=== PATIENT | male | born 1945 | race Caucasian/White ===

== ENCOUNTER 2019-12-05 16:17 | Emergency (ER) | payer OTHER, MEDICARE ==
--- OUTSIDE RECORDS SUMMARY | 2019-12-05 17:08 | XMS REPORT ---
:1945 Author Organization eClinicalWorks Care Team Providers Name Role Phone Norma Rodríguez Provider Role Unavailable Allergies No Known Allergies Problems Problem Type Condition Code Onset Dates Condition Statu s Problem Subcutaneous mass R22.9 Active Problem History of TIA (transient ischemic Z86.73 Active attack) Problem Urinary frequency R35.0 Active Problem Degenerative disc disease, lumbar M51.36 Active Problem Thrombocytopenia D69.6 Active Problem Erectile dysfunction, unspecified N52.9 Active erectile dysfunction type Problem Degenerative disc disease, cervical M50.30 Active Problem Carotid atherosclerosis, I65.29 Act hesham unspecified laterality Problem Chronic kidney disease, unspecified N18.9 Active CKD stage Problem Abdominal aortic aneurysm (AAA) I71.4 Active without rupture Problem BPH w/o urinary obs/LUTS N40.0 Act hesham Problem Elevated BP without diagnosis of R03.0 Active hypertension Problem OAB (overactive bladder) N32.81 Act hesham Problem Right arm pain M79.601 Active Problem Other chronic pain G89.29 Active Problem Left shoulder pain, unspecified M25.512 Active chronicity Problem Essential hypertension I10 Activ e Problem Pain of upper abdomen R10.10 Active Problem Diverticulosis of large intestine K57.30 Active without hemorrhage Problem Depression screening Z13.31 Active Problem Total bilirubin, elevated R17 Ac tive Problem Skin lesions L98.9 Active Problem Chronic pain syndrome G89.4 Active Problem Neck pain M54.2 Active Problem Low back pain M54.5 Active Problem Generalized abdominal pain R10.84 A ctive Assessment Carotid atherosclerosis, I65.29 Act hesham unspecified laterality Problem Bloating R14.0 Active Problem Nausea R11.0 Active Problem Personal history of other diseases Z87.19 Active of the digestive system Problem Other specified postprocedural Z98.890 Active states Problem Acute diverticulitis of intestine K57.92 Active Problem Change in bowel habits R19.4 Activ e Problem Left groin pain R10.32 Active Medications Medication Code System Code Instructions Start Date End Date Status Dosage Plavix NDC [id number] 75 MG Orally Once Active 1 tablet a day Results No Known Results Summary Purpose eClinicalWorks Submission
--- OUTSIDE RECORDS SUMMARY | 2019-12-05 17:08 | XMS REPORT | Continuity of Care Document ---
:[address] [facility] t Address [address] [place] [address] Care Team Providers Name Role Phone Unavailable Unavailable Unavailable Problems Condition Condition Condition Status Onset Resolution Last Treating Co mments Source Name Details Category Date Date Treatment Clinician Date Degenerati Degenerati Problem Active [facility]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 [facility] - disease, disease, Memori a cervical cervical l [facility] Generalize Generalize Problem Active [facility] - abdominal abdominal Tru rose mary pain pain l [facility] Personal Personal Problem [facility] of history of [facility] - other other Memoria diseases diseases l of the of the [facility] digestive digestive ent system system Clinics Acute Acute Problem Active [facility] diverticul diverticul T[facility]a kes - itis of itis of Memoria intestine intestine l [facility] Other Other Problem Active [facility] specified specified Luke s - postproced postproced Me moria ural ural l states states [facility] Abdominal Abdominal Problem Active [facility] aortic aortic [facility] - aneurysm aneurysm Memori a (AAA) (AAA) l without without Outpati rupture rupture ent Clinics Change in Change in Problem Active [facility] bowel bowel [facility] - habits habits Memoria l [facility] Bloating Bloating Problem [facility] Left groin Left groin Problem Active [facility] pain pain [facility] - Memoria l [facility] Nausea Nausea Problem Active [facility] Thrombocyt Thrombocyt Problem Active [facility] openia openia [facility] - Memoria l [facility] History of History of Problem Active [facility] TIA TIA [facility] - (transient (transient Me moria ischemic ischemic l attack) attack) [facility] Degenerati Degenerati Problem Active [facility]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 [facility] - disease, disease, Memori a lumbar lumbar l [facility] Chronic Chronic Problem Active [facility] kidney kidney [facility] - disease, disease, Memori a unspecifie unspecifie l d CKD d CKD Out[facility]i stage stage ent Clinics Elevated Elevated Problem Active [facility] BP without BP without [facility]a k[facility] - diagnosis diagnosis Tru rose mary of of l hypertensi hypertensi Ou tpati on on ent Clinics Urinary Urinary Problem Active [facility] frequency frequency Luke s - Mem[facility] l [facility] ent Clinics Total Total Problem Active [facility] bilirubin, bilirubin, [facility]a kes - elevated elevated Memori a l Outpati ent Clinics Carotid Carotid Diagnosis Active [facility] atheroscle atheroscle [facility] - rosis, rosis, Memoria unspecifie unspecifie l d d Outpati laterality laterality en t Clinics 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 [facility] - n, n, Memoria unspecifie unspecifie l d erectile 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 n type n type Clinics OAB OAB Problem Active [facility] (overactiv (overactiv [facility]a kes - e bladder) e bladder) Me moria l Outpati ent Clinics 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 [facility] urinary urinary [facility] - obs/LUTS obs/LUTS Memori a l Outpati ent Clinics Pain of Pain of Problem Active [facility] upper upper [facility]ukes - abdomen abdomen Memoria l [facility] Subcutaneo Subcutaneo Problem Active [facility] us mass us mass [facility] - [facility] l [facility] ent Clinics Diverticul Diverticul Problem Active [facility] osis of osis of Lukes - large large Memoria intestine intestine l without without Outpati hemorrhage hemorrhage en t Clinics Essential Essential Problem Active [facility] hypertensi hypertensi [facility]a kes - on on Memoria l Out[facility]i ent Clinics Chronic Chronic Problem Active [facility] pain pain [facility] - syndrome syndrome Memori a l [facility]pati ent Clinics Left Left Problem Active [facility] shoulder shoulder [facility] - pain, pain, Memoria unspecifie unspecifie l d d Outpati chronicity chronicity en t Clinics Neck pain Neck pain Problem Active [facility]ics Low back Low back Problem Active [facility] pain pain [facility] Right arm Right arm Problem Active [facility] pain pain [facility] Other Other Problem Active [facility] chronic chronic [facility] - pain pain [facility] ent [facility] Skin Skin Problem Active [facility] lesions lesions [facility] Depression Depression Problem Active C [facility] screening screening [facility] Allergies, Adverse Reactions, Alerts This patient has no known allergies or adverse reactions. Medications Ordered Filled Start Stop Current Ordering Indication Dosage Frequency Signature Comments Components Source Medication Medication Date Date Medication? Clinician (SIG) Name Name Plavix Plavix Yes Norma [address] [facility] Procedures This patient has no known procedures. Encounters Start End Encounter Admission Attending Care Care Encounter Source Date/Time Date/Time Type Type Clinicians Facility Department ID 2019-09-16 2019-09-16 [facility] [id number] [address] 10[facility]01[facility]00 10:01:00 [facility] ent [facility] 2019-09-02 2019-09-02 [facility] [id number] [address] 09:51:00 09:51:00 t Specialty/U Taina kes - Specialty rology Memori a /Urology Clinic l Clinic [facility] ent [facility] 2019-08-06 2019-08-06 [facility] [id number] [address] 09:00:00 09:00:00 t Specialty/U Taina kes - Specialty rology Memori a /Urology Clinic l [facility] ent [facility] 2019-07-27 2019-07-27 [facility] [id number] [address] 12[facility]43:00 12:43:00 [facility] ent [facility] 2019-07-23 2019-07-23 [facility] [id number] [address] 11:00:00 11:00:00 [facility] ent [facility] 2019-02-03 2019-02-03 [facility] [id number] 08:15:00 08:15:00 t Specialty/U Taina kes - Specialty rology Memori a /Urology Clinic l [facility] ent [facility] 2019-01-21 2019-01-21 [facility] [id number] 09:40:00 09:40:00 t [facility] Medicine Outpati ent Clinics 2019-01-14 2019-01-14 [facility] [id number] 08:00:00 08:00:00 t [facility] Medicine Outpati ent Clinics 2018-09-25 2018-09-25 [facility] [id number] 10:23:00 10:23:00 t Specialty/U Taina kes - Specialty rology Memori a /Urology Clinic l Clinic Outpati ent Clinics 2018-08-05 2018-08-05 [facility] [id number] 08:15:00 08:15:00 t Specialty/U Taina kes - Specialty rology Memori a /Urology Clinic l Clinic Outpati ent Clinics 2018-07-09 2018-07-09 [facility] [id number] 09:30:00 09:30:00 t [facility] Medicine Outpati ent Clinics 2018-06-25 2018-06-25 [facility] [id number] 09:45:00 09:45:00 t Specialty/U Taina kes - Specialty rology Memori a /Urology Clinic l Clinic Outpati ent Clinics 2018-01-23 2018-01-23 [facility] [id number] 08:30:00 08:30:00 t [facility] Outpati ent Clinics Results This patient has no known results.
[2019-12-05 17:30] LABS: Absolute Lymphocytes (CBC) 0.8 K/uL (0.7-4.9); Basophils % 0.8 % (0-1.3); Hematocrit 48.5 % (39.6-49.0); Lymphocytes % 13.3 % (15.3-44.8); MPV 9.6 fL (7.6-11.3); RBC Red Blood Cell Count 4.88 M/uL (4.33-5.43)
[2019-12-05 17:32] LABS: Protime INR 0.95
--- NOTE | 2019-12-05 17:38 | RAD REPORT ---
EXAM DESCRIPTION: RAD - Chest Single View - 12/05/2019 5:30 pm CLINICAL HISTORY: syncope Chest pain. COMPARISON: No comparisons FINDINGS: Portable technique limits examination quality. The lungs are grossly clear. The heart is normal in size. No displaced fractures. IMPRESSION: No acute intrathoracic process suspected.
[2019-12-05 17:55] LABS: ALT/SGPT 22 U/L (12-78); AST/SGOT 18 U/L (15-37); Alkaline Phosphatase 93 U/L (45-117); BUN Blood Urea Nitrogen 15 mg/dL (7-18); Bicarbonate 27 mmol/L (21-32); Bilirubin Direct 0.3 mg/dL (0-0.2); Glucose Level 99 mg/dL (74-106); Magnesium 1.9 mg/dL (1.8-2.4); NT PRO-BNP 70 pg/mL (<125); Potassium 3.2 mmol/L (3.5-5.1); Protein, Total 7.3 g/dL (6.4-8.2); Sodium Level 137 mmol/L (136-145); Troponin (Emerg Dept Use Only) < 0.02 ng/mL (0.0-0.045)
[2019-12-05] MEDS ORDERED: ACETAMINOPHEN 500 MG TAB ONE (18:11)
[2019-12-05] MEDS ORDERED: ONDANSETRON 4 MG/2 ML VIAL ONE (18:22)
--- NOTE | 2019-12-05 18:22 | RAD REPORT ---
EXAM DESCRIPTION: CT - Head Brain Wo Cont - 12/05/2019 5:57 pm CLINICAL HISTORY: HEADACHE Trauma, head injury COMPARISON: Orbits Wo Con W/ Mpr dated 12/05/2019 TECHNIQUE: All CT scans are performed using dose optimization technique as appropriate and may inclu de automated exposure control or mA/KV adjustment according to patient size. FINDINGS: Evidence of a right acute on chronic subdural hematoma is present a in the region of the r ight temporal fossa. The hematoma measures between 6-10 mm in thickness.No significant hydrocephalus. No midline shift. There is significant soft tissue swelling in the left periorbital region. Moderate hemorrhagic fluid is seen in the left maxillary antrum and sphenoid sinus. IMPRESSION: Right temporal fossa subdural hematoma is identified with acute components. No signific ant midline shift is seen. The findings were discussed with Dr. Powell on 12/05/2019 at 6:20 p.m. by telephone.
--- NOTE | 2019-12-05 18:26 | RAD REPORT ---
EXAM DESCRIPTION: CT - CTORBIT CLINICAL HISTORY: fall Fall, trauma, pain COMPARISON: No comparisons TECHNIQUE: Axial 2 mm thick images of the face were obtained with sagittal and coronal reconstructio n images. All CT scans are performed using dose optimization technique as appropriate and may include automated exposure control or mA/KV adjustment according to patient size. FINDINGS: Nondisplaced fracture is present involving the anterior and posterolateral left maxillary sinus holden. The globes and orbital contents are grossly unremarkable.Moderate soft tissue swelling is seen in the periorbital region on the left.Moderate hemorrhagic fluid is present in the left maxillary antrum an d sphenoid sinus. IMPRESSION: Nondisplaced fracture anterior and posterolateral left maxillary sinus wall. Moderate left periorbital soft tissue swelling.
[2019-12-05] MEDS ORDERED: MORPHINE 2 MG/ML SYR ONE ×2 (18:32→19:20)
--- NOTE | 2019-12-05 18:52 | EDPHYS ---
Physician Documentation [facility] Name: Volodymyr Armenta Age: 74 yrs Sex: Male : 1945 Arrival Date: 12/05/2019 Time: 16:18 Bed 19 Private MD: ED Physician Manny Powell HPI: 12/05 08:07 This 74 yrs old Male presents to ER via EMS with complaints of FAINTED. kdr 08:07 The patient has experienced syncope, collapsed. Onset: The symptoms/episode kdr began/occurred suddenly, just prior to arrival. Duration: This was a single episode, that lasted an unknown period of time. Context: the episode(s) was witnessed, by a bystander, occurred at a park, occurred while the patient was walking, Just prior to the episode the patient experienced unknown symptoms. Associated injury: Head/face: left eye, contusion, pain, swelling. Associated signs and symptoms: The patient has no apparent associated signs or symptoms. Current symptoms: headache, that is mild. The patient has experienced a previous episode, Recently passed out once without injury. The patient has not recently seen a physician. Historical: - Allergies: 12/04 16:34 No Known Allergies; ah - Home Meds: 16:34 clopidogrel oral oral [Active]; Flomax Oral [Active]; - PMHx: 16:34 TIA; - PSHx: 16:34 Hernia repair; ah - Immunization history:: Adult Immunizations up to date. - Social history:: Smoking status: Patient denies any tobacco usage or history of. Patient uses alcohol, on a daily basis. street drugs, marijuana. - Immunization history: Last tetanus immunization: < 5 years ago. ROS: 12/05 08:07 Constitutional: Negative for fever, chills, and weight loss, ENT: Negative for injury, kdr pain, and discharge, Neck: Negative for injury, pain, and swelling, Cardiovascular: Negative for chest pain, palpitations, and edema, Respiratory: Negative for shortness of breath, cough, wheezing, and pleuritic chest pain, Abdomen/GI: Negative for abdominal pain, nausea, vomiting, diarrhea, and constipation, Back: Negative for injury and pain, : Negative for injury, bleeding, discharge, and swelling, MS/Extremity: Negative for injury and deformity, Skin: Negative for injury, rash, and discoloration, Psych: Negative for depression, anxiety, suicide ideation, homicidal ideation, and hallucinations, Allergy/Immunology: Negative for hives, rash, and allergies, Endocrine: Negative for neck swelling, polydipsia, polyuria, polyphagia, and marked weight changes, Hematologic/Lymphatic: Negative for swollen nodes, abnormal bleeding, and unusual bruising. Eyes: Positive for injury or acute deformity, pain, swelling, of the left upper eyelid, left outer canthus and left inner canthus. Cardiovascular: Positive for chest pain, with cough, with movement. Exam: 08:07 Constitutional: This is a well developed, well nourished patient who is awake, alert, kdr and in no acute distress. Neck: Trachea midline, no thyromegaly or masses palpated, and no cervical lymphadenopathy. Supple, full range of motion without nuchal rigidity, or vertebral point tenderness. No Meningismus. Chest/axilla: Normal chest wall appearance and motion. Left lateral chest pain with movmetn and brathing. No lesions are appreciated. Cardiovascular: Regular rate and rhythm with a normal S1 and S2. No gallops, murmurs, or rubs. Normal PMI, no JVD. No pulse deficits. Respiratory: Lungs have equal breath sounds bilaterally, clear to auscultation and percussion. No rales, rhonchi or wheezes noted. No increased work of breathing, no retractions or nasal flaring. Abdomen/GI: Soft, non-tender, with normal bowel sounds. No distension or tympany. No guarding or rebound. No evidence of tenderness throughout. Back: No spinal tenderness. No costovertebral tenderness. Full range of motion. Skin: Warm, dry with normal turgor. Normal color with no rashes, no lesions, and no evidence of cellulitis. 08:07 Eyes: Periorbital structures: erythema, swelling, that is moderate, on the left supraorbital ridge, left upper eyelid, medial canthus of left eye and lateral canthus of left eye, contusion, that is moderate, on the left supraorbital ridge, left upper eyelid, medial canthus of left eye and lateral canthus of left eye, ecchymosis, that is moderate, on the left supraorbital ridge, left upper eyelid, medial canthus of left eye and lateral canthus of left eye. Vital Signs: 06/19 16:15 BP 140 / 99; Pulse 75; Resp 13; Pulse Ox 100% ; Weight 65.77 kg; Height 6 ft. 0 in. (182.88 cm); 16:30 BP 115 / 90; Pulse 68; Resp 16; Pulse Ox 100% ; ah 17:00 BP 142 / 89; Pulse 70; Resp 15; Pulse Ox 100% ; ah 17:30 BP 160 / 88; Pulse 70; Resp 20; Pulse Ox 100% ; ah 18:00 BP 146 / 99; Pulse 68; Resp 19; Pulse Ox 100% ; ah 18:30 BP 127 / 86; Pulse 63; Resp 18; Pulse Ox 100% ; 18:52 Temp 97.7; ah 19:00 BP 116 / 96; Pulse 65; Resp 24; Pulse Ox 100% ; ah 16:15 Body Mass Index 19.67 (65.77 kg, 182.88 cm) Union Coma Score: 18:30 Eye Response: spontaneous(4). Verbal Response: oriented(5). Motor Response: obeys hb commands(6). Total: 15. Trauma Score (Adult): 16:30 Eye Response: spontaneous(1); Verbal Response: oriented(1); Motor Response: obeys hb commands(2); Systolic BP: > 89 mm Hg(4); Respiratory Rate: 10 to 29 per min(4); Union Score: 15; Trauma Score: 12 17:30 Eye Response: spontaneous(1); Verbal Response: oriented(1); Motor Response: obeys hb commands(2); Systolic BP: > 89 mm Hg(4); Respiratory Rate: 10 to 29 per min(4); Union Score: 15; Trauma Score: 12 MDM: 18:51 Patient medically screened. [facility] 12/05 08:07 Data reviewed: vital signs, nurses notes, lab test result(s), radiologic studies. kdr Counseling: I had a detailed discussion with the patient and/or guardian regarding: the historical points, exam findings, and any diagnostic results supporting the discharge/admit diagnosis, lab results, radiology results, the need to transfer to another facility. 12/04 16:36 Order name: Glucose, Ancillary Testing; Complete Time: 17:52 EDMS 12/04 16:56 Order name: Basic Metabolic Panel; Complete Time: 18:34 kdr 12/04 16:56 Order name: CBC with Diff; Complete Time: 17:52 kdr 12/04 16:56 Order name: LFT's; Complete Time: 18:34 kdr 12/04 16:56 Order name: Magnesium; Complete Time: 18:34 kdr 12/04 16:56 Order name: NT PRO-BNP; Complete Time: 18:34 kdr 12/04 16:56 Order name: PT-INR; Complete Time: 17:52 kdr 12/04 16:56 Order name: Troponin (emerg Dept Use Only); Complete Time: 18:34 kdr 12/04 16:56 Order name: XRAY Chest (1 view); Complete Time: 17:52 kdr 12/04 17:39 Order name: CT Head Brain wo Cont; Complete Time: 18:34 kdr 12/04 17:53 Order name: Orbits Wo Con W/ Mpr; Complete Time: 18:34 EDMS 12/04 16:56 Order name: EKG; Complete Time: 16:57 kdr 12/04 16:56 Order name: Cardiac monitoring; Complete Time: 17:04 kdr 12/04 16:56 Order name: EKG - Nurse/Tech; Complete Time: 17:04 kdr 12/04 16:56 Order name: IV Saline Lock; Complete Time: 17:09 kdr 12/04 16:56 Order name: Labs collected and sent; Complete Time: 17:09 kdr 12/04 16:56 Order name: O2 Per Protocol; Complete Time: 17:04 kdr 12/04 16:56 Order name: O2 Sat Monitoring; Complete Time: 17:04 kdr Administered Medications: 12/04 18:10 Drug: Tylenol 1000 mg Route: PO; ah 19:30 Follow up: Response: No adverse reaction ah 18:20 Drug: Zofran (Ondansetron) 4 mg Route: IVP; Site: right antecubital; ah 19:30 Follow up: Response: No adverse reaction ah 18:25 Drug: morphine 2 mg Route: IVP; Site: right forearm; ah 19:30 Follow up: Response: No adverse reaction 19:03 Drug: Ancef 1 grams Route: IVPB; Site: right forearm; ah 19:29 Follow up: Response: No adverse reaction; IV Status: Completed infusion ah 19:05 Drug: Keppra 1000 mg Route: IV; Rate: calculated rate; Site: right antecubital; hb 19:30 Follow up: Response: No adverse reaction; IV Status: Completed infusion 19:05 Drug: Tetanus-Diphtheria Toxoid Adult 0.5 ml {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 Exp: hb 08/01/2021. Lot #: [id number]. } Route: IM; Site: right deltoid; 19:30 Follow up: Response: No adverse reaction Disposition: 12/05/19 18:51 Transfer ordered to [facility]. Diagnosis are Right temporal subdural hematoma, left maxillary sinus fracture, Syncope and collapse. - Reason for transfer: Higher level of care. - Accepting physician is Dr. Chawla. - Condition is Serious. - Problem is new. - Symptoms have improved. Signatures: Dispatcher [employer] EDManny Richardson MD MD [facility] Jessica Perez, RN RN Daina Cruz RN RN Corrections: (The following items were deleted from the chart) 18:52 18:51 12/05/2019 18:51 Transfer ordered to [facility]. Diagnosis is Right kdr temporal subdural hematoma, left maxillary sinus fracture. Reason for transfer: Higher level of care. Accepting physician is Dr. Chawla. Condition is Serious. Problem is new. Symptoms have improved. kdr 19:31 18:52 12/05/2019 18:51 Transfer ordered to [facility]. Diagnosis is Right ah temporal subdural hematoma, left maxillary sinus fracture; Syncope and collapse. Reason for transfer: Higher level of care. Accepting physician is Dr. Chawla. Condition is Serious. Problem is new. Symptoms have improved. kdr
--- NOTE | 2019-12-05 18:52 | ER ---
Nurse's Notes [facility] Name: Volodymyr Armenta Age: 74 yrs Sex: Male : 1945 Arrival Date: 12/05/2019 Time: 16:18 Bed 19 Private MD: Diagnosis: Right temporal subdural hematoma, left maxillary sinus fracture;Syncope and collapse Presentation: 12/04 16:15 Chief complaint: EMS states[place] wearing sunglasses when he fell. Pt has abrasion to nose and left eye is discolored and swollen. Mild confusion and headache 2/10. Vitals WNL. Coronavirus screen: Proceed with normal triage. Ebola Screen: No symptoms or risks identified at this time. 16:15 Method Of Arrival: [facility] 16:15 Initial Sepsis Screen: Does the patient meet any 2 criteria? No. Patient's initial sepsis screen is negative. Does the patient have a suspected source of infection? No. Patient's initial sepsis screen is negative. Risk Assessment: Do you want to hurt yourself or someone else? Patient reports no desire to harm self or others. Onset of symptoms was December 05, 2019. 16:15 Acuity: BRYAN 3 16:30 Trauma event details: Injury occurred in the [facility], Injury occurred: at home. Injury occurred: December 05, 2019. 16:30 Care prior to arrival: None. Mechanism of Injury: Fall from standing position. Historical: - Allergies: 16:34 No Known Allergies; - Home Meds: 16:34 clopidogrel oral oral [Active]; Flomax Oral [Active]; - PMHx: 16:34 TIA; - PSHx: 16:34 Hernia repair; - Immunization history:: Adult Immunizations up to date. - Social history:: Smoking status: Patient denies any tobacco usage or history of. Patient uses alcohol, on a daily basis. street drugs, marijuana. - Immunization history: Last tetanus immunization: < 5 years ago. Screenin:45 Abuse screen: Denies threats or abuse. Nutritional screening: No deficits noted. Tuberculosis screening: No symptoms or risk factors identified. Fall Risk None identified. Primary Survey: 16:30 NO uncontrolled hemorrhage observed. A: The patient is alert. Airway: patent, No hb supplemental oxygen in use on arrival. Breathing/Chest: Respiratory pattern: regular, Respiratory effort: spontaneous, unlabored, Chest inspection: symmetrical rise and fall of the chest. Circulation: Skin color: pink, Skin temperature: warm, dry. Disability Alert. Exposure/Environment: There is no evidence of uncontrolled external bleeding. Obvious injury(ies) are noted at this time: left periorbital bruising and swelling, abrasion noted to bridge of nose. Secondary Survey: 16:30 HEENT: Face Other left periorbital bruising and swelling Nose: abrasion and swelling hb noted to bridge of nose. Assessment: 16:45 General: Appears in no apparent distress. uncomfortable, Behavior is calm, cooperative. hb Pain: Pain currently is 6 out of 10 on a pain scale. Neuro: Level of Consciousness is awake, alert, obeys commands, Oriented to person, place, time, situation. EENT: left periorbital bruising and swelling, abrasion and swelling noted to bridge of nose. Cardiovascular: Heart tones S1 S2 present Capillary refill < 3 seconds Patient's skin is warm and dry. Respiratory: Airway is patent Trachea midline Respiratory effort is even, unlabored, Respiratory pattern is regular, symmetrical, Breath sounds are clear bilaterally. GI: Abdomen is non-distended, Bowel sounds present X 4 quads. Abd is soft and non tender X 4 quads. : No signs and/or symptoms were reported regarding the genitourinary system. Derm: Skin is pink, warm \T\ dry. left periorbital bruising and swelling, abrasion and swelling noted to bridge of nose. Musculoskeletal: Capillary refill < 3 seconds. 17:38 General: Appears uncomfortable, Behavior is calm, cooperative, appropriate for age. ah Pain: Complains of pain in left eye and left side of forehead. Neuro: Level of Consciousness is awake, alert, obeys commands, Oriented to person, place, time, situation, Lay Out And Detail Drafter are equal bilaterally Speech is normal, Facial symmetry appears normal, Reports a syncopal episode. Cardiovascular: Heart tones S1 S2 present Capillary refill < 3 seconds Patient's skin is warm and dry. Rhythm is sinus bradycardia. Respiratory: Airway is patent Respiratory effort is even, unlabored. Derm: Skin has lesions on top of nose Skin is pink, warm \T\ dry. Bruising that is dark purple, on face and left eye. 17:50 Reassessment: Pt to CT scan via stretcher. 18:10 Reassessment: Pt given Tylenol 1gm for headache. Cleaned abrasions on nose and face ah with NS. Pt tolerated well. 18:15 Reassessment: Pt vomiting at this time. informed and received order for zofran. Zofran given. Pt alert and oriented. Continues to complain of headache. 18:25 Reassessment: Pt with c/o of worsening headache. Morphine 2mg given IVP at this time per order. 19:28 Reassessment: Life flight here to receive and transport patient. Report given. Vital Signs: 16:15 BP 140 / 99; Pulse 75; Resp 13; Pulse Ox 100% ; Weight 65.77 kg; Height 6 ft. 0 in. (182.88 cm); 16:30 BP 115 / 90; Pulse 68; Resp 16; Pulse Ox 100% ; 17:00 BP 142 / 89; Pulse 70; Resp 15; Pulse Ox 100% ; 17:30 BP 160 / 88; Pulse 70; Resp 20; Pulse Ox 100% ; 18:00 BP 146 / 99; Pulse 68; Resp 19; Pulse Ox 100% ; 18:30 BP 127 / 86; Pulse 63; Resp 18; Pulse Ox 100% ; 18:52 Temp 97.7; 19:00 BP 116 / 96; Pulse 65; Resp 24; Pulse Ox 100% ; 16:15 Body Mass Index 19.67 (65.77 kg, 182.88 cm) Echo Coma Score: 18:30 Eye Response: spontaneous(4). Verbal Response: oriented(5). Motor Response: obeys hb commands(6). Total: 15. Trauma Score (Adult): 16:30 Eye Response: spontaneous(1); Verbal Response: oriented(1); Motor Response: obeys hb commands(2); Systolic BP: > 89 mm Hg(4); Respiratory Rate: 10 to 29 per min(4); Echo Score: 15; Trauma Score: 12 17:30 Eye Response: spontaneous(1); Verbal Response: oriented(1); Motor Response: obeys hb commands(2); Systolic BP: > 89 mm Hg(4); Respiratory Rate: 10 to 29 per min(4); Echo Score: 15; Trauma Score: 12 ED Course: 16:18 Patient arrived in ED. bp1 16:26 Daina Cruz, RN is Primary Nurse. ah 16:33 Triage completed. ah 16:33 Manny Powell MD is Attending Physician. kdr 16:45 physical therapy resident on. Pulse ox on. NIBP on. jp3 16:45 Patient has correct armband on for positive identification. Bed in low position. Call jp3 light in reach. Side rails up X 1. Adult w/ patient. Verbal reassurance given. 17:00 Initial lab(s) drawn, by me, sent to lab. EKG done, by ED staff, reviewed by Manny Powell MD X-ray(s) taken. Inserted saline lock: 20 gauge in right forearm, using aseptic technique. Blood collected. 17:08 Patient maintains SpO2 saturation greater than 95% on room air. jp3 17:33 XRAY Chest (1 view) In Process Unspecified. EDMS 17:38 Notified ED physician of other of patient headache becoming worse. ah 17:41 ED physician to see patient. ah 17:57 CT Head Brain wo Cont In Process Unspecified. EDMS 17:58 Orbits Wo Con W/ Mpr In Process Unspecified. EDMS 18:20 attempted transfer to [facility]. bd 19:15 Thermoregulation: warm blanket given to patient. hb 19:15 Patient placed. hb 19:31 No provider procedures requiring assistance completed. Patient transferred, IV remains ah in place. Administered Medications: 18:10 Drug: Tylenol 1000 mg Route: PO; ah 19:30 Follow up: Response: No adverse reaction ah 18:20 Drug: Zofran (Ondansetron) 4 mg Route: IVP; Site: right antecubital; ah 19:30 Follow up: Response: No adverse reaction ah 18:25 Drug: morphine 2 mg Route: IVP; Site: right forearm; ah 19:30 Follow up: Response: No adverse reaction 19:03 Drug: Ancef 1 grams Route: IVPB; Site: right forearm; ah 19:29 Follow up: Response: No adverse reaction; IV Status: Completed infusion 19:05 Drug: Keppra 1000 mg Route: IV; Rate: calculated rate; Site: right antecubital; hb 19:30 Follow up: Response: No adverse reaction; IV Status: Completed infusion 19:05 Drug: Tetanus-Diphtheria Toxoid Adult 0.5 ml {Privacy Attorney: Coskata. Exp: hb 08/01/2021. Lot #: [id number]. } Route: IM; Site: right deltoid; 19:30 Follow up: Response: No adverse reaction Intake: 17:00 PO: 0ml; Total: 0ml. hb Output: 17:00 Urine: 0ml; Total: 0ml. hb Outcome: 18:51 ER care complete, transfer ordered by . kdr 19:15 Transferred by helicopter to [facility]. hb 19:15 critical 19:15 Patient's length of stay in the Emergency Department was greater than 2 hours. awaiting transport to higher level of carePatient's length of stay extended due to 19:31 Patient left the ED. Signatures: Dispatcher [employer] EDMS Mely Chavez Kevin, MD MD kdr Baxter, Heather, RN RN Bertrand Boone jp3 Daina Cruz, RN RN Etelvina Alicea [facility]
[2019-12-05] MEDS ORDERED: LEVETIRACETAM 500 MG/5 ML VIAL IV ONE (19:02)
[2019-12-05] MEDS ORDERED: TETANUS & DIPHTHERIA TOX,ADULT 0.5 ML VIAL ONE (19:03)
[2019-12-05] MEDS ORDERED: CEFAZOLIN/SWI 1gm 1 GM/10 ML SYR ONE (19:03)
[2019-12-05] MEDS ORDERED: NA CHLORIDE 0.9% 100 ML IV ONE (19:05)
[2019-12-05 20:10] VITALS: O2SAT 100
[2019-12-05 20:16] VITALS: TEMP 97.7
[2019-12-05 20:18] VITALS: BP 116/96
--- NOTE | 2019-12-06 05:54 | EKG ---
Test Date: 2019-12-05 Test Time: 17:00:20 Workforce Development Program Director: ANABELL MEASUREMENT RESULTS: Intervals: Rate: 68 ID: [id number] QRSD: 70 QT: 418 QTc: 444 [place]: P: 101 ID: [id number] QRS: 17 T: 60 INTERPRETIVE STATEMENTS: Sinus rhythm with marked sinus arrhythmia Septal infarct, age undetermined Abnormal ECG No previous ECG available for comparison Electronically Signed On 12-06-19 05:53:36 CDT by Jacques Vasquez
== END 2019-12-05 19:31 | disposition short-term general hospital (02) ==
LOC: ER 16:17
DX: S02.40DA Maxillary fracture, left side, initial encounter for closed fracture (principal); S06.5X9A Traumatic subdural hemorrhage with loss of consciousness of unspecified duration, initial encounter; X58.XXXA Exposure to other specified factors, initial encounter; Y93.9 Activity, unspecified; Y92.832 Beach as the place of occurrence of the external cause; Z23 Encounter for immunization
CPT/HCPCS: 93005; 85025; 80048; 36415; 83735; 85610; 82947; 80076; 84484; 83880; 70450; 70480; 76377; 71045; 90471; 90714; 99285; J2270; J1953; J0690; J2405

== ENCOUNTER 2019-12-11 05:55 | Inpatient (IN) | payer OTHER, MEDICARE ==
--- OUTSIDE RECORDS SUMMARY | 2019-12-11 05:58 | XMS REPORT | Continuity of Care Document ---
:1945 Author Organization [employer] Care Team Providers Name Role Phone [employer] Unavailable Un available Problems Problem Status Onset Classification Date Comments Sourc e Date Reported SAH Active [place] [id number] [facility] ACUTE Active [facility] SUBDURAL 0 Medical HEMATOMA Center TRAUM SUBDR Active [facility] HEM W LOC OF Medical UNSP Center DURATION, Medications Medication Details Route Status Patient Ordering Order Source Instructions Provider Date Levetiracetam 500 mg = 1 tab, Active [place] 500 MG Oral PO, Q12H, # 12 2019 Medic al Tablet [Keppra] tab, 0 Center Refill(s) Tamsulosin 0.4 mg = 1 cap, Active [place] hydrochloride PO, Daily, # 30 2019 [place] dical 0.4 MG Oral cap, 0 Center Capsule [Flomax] Refill(s) clopidogrel PO, 0 Refill(s) Inactive [address] Center heparin sodium, Notes: porcine Inactive [facility] porcine 2500 heparin [facility] Medical UNT/ML Center Injectable Solution Hydralazine Notes: (Same No Longer [place] as: Apresoline) 2019 Medical Push over 5 Center minutes Labetalol 10 mg, 2 mL, [place] Route: IVP, 2019 Medical Drug form: INJ, Center Q1H, Dosing Weight 65.909, kg, PRN Hypertension, Start date: 12/06/19 14:41:00 CDT, Duration: 30 day, Stop date: 01/05/20 14:40:00 CDT, 0 Lidocaine 0.05 Notes: Apply No Longer [place] MG/MG only once for 2019 Medical Transdermal up to 12 hours Cente r Patch in a 24-hour period (12 hours on and 12 hours off). (Same as: Lidoderm) "Remove old patch before application of new patch" Sodium Chloride 1,000 mL, 1,000 Inactive [place] 0.9% (Bolus) IV ml/hr, Infuse 2019 Me dical Over: 1 hr, Center Route: IV, 1,000, Drug form: INJ, ONCE, Priority: STAT, Dosing Weight 65.909 kg, Start date: 12/06/19 10:36:00 CDT, Stop date: 12/06/19 10:36:00 CDT, 0 normal saline 1,000 mL, Rate: No Longer [place] Angel 0.9% IV 1,000 mL 75 ml/hr, 2019 Medic al Infuse over: Center 13.3 hr, Route: IV, Dosing Weight 65.909 kg, Total Volume: 1,000, Start date: 12/06/19 10:34:00 CDT, Duration: 30 day, Stop date: 01/05/20 10:33:00 CDT, 1.83, m2, 0 Protonix Notes: Tablet [place] Longer [place] should not be Active 2019 Medical chewed or Center crushed. (Same as: Protonix) Diclofenac Notes: Same as: No Longer [place] Sodium 0.01 Voltaren Gel Active 2019 Medical MG/MG Topical Center Gel Levetiracetam Notes: (Same No Longer [place] 500 MG Oral as:Keppra) 2019 Medical Tablet [Keppra] Center Levetiracetam Notes: Same as Inactive [place] Keppra Mix 2020 Medical with 100 mL NS, Center LR or D5W MEDICATION WASTE Product Size: 500 mg Product Wasted: ___ mg Docusate Notes: (Same No Longer [place] as: Colace) (Do 2019 Medical Not Crush) Center sennosides, HALFWAY Notes: (Same No Longer H [place] as: Senokot) Active 2020 Medical Center Saline Flush Notes: (Same No Longer [place] 0.9% as: BD 2019 Medical Posiflush) Center Potassium Notes: (Same [place] Longer [place] Chloride as: KCL) 2019 Medical Infuse no Center faster than 10 mEq/hr if given peripherally. sodium phosphate Notes: Infuse No Longer [place] over 4 hour. Do 2019 Medical not infuse Center phosphorous concurrently in the same line as TPN or IVF that contains calcium. For double lumen central lines, phosphorous may be infused in a separate lumen from TPN. potassium Notes: ([facility] phosphate as: K 2019 Medical Phosphate.) Do Center not infuse phosphorous concurrently in the same line as TPN or IVF that contains calcium. For double lumen central lines, phosphorous may be infused in a separate lumen from TPN. 1 mMol phoshate has 1.47 mEq potassium Infuse over 4 hours potassium Notes: (Same No Longer [facility] s phosphate-sodium as: Phos-NaK) 2019 edical phosphate 250 Each 1.5 gm pkt Ce nter mg-280 mg-160 mg has 250mg oral powder for phosphorous. reconstitution Mix w/2.5oz water and stir. Magnesium Notes: WASTE: No Longer [facility] as Sulfate F/P - Sink; E - 2019 [facility] Bin Magnesium Oxide Notes: (Same No Longer [facility] as: Mag-Ox 400) 2019 [facility] Magnesium oxide Center [id number] elemental magnesium Dose=____mg magnesium oxide (___mg elemental magnesium) Calcium Notes: WASTE: No Longer [facility] Gluconate F/P - Sink; E - 2019 Medica l [facility] Bin Calcium Notes: (Same No Longer [facility] Carbonate 500 MG As: Tums) 2019 Medic al Chewable Tablet Calcium Center Carbonate 500 mg = 200 mg elemental calcium Dose = mg calcium carbonate ( mg elemental calcium) Acetaminophen Notes: Max [place] Longer [place] acetaminophen 2019 Medical 4000 mg/day (4 Center gm/day). (Same as: Tylenol Extra Strength) Morphine Notes: (Same Inactive [facility] as:MORPhine 2019 Medical Sulfate) Center Robaxin Notes: (Same No Longer [facility] as:Robaxin) Active 2019 Medical Center tramadol Notes: Not to [place]er [place] hydrochloride 50 exceed 2019 Medical MG Oral Tablet 400mg/day. Center (Same As: Ultram) Fentanyl Notes: (Same Inactive [facility] as: Sublimaze) [facility] Medical Preservative Center free. Sodium Chloride 1,000 mL, Rate: Inactive [facility] 0.9% IV 1,000 mL 50 ml/hr, 2019 Medic al Infuse over: 20 Center hr, Route: IV, Dosing Weight 65.909 kg, Total Volume: 1,000, Start date: 12/06/19 0:39:00 CDT, Duration: 30 day, Stop date: 01/05/20 0:38:00 CDT, 1.83, m2, 0 Acetaminophen Notes: Do not Inactive [facility] exceed 4 [facility] Medical gm/day. (Same Center as: Tylenol) Bisacodyl Notes: (Same [place] Longer [place] As: Dulcolax, Active 2019 [facility] Bisco-Lax) Center Ondansetron Notes: (Same [place] Long[place] as: Zofran) Active [address] [place] [address] MEDICATION Center WASTE Product Size: 4 mg Product Wasted: ___ mg Saline Flush Notes: (Same No Longer [place] 0.9% as: BD Active [address] [place] [address] Posiflush) Center Iohexol 100 mL, Route: Inactive [facility] IVP, Drug Form: 2019 Medical SOLN, kg, Center ONCALL, STAT, Start date: 12/06/19 0:03:00 CDT, Duration: 1 doses or times, Dose = 2.2ml/kg, Max dose = 100ml -- "To be infused by Radiology Staff ONLY" Keppra 1,000 mg, Inactive [facility] Route: IVPB, 2019 Medical ONCE, kg, Center Priority: STAT, Start date: 12/05/19 20:32:00 CDT, Stop date: 12/05/19 20:32:00 CDT Allergies, Adverse Reactions, Alerts No Known Medication Allergies Immunizations No Data Provided for This Section Results Order Name Results Value Reference Date Interpretation Comments Eloise rce Range CHEM PANEL Magnesium 2.0 1.8 - 2.4 12/06 [facility] Lvl /[address] [place] [address] CHEM PANEL Glucose Lvl 91 70 - 99 12/[address] CHEM PANEL BUN 11 7 - 22 12/[address] CHEM PANEL Creatinine 1.14 0.50 - 12/06 [place] Lvl 1.40 [facility] CHEM PANEL Sodium Lvl 141 135 - 145 12/[address] CHEM PANEL Potassium 3.2 3.5 - 5.1 12/06 [facility] CHEM PANEL Chloride Lvl 108 95 - 109 12/[address] [facility]2019 [facility] CHEM PANEL CO2 23 24 - 32 12/[address] CHEM PANEL Calcium Lvl 8.1 8.5 - 10.5 12/06 [facility] CHEM PANEL AGAP 13.2 10.0 - 12/06 [facility] 20.0 [facility] CHEM PANEL eGFR 63 12/06 Result Comment: The Medical eGFR is Center calculated using the CKD-EPI formula. In most young, healthy individuals the eGFR will be >90 mL/min/1.73m2 . The eGFR declines with age. An eGFR of 60-89 may be normal in some populations, particularly the elderly, for whom the CKD-EPI formula has not been extensively validated. Use of the eGFR is not recommended in the following populations:< br/>
Ann viduals with unstable creatinine concentration s, including patients and those with serious co-morbid conditions.<b r/>
Patie nts with extremes in muscle mass or diet.

The data above are obtained from the National Kidney Disease Education Program (NKDEP) which additionally recommends that when the eGFR is used in patients with extremes of body mass index for purposes of drug dosing, the eGFR should be multiplied by the estimated BMI. CHEM PANEL Total 6.3 6.4 - 8.4 12/06 [facility] Protein 2019 [facility] CHEM PANEL Albumin Lvl 3.2 3.5 - 5.0 12/[address] [facility]2019 [facility] CHEM PANEL ALT 13 0 - 65 12/[address] CHEM PANEL AST 13 0 - 37 12/[address] CHEM PANEL Alk Phos 73 39 - 136 12/[address] CHEM PANEL Bili Total 1.2 0.2 - 1.3 12/[address] CHEM PANEL Bili Direct 0.3 0.0 - 0.3 12/[address] CHEM PANEL Bili 0.9 0.0 - 1.0 12/06 [facility] Indirect [address] CHEM PANEL Globulin 3.1 2.7 - 4.2 12/[address] CHEM PANEL A/G Ratio 1.0 0.7 - 1.6 12/[address] CHEM PANEL Phosphorus 2.3 2.5 - 4.5 12/[address] HEMATOLOGY Segs 72.7 45.0 - 12/06 [place] 75.0 /[address] [place] [address] HEMATOLOGY Lymphocytes 14.0 20.0 - 12/06 [place] 40.0 /2019 [facility] HEMATOLOGY Monocytes 11.7 2.0 - 12.0 12/[address] HEMATOLOGY Eosinophils 1.3 0.0 - 4.0 12/[address] HEMATOLOGY Basophils 0.3 0.0 - 1.0 12/[address] HEMATOLOGY Neutrophils 4.8 1.5 - 8.1 12/06 [facility] /[address] [place] [address] HEMATOLOGY Lymphocytes 0.9 1.0 - 5.5 12/[address] HEMATOLOGY Monocytes # 0.8 0.0 - 0.8 12/[address] HEMATOLOGY Eosinophils 0.1 0.0 - 0.5 12/[address] HEMATOLOGY Macrocyte 1+ None Seen 12/06 [facility] *ABN* /2019 [facility] (12/07/19 5:09 AM) [place] HEMATOLOGY WBC 6.7 3.7 - 10.4 12/[address] HEMATOLOGY RBC 4.19 4.70 - 12/06 [place] 6.10 /2019 [facility] HEMATOLOGY Hgb 14.4 14.0 - 12/06 [place] 18.0 /2020 [facility] HEMATOLOGY Hct 42.0 42.0 - 12/06 [place] 54.0 /2019 [facility] HEMATOLOGY MCV 100.3 80.0 - 12/06 [place] 94.0 /[address] [place] [address] HEMATOLOGY MCH 34.4 27.0 - 12/06 [place] 31.0 /2019 [facility] HEMATOLOGY MCHC 34.3 32.0 - 12/06 [place] 36.0 /[address] [place] [address] HEMATOLOGY RDW 13.8 11.5 - 12/06 [place] 14.5 /2020 [facility] HEMATOLOGY Platelet 138 133 - 450 12/[address] HEMATOLOGY MPV 9.3 7.4 - 10.4 12/[address] PARATHYROID Ca Ion WB 1.03 1.05 - 12/06 [facility] PROFILE 1.25 [facility] PARATHYROID Ca Norm WB 1.03 1.05 - 12/06 [facility] PROFILE 1.25 [facility] CARDIAC Troponin-I <0.02 0.00 - 12/05 [facility] ENZYMES 0.40 [facility] CHEM PANEL Glucose Lvl 96 70 - 99 12/[address] CHEM PANEL BUN 14 7 - 22 12/[address] CHEM PANEL Creatinine 1.52 0.50 - 12/05 [facility] Lvl 1.40 [facility] CHEM PANEL Sodium Lvl 137 135 - 145 12/[address] CHEM PANEL Potassium 3.6 3.5 - 5.1 12/05 Result [facility] /2019 Comment: [facility] Center Slightly Hemolyzed. CHEM PANEL Chloride Lvl 105 95 - 109 12/[address] CHEM PANEL CO2 24 24 - 32 12/[address] CHEM PANEL Calcium Lvl 8.8 8.5 - 10.5 12/[address] CHEM PANEL Total 6.6 6.4 - 8.4 12/05 [facility] Protein [address] CHEM PANEL Albumin Lvl 3.5 3.5 - 5.0 12/[address] CHEM PANEL ALT 18 0 - 65 12/[address] CHEM PANEL AST 19 0 - 37 12/[address] CHEM PANEL Alk Phos 78 39 - 136 12/[address] CHEM PANEL Bili Total 1.8 0.2 - 1.3 12/[address] CHEM PANEL AGAP 11.6 10.0 - 12/05 [place] 20.0 [facility] CHEM PANEL B/C Ratio 9 6 - 25 12/[address] CHEM PANEL Globulin 3.1 2.7 - 4.2 12/[address] CHEM PANEL A/G Ratio 1.1 0.7 - 1.6 12/[address] CHEM PANEL eGFR 45 12/05 Result MH Comment: The Medical eGFR is Center calculated using the CKD-EPI formula. In most young, healthy individuals the eGFR will be >90 mL/min/1.73m2 . The eGFR declines with age. An eGFR of 60-89 may be normal in some populations, particularly the elderly, for whom the CKD-EPI formula has not been extensively validated. Use of the eGFR is not recommended in the following populations:< br/>
Ann viduals with unstable creatinine concentration s, including patients and those with serious co-morbid conditions.<b r/>
Patie nts with extremes in muscle mass or diet.

The data above are obtained from the National Kidney Disease Education Program (NKDEP) which additionally recommends that when the eGFR is used in patients with extremes of body mass index for purposes of drug dosing, the eGFR should be multiplied by the estimated BMI. IMMUNOLOGY Coronavirus Not Detected Not 12/05 [place] (COVID-19) (12/06/19 5:59 AM) [facility]ed [facility] CHEM PANEL Glucose Lvl 119 70 - 99 12/05 [facility] CHEM PANEL BUN 13 7 - 22 12/05 [facility]2019 [facility] CHEM PANEL Creatinine 1.55 0.50 - 12/05 [facility] 1.40 [facility] CHEM PANEL Sodium Lvl 137 135 - 145 12/05 [facility] CHEM PANEL Potassium 3.2 3.5 - 5.1 12/05 [facility] CHEM PANEL Chloride Lvl 104 95 - 109 12/05 [facility] CHEM PANEL CO2 23 24 - 32 12/[address] CHEM PANEL Calcium Lvl 8.9 8.5 - 10.5 12/05 [facility] as [facility] CHEM PANEL AGAP 13.2 10.0 - 12/05 [facility] 20.0 [facility] CHEM PANEL eGFR 44 12/05 Result Comment: The Medical eGFR is Center calculated using the CKD-EPI formula. In most young, healthy individuals the eGFR will be >90 mL/min/1.73m2 . The eGFR declines with age. An eGFR of 60-89 may be normal in some populations, particularly the elderly, for whom the CKD-EPI formula has not been extensively validated. Use of the eGFR is not recommended in the following populations:< br/>
Ann viduals with unstable creatinine concentration s, including patients and those with serious co-morbid conditions.<b r/>
Patie nts with extremes in muscle mass or diet.

The data above are obtained from the National Kidney Disease Education Program (NKDEP) which additionally recommends that when the eGFR is used in patients with extremes of body mass index for purposes of drug dosing, the eGFR should be multiplied by the estimated BMI. CHEM PANEL Magnesium 2.0 1.8 - 2.4 12/05 [facility] Lvl [facility] CHEM PANEL Phosphorus 1.3 2.5 - 4.5 12/05 Result Comment: [facility] Result(s) called to Walt grant 12/06/2019 08:51 by johan. Read back OK.

no answer 12/06/2019 06:32
no answer 12/06/2019 06:44 HEMATOLOGY WBC 8.5 3.7 - 10.4 12/05 2019 [facility] HEMATOLOGY RBC 4.48 4.70 - 12/05 [place] 6.10 [facility] HEMATOLOGY Hgb 15.5 14.0 - 12/05 [facility] 18.0 [facility] HEMATOLOGY Hct 44.2 42.0 - 12/05 [place] 54.0 [facility] HEMATOLOGY MCV 98.7 80.0 - 12/05 [facility] 94.0 [facility] HEMATOLOGY MCH 34.7 27.0 - 12/05 [place] 31.0 [facility] HEMATOLOGY MCHC 35.1 32.0 - 12/05 [place] 36.0 [facility] HEMATOLOGY RDW 13.4 11.5 - 12/05 [place] 14.5 [facility] HEMATOLOGY Platelet 156 133 - 450 12/[address] HEMATOLOGY MPV 9.5 7.4 - 10.4 12/[address] HEMATOLOGY Segs 78.7 45.0 - 12/05 [place] 75.0 [facility] HEMATOLOGY Lymphocytes 10.0 20.0 - 12/05 [place] 40.0 [facility] HEMATOLOGY Monocytes 10.8 2.0 - 12.0 12/[address] HEMATOLOGY Eosinophils 0.1 0.0 - 4.0 12/05 [facility] /[address] [place] [address] HEMATOLOGY Basophils 0.4 0.0 - 1.0 12/[address] HEMATOLOGY Neutrophils 6.7 1.5 - 8.1 12/05 [facility] # /2019 [facility] HEMATOLOGY Lymphocytes 0.9 1.0 - 5.5 12/05 [facility] # /2019 [facility] HEMATOLOGY Monocytes # 0.9 0.0 - 0.8 12/05 [facility] /[address] [place] [address] PARATHYROID Ca Ion WB 1.01 1.05 - 12/05 [facility] PROFILE 1. [facility] PARATHYROID Ca Norm WB 1.03 1.05 - 12/05 [facility] PROFILE 1. [facility] BLOOD BANK ABO/Rh O POS 12/05 [facility] RESULTS /[address] [place] [address] BLOOD BANK Antibody Negative 12/05 [facility] RESULTS Scrn (12/05/19 10:07 PM) [facility] CARDIAC Troponin-I <0.02 0.00 - 12/05 [place] ENZYMES 0.40 [facility] HEMATOLOGY WBC X 10x3 9.1 3.7 - 10.4 12/05 [facility] /2019 [facility] HEMATOLOGY RBC X 10x6 4.63 4.70 - 12/05 [place] 6.10 [facility] HEMATOLOGY Hgb 15.8 14.0 - 12/05 [place] 18.0 [facility] HEMATOLOGY Hct 46.6 42.0 - 12/05 [place] 54.0 [facility] HEMATOLOGY MCV 100.6 80.0 - 12/05 [place] 94.0 [facility] HEMATOLOGY MCH 34.2 27.0 - 12/05 [place] 31.0 [facility] HEMATOLOGY MCHC 33.9 32.0 - 12/05 [facility] 36.0 [facility] HEMATOLOGY RDW 13.4 11.5 - 12/05 [facility] 14.5 /2019 [facility] HEMATOLOGY Platelet 141 133 - 450 12/[address] HEMATOLOGY MPV 8.9 7.4 - 10.4 12/[address] HEMATOLOGY PT 12.3 12.0 - 12/05 [place] 14.7 /2019 Medical Center HEMATOLOGY INR 0.92 0.85 - 12/05 [place] 1.17 [facility] HEMATOLOGY PTT 23.9 22.9 - 12/05 [place] 35.8 [facility] HEMATOLOGY ACT (TEG) 105 86 - 118 12/05 [facility] /2020 [facility] HEMATOLOGY [place] 0.5 12/05 [facility] [place] [facility]2020 [facility] HEMATOLOGY R-time Rapid 0.6 0.4 - 0.7 12/05 [facility] as /2019 [facility] HEMATOLOGY K-time Rapid 1.8 0.6 - 2.3 12/05 [facility] as /2019 [facility] HEMATOLOGY Angle Rapid 71 64 - 80 12/[address] HEMATOLOGY Max 59 52 - 71 12/05 [facility] [place] /2019 [facility] HEMATOLOGY G-value 7.1 5.0 - 11.6 12/[address] HEMATOLOGY Estimated % 0.0 0.0 - 7.5 12/05 [place] [facility] HEMATOLOGY Segs 86.9 45.0 - 12/05 [facility] 75.0 [facility] HEMATOLOGY Lymphocytes 5.3 20.0 - 12/05 [place] 40.0 /2019 [facility] HEMATOLOGY Monocytes 7.3 2.0 - 12.0 12/[address] HEMATOLOGY Eosinophils 0.2 0.0 - 4.0 12/05 [facility] /2020 [facility] HEMATOLOGY Basophils 0.3 0.0 - 1.0 12/[address] HEMATOLOGY Neutrophils 7.9 1.5 - 8.1 12/05 [place] # /2019 [facility] HEMATOLOGY Lymphocytes 0.5 1.0 - 5.5 12/05 [place] # /2019 [facility] HEMATOLOGY Monocytes # 0.7 0.0 - 0.8 12/05 [place] /2020 [facility] HEMATOLOGY Macrocyte 1+ None Seen 12/05 [facility] *ABN* /2019 Medical (12/05/19 10:07 PM) Rogelio r Pathology Reports No Data Provided for This Section Diagnostic Reports Report Value Date Source Chest 1view DX EXAM: XR CHEST 1 VIEW 12/07/2019 [facility] edical DATE: 12/07/2019 3:00 CDT Center INDICATION: - eval hemothor ax given the presence of left-sided rib fractures.. TECHNIQUE: Chest 1 view FINDINGS: Comparison is made to December 04. Cardiomediastinal silhouette is unchanged with ectatic aortic arch. Left-sided rib fractures. Patchy opacities have increa sed in the left mid to lower lung which could be due to residual pulmonary contusions with or without superimposed aspiration or infection. These findings are superimposed up on a background of emphysema creating architectural distortion in the lungs. No pleural effusions. IMPRESSION: 1. Emphysema. 2. Increasing patchy airspace disease in the lef t mid to lower lung. 3. Left-sided rib fractures. Brain wo contrast CT EXAM: CT BRAIN 12/06/2019 [facility] dical DATE: 12/06/2019 at 9:41 Center CLINICAL INFORMATION: - eval hemorrhage COMPARISON: CT brain 12/06/2019 at 00:05 TECHNIQUE: Axial images of t he brain were obtained from the skull base through the vertex without contrast material administration. DLP: [id number] DISCUSSION: Stable trace subdural hemorr telly along the right cerebral convexity with no mass effect. Trace intraventricular hemor rhage within the occipital horns of the lateral ventricles. No midline shift or brain herniation. Stable royal tricular volume. IMPRESSION: Stable thin right hemispheric subdural hematoma with no mass effect. Trace subarachnoid hemorrhage in the right prece ntral sulcus. Trace intraventricular hemorrhage. Chest/Abdomen/Pelvis EXAM: CT CHEST WITH CONTRAST 12/05/2019 [facility] IV contrast CT EXAM: CT ABDOMEN AND PELVIS WITH CONTRAST Center DATE: 12/06/2019 at 0010 hours INDICATION: - traumatic pain status post fall, known aortic aneurysm. COMPARISON: Chest radiograph from 12/05/2019 TECHNIQUE: Volumetric CT of the chest, abdomen and pelvis is acquired following intravenous administration of contrast. Axial, coronal and sagittal images are provided. IV contrast: 100 mL of Omnipaque 350. Oral contrast: None. DLP: 1184 mGy-cm [place] SECTION: ER FINDINGS: Chest: No mediastinal hematoma or t horacic aortic injury. Scattered atherosclerotic plaque is seen along the aortic arch and the descending aorta. The ascending aorta measures 4.2 cm in diameter. No pericardial effusion. There is biapical pulmonary scarring with centrilobular emphysematous and paraseptal changes. A 0.7 cm pulmonary nodule in the right middle lobe (series 6, image 67) is noted. There is a irregular 1.9 c m nodular opacity in the lef t upper lobe along the major fissure (series 6, image 68) consistent with pulmonary contusion. Additional focal pulmonary contusion left lower lobe peripherally measuring juan roximately 1.2 cm (series 6, image 79). There are additional pulmonary nodules, for example, in the right lung apex measuring up to 8 mm (series 6, image 13). Trace left pleural fluid noted. Abdomen: Evaluation limited by motion artifact. Within this limitation, no acute traumatic abnormality seen in the liver, gallbladder, pancreas, spleen, adrenal glands, both kidneys, and bowel. Colonic diverticu losis noted. Urinary bladder is unremarkable. The prostate gland is enlarged measuring 3.1 x 4.7 cm with dystrophic calcifications. No acute vascular injury or active contrast extravasation. There is a 4.0 x 3.5 cm infrarenal fusiform aortic aneurysm measured in the axial plane. This aneurysm extends 4.7 cm in the craniocaudal dimen zunilda. There is peripheral mu ral thrombus within the aneurysm. Irregular plaque or a small focal dissection is seen proximally (series 11, image 50; series 13, image 34). Spine/ Bones: No acute fract ure or malalignment of the thoracic and lumbar spine and bony pelvis. Multilevel spine degenerative changes. Grade 1 degenerative retrolisthesis at L2-L3. There are minimally displaced fracture of the l eft lateral 6th and 7th ribs. Buckle fractures of left anterolateral 4th and 5th ribs Soft tissues: There is subcu taneous emphysema adjacent to the left 6th and 7th rib fractures with trace extrapleural hemorrhage. Left lateral hip soft tissue contusion. IMPRESSION: 1. Mildly displaced left la teral 6th and 7th rib fractures, and buckle fractures of left anterolateral 4th and 5th ribs, with adjacent subcutaneous emphysema and trace extrapleural hemorrhage. 2. Focal pulmonary contusio ns in the left upper lobe and left lower lobe adjacent to the rib fractures. 3. Infrarenal abdominal aor tic fusiform aneurysm measuring up to 4.0 cm with mural thrombus. Irregular plaque versus small focal dissection is seen in the proximal portion of the aneurysm. 4. Mild aneurysmal dilation of the ascending aorta to 4.2 cm. Scattered atherosclerotic plaque in the thoracic aorta. 5. Multiple solid pulmonary nodules measuring up to 8 mm. Recommend 3-6 month follow-up dedicated CT chest for further evaluation. 6. Prostatomegaly. 7. Colonic diverticulitis. 8. Biapical pulmonary scarr ing with centrilobular and paraseptal emphysematous changes. 9. Trace left pleural fluid , which may represent hemothorax given the presence of left-sided rib fractures. 10. Left lateral hip soft tissue contusion. 11. Evaluation is overall is limited by breathi ng motion artifact. Trauma Spine Cervical EXAM: CT CERVICAL SPINE WITHOUT CONTRAST 0 12/05/2019 [facility] wo contrast CT DATE: 12/06/2019 at 0005 hours C enter INDICATION: Neck pain status post traumatic fall COMPARISON: CT brain from 12/06/2019 TECHNIQUE: Volumetric CT of the cervical spine is acquired without contrast. Axial, coronal and sagittal images are provided. IV contrast: None. DLP: 394.4 mGy-cm UT SECTION: ER FINDINGS: The spine is imaged from the skull bas e to the level of T2. No acute cervical spine frac ture or malalignment is identified. Severe intervertebral disc height loss at C5-C7 with adjacent endplate sclerosis/subchondral cystic changes and posterior disc osteophyte complexes resulting in ventr al thecal sac indentation. There is moderate to severe bilateral neural foraminal narrowing due to facet and uncovertebral hypertrophy from C3 through C7. Biapical scarring with lianet eptal and centrilobular emphysema. A 5 mm pulmonary nodule is seen in the right lung apex (series 8, image 27). Additional right apex 8 mm lesion (series 8, image 34) may be related to scarring or nodule. There is fluid seen in the l eft maxillary sinus and sphenoid sinuses.. Dilated left left internal carotid artery at the origin from the carotid bulb with apparent intraluminal calcifications possibly related to a focal dissection at this level. IMPRESSION: 1. No acute fracture or malalignment of the cer vical spine. 2. Multilevel cervical spon dylosis of the cervical spine. Moderate to severe bilateral neural foraminal narrowing from C3 to C7. 3. Atherosclerotic calcific ation of the left carotid bulb with linear internal calcification raising possibility of focal intimal flap versus thrombus. CTA neck recommended for further evaluation, if clinical concern. 4. Biapical scarring with paraseptal and centri lobular emphysematous. 5. Biapical pulmonary nodul es measuring up to 8 mm. Recommend follow-up nonemergent dedicated CT chest for continued evaluation. 6. Fluid opacification of the left maxillary an d bilateral sphenoid sinuses. Brain wo contrast CT EXAM: CT BRAIN WITHOUT CONTRAST 12/05/2019 [facility] INDICATION: - SDH on ASA \\T[facility] COMPARISON: Exam on the same day from outside spital TECHNIQUE: Routine axial CT images of the brain were obtained. DISCUSSION: Stable size of right cerebra l convexity subdural hemorrhage. Subarachnoid hemorrhage in the right temporal lobe and along the bilateral parietal lobes and interhemispheric fissure. No interval new hemor rhage. No hydrocephalus. No subfalcine or downwa rd transtentorial herniation. Left periorbital soft tissue contusion. IMPRESSION: 1. Acute right lateral conv exity 4 mm subdural hematoma stable in size. No midline shift. Stable subarachnoid hemorrhage. No hydrocephalus. 2. There is fluid in the left maxillary and sph enoid sinuses. 3. Left frontal periorbital soft tissue swellin g. UT SECTION: Neuro Facial bone wo EXAM: CT FACIAL BONES WITHOUT CONTRAST 0 [facility] contrast CT DATE: 12/06/2019 at 0005 hours Ce nter INDICATION: - left periorbi elizabeth ecchymosis, swelling, eval for facial fractures COMPARISON: CT brain from 12/06/2019 and 0 TECHNIQUE: Volumetric CT of the facial bones is acquired without contrast. Axial, coronal and sagittal images are provided. IV contrast: None. DLP: 387.2 mGy-cm UT SECTION: ER FINDINGS: Bones: Nondisplaced fracture of the left zygomatic arch. Hairline fracture of the left maxillary nasal process. There are nondisplaced fractures of the posterior left orbital floor and posterolateral wa ll of the left maxillary sin us. Nondisplaced fracture seen in the left lateral orbital wall with extension into the left lateral frontal skull. Nondisplaced fracture further extends into the left lesser sphenoid wing involving the left orbital roof. There is possible hairline extension of this fracture into the posterior portion of the cribriform plate. Possible nondisplaced fractu re of the anterolateral wall of the left sphenoid sinus. The mandible is intact, and the temporomandibular joints are well-aligned. Hemorrhage with admixed air is seen throughout the left maxillary sinus and in the sphenoid sinuses. Soft tissues: The globes are symmetric in CT appearance. There is no intraconal hematoma. Left periorbital and preseptal soft tissue swelling. Punctate radiopaque foreign density is seen along the right inferior eyelid. There is m ild diffuse left facial swelling as well. Trace left sided extraconal intraorbital emphysema is noted. IMPRESSION: 1. Nondisplaced fracture of the left zygomatic arch. 2. Nondisplaced fractures o f the left maxillary sinus posterolateral wall and left maxillary nasal process. 3. Nondisplaced fracture of the left orbital fl oor. 4. Nondisplaced fracture of the left orbital lateral wall with extension into the left lateral frontal skull. 5. Nondisplaced fracture of the left orbital roof with probable extension into the posterior portion of the cribriform plate. 6. Possible nondisplaced fr acture of anterolateral wall of the left sphenoid sinus. 7. Left maxillary and sphenoid hemosinus. 8. Left periorbital and preseptal soft tissue s welling. 9. Trace left extraconal, intraorbital emphysem a. 10. Punctate radiopaque foreign density along t he right inferior eyelid. 11. Please refer to dedicated CT brain for intr acranial findings. Consultation Notes No Data Provided for This Section Discharge Summaries No Data Provided for This Section History and Physicals No Data Provided for This Section Vital Signs Vital Sign Value Date Comments Source Temperature Oral (F) 98.1 F 12/07/2019 [facility] Systolic (mm Hg) 153 12/07/2019 [facility] Diastolic (mm Hg) 78 12/07/2019 [facility] Temperature Oral (F) 98.5 F 12/07/2019 [facility] Systolic (mm Hg) 152 12/07/2019 [facility] Diastolic (mm Hg) 88 12/07/2019 [facility] Respitory Rate 23 12/07/2019 [facility] Temperature Oral (F) 98.0 F 12/07/2019 [facility] Systolic (mm Hg) 152 12/07/2019 [facility] Diastolic (mm Hg) 82 12/07/2019 [facility] Respitory Rate 21 12/07/2019 [facility] Respitory Rate 20 12/07/2019 [facility] Height 182.88 cm 12/06/2019 [facility] Weight 65.9 12/06/2019 [facility] BMI Calculated 19.7 12/06/2019 [facility] Height 182.88 cm 12/06/2019 [facility] Weight 65.909 12/06/2019 [facility] BMI Calculated 19.71 12/06/2019 [facility] Heart Rate 55 12/06/2019 [facility] Encounters Location Location Encounter Encounter Reason Attending ADM DC Stat us Source Details Type Number For Provider Date Date [facility] [id number] Walt Chawla 12/05 12/06 [facility]2019 [facility] Procedures No Data Provided for This Section Assessment and Plan Assessment and Plan Date Source Extracted from:Title: Trauma Tertiary 12/07/2019 [facility] Author: Jose Juan Fragoso MD Date: 12/06/19 Trauma Service Tertiary Survey Physical Exam Constitutional: NAD Neuro: Awake, responsive, GCS 15 HEENT: NC, bruise to left face CV: normal rate, +2 radial pulses Pulm: Respirations are non-labored, symmetrical chest wall e xpansion Abdomen: NTND, soft MSK: moves all extremities I have seen and examined the patient and reviewed all final reads of radiographic studies. No new injuries were identified. Jose Juan Fragoso MD PGY 2 Trauma Surgery Extracted from:Title: PRS Face Consultation Author: Dipak Jose MD Date: 12/06/19 Facial Plastic Surgery Consult Note Reason for Consult: 1. Nondisplaced frac ture of the anterior and posterolateral left maxillary sinus wall. 2. Nondisplaced fracture of the left zygomatic arch. Requesting physician: [facility] Attending: Shaunna Date: 12/05 CC: "I fell" HPI: Patient is a 74M with PMH of AAA re pair, CKD, HTN who presents s/p syncopal fall found to have interhemispheric SDH. [place] and then pa ssed out. He does not remember fall. PRS was consulted to evaluate his facial fxs. Past Medical History: see above Surgical History: No qualifying data available Medications: Medication List Active Medications Ordered acetaminophen: 650 mg, 2 tab, PO, Q4H, PRN: Pain 1-3/Temp > 100.4 F. bisacodyl: 10 mg, 1 supp, OH, Daily, PRN: Constip ation. docusate: 100 mg, 1 cap, PO, Q12H. fentaNYL: 25 microgram, 0.5 mL, IV, ONCE. levETIRAcetam + Sodium Chloride 0.9% IV 100 mL: 5 00 mg, 400 ml/hr, IV, Q12H. ondansetron: 4 mg, 2 mL, IVP, Q8H, PRN: Nausea an d Vomiting. senna: 8.6 mg, 1 tab, PO, Q12H. sodium chloride: 10 ml, IVP, Q12H. sodium chloride: 10 ml, IVP, PRN, PRN: Line Flush . Sodium Chloride 0.9% IV 1000 mL: 50 ml/hr, IV, Stop: 01/05/20 0:38:00 CDT. Medications Inactivated in the Last 72 Hours iohexol: 100 mL, PYXIS, ONCE. iohexol: 100 mL, IVP, ONCALL. levETIRAcetam: 1,000 mg, IVPB, ONCE. levETIRAcetam: 1,000 mg, PYXIS, ONCE. Allergies: Allergies: None Documented Social History: Tobacco Details: Use: Never smoker. Tobacco smo ke exposure: None. Did the Patient Smoke Cigarettes Anytime During the Last 365 Days? No. Cessation Counseling Provided? No. Family History: no significant family hi story of DM, HTN, CAD, cancer, bleeding or clotting disorders Review of Systems: Gen: Denies fever/chills/night sweats HEENT: Denies vision change, sore throat, ulcers in mouth, e pistaxis CV: Denies CP, Palpitations Resp: Denies SOB, wheezing, cough GI: Denies Abd pain, N/V/D/Constipation. Denies incontinence . : Denies urinary retention, urgency, burning, discharge. Back/Spine: Denies pain. Neuro: Denies numbness, tingling, headaches, weakness in ext remities. Integumentary: Denies wounds, rashes Endocrine: Denies recent weight changes, heat/cold insensiti vity. Psych: Denies depression, anxiety, labile mood, suicidal/paty icidal ideation. Musculoskeletal: No deformities, normal sensation and motor All other systems negative except HPI. Social History: Employment/Lifestyle: retired Tobacco: denies EtOH: denies Illicit drugs: denies Family History: Non-contributory Exam: Vitals: Vitals Tmp(F) Pulse BP RR SpO2 FIO2 12/05 03:20 ---- 69 108/88 18 98 --- 12/05 02:30 ---- 62 ----- 32 --- --- 12/05 00:00 ---- 71 178/81 26 97 --- 12/04 22:27 ---- 62 101/74 20 98 --- 12/04 19:59 98 55 100/87 18 98 --- 24 Hr Tmax: 98F (36.67c) at 12/04 19:59 Vital Signs are the last 5 in the past 48 hours. Gen: NAD Neuro/psych: A&Ox3 Head/Face: Normocephalic, facial movement normal, symmetric, sensation intact Eyes: PERRLA Ears: External ears normal, normal gross speech recognition, TMs visualized and intact Nose, Mouth, Throat: External nose yudy l, no nasal discharge. Lips and gums normal. Oral mucosa moist without lesions. Resp: Breathing unlabored CV: 2+ bilateral radial and DP/PT pulses Abd: Soft, Nondistended, nontender Extremity: normal ROM, normal motor and sensation Lymphatic: No palpable lymphadenopathy Labs: 24hr Labs 12/04 2206 ABO/Rh O POS Antibody Scrn Negative Glucose Lvl 115 H BUN 14 Creatinine Lvl 1.35 Sodium Lvl 137 Potassium Lvl 3.3 L Chloride Lvl 104 CO2 24 AGAP 12.3 Calcium Lvl 8.5 eGFR 52 Troponin-I <0.02 WBC 9.1 RBC 4.63 L Hgb 15.8 Hct 46.6 MCV 100.6 H MCH 34.2 H MCHC 33.9 RDW 13.4 Platelet 141 MPV 8.9 Segs 86.9 H Monocytes 7.3 Lymphocytes 5.3 L Eosinophils 0.2 Basophils 0.3 Neutrophils # 7.9 Lymphocytes # 0.5 L Monocytes # 0.7 Macrocyte 1+ PT 12.3 INR 0.92 PTT 23.9 ACT (TEG) Rapid 105 [place] Rapid 0.5 R-time Rapid 0.6 K-time Rapid 1.8 Angle Rapid 71 Max Amplitude Rapid 59 G-value Rapid 7.1 Estimated % Lysis Rapi 0.0 Imaging: Imaging Studies (last 36 hours) Chest/Abdomen/Pelvis w IV contrast CT 12/06/2019 00:40 Impression: 1. Mildly displaced left lateral 6th an d 7th rib fractures, and buckle fractures of left anterolateral 4th and 5th ribs, with adjacent subcutaneous emphysema and trace extrapleural hemorrhage. 2. Focal pulmonary contusions in the le ft upper lobe and left lower lobe adjacent to the rib fractures. 3. Infrarenal abdominal aortic fusiform aneurysm measuring up to 4.0 cm with mural thrombus. Irregular plaque versus small focal dissection is seen in the proximal portion of the aneurysm. 4. Mild aneurysmal dilation of the asce nding aorta to 4.2 cm. Scattered atherosclerotic plaque in the thoracic aorta. 5. Multiple solid pulmonary nodules amita suring up to 8 mm. Recommend 3-6 month follow-up dedicated CT chest for further evaluation. 6. Prostatomegaly. 7. Colonic diverticulitis. 8. Biapical pulmonary scarring with george trilobular and paraseptal emphysematous changes. 9. Trace left pleural fluid, which may represent hemothorax given the presence of left-sided rib fractures. 10. Left lateral hip soft tissue contusion. 11. Evaluation is overall is limited by breathing motion ar tifact. Trauma Spine Cervical wo contrast CT 12/06/2019 00:24 Impression: 1. No acute fracture or malalignment of the cervical spine. 2. Multilevel cervical spondylosis of t he cervical spine. Moderate to severe bilateral neural foraminal narrowing from C3 to C7. 3. Atherosclerotic calcification of the left carotid bulb with linear internal calcification raising possibility of focal intimal flap versus thrombus. CTA neck recommended for further evaluation, if clinical concern. 4. Biapical scarring with paraseptal and centrilobular emph ysematous. 5. Biapical pulmonary nodules measuring up to 8 mm. Recommend follow-up nonemergent dedicated CT chest for continued evaluation. 6. Fluid opacification of the left maxillary and bilateral sphenoid sinuses. Brain wo contrast CT 12/06/2019 00:10 Impression: 1. Acute right lateral convexity 4 mm s ubdural hematoma stable in size. No midline shift. Stable subarachnoid hemorrhage. No hydrocephalus. 2. There is fluid in the left maxillary and sphenoid sinuse s. 3. Left frontal periorbital soft tissue swelling. UT SECTION: Neuro Assessment and Plan: 74 y/o M presents with: 1. Nondisplaced fracture of the anterior and posterolateral left maxillary sinus wall. 2. Nondisplaced fracture of the left zygomatic arch. - Admit to: NSGY - Antibiotics: none - Pain control: per MMPC - DVT PPx: TEDS/SCD, chem ppx Lvx - Pending PRS surgeries: none - Dispo:_ - F/u in plastic surgery clinic with in weeks. Call [phone] to schedule Dipak Jose, PGY1 Pager: [phone] MSO: [id number] ADDENDUM: PATIENT DISCUSSED WITH DR. JOSE. AGREE A S ABOVE. 73M S/P FALL WITH NON- DISPLACED LEFT ZYGOMATIC ARCH AND MAXILLARY SINUS FRACTURES. NO EVIDENCE OF ENTRAPMENT OR TMJ SUBLUXATION. VISUAL ACUITY INTACT. NO ACUTE SURGICAL INTERVENTION AT THIS TIME. RECOMMEND SOFT DIET FOR 2 WEEKS. THANK YOU FOR THIS CONSULTATION. PLEASE CALL FOR QUESTIONS. DISCUSSED WITH DR. ARLENE PAYAN. TOÑO MAE MD PGY6 - PRS FELLOW Attending Addendum: Case discussed with Dr. Mae. His tory and exam as above. Agree with plan. Arlene Payan MD Plan of Care No Data Provided for This Section Social History Social History Date Source Social History TypeResponse 12/06/2019 [facility] Substance Abuse Use: Past. Type: Marijuana. Recreational Drug Route: Inhal ed. Smoking Status Former smoker; Type: Cigarettes; Exposur e to Tobacco Smoke None; Cigarette Smoking Last 365 Days No; Reg Smoking Cessation Counseling No entered on: 12/06/19 Family History No Data Provided for This Section Advance Directives No Data Provided for This Section Functional Status No Data Provided for This Section
--- OUTSIDE RECORDS SUMMARY | 2019-12-11 05:59 | XMS REPORT | Summary of Care ---
:[address] [facility] Address [address] [place] [id number]- Encounter HQ Encntr_alias(FIN) [id number] Date(s): 12/05/19 - 12/07/[address] Professional Services provided by [facility] [place] [address]- Discharge Disposition: Home or Self Care Attending Physician: Deborah Villanueva MD Admitting Physician: Walt Chawla MD Vital Signs Most recent to oldest 1 2 3 [Reference Range]: Height 182.88 cm 182.88 cm (12/06/19 3:22 PM) (12/06/19 4:54 AM) Temperature Oral [96.4-99.1 98.1 DegF 98.5 DegF 98.0 DegF DegF] (12/07/19 11:40 AM) (12/07/19 7:32 AM) (12/07/19 4: 35 AM) Blood Pressure [90-140/60-90 153/78 mmHg 152/88 mmHg 152 /82 mmHg mmHg] *HI* *HI* *HI* (12/07/19 8:00 AM) (12/07/19 4:35 AM) (12/07/19 12: 00 AM) Respiratory Rate [14-20 23 BRMIN 21 BRMIN 20 BRMIN BRMIN] *HI* *HI* (12/06/19 8:00 PM ) (12/07/19 4:35 AM) (12/07/19 12:00 AM) Peripheral Pulse Rate 55 bpm [60-100 bpm] *LOW* (12/05/19 7:59 PM) Weight 65.9 kg 65.909 kg (12/06/19 3:22 PM) (12/06/19 4:54 AM) Body Mass Index 19.7 m2 19.71 m2 (12/06/19 3:22 PM) (12/06/19 4:54 AM) Problem List No data available for this section Allergies, Adverse Reactions, Alerts No Known Allergies Medications acetaminophen 1,000 mg, 2 tab, Route: PO, Drug form: TAB, Q8H, Dosing Weight 65.909, kg, PRN Pain 4-6/Temp > 100.4 F, Priority: NOW, Start date: 12/06/19 5:14:00 CDT, Duration: 30 day, Stop date: 01/05/20 5:13:00CDT, 0 Notes: Max acetaminophen 4000 mg/day (4 gm/day). (Same as: Tylenol Extra Strength) Start Date: 12/06/19 Stop Date: 12/07/19 Status: Discontinuedacetaminophen 650 mg, 2 tab, Route: PO, Drug form: TAB, Q4H, kg, PRN Pain 1-3/Temp > 100.4 F, Start date: 12/06/19 0:39:00 CDT, Duration: 30 day, Stop date: 01/05/20 0:38:00 CDT, 0 Notes: Do not exceed 4 gm/day. (Same as: Tylenol) Start Date: 12/06/19 Stop Date: 12/06/19 Status: Discontinuedbisacodyl 10 mg, 1 supp, Route: MT, Drug form: SUPP, Daily, kg, PRN Constipation, Start date: 12/06/19 0:39:00CDT, Duration: 30 day, Stop date: 01/05/20 0:38:00 CDT, 0 Notes: (Same As: Dulcolax, Bisco-Lax) Start Date: 12/06/19 Stop Date: 12/07/19 Status: Discontinuedcalcium carbonate 500 mg (200 mg elemental calcium) oral tablet 500 mg, 1 tab, Route: PO, Drug form: CHEWTAB, PRN, Dosing Weight 65.909, kg, PRN Abnormal Lab Result, FOR ICU USE ONLY, Start date: 12/06/19 5:17:00 CDT, Duration: 30 day, Stop date: 01/05/20 5:16:00 CDT, 0 Notes: (Same As: Tums)Calcium Carbonate 500 mg = 200 mg elemental calcium Dose = mg calcium carbonate ( mg elemental calcium) Start Date: 12/06/19 Stop Date: 12/07/19 Status: Discontinuedcalcium carbonate 500 mg (200 mg elemental calcium) oral tablet 1,000 mg, 2 tab, Route: PO, Drug form: CHEWTAB, PRN, Dosing Weight 65.909, kg, PRN Abnormal Lab Result, FOR ICU USE ONLY, Start date: 12/06/19 5:17:00 CDT, Duration: 30 day, Stop date: 01/05/20 5:16:00CDT, 0 Notes: (Same As: Cordelias)Calcium Carbonate 500 mg = 200 mg elemental calcium Dose = mg calcium carbonate ( mg elemental calcium) Start Date: 12/06/19 Stop Date: 12/07/19 Status: Discontinuedcalcium gluconate 1 gm, 50 mL, Route: IVPB, Drug form: INJ, PRN, Dosing Weight 65.909, kg, PRN Abnormal Lab Result, Start date: 12/06/19 5:17:00 CDT, Duration: 30 day, Stop date: 01/05/20 5:16:00 CDT, FOR ICU USE ONLY, 0 Notes: WASTE: F/P - Sink; E - Municipal Trash Bin Start Date: 12/06/19 Stop Date: 12/07/19 Status: Discontinuedclopidogrel PO, 0 Refill(s) Start Date: 12/07/19 Stop Date: 12/07/19 Status: Discontinueddiclofenac topical 1% gel 4 gm, 2 appl, Route: TOP, Drug form: GEL, QID, Dosing Weight 65.909, kg, Start date: 12/06/19 9:00:00 CDT, Duration: 7 day, Stop date: 12/12/19 21:00:00 CDT, 0 Notes: Same as: Voltaren Gel Start Date: 12/06/19 Stop Date: 12/07/19 Status: Discontinueddocusate 100 mg, 1 cap, Route: PO, Drug form: CAP, Q12H, kg, Start date: 12/06/19 9:00:00 CDT, Duration: 30 day, Stop date: 01/04/20 21:00:00 CDT, 0 Notes: (Same as: Colace) (Do Not Crush) Start Date: 12/06/19 Stop Date: 12/07/19 Status: DiscontinuedfentaNYL 25 microgram, 0.5 mL, Route: IV, Drug form: INJ, ONCE, kg, Start date: 12/06/19 2:13:00 CDT, Stop date: 12/06/19 2:13:00 CDT, 0 Notes: (Same as: Sublimaze) Preservative free. Start Date: 12/06/19 Stop Date: 12/06/19 Status: DiscontinuedFlomax 0.4 mg oral capsule 0.4 mg = 1 cap, PO, Daily, # 30 cap, 0 Refill(s) Start Date: 12/07/19 Status: Orderedheparin 5000 units/mL injectable solution 5,000 unit, 1 mL, Route: SUB-Q, Drug form: INJ, Q8H, Dosing Weight 65.909, kg, Start date: 12/07/19 8:00:00 CDT, Duration: 30 day, Stop date: 01/06/20 0:00:00 CDT, 0 Notes: porcine heparin Start Date: 12/07/19 Stop Date: 12/07/19 Status: DiscontinuedhydrALAZINE 10 mg, 0.5 mL, Route: IVP, Drug form: INJ, Q2H, Dosing Weight 65.909, kg, PRN Hypertension, Start date: 12/06/19 14:41:00 CDT, Duration: 30 day, Stop date: 01/05/20 14:40:00 CDT, 0 Notes: (Same as: Apresoline)Push over 5 minutes Start Date: 12/06/19 Stop Date: 12/07/19 Status: DiscontinuedKeppra 1,000 mg, Route: IVPB, ONCE, kg, Priority: STAT, Start date: 12/05/19 20:32:00 CDT, Stop date: 12/05/19 20:32:00 CDT Start Date: 12/05/19 Stop Date: 12/05/19 Status: CompletedKeppra 500 mg oral tablet 500 mg, 1 tab, Route: PO, Drug form: TAB, Q12H, Dosing Weight 65.909, kg, Start date: 12/06/19 9:00:00 CDT, Duration: 30 day, Stop date: 01/04/20 21:00:00 CDT, 0 Notes: (Same as:Keppra) Start Date: 12/06/19 Stop Date: 12/07/19 Status: DiscontinuedKeppra 500 mg oral tablet 500 mg = 1 tab, PO, Q12H, # 12 tab, 0 Refill(s) Start Date: 12/07/19 Stop Date: 12/13/19 Status: Orderedlabetalol 10 mg, 2 mL, Route: IVP, Drug form: INJ, Q1H, Dosing Weight 65.909, kg, PRN Hypertension, Start date: 12/06/19 14:41:00 CDT, Duration: 30 day, Stop date: 01/05/20 14:40:00 CDT, 0 Start Date: 12/06/19 Stop Date: 12/07/19 Status: DiscontinuedlevETIRAcetam + Sodium Chloride 0.9% IV 100 mL 500 mg, Route: IV, Q12H, kg, Start date: 12/06/19 9:00:00 CDT, Duration: 30 day, Stop date: 01/03/2021:00:00 CDT, 0 Notes: Same as KeppraMix with 100 mL NS, LR or D5W MEDICATION WASTE Product Size: 500 mgProduct Wasted: ___ mg Start Date: 12/06/19 Stop Date: 12/06/19 Status: Discontinuedlidocaine topical patch (5% film) 1 patch, Route: TOP, Daily, Drug form: FILM, Start date: 12/06/19 10:40:00 CDT, Duration: 30 day, Stop date: 01/05/20 9:00:00 CDT, 0 Notes: Apply only once for up to 12 hours in [id number] period (12 hours on and 12 hours off).(Same as: Lidoderm)"Remove old patch before application of new patch" Start Date: 12/06/19 Stop Date: 12/07/19 Status: Discontinuedmagnesium oxide 800 mg, 2 tab, Route: PO, Drug form: TAB, PRN, Dosing Weight 65.909, kg, PRN Abnormal Lab Result, FOR ICU USE ONLY, Start date: 12/06/19 5:17:00 CDT, Duration: 30 day, Stop date: 01/05/20 5:16:00 CDT, 0 Notes: (Same as: Mag-Ox 400)Magnesium oxide [id number] elemental magnesiumDose=____mg magnesium oxide (___mg elemental magnesium) Start Date: 12/06/19 Stop Date: 12/07/19 Status: Discontinuedmagnesium sulfate 2 gm, 50 mL, Route: IVPB, Drug form: INJ, PRN, Dosing Weight 65.909, kg, PRN Abnormal Lab Result, Start date: 12/06/19 5:17:00 CDT, Duration: 30 day, Stop date: 01/05/20 5:16:00 CDT, FOR ICU USE ONLY, 0 Notes: WASTE: F/P - Sink; E - Municipal Trash Bin Start Date: 12/06/19 Stop Date: 12/07/19 Status: Discontinuedmorphine Sulfate 2 mg, 0.5 mL, Route: IVP, Drug form: SOLN, Q4H, Dosing Weight 65.909, kg, PRN Pain Score 7-10, Priority: NOW, Start date: 12/06/19 5:14:00 CDT, Duration: 30 day, Stop date: 01/05/20 5:13:00 CDT, 0 Notes: (Same as:MORPhine Sulfate) Start Date: 12/06/19 Stop Date: 12/06/19 Status: Discontinuednormal saline 0.9% IV 1,000 mL 1,000 mL, Rate: 75 ml/hr, Infuse over: 13.3 hr, Route: IV, Dosing Weight 65.909 kg, Total Volume: 1,000, Start date: 12/06/19 10:34:00 CDT, Duration: 30 day, Stop date: 01/05/20 10:33:00 CDT, 1.83, m2,0 Start Date: 12/06/19 Stop Date: 12/07/19 Status: DiscontinuedOmnipaque 350mg/ml 100 mL, Route: IVP, Drug Form: SOLN, kg, ONCALL, STAT, Start date: 12/06/19 0:03:00 CDT, Duration: 1doses or times, Dose = 2.2ml/kg, Max dose = 100ml -- "To be infused by Radiology Staff ONLY" Start Date: 12/06/19 Stop Date: 12/06/19 Status: Completedondansetron 4 mg, 2 mL, Route: IVP, Drug form: INJ, Q8H, kg, PRN Nausea & Vomiting, Start date: 12/06/19 0:39:00 CDT, Duration: 30 day, Stop date: 01/05/20 0:38:00 CDT, 0 Notes: (Same as: Rosina) MEDICATION WASTE Product Size: 4 mgProduct Wasted: ___ mg Start Date: 12/06/19 Stop Date: 12/07/19 Status: Discontinuedpotassium chloride 20 mEq, 100 mL, Route: IVPB, Drug form: INJ, PRN, Dosing Weight 65.909, kg, PRN Abnormal Lab Result,Via central line, Start date: 12/06/19 5:17:00 CDT, Duration: 30 day, Stop date: 01/05/20 5:16:00 CDT, FOR ICU USE ONLY, 0 Notes: (Same as: KCL) Infuse no faster than 10 mEq/hr if given peripherally. Start Date: 12/06/19 Stop Date: 12/07/19 Status: Discontinuedpotassium chloride 10 mEq, 50 mL, Route: IVPB, Drug form: INJ, PRN, Dosing Weight 65.909, kg, PRN Abnormal Lab Result, Via peripheral line, Start date: 12/06/19 5:17:00 CDT, Duration: 30 day, Stop date: 01/05/20 5:16:00 CDT, FOR ICU USE ONLY, 0 Notes: (Same as: KCL) Infuse over 2 hours. Start Date: 12/06/19 Stop Date: 12/07/19 Status: Discontinuedpotassium chloride 20 mEq, 1 tab, Route: PO, Drug form: ERTAB, PRN, Dosing Weight 65.909, kg, PRN Abnormal Lab Result, Start date: 12/06/19 5:17:00 CDT, Duration: 30 day, Stop date: 01/05/20 5:16:00 CDT, FOR ICU USE ONLY, 0 Notes: (Same as: K-Dur )"Do Not Crush" Give with food and full glass of waterFor patients unable to swallow tablet, dissolve in one half glass of water. Allow about 2 minutes for the tablets to disintegrate. Stir before giving to prepare slurry and administer.Please exclude Patients with feedingtube less than 14 [place] (Dobhoff, J-tube etc) and pediatric and patients. Start Date: 12/06/19 Stop Date: 12/07/19 Status: Discontinuedpotassium chloride 20 mEq, 15 mL, Route: NJ, Drug form: LIQ, PRN, Dosing Weight 65.909, kg, PRN Abnormal Lab Result, Start date: 12/06/19 5:17:00 CDT, Duration: 30 day, Stop date: 01/05/20 5:16:00 CDT, FOR ICU USE ONLY, 0 Notes: (Same as: Potassium Chloride) Start Date: 12/06/19 Stop Date: 12/07/19 Status: Discontinuedpotassium phosphate + Sodium Chloride 0.9% IV 250 mL 15 mmol, 5 mL, Route: IVPB, PRN, Dosing Weight 65.909, kg, PRN Abnormal Lab Result, Start date: 12/06/19 5:17:00 CDT, Duration: 30 day, Stop date: 01/05/20 5:16:00 CDT, FOR ICU USE ONLY, 0 Notes: (Same as: K Phosphate.)Do not infuse phosphorous concurrently in the same line as TPN or IVF that contains calcium. For double lumen central lines, phosphorous may be infused in a separate lumenfrom TPN. 1 mMol phoshate has 1.47 mEq potassium Infuse over 4 hours Start Date: 12/06/19 Stop Date: 12/07/19 Status: Discontinuedpotassium phosphate + Sodium Chloride 0.9% IV 250 mL 30 mmol, 10 mL, Route: IVPB, PRN, Dosing Weight 65.909, kg, PRN Abnormal Lab Result, Start date: 12/06/19 5:17:00 CDT, Duration: 30 day, Stop date: 01/05/20 5:16:00 CDT, FOR ICU USE ONLY, 0 Notes: (Same as: K Phosphate.)Do not infuse phosphorous concurrently in the same line as TPN or IVF that contains calcium. For double lumen central lines, phosphorous may be infused in a separate lumenfrom TPN. 1 mMol phoshate has 1.47 mEq potassium Infuse over 4 hours Start Date: 12/06/19 Stop Date: 12/07/19 Status: Discontinuedpotassium phosphate + Sodium Chloride 0.9% IV 250 mL 45 mmol, 15 mL, Route: IVPB, PRN, Dosing Weight 65.909, kg, PRN Abnormal Lab Result, Start date: 12/06/19 5:17:00 CDT, Duration: 30 day, Stop date: 01/05/20 5:16:00 CDT, FOR ICU USE ONLY, 0 Notes: (Same as: K Phosphate.)Do not infuse phosphorous concurrently in the same line as TPN or IVF that contains calcium. For double lumen central lines, phosphorous may be infused in a separate lumenfrom TPN. 1 mMol phoshate has 1.47 mEq potassium Infuse over 4 hours Start Date: 12/06/19 Stop Date: 12/07/19 Status: Discontinuedpotassium phosphate-sodium phosphate 250 mg-280 mg-160 mg oral powder for reconstitution 2 pkt, Route: PO, Drug Form: PDR/REC, Dosing Weight 65.909, kg, PRN, PRN Abnormal Lab Result, FOR ICU USE ONLY, Start date: 12/06/19 5:17:00 CDT, Duration: 30 day, Stop date: 01/05/20 5:16:00 CDT, 0 Notes: (Same as: Phos-NaK) Each 1.5 gm pkt has 250mg phosphorous. Mix w/2.5oz water and stir. Start Date: 12/06/19 Stop Date: 12/07/19 Status: DiscontinuedProtonix 40 mg, 1 tab, Route: PO, Drug form: ECTAB, Before Breakfast, Dosing Weight 65.909, kg, PRN Indigestion, Start date: 12/06/19 10:32:00 CDT, Duration: 30 day, Stop date: 01/05/20 10:31:00 CDT, 0 Notes: Tablet should not be chewed or crushed.(Same as: Protonix) Start Date: 12/06/19 Stop Date: 12/07/19 Status: DiscontinuedRobaxin 500 mg, 1 tab, Route: PO, Drug form: TAB, Q8H, Dosing Weight 65.909, kg, Priority: NOW, Start date: 12/06/19 5:14:00 CDT, Duration: 2 day, Stop date: 12/08/19 0:00:00 CDT, 0 Notes: (Same as:Robaxin) Start Date: 12/06/19 Stop Date: 12/07/19 Status: DiscontinuedSaline Flush 0.9% 10 ml, Route: IVP, Drug Form: INJ, kg, Q12H, Start date: 12/06/19 9:00:00 CDT, Duration: 30 day, Stop date: 01/04/20 21:00:00 CDT, 0 Notes: (Same as: BD Posiflush) Start Date: 12/06/19 Stop Date: 12/07/19 Status: DiscontinuedSaline Flush 0.9% 10 ml, Route: IVP, Drug Form: INJ, kg, PRN, PRN Line Flush, Start date: 12/06/19 0:39:00 CDT, Duration: 30 day, Stop date: 01/05/20 0:38:00 CDT, 0 Notes: (Same as: BD Posiflush) Start Date: 12/06/19 Stop Date: 12/07/19 Status: Discontinuedsenna 8.6 mg, 1 tab, Route: PO, Drug Form: TAB, kg, Q12H, Start date: 12/06/19 9:00:00 CDT, Duration: 30 day, Stop date: 01/04/20 21:00:00 CDT, 0 Notes: (Same as: Senokot) Start Date: 12/06/19 Stop Date: 12/07/19 Status: DiscontinuedSodium Chloride 0.9% (Bolus) IV 1,000 mL, 1,000 ml/hr, Infuse Over: 1 hr, Route: IV, 1,000, Drug form: INJ, ONCE, Priority: STAT, Dosing Weight 65.909 kg, Start date: 12/06/19 10:36:00 CDT, Stop date: 12/06/19 10:36:00 CDT, 0 Start Date: 12/06/19 Stop Date: 12/06/19 Status: CompletedSodium Chloride 0.9% IV 1,000 mL 1,000 mL, Rate: 50 ml/hr, Infuse over: 20 hr, Route: IV, Dosing Weight 65.909 kg, Total Volume: 1,000, Start date: 12/06/19 0:39:00 CDT, Duration: 30 day, Stop date: 01/05/20 0:38:00 CDT, 1.83, m2, 0 Start Date: 12/06/19 Stop Date: 12/06/19 Status: Discontinuedsodium phosphate + Sodium Chloride 0.9% IV 250 mL 15 mmol, 5 mL, Route: IVPB, PRN, Dosing Weight 65.909, kg, PRN Abnormal Lab Result, Start date: 12/06/19 5:17:00 CDT, Duration: 30 day, Stop date: 01/05/20 5:16:00 CDT, FOR ICU USE ONLY, 0 Notes: Infuse over 4 hour. Do not infuse phosphorous concurrently in the same line as TPN or IVF that contains calcium. For double lumen central lines, phosphorous may be infused in a separate lumen from TPN. Start Date: 12/06/19 Stop Date: 12/07/19 Status: Discontinuedsodium phosphate + Sodium Chloride 0.9% IV 250 mL 30 mmol, 10 mL, Route: IVPB, PRN, Dosing Weight 65.909, kg, PRN Abnormal Lab Result, Start date: 12/06/19 5:17:00 CDT, Duration: 30 day, Stop date: 01/05/20 5:16:00 CDT, FOR ICU USE ONLY, 0 Notes: Infuse over 4 hour. Do not infuse phosphorous concurrently in the same line as TPN or IVF that contains calcium. For double lumen central lines, phosphorous may be infused in a separate lumen from TPN. Start Date: 12/06/19 Stop Date: 12/07/19 Status: Discontinuedsodium phosphate + Sodium Chloride 0.9% IV 250 mL 45 mmol, 15 mL, Route: IVPB, PRN, Dosing Weight 65.909, kg, PRN Abnormal Lab Result, Start date: 12/06/19 5:17:00 CDT, Duration: 30 day, Stop date: 01/05/20 5:16:00 CDT, FOR ICU USE ONLY, 0 Notes: Infuse over 4 hour. Do not infuse phosphorous concurrently in the same line as TPN or IVF that contains calcium. For double lumen central lines, phosphorous may be infused in a separate lumen from TPN. Start Date: 12/06/19 Stop Date: 12/07/19 Status: Discontinuedtramadol 50 mg oral tablet 50 mg, 1 tab, Route: PO, Drug form: TAB, Q4H, Dosing Weight 65.909, kg, PRN Pain Score 4-6, Start date: 12/06/19 5:14:00 CDT, Duration: 30 day, Stop date: 01/05/20 5:13:00 CDT, 0 Notes: Not to exceed 400mg/day. (Same As: Ultram) Start Date: 12/06/19 Stop Date: 12/07/19 Status: Discontinued Results Most recent to oldest 1 2 3 [Reference Range]: Neutrophils # [1.5-8.1 4.8 K/CMM 6.7 K/CMM 7.9 K/CMM K/CMM] (12/07/19 5:09 AM) (12/06/19 5:21 AM) (12/05/19 10: 07 PM) Lymphocytes # [1.0-5.5 0.9 K/CMM 0.9 K/CMM 0.5 K/CMM K/CMM] *LOW* *LOW* *LOW* (12/07/19 5:09 AM) (12/06/19 5:21 AM) (12/05/19 10: 07 PM) Monocytes # [0.0-0.8 K/CMM] 0.8 K/CMM 0.9 K/CMM 0.7 K/CMM (12/07/19 5:09 AM) *HI* (12/05/19 10:07 PM) (12/06/19 5:21 AM) Eosinophils # [0.0-0.5 0.1 K/CMM K/CMM] (12/07/19 5:09 AM) Bili Indirect [0.0-1.0 0.9 mg/dL mg/dL] (12/07/19 5:09 AM) G-value Rapid [5.0-11.6 K 7.1 K d/sc d/sc] (12/05/19 10:07 PM) K-time Rapid [0.6-2.3 1.8 minutes minutes] (12/05/19 10:07 PM) Max Amplitude Rapid [52-71 59 mm mm] (12/05/19 10:07 PM) R-time Rapid [0.4-0.7 0.6 minutes minutes] (12/05/19 10:07 PM) Angle Rapid [64-80 degrees] 71 degrees (12/05/19 10:07 PM) eGFR 63 mL/min/1.73m2 1 45 mL/min/1.73m2 2 44 mL/min/ 1.73m2 3 *NA* *NA* *NA* (12/07/19 5:09 AM) (12/06/19 11:08 AM) (12/06/19 5: 21 AM) ABO/Rh O POS *Unknown* (12/05/19 10:07 PM) A/G Ratio [0.7-1.6] 1.0 1.1 (12/07/19 5:09 AM) (12/06/19 11:08 AM) Antibody Scrn Negative (12/05/19 10:07 PM) Albumin Lvl [3.5-5.0 g/dL] 3.2 g/dL 3.5 g/dL *LOW* (12/06/19 11:08 AM) (12/07/19 5:09 AM) Alk Phos [39-136 unit/L] 73 unit/L 78 unit/L (12/07/19 5:09 AM) (12/06/19 11:08 AM) ALT [0-65 unit/L] 13 unit/L 18 unit/L (12/07/19 5:09 AM) (12/06/19 11:08 AM) AGAP [10.0-20.0 mEq/L] 13.2 mEq/L 11.6 mEq/L 13.2 mEq/ L (12/07/19 5:09 AM) (12/06/19 11:08 AM) (12/06/19 5: 21 AM) AST [0-37 unit/L] 13 unit/L 19 unit/L (12/07/19 5:09 AM) (12/06/19 11:08 AM) B/C Ratio [6-25] 9 (12/06/19 11:08 AM) Basophils [0.0-1.0 %] 0.3 % 0.4 % 0.3 % (12/07/19 5:09 AM) (12/06/19: AM) (12/05/19 10: 07 PM) BUN [7-22 mg/dL] 11 mg/dL 14 mg/dL 13 mg/dL (12/07/19 5:09 AM) (12/06/19 11:08 AM) (12/06/19: AM) Calcium Lvl [8.5-10.5 8.1 mg/dL 8.8 mg/dL 8.9 mg/dL mg/dL] *LOW* (12/06/19 11:08 AM) (12/06/19: AM) (12/07/19 5:09 AM) Chloride Lvl [95-109 mEq/L] 108 mEq/L 105 mEq/L 104 mEq/L (12/07/19 5:09 AM) (12/06/19 11:08 AM) (12/06/19: AM) CO2 [24-32 mEq/L] 23 mEq/L 24 mEq/L 23 mEq/L *LOW* (12/06/19 11:08 AM) *LOW* (12/07/19 5:09 AM) (12/06/19: AM) Creatinine Lvl [0.50-1.40 1.14 mg/dL 1.52 mg/dL 1.55 m g/dL mg/dL] (12/07/19 5:09 AM) *HI* *HI* (12/06/19 11:08 AM) (12/06/19 AM) Bili Direct [0.0-0.3 mg/dL] 0.3 mg/dL (12/07/19 5:09 AM) Eosinophils [0.0-4.0 %] 1.3 % 0.1 % 0.2 % (12/07/19 5:09 AM) (12/06/19: AM) (12/05/19 10: 07 PM) Globulin [2.7-4.2 g/dL] 3.1 g/dL 3.1 g/dL (12/07/19 5:09 AM) (12/06/19 11:08 AM) Glucose Lvl [70-99 mg/dL] 91 mg/dL 96 mg/dL 119 mg /dL (12/07/19 5:09 AM) (12/06/19 11:08 AM) *HI* (12/06/19 AM ) Hct [42.0-54.0 %] 42.0 % 44.2 % 46.6 % (12/07/19 5:09 AM) (12/06/19: AM) (12/05/19 10: 07 PM) Hgb [14.0-18.0 g/dL] 14.4 g/dL 15.5 g/dL 15.8 g/dL (12/07/19 5:09 AM) (12/06/19: AM) (12/05/19 10: 07 PM) INR [0.85-1.17] 0.92 (12/05/19 10:07 PM) Potassium Lvl [3.5-5.1 3.2 mEq/L 3.6 mEq/L 4 3.2 mEq/L mEq/L] *LOW* (12/06/19 11:08 AM) *LOW* (12/07/19 5:09 AM) (12/06/19: AM) Lymphocytes [20.0-40.0 %] 14.0 % 10.0 % 5.3 % *LOW* *LOW* *LOW* (12/07/19 5:09 AM) (12/06/19: AM) (12/05/19 10: 07 PM) Macrocyte [None Seen] 1+ 1+ *ABN* *ABN* (12/07/19 5:09 AM) (12/05/19 10:07 PM) MCH [27.0-31.0 pg] 34.4 pg 34.7 pg 34.2 pg *HI* *HI* *HI* (12/07/19 5:09 AM) (12/06/19: AM) (12/05/19 10: 07 PM) MCHC [32.0-36.0 g/dL] 34.3 g/dL 35.1 g/dL 33.9 g/dL (12/07/19 5:09 AM) (12/06/19: AM) (12/05/19 10: 07 PM) MCV [80.0-94.0 fL] 100.3 fL 98.7 fL 100.6 fL *HI* *HI* *HI* (12/07/19 5:09 AM) (12/06/19: AM) (12/05/19 10: 07 PM) Magnesium Lvl [1.8-2.4 2.0 mg/dL 2.0 mg/dL mg/dL] (12/07/19 5:09 AM) (12/06/19: AM) Monocytes [2.0-12.0 %] 11.7 % 10.8 % 7.3 % (12/07/19 5:09 AM) (12/06/19: AM) (12/05/19 10: 07 PM) MPV [7.4-10.4 fL] 9.3 fL 9.5 fL 8.9 fL (12/07/19 5:09 AM) (12/06/19: AM) (12/05/19 10: 07 PM) Sodium Lvl [135-145 mEq/L] 141 mEq/L 137 mEq/L 137 m Eq/L (12/07/19 5:09 AM) (12/06/19 11:08 AM) (12/06/19 AM) Phosphorus [2.5-4.5 mg/dL] 2.3 mg/dL 1.3 mg/dL 5 *LOW* *CRIT* (12/07/19 5:09 AM) (12/06/19 5: AM) Platelet [133-450 K/CMM] 138 K/CMM 156 K/CMM 141 K/C MM (12/07/19 5:09 AM) (12/06/19: AM) (12/05/19 10: 07 PM) Segs [45.0-75.0 %] 72.7 % 78.7 % 86.9 % (12/07/19 5:09 AM) *HI* *HI* (12/06/19: AM) (12/05/19 10:07 PM) Total Protein [6.4-8.4 6.3 g/dL 6.6 g/dL g/dL] *LOW* (12/06/19 11:08 AM) (12/07/19 5:09 AM) PT [12.0-14.7 seconds] 12.3 seconds (12/05/19 10:07 PM) PTT [22.9-35.8 seconds] 23.9 seconds (12/05/19 10:07 PM) Coronavirus (COVID-19) ERYN Not Detected [Not Detected] (12/06/19 5:59 AM) RBC [4.70-6.10 M/CMM] 4.19 M/CMM 4.48 M/CMM 4.63 M/CMM *LOW* *LOW* *LOW* (12/07/19 5:09 AM) (12/06/19 5:21 AM) (12/05/19 10: 07 PM) RDW [11.5-14.5 %] 13.8 % 13.4 % 13.4 % (12/07/19 5:09 AM) (12/06/19 5:21 AM) (12/05/19 10: 07 PM) Bili Total [0.2-1.3 mg/dL] 1.2 mg/dL 1.8 mg/dL (12/07/19 5:09 AM) *HI* (12/06/19 11:08 AM) Troponin-I [0.00-0.40 <0.02 ng/mL <0.02 ng/mL ng/mL] (12/06/19 11:08 AM) (12/05/19 10:07 PM) WBC [3.7-10.4 K/CMM] 6.7 K/CMM 8.5 K/CMM 9.1 K/CMM (12/07/19 5:09 AM) (12/06/19 5:21 AM) (12/05/19 10: 07 PM) ACT (TEG) Rapid [86-118 105 seconds seconds] (12/05/19 10:07 PM) Estimated % Lysis Rapid 0.0 % [0.0-7.5 %] (12/05/19 10:07 PM) Split Point Rapid 0.5 minutes *NA* (12/05/19 10:07 PM) Ca Ion WB [1.05-1.25 1.03 mMol/L 1.01 mMol/L mMol/L] *LOW* *LOW* (12/07/19 5:09 AM) (12/06/19 5:21 AM) Ca Norm WB [1.05-1.25 1.03 mMol/L 1.03 mMol/L mMol/L] *LOW* *LOW* (12/07/19 5:09 AM) (12/06/19 5:21 AM) 1Result Comment: The eGFR is calculated using the CKD-EPI formula. In most young, healthy individualsthe eGFR will be >90 mL/min/1.73m2. The eGFR declines with age. An eGFR of 60-89 may be normal insome populations, particularly the elderly, for whom the CKD-EPI formula has not been extensively validated. Use of the eGFR is not recommended in the following populations: Individuals with unstable creatinine concentrations, including patients and those with serious co-morbid conditions. Patients with extremes in muscle mass or diet. The data above are obtained from the [employer] ([employer]) which additionally recommends that when the eGFR is used in patients with extremes of body mass index for purposesof drug dosing, the eGFR should be multiplied by the estimated BMI.2Result Comment: The eGFR is calculated using the CKD-EPI formula. In most young, healthy individualsthe eGFR will be >90 mL/min/1.73m2. The eGFR declines with age. An eGFR of 60-89 may be normal insome populations, particularly the elderly, for whom the CKD-EPI formula has not been extensively validated. Use of the eGFR is not recommended in the following populations: Individuals with unstable creatinine concentrations, including patients and those with serious co-morbid conditions. Patients with extremes in muscle mass or diet. The data above are obtained from the [employer] ([employer]) which additionally recommends that when the eGFR is used in patients with extremes of body mass index for purposesof drug dosing, the eGFR should be multiplied by the estimated BMI.3Result Comment: The eGFR is calculated using the CKD-EPI formula. In most young, healthy individualsthe eGFR will be >90 mL/min/1.73m2. The eGFR declines with age. An eGFR of 60-89 may be normal insome populations, particularly the elderly, for whom the CKD-EPI formula has not been extensively validated. Use of the eGFR is not recommended in the following populations: Individuals with unstable creatinine concentrations, including patients and those with serious co-morbid conditions. Patients with extremes in muscle mass or diet. The data above are obtained from the [employer] ([employer]) which additionally recommends that when the eGFR is used in patients with extremes of body mass index for purposesof drug dosing, the eGFR should be multiplied by the estimated BMI.4Result Comment: Specimen Slightly Hemolyzed.5 Result Comment: Critical Result(s) called to Walt grant 12/06/2019 08:51 by johan. Read back OK. no answer 12/06/2019 06:32 no answer 12/06/2019 06:44 Immunizations No data available for this section Procedures No data available for this section Social History Social History Type Response Substance Abuse Use: Past. Type: Marijuana. Recreational Drug Route: Inhaled. Smoking Status Former smoker; Type: Cigaret kay; Exposure to Tobacco Smoke None; Cigarette Smoking Last 365 Days No; Reg Smoking Cessation Counseling No entered on: 12/06/19 Assessment and Plan Extracted from: Title: Trauma Tertiary Author: Jose Juan Fragoso MD Date : 12/06/19 Trauma Service Tertiary Survey Physical Exam Constitutional: NAD Neuro: Awake, responsive, GCS 15 HEENT: NC, bruise to left face CV: normal rate, +2 radial pulses Pulm: Respirations are non-labored, symm etrical chest wall expansion Abdomen: NTND, soft MSK: moves all extremities I have seen and examined the patient and reviewed all final reads of radiographic studies. No new injuries were identified. Jose Juan Fragoso MD PGY 2 Trauma Surgery Extracted from: Title: PRS Face Consultation Author: Dipak Jose MD Date: Facial Plastic Surgery Consult Note Reason for Consult: 1. Nondisplaced frac ture of the anterior and posterolateral left maxillary sinus wall. 2. Nondisplaced fracture of the left zyg omatic arch. Requesting physician: [facility] Attending: [...] see above Surgical History: No qualifying data sarah ilable Medications: Medication List Active Medications Ordered acetaminophen: 650 mg, 2 tab, PO, Q4H, PRN: Pain 1-3/Temp > 100.4 F. bisacodyl: 10 mg, 1 supp, MT, Daily, PRN: Constipation. docusate: 100 mg, 1 cap, PO, Q12H. fentaNYL: 25 microgram, 0.5 m L, IV, ONCE. levETIRAcetam + Sodium Chlori de 0.9% IV 100 mL: 500 mg, 400 ml/hr, IV, Q12H. ondansetron: 4 mg, 2 mL, IVP, Q8H, PRN: Nausea & Vomiting. senna: 8.6 mg, 1 tab, PO, Q12 H. sodium chloride: 10 ml, IVP, Q12H. sodium chloride: 10 ml, IVP, PRN, PRN: Line Flush. Sodium Chloride 0.9% IV 1000 mL: 50 ml/hr, IV, Stop: 01/05/20 0:38:00 CDT. Medications Inactivated in the Last 7 2 Hours iohexol: 100 mL, PYXIS, ONCE. iohexol: 100 mL, IVP, ONCALL. levETIRAcetam: 1,000 mg, IVPB, ON CE. levETIRAcetam: 1,000 mg, PYXIS, O NCE. Allergies: Allergies: None Documented Social History: Tobacco Details: Use: Never smoker. Tobacco smo ke exposure: None. Did the Patient Smoke Cigarettes Anytime During the Last 365 Days? No. Cessation Counseling Provided? No. Family History: no significant family hi story of DM, HTN, CAD, cancer, bleeding or clotting disorders Review of Systems: Gen: Denies fever/chills/night sweats HEENT: Denies vision change, sore throat , ulcers in mouth, epistaxis CV: Denies CP, Palpitations Resp: Denies SOB, wheezing, cough GI: Denies Abd pain, N/V/D/Constipation. Denies incontinence. : Denies urinary retention, urgency, b urning, discharge. Back/Spine: Denies pain. Neuro: Denies numbness, tingling, headac hes, weakness in extremities. Integumentary: Denies wounds, rashes Endocrine: Denies recent weight changes, heat/cold insensitivity. Psych: Denies depression, anxiety, labil e mood, suicidal/homicidal ideation. Musculoskeletal: No deformities, normal sensation and [...] Gen: NAD Neuro/psych: A&Ox3 Head/Face: Normocephalic, facial movemen t normal, symmetric, sensation intact Eyes: PERRLA Ears: [...] No palpable lymphadenopathy Labs: 24hr Labs 12/04 2207 ABO/Rh O POS Antibody Scrn Negative Glucose [...] fractures. 10. Left lateral hip soft tissue contus ion. 11. Evaluation is overall is limited by breathing motion artifact. Trauma Spine Cervical wo contrast CT 12/06/2019 [...] clinical concern. 4. Biapical scarring with paraseptal an d centrilobular emphysematous. 5. Biapical pulmonary nodules measuring up to 8 mm. Recommend follow-up nonemergent dedicated CT chest for continued evaluation. 6. Fluid opacification of the left maxi llary and bilateral sphenoid sinuses. Brain wo contrast CT 12/06/2019 00:10 Impression: 1. Acute right lateral convexity 4 mm s ubdural hematoma stable in size. No midline shift. Stable subarachnoid hemorrhage. No hydrocephalus. 2. There is fluid in the left maxillary and sphenoid sinuses. 3. Left frontal periorbital soft tissue swelling. UT SECTION: Neuro Assessment and Plan: 74 y/o M presents with: 1. Nondisplaced fracture of the anterior and posterolateral left maxillary sinus wall. 2. Nondisplaced fracture of the left zyg omatic arch. - Admit to: NSGY - Antibiotics: none - Pain control: per MMPC - DVT PPx: TEDS/SCD, chem ppx Lvx - Pending PRS surgeries: none - Dispo: _ - F/u in plastic surgery clinic with in weeks. Call [phone] to schedule Dipak Jose, PGY1 Pager: [phone] MSO: [id number] ADDENDUM: PATIENT DISCUSSED WITH DR. JOSE. AGREE [...]
--- OUTSIDE RECORDS SUMMARY | 2019-12-11 06:00 | XMS REPORT | Summary of Care ---
:1945 Author Organization [facility] Address [address] [place] [id number] Encounter HQ Encntr_alias(FIN) [id number] Date(s): 12/05/19 - 12/07/[address] Professional Services provided by [facility] [place] [address]- Discharge Disposition: Home or Self Care Attending [...] Status: Discontinuedbisacodyl 10 mg, 1 supp, Route: WA, Drug form: SUPP, Daily, kg, PRN Constipation, [...] once for up to 12 hours in [id number] period (12 hours on and 12 hours [...] 0 Notes: (Same as: Mag-Ox 400)Magnesium oxide [id number] elemental magnesiumDose=____mg magnesium oxide (___mg elemental magnesium) [...] exclude Patients with feedingtube less than 14 Nepali (Dobhoff, J-tube etc) and pediatric and patients. [...] 100.4 F. bisacodyl: 10 mg, 1 supp, WA, Daily, PRN: Constipation. docusate: 100 mg, 1 [...] plastic surgery clinic with in weeks. Call [phone] to schedule Dipak Jose, PGY1 Pager: [phone] MSO: [id number] ADDENDUM: PATIENT DISCUSSED WITH DR. JOSE. AGREE [...]
--- OUTSIDE RECORDS SUMMARY | 2019-12-11 06:02 | XMS REPORT | Continuity of Care Document ---
:1945 Author Organization [facility] t Address [address] [place] [address] Care Team Providers Name Role Phone Villanueva Attending Clinician Jermaine Chawla Admitting Clinician Problems Condition Condition Condition Status Onset Resolution Last Treating Co mments Source Name Details Category Date Date Treatment Clinician Date SAH Diagnosis Active 2019-12-08 Mem oria 12-04 11:11:00 l SAH 00:00: [place] 00 Active 12/05/2019 [facility] ACUTE Diagnosis Active 2019-12-11 Mem oria SUBDURAL 12-04 05:00:00 l HEMATOMA ACUTE 00:00: [place] SUBDURAL 00 HEMATOMA Active 12/05/2019 [facility] Degenerati Degenerati Problem Active [facility]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 [facility] - disease, disease, Memori a cervical cervical l [facility] TRAUM Diagnosis Active 2019-12-11 Mem oria SUBDR HEM 05:00:00 l W LOC OF TRAUM [place] UNSP SUBDR HEM DURATION, W LOC OF UNSP DURATION, Active [facility] Generalize Generalize Problem Active [facility] - abdominal abdominal Tru rose mary pain pain l Outpati ent Clinics Personal Personal Problem [facility] of history of [place] - other other Memoria diseases diseases l of the of the [facility] digestive digestive ent system system Clinics Acute Acute Problem Active [facility] diverticul diverticul [place] - itis of itis of Memoria intestine intestine l [facility] Other Other Problem Active [facility] specified specified Luke s - postproced postproced Me moria ural ural l states states Outpati ent Clinics Abdominal Abdominal Problem Active [facility] aortic aortic [facility] - aneurysm aneurysm Memori a (AAA) (AAA) l without without Outpati rupture rupture ent Clinics Change in Change in Problem Active [facility] bowel bowel [facility] - habits habits Memoria l [facility] Bloating Bloating Problem [facility] Left groin Left groin Problem Active [facility] pain pain [facility] - Memoria l [facility] Nausea Nausea Problem Active [facility] Thrombocyt Thrombocyt Problem Active [facility] openia openia [facility] - Memoria l [facility] History of History of Problem Active [facility] TIA TIA [facility] - (transient (transient Me moria ischemic ischemic l attack) attack) [facility] Degenerati Degenerati Problem Active [facility]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 [facility] - disease, disease, Memori a lumbar lumbar l [facility] Chronic Chronic Problem Active [facility] kidney kidney [facility] - disease, disease, Memori a unspecifie unspecifie l d CKD d CKD [facility] stage stage ent Clinics Elevated Elevated Problem Active [facility] BP without BP without [place] [facility] - diagnosis diagnosis Tru rose mary of of l hypertensi hypertensi Ou tpati on on ent Clinics Urinary Urinary Problem Active [facility] frequency frequency Luke s - Memoria l [facility] Total Total Problem Active [facility] bilirubin, bilirubin, [place] - elevated elevated Memori a l [facility] ent Clinics Carotid Carotid Diagnosis Active [facility] atheroscle atheroscle [place] - rosis, rosis, Memoria unspecifie unspecifie l d d [facility] laterality laterality en t Clinics 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 [place] - n, n, Memoria unspecifie unspecifie l d erectile 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 n type n type Clinics OAB OAB Problem Active [facility] (overactiv (overactiv [place] [facility] - e bladder) e bladder) Me moria l [facility] 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 [facility] urinary urinary [facility] - obs/LUTS obs/LUTS Memori a l [facility] Pain of Pain of Problem Active [facility] upper upper [facility] - abdomen abdomen Memoria l [facility] Subcutaneo Subcutaneo Problem Active [facility] us mass us mass [facility] - Memoria l [facility] Diverticul Diverticul Problem Active C [...] St chronic chronic [facility] - pain pain Memoria l Outpati ent Clinics Skin Skin Problem Active [facility] lesions lesions [facility] l [facility] Depression Depression Problem Active [facility] screening screening Luke s - Memoria l Outpati ent Clinics Allergies, Adverse Reactions, Alerts This patient has no known allergies or adverse reactions. Social History Social Habit Start Date Stop Date Quantity Comments Source Social History 2019-12-06 2019-12-[address] [facility] [place], [place] 11:05:07 11:05:07 Medications Ordered Filled Start Stop Current Ordering Indication Dosage Frequency Signature Comments Components Source Medication Medication Date Date Medication? Clinician (SIG) Name Name Levetiracet Yes 500 mg = 1 Memoria am 500 MG 6-21 tab, PO, l Oral Tablet 15:04: Q12H, # 12 [place] [Keppra] 00 tab, 0 Refill(s) Tamsulosin Yes 0.4 mg = 1 M emoria hydrochlori 6-21 cap, PO, l de 0.4 MG 14:33: Daily, # Herm onel Oral 00 30 cap, 0 Capsule Refill(s) [Flomax] clopidogrel No PO, 0 Memor ia 6-21 Refill(s) l 14:33: [place] 00 heparin 2019-0 No Notes: Memoria sodium, 6- porcine l porcine 13:00: heparin [place] 2500 UNT/ML 00 Injectable Solution Hydralazine No Notes: Tru rose mary 12-05 (Same as: l 19:41: Apresoline [place] 00 ) Push over 5 minutes Labetalol 2020-0 No 10 mg, 2 Tru rose mary 6-20 mL, Route: l 19:41: IVP, Drug form: INJ, Q1H, Dosing Weight 65.909, kg, PRN Hypertensi on, Start date: 12/06/19 14:41:00 CDT, Duration: 30 day, Stop date: 01/05/20 14:40:00 CDT, 0 Lidocaine 2019-0 No Notes: Memori a 0.05 MG/MG 6-20 Apply only l Transdermal 15:40: once for He rmann Patch 00 up to 12 hours in a 24-hour period (12 hours on and 12 hours off). (Same as: Lidoderm) "Remove old patch before applicatio n of new patch" Sodium 2020-0 No 1,000 mL, Memori a Chloride 6-20 1,000 l 0.9% 15:36: ml/hr, [place] (Bolus) IV 00 Infuse Over: 1 hr, Route: IV, 1,000, Drug form: INJ, ONCE, Priority: STAT, Dosing Weight 65.909 kg, Start date: 12/06/19 10:36:00 CDT, Stop date: 12/06/19 10:36:00 CDT, 0 normal 2020-0 No 1,000 mL, Memori a saline 0.9% 6-20 Rate: 75 l IV 1,000 mL 15:34: ml/hr, Herm onel Infuse over: 13.3 hr, Route: IV, Dosing Weight 65.909 kg, Total Volume: 1,000, Start date: 12/06/19 10:34:00 CDT, Duration: 30 day, Stop date: 01/05/20 10:33:00 CDT, 1.83, m2, 0 Protonix 2019-0 No Notes: Memoria 6-20 Tablet l 15:32: should not [place] 00 be chewed or crushed. (Same as: Protonix) Diclofenac 2019-0 No Notes: Memor ia Sodium 0.01 6-20 Same as: l MG/MG 14:00: Voltaren [place] Topical Gel 00 Gel Levetiracet 2019-0 No Notes: Tru rose mary am 500 MG 6-20 (Same l Oral Tablet 14:00: as:Keppra) [place] [Keppra] 00 Levetiracet No Notes: Tru rose mary am 6-20 Same as l 14:00: Keppra Mix with 100 mL NS, LR or D5W MEDICATION WASTE Product Size: 500 mg Product Wasted: ___ mg Docusate No Notes: Memoria 6-20 (Same as: l 14:00: Colace) (Do Not Crush) sennosides, No Notes: Tru rose mary [facility] 6-20 (Same as: l 14:00: Senokot) Saline No Notes: Memoria Flush 0.9% 6-20 (Same as: l 14:00: BD Posiflush) Potassium No Notes: Memori a Chloride 6-20 (Same as: l 10:17: KCL) Infuse no faster than 10 mEq/hr if given peripheral ly. sodium No Notes: Memoria phosphate 6-20 Infuse l 10:17: over 4 hour. Do not infuse phosphorou s concurrent ly in the same line as TPN or IVF that contains calcium. For double lumen central lines, phosphorou s may be infused in a separate lumen from TPN. potassium No Notes: Memori a phosphate 6-20 (Same as: l 10:17: K Phosphate. ) Do not infuse phosphorou s concurrent ly in the same line as TPN or IVF that contains calcium. For double lumen central lines, phosphorou s may be infused in a separate lumen from TPN. 1 mMol phoshate has 1.47 mEq potassium Infuse over 4 hours potassium No Notes: Memori a phosphate-s 6-20 (Same as: l odium 10:17: Phos-NaK) phosphate 00 Each 1.5 250 mg-280 gm pkt has mg-160 mg 250mg oral powder phosphorou for s. Mix reconstitut w/2.5oz ion water and stir. Magnesium No Notes: Memori a Sulfate 6-20 WASTE: F/P l 10:17: - Sink; E - Municipal Trash Bin Magnesium No Notes: Memori a Oxide 6-20 (Same as: l 10:17: Mag-Ox [place] 00 400) Magnesium oxide 316vg=359l g elemental magnesium Dose=____m g magnesium oxide (___mg elemental magnesium) Calcium 2019-0 No Notes: Memoria Gluconate - WASTE: F/P l 10:17: - Sink; E Jacob 00 - Municipal Trash Bin Calcium 2019-0 No Notes: Memoria Carbonate - (Same As: l 500 MG 10:17: Tums) [place] Chewable 00 Calcium Tablet Carbonate 500 mg = 200 mg elemental calcium Dose = mg calcium carbonate ( mg elemental calcium) Acetaminoph No Notes: Max Memoria en 12-05 acetaminop l 10:14: hen 4000 [place] 00 mg/day (4 gm/day). (Same as: Tylenol Extra Strength) Morphine 2019- No Notes: Memoria - (Same l 10:14: as:MORPhin [place] 00 e Sulfate) Robaxin 2019-0 No Notes: Memoria -20 (Same l 10:14: as:Robaxin [place] 00 ) tramadol 2019-0 No Notes: Not Mem oria hydrochlori - to exceed l de 50 MG 10:14: 400mg/day. Her thomson Oral Tablet 00 (Same As: Ultram) Fentanyl 0 No Notes: Memoria -20 (Same as: l 07:13: Sublimaze) [place] 00 Preservat hesham free. Sodium 2019-0 No 1,000 mL, Memori a Chloride 12-05 Rate: 50 l 0.9% IV 05:39: ml/hr, [place] 1,000 mL 00 Infuse over: 20 hr, Route: IV, Dosing Weight 65.909 kg, Total Volume: 1,000, Start date: 12/06/19 0:39:00 CDT, Duration: 30 day, Stop date: 01/05/20 0:38:00 CDT, 1.83, m2, 0 Acetaminoph 2019-0 No Notes: Do M emoria en - not exceed l 05:39: 4 gm/day. [place] 00 (Same as: Tylenol) Bisacodyl 2019-0 No Notes: Memori a 6-20 (Same As: l 05:39: Dulcolax, Jacob Bisco-Lax) Ondansetron No Notes: Tru rose mary -20 (Same as: l 05:39: Zofran) [place] 00 MEDICATION WASTE Product Size: 4 mg Product Wasted: ___ mg Saline No Notes: Memoria Flush 0.9% 12-05 (Same as: l 05:39: BD [place] Posiflush) Iohexol No 100 mL, Memoria 12-05 Route: l 05:03: IVP, Drug Form: SOLN, kg, ONCALL, STAT, Start date: 12/06/19 0:03:00 CDT, Duration: 1 doses or times, Dose = 2.2ml/kg, Max dose = 100ml -- "To be infused by Radiology Staff ONLY" Keppra No 1,000 mg, Memori a 12-05 Route: l 01:32: IVPB, [place] 00 ONCE, kg, Priority: STAT, Start date: 12/05/19 20:32:00 CDT, Stop date: 12/05/19 20:32:00 CDT Plavix Plavix Yes Norma [address] [facility] - [facility]oria l [facility] Vital Signs Vital Name Observation Time Observation Value Comments Source Temperature Oral (F) 2019-12-07 16:40:00 98.1 F [facility] Systolic (mm Hg) 2019-12-07 13:00:00 Tru rial Jacob Diastolic (mm Hg) 2019-12-07 13:00:00 Mem orial [place] Temperature Oral (F) 2019-12-07 12:32:00 98.5 F [facility] [place] Systolic (mm Hg) 2019-12-07 09:35:00 Tru rial Jacob Diastolic (mm Hg) 2019-12-07 09:35:00 Mem orial [place] Respitory Rate 2019-12-07 09:35:00 Memori al Jacob Temperature Oral (F) 2019-12-07 09:35:00 98.0 F [facility] Systolic (mm Hg) 2019-12-07 05:00:00 Tru rial [place] Diastolic (mm Hg) 2019-12-07 05:00:00 Mem orial [place] Respitory Rate 2019-12-07 05:00:00 Memori al [place] Respitory Rate 2019-12-07 01:00:00 Memori al [place] Height 2019-12-06 20:22:00 182.88 cm [facility] [place] Weight 2019-12-06 20:22:00 [facility] [place] BMI Calculated 2019-12-06 20:22:00 Memori al [place] Height 2019-12-06 09:54:00 182.88 cm [facility] Jcaob Weight 2019-12-06 09:54:00 [facility] [place] BMI Calculated 2019-12-06 09:54:00 Memori al [place] Heart Rate 2019-12-06 00:59:00 [facility] [place] Procedures This patient has no known procedures. Encounters Start End Encounter Admission Attending Care Care Encounter Source Date/Time Date/Time Type Type Clinicians Facility Department ID 2019-12-05 2019-12-07 Outpatient Rich [facility] [id number] 19:55:00 13:30:00 Deborah Dominguez 2019-12-05 2019-12-07 Outpatient Rich [facility] [id number] 19:55:00 13:30:00 Deborah Dominguez 2019-12-06 2019-12-05 Inpatient E [facility] [id number] MH 00:40:00 19:55:00 2019-12-05 2019-12-05 Outpatient [facility] [id number] MH 19:55:00 19:55:00 2019-09-16 2019-09-16 [facility] [id number] [facility] 10:01:00 10:01:00 t [facility] Family Medicine l Medicine Outpati ent Clinics 2019-09-02 2019-09-02 [facility] [id number] [facility] 09:51:00 09:51:00 t Specialty/U [place] - Specialty rology Memori a /Urology Clinic l Clinic Outpati ent Clinics 2019-08-06 2019-08-06 [facility] [id number] [facility] 09:00:00 09:00:00 t Specialty/U [place] k[place] - Specialty rology Memori a /Urology Clinic l Clinic Outpati ent Clinics 2019-07-27 2019-07-27 [facility] [id number] [facility] 12:43:00 12:43:00 t [facility] Outpati ent Clinics 2019-07-23 2019-07-23 [facility] [id number] 11:00:00 11:00:00 t [facility] Outpati ent Clinics 2019-02-03 2019-02-03 [facility] [id number] [facility] [address] 08:15:00 08:15:00 t Specialty/U [place] - Specialty rology Memori a /Urology Clinic l Clinic Outpati ent Clinics 2019-01-21 2019-01-21 [facility] [id number] [facility] 09:40:00 09:40:00 t [facility] Outpati ent Clinics 2019-01-14 2019-01-14 [facility] [id number] [facility] [address] 08:00:00 08:00:00 t [facility] Outpati ent Clinics 2018-09-25 2018-09-25 [facility] [id number] [address] 10:23:00 10:23:00 t Specialty/U [place] - Specialty rology Memori a /Urology Clinic l Clinic Outpati ent Clinics 2018-08-05 2018-08-05 [facility] [id number] [facility] 08:15:00 08:15:00 t Specialty/U [place] k[place] - Specialty rology Memori a /Urology Clinic l Clinic Outpati ent Clinics 2018-07-09 2018-07-09 [facility] [id number] 09:30:00 09:30:00 t [facility] Medicine Outpati ent Clinics 2018-06-25 2018-06-25 [facility] [id number] 09:45:00 09:45:00 t Specialty/U [place] k[place] - Specialty rology Memori a /Urology Clinic l Clinic Outpati ent Clinics 2018-01-23 2018-01-23 [facility] [id number] 08:30:00 08:30:00 [facility] Results Test Description Test Time Test Comments Results Result Comments Source CHEM PANEL 2019-12-07 2.0 [facility] nn 10:09:00 CHEM PANEL 2019-12-07 91 [facility] 10:09:00 CHEM PANEL 2019-12-07 11 [facility] nn 10:09:00 CHEM PANEL 2019-12-07 1.14 [facility] nn 10:09:00 CHEM PANEL 2019-12-07 141 [facility] nn 10:09:00 CHEM PANEL 2019-12-07 3.2 [facility] nn 10:09:00 CHEM PANEL 2019-12-07 108 [facility]ha nn 10:09:00 CHEM PANEL 2019-12-07 23 [facility]ha nn 10:09:00 CHEM PANEL 2019-12-07 8.1 [facility]iesha nn 10:09:00 CHEM PANEL 2019-12-07 13.2 [facility]iesha nn 10:09:00 CHEM PANEL 2019-12-07 63 [facility]iesha nn 10:09:00 CHEM PANEL 2019-12-07 6.3 [facility] nn 10:09:00 CHEM PANEL 2019-12-07 3.2 [facility]iesha nn 10:09:00 CHEM PANEL 2019-12-07 13 [facility] nn 10:09:00 CHEM PANEL 2019-12-07 13 [facility] nn 10:09:00 CHEM PANEL 2019-12-07 73 [facility] Kiesha nn 10:09:00 CHEM PANEL 2019-12-07 1.2 [facility] Kiesha nn 10:09:00 CHEM PANEL 2019-12-07 0.3 [facility] Kiesha nn 10:09:00 CHEM PANEL 2019-12-07 0.9 [facility] Kiesha nn 10:09:00 CHEM PANEL 2019-12-07 3.1 [facility] Kiesha nn 10:09:00 CHEM PANEL 2019-12-07 10:09:00 Test Item Value Reference Range Interpretation Comme nts A/G Ratio (test code = A/G Ratio) 1.0 1 0.7-1.6 [facility]annCHEM [id number] 10:09:002.3[facility] HermannHEMATOLOGY 2019-12-07 10:09:0072.7[facility] VhgftkpSRDLIOJOEG6183-74-75 10:09:0014.0[facility] GcdnsadAWHSAKQASQ1959-42-46 10:09:0011.7[facility] AhhkrzcERRBYTLWRS0255-93-31 10:09:001.3[facility] XljhahqIKOANHPLMH0299-12-30 10:09:000.3[facility] Jacob UQOCCDREHG2910-16-25 10:09:004.8[facility] LzvcjciMZSKKYRZLG4528-10-77 10:09:000.9 [facility] OjckbyvTNNOUFKOAJ2879-14-95 10:09:000.8[facility]annHEMATOLOGY 2019-12-07 10:09:000.1[facility] HkruvhgZLZZUPIMLM8771-79-68 10:09:001+ *ABN*(12/07/19 5:09 AM)[facility] IsnfekgPEEXFDYBBI3397-61-03 10:09:006.7[facility] VujoucmXRGGXZMXLA9184-69-48 10:09:004.19[facility] LyzwtghMBTKVEYIUW6364-93-28 10:09:0014.4[facility] EbhpyxzWXYDIOQZPB5260-14-41 10:09:0042.0[facility] Jacob EPSPNSRDHW1687-21-41 10:09:85814.3[facility] OhohftjWRIXHSNDLI2604-39-55 10:09:00 Test Item Value Reference Range Interpretation Comments MCH (test code = MCH) 34.4 pg 27.0-31.0 Memorial TcuguvqXYHRXPLUFB3035-61-92 10:09:0034.3[facility] HermannHEMATOLOGY 2019-12-07 10:09:0013.8[facility] LmtqdeqTIDXBGFVFU7437-43-70 10:09:02646Skvyffwl KmdqbdsEKHVTIJPBP7991-43-21 10:09:009.3[facility] HermannPARATHYROID PROFILE 2019-12-07 10:09:001.03[facility] HermannPARATHYROID YEJUAKJ7783-77-12 10:09:00 1.03[facility] HermannCARDIAC ULQAULV0494-52-30 16:08:00<0.02[facility] Jacob CHEM EXIJG9028-62-96 16:08:0096[facility] HermannCHEM LHQPY9077-89-66 16:08:0014 [facility]annCHEM GKBLJ5298-20-24 16:08:001.52[facility] HermannCHEM PANEL 2019-12-06 16:08:81675Mmdmmcnq HermannCHEM UOWUW2567-85-68 16:08:003.6[facility]annCHEM LXJVA8230-58-70 16:08:99389Prtxwzxf HermannCHEM UCPUZ6570-38-71 16:08:0024[facility] HermannCHEM ANHLA6397-91-61 16:08:008.8[facility]annCHEM LWNNC2248-10-28 16:08:006.6[facility]annCHEM BJDPI0920-01-02 16:08:003.5 [facility]annCHEM HGWYA3191-90-77 16:08:0018[facility]annCHEM PANEL 2019-12-06 16:08:0019[facility] HermannCHEM EKHZV6320-52-08 16:08:0078[facility]annCHEM XBEXT0274-69-37 16:08:001.8[facility]annCHEM GVQIH8122-49-66 16:08:0011.6[facility]annCHEM OAJYB0626-54-95 16:08:00 Test Item Value Reference Range Interpretation Comments B/C Ratio (test code = B/C Ratio) 9 1 6-25 [facility]annCHEM [id number] 16:08:003.1[facility]annCHEM PANEL 2019-12-06 16:08:00 Test Item Value Reference Range Interpretation Comments A/G Ratio (test code = A/G Ratio) 1.1 1 0.7-1.6 [facility]annCHEM [id number] 16:08:0045[facility] HermannIMMUNOLOGY 2019-12-06 10:59:00Not Detected (12/06/19 5:59 AM)[facility]annCHEM PANEL 2019-12-06 10:21:86793Suwivkmm HermannCHEM QLWET1576-67-20 10:21:0013[facility]annCHEM UYLXU2629-96-89 10:21:001.55[facility]annCHEM KWFIS9570-49-09 10:21:11533Nnmxsmwn HermannCHEM AKFFV7593-37-42 10:21:003.2[facility] HermannCHEM CSQAF4833-64-34 10:21:33980Aytflrzv HermannCHEM LZLQR2437-64-94 10:21:0023 [facility]annCHEM HZPHG4067-44-58 10:21:008.9[facility]annCHEM PANEL 2019-12-06 10:21:0013.2[facility] HermannCHEM RFUTC3706-10-40 10:21:0044[facility] HermannCHEM REPRP8359-23-40 10:21:002.0[facility] HermannCHEM UZYPZ4455-85-15 10:21:001.3[facility] IrjaevwREZIJYTAJO0846-62-97 10:21:008.5[facility] [place] TVVCRDPYNH4054-10-16 10:21:004.48[facility] NrilmgsRWJPTIJWKW0458-65-36 10:21:00 15.5[facility] JrzewmnJWKCSCLTSL5292-84-99 10:21:0044.2[facility] HermannHEMATOLOGY 2019-12-06 10:21:0098.7[facility] YlzmrxtBRKCCXVGAH1130-89-76 10:21:00 Test Item Value Reference Range Interpretation Comments MCH (test code = MCH) 34.7 pg 27.0-31.0 [facility] ZxwzpigLFMBZOKPNH3585-52-31 10:21:0035.1[facility] HermannHEMATOLOGY 2019-12-06 10:21:0013.4[facility] XzyacqmHUYNTCNEJV0439-96-29 10:21:41426Gtedcbdk KoybrwpKQPASLNFEZ1246-38-27 10:21:009.5[facility] FzkdeflQEUWFXVHXO1095-05-86 10:21:0078.7[facility] GqbpreaXWFPHUGGMG4266-40-70 10:21:0010.0[facility] [place] LWOROBTGXB8467-72-91 10:21:0010.8[facility] BemfqywGAADMBRIEN9941-63-53 10:21:00 0.1[facility] FuexoeiDWFNXIRVPM0332-64-71 10:21:000.4[facility]annHEMATOLOGY 2019-12-06 10:21:006.7[facility] AcdzvvlAKSKSSIDHF3088-70-46 10:21:000.9[facility] MzyiudoIUYUYOZSQU8083-12-36 10:21:000.9[facility] HermannPARATHYROID PROFILE 2019-12-06 10:21:001.01[facility] HermannPARATHYROID EJSDBWV3231-53-02 10:21:00 1.03[facility] HermannBLOOD BANK GYJPCAP3403-16-11 03:07:00Negative (12/05/19 10:07 PM)[facility] HermannCARDIAC NHERJJS5517-20-53 03:07:00<0.02[facility] [place] GJCXRCRXCA3707-98-15 03:07:009.1[facility] ZkqcmdmRWZNDGOTGB1262-90-38 03:07:00 4.63[facility] AdtsticAPJYRZIDQD6316-85-64 03:07:0015.8[facility] HermannHEMATOLOGY 2019-12-06 03:07:0046.6[facility] GmlmlfhMQUXWBGGXD7956-79-69 03:07:87622.6 [facility] TqrkirdJBZFIZQROC0739-53-73 03:07:00 Test Item Value Reference Range Interpretation Comments MCH (test code = MCH) 34.2 pg 27.0-31.0 [facility] UsxstzwQNHVMZCHRF7072-58-21 03:07:0033.9[facility] HermannHEMATOLOGY 2019-12-06 03:07:0013.4[facility] PlhaqspSBLLENJLAA3227-44-17 03:07:50534Hfmdixfa KkzftcbKPLKPCGDDL6311-17-84 03:07:008.9[facility] XjmdqtyLEROVCWCIS3341-02-99 03:07:00 Test Item Value Reference Range Interpretation Comments PT (test code = PT) 12.3 s 12.0-14.7 [facility] SvlnesfOFXPMYBXUI7866-70-38 03:07:00 Test Item Value Reference Range Interpretation Comments INR (test code = INR) 0.92 1 0.85-1.17 [facility] CuxosraFHDINHKFWQ7225-07-44 03:07:00 Test Item Value Reference Range Interpretation Comments PTT (test code = PTT) 23.9 s 22.9-35.8 [facility] YjxryazOUTADAPKWX4031-49-62 03:07:00 Test Item Value Reference Range Interpretation Comments ACT (TEG) Rapid (test code = ACT (TEG) 105 s 86-118 Rapid) [facility] FmngbsvQPQGXITSUL5723-87-25 03:07:00 Test Item Value Reference Range Interpretation Comments Split Point Rapid (test code = Split 0.5 min Point Rapid) [facility] LsyyuihGKQLBJURYV1361-66-37 03:07:00 Test Item Value Reference Range Interpretation Comments R-time Rapid (test code = R-time 0.6 min 0.4-0.7 Rapid) [facility] YkkszonGRTWWGYBRV6854-05-17 03:07:00 Test Item Value Reference Range Interpretation Comments K-time Rapid (test code = K-time 1.8 min 0.6-2.3 Rapid) [facility] PsaiyxvPIFGKRLPQH5004-07-68 03:07:00 Test Item Value Reference Range Interpretation Comments Angle Rapid (test code = Angle 71 degrees 64-80 Rapid) [facility]ajswqkCVDTAZOPZJ4893-02-36 03:07:00 Test Item Value Reference Range Interpretation Comments Max Amplitude Rapid (test code = Max 59 mm 52-71 Amplitude Rapid) [facility] MtisyxtYBWMPXCBMI4144-31-52 03:07:007.1[facility] HermannHEMATOLOGY 2019-12-06 03:07:000.0[facility] IielukhGQEPGCZNFN5072-17-62 03:07:0086.9[facility] ChytbmvBWTUBHZYWQ4389-00-77 03:07:005.3[facility] QixkrqgJTYXLCTGFG6946-46-56 03:07:007.3[facility] AxnsgbwMJUBABIRBK6531-42-60 03:07:000.2[facility] Jacob XMPBJHWWFG4711-17-92 03:07:000.3[facility] GkngfyhIGDZAIPRDM2649-40-54 03:07:007.9 [facility] KqoeobfZYSBOSJONB2352-53-42 03:07:000.5[facility] HermannHEMATOLOGY 2019-12-06 03:07:000.7[facility] WdpfmvtGESCVLWFMD0162-95-23 03:07:001+ *ABN*(12/05/19 10:07 PM)[facility]
--- OUTSIDE RECORDS SUMMARY | 2019-12-11 06:02 | XMS REPORT ---
[...] Date End Date Status Dosage Plavix NDC [id number] 75 MG Orally Once Active 1 tablet a day Results No Known Results Summary Purpose eClinicalWorks Submission
[2019-12-11] MEDS ORDERED: LORazepam 2 MG/ML VIAL ONE ×2 (06:28→10:12)
[2019-12-11 07:49] LABS: Absolute Lymphocytes (CBC) 1.2 K/uL (0.7-4.9); Basophils % 1.1 % (0-1.3); Hematocrit 44.7 % (39.6-49.0); Lymphocytes % 16.8 % (15.3-44.8); MPV 10.1 fL (7.6-11.3); RBC Red Blood Cell Count 4.59 M/uL (4.33-5.43)
[2019-12-11 07:56] LABS: Protime INR 1.03
[2019-12-11 08:11] LABS: ALT/SGPT 16 U/L (12-78); AST/SGOT 12 U/L (15-37); Albumin 3.8 g/dL (3.4-5.0); Alkaline Phosphatase 88 U/L (45-117); BUN Blood Urea Nitrogen 12 mg/dL (7-18); Bicarbonate 22 mmol/L (21-32); Bilirubin Direct 0.5 mg/dL (0-0.2); Bilirubin Total 2.3 mg/dL (0.2-1.0); Glucose Level 76 mg/dL (74-106); Magnesium 2.2 mg/dL (1.8-2.4); NT PRO-BNP 277 pg/mL (<125); Potassium 3.5 mmol/L (3.5-5.1); Protein, Total 7.3 g/dL (6.4-8.2); Sodium Level 141 mmol/L (136-145); Troponin (Emerg Dept Use Only) < 0.02 ng/mL (0.0-0.045)
--- NOTE | 2019-12-11 08:29 | RAD REPORT ---
EXAM DESCRIPTION: CT - Head Brain Wo Cont - 12/11/2019 6:39 am CLINICAL HISTORY: previous traumatic subdural recent;Dizziness;Headache Headache, drowsiness COMPARISON: Head Brain Wo Cont dated 12/05/2019 TECHNIQUE: All CT scans are performed using dose optimization technique as appropriate and may inclu de automated exposure control or mA/KV adjustment according to patient size. FINDINGS: The previously noted right-sided temporal fossa subdural hematoma has reduced in size and has a more chronic hypodense appearance on today's study.No areas of brain edema or evidence of midli ne shift. No acute hemorrhage is seen. No hydrocephalus. 6 mm thick hypodense extra-axial fluid is se en along the right frontal convexity, probably representing a subdural hygroma. The paranasal sinuses and mastoids are clear. The calvarium is intact. IMPRESSION: The previously noted right temporal fossa subdural hematoma has reduced in size and demo nstrates a more chronic hypodense appearance on today's examination. No acute hemorrhage or midline shift is seen. Right frontal subdural hygroma has developed since the prior study measuring 6 mm in thickness.
[2019-12-11 08:40] LABS: Urine Blood NEGATIVE (NEG); Urine Glucose NEGATIVE (NEG); Urine Protein NEGATIVE (NEG); Urine Specific Gravity 1.025 (1.005-1.030)
--- NOTE | 2019-12-11 08:58 | EDPHYS ---
Physician Documentation [facility] Name: Volodymyr Armenta Age: 74 yrs Sex: Male : 1945 Arrival Date: 12/11/2019 Time: 05:56 Bed 3 Private MD: ED Physician Néstor Pond HPI: 12/10 07:12 This 74 yrs old Male presents to ER via EMS with complaints of Breathing jr8 Difficulty. 07:12 The patient has shortness of breath at rest. Onset: The symptoms/episode began/occurred jr8 acutely, today. Duration: The symptoms are continuous. The patient's shortness of breath has no apparent modifying factors. Associated signs and symptoms: Pertinent positives: dizziness, headache. Severity of symptoms: At their worst the symptoms were moderate in the emergency department the symptoms are unchanged. The patient has been recently seen by a physician:. Patient recently seen in ED here and life flighted to [facility] for acute traumatic subdural hemorrhage with facial fracture as well. Patient released from [place] on anti seizure medications this past Sunday. Stated that he came today because he has been seeing things, having pain and dizziness to head, and breathing difficulty. Stated that he gets anxious and starts to breath fast when his pain increased. Patient arrived via EMS this AM in stable condition. Historical: - Allergies: 06:10 No Known Allergies; rr5 - Home Meds: 06:10 clopidogrel Oral [Active]; Flomax Oral [Active]; rr5 - PMHx: 06:10 TIA; rr5 06:10 brain bleed; rr5 - Immunization history:: Adult Immunizations up to date. - Social history:: Smoking status: unknown Patient/guardian denies using alcohol, street drugs. ROS: 07:12 Eyes: Negative for injury, pain, redness, and discharge, ENT: Negative for injury, jr8 pain, and discharge, Neck: Negative for injury, pain, and swelling, Cardiovascular: Negative for chest pain, palpitations, and edema, Abdomen/GI: Negative for abdominal pain, nausea, vomiting, diarrhea, and constipation, Back: Negative for injury and pain, MS/Extremity: Negative for injury and deformity. 07:12 Respiratory: Positive for shortness of breath. 07:12 Skin: Positive for ecchymosis, of the face. 07:12 Neuro: Positive for dizziness, headache. 07:12 Psych: Positive for visual hallucinations. Exam: 07:12 ENT: Nares patent. No nasal discharge, no septal abnormalities noted. Tympanic jr8 membranes are normal and external auditory canals are clear. Oropharynx with no redness, swelling, or masses, exudates, or evidence of obstruction, uvula midline. Mucous membranes moist. Neck: Trachea midline, no thyromegaly or masses palpated, and no cervical lymphadenopathy. Supple, full range of motion without nuchal rigidity, or vertebral point tenderness. No Meningismus. Chest/axilla: Normal chest wall appearance and motion. Nontender with no deformity. No lesions are appreciated. Cardiovascular: Regular rate and rhythm with a normal S1 and S2. No gallops, murmurs, or rubs. Normal PMI, no JVD. No pulse deficits. Respiratory: Lungs have equal breath sounds bilaterally, clear to auscultation and percussion. No rales, rhonchi or wheezes noted. Tachypneic but without retractions or nasal flaring. Abdomen/GI: Soft, non-tender, with normal bowel sounds. No distension or tympany. No guarding or rebound. No evidence of tenderness throughout. Back: No spinal tenderness. No costovertebral tenderness. Full range of motion. Skin: Warm, dry with normal turgor. Normal color with no rashes, no lesions, and no evidence of cellulitis. MS/ Extremity: Pulses equal, no cyanosis. Neurovascular intact. Full, normal range of motion. Neuro: Awake and alert, GCS 15, oriented to person, place, time, and situation. Cranial nerves II-XII grossly intact. Motor strength 5/5 in all extremities. Sensory grossly intact. 07:12 Head/face: Noted is ecchymosis, that is moderate, of the forehead, right eye, left cheek, left eye and left side of forehead. 07:12 Eyes: Periorbital structures: ecchymosis, that is moderate, bilaterally, Pupils: equal, round, and reactive to light and accomodation, Extraocular movements: intact throughout, Conjunctiva: subconjunctival hemorrhage(s), seen in the left eye, Lids and lashes: ecchymosis, bilaterally. 07:12 ECG was reviewed by the Attending Physician. Vital Signs: 06:05 BP 175 / 96; Pulse 79; Resp 20; Temp 97.(O); Pulse Ox 100% on R/A; oe 07:20 Weight 63.5 kg; Height 6 ft. 6 in. (198.12 cm); rr5 07:45 BP 161 / 105; Pulse 84; Resp 20; Pulse Ox 98% on R/A; em 08:30 BP 160 / 105; Pulse 67; Resp 18; Pulse Ox 99% ; sv 09:30 BP 164 / 102; Pulse 74; Resp 18; Pulse Ox 98% ; sv 12:11 BP 180 / 99; Pulse 65; Resp 16; Pulse Ox 100% ; sv 13:00 BP 168 / 95; Pulse 65; Resp 16; Pulse Ox 100% ; sv 14:00 BP 159 / 96; Pulse 71; Resp 16; Pulse Ox 98% ; sv 14:50 BP 155 / 95; Pulse 81; Resp 18; Pulse Ox 99% on R/A; em 07:20 Body Mass Index 16.18 (63.50 kg, 198.12 cm) rr5 MDM: 06:01 Patient medically screened. jr8 08:48 Data reviewed: vital signs, nurses notes, lab test result(s), EKG, radiologic studies, jr8 CT scan, MRI, plain films, and as a result, I will admit patient. Data interpreted: Pulse oximetry: on room air is 98 %. Interpretation: normal. Counseling: I had a detailed discussion with the patient and/or guardian regarding: the historical points, exam findings, and any diagnostic results supporting the discharge/admit diagnosis, lab results, radiology results, the need for further work-up and treatment in the hospital. Physician consultation: Florin Healy MD was called at 08:50, was contacted at 08:50, regarding consult, and will see patient in inpatient room. 08:53 ED course: Discussed with family that this could be break through seizures, ischemia, jr8 or post concussive syndrome. Will admit and get MRI and EEG. Neurology to see patient as well. Family and patient good with decision . 12/10 06:10 Order name: Basic Metabolic Panel; Complete Time: jr8 12/10 06:10 Order name: CBC with Diff; Complete Time: jr8 12/10 06:10 Order name: LFT's; Complete Time: jr8 12/10 06:10 Order name: Magnesium; Complete Time: 08:26 12/10 06:10 Order name: NT PRO-BNP; Complete Time: 08:26 12/10 06:10 Order name: PT-INR; Complete Time: 08:26 12/10 06:10 Order name: Troponin (emerg Dept Use Only); Complete Time: 08:26 12/10 06:10 Order name: XRAY Chest (1 view); Complete Time: 09:04 12/10 06:10 Order name: CT Head Brain wo Cont; Complete Time: 08:42 12/10 08:06 Order name: Urine Dipstick--Ancillary (enter results); Complete Time: 08:42 12/10 08:48 Order name: Brain Wo Cont MRI; Complete Time: 12:22 12/10 06:10 Order name: EKG; Complete Time: 06:11 12/10 06:10 Order name: Cardiac monitoring; Complete Time: 07:17 12/10 06:10 Order name: EKG - Nurse/Tech; Complete Time: 07:12/10 06:10 Order name: IV Saline Lock; Complete Time: 07:17 12/10 06:10 Order name: Labs collected and sent; Complete Time: 07:12/10 06:10 Order name: O2 Per Protocol; Complete Time: 07:12/10 06:10 Order name: O2 Sat Monitoring; Complete Time: 07:17 12/10 13:30 Order name: Diet Regular; Complete Time: 13:31 em EC:12 Rate is 67 beats/min. Rhythm is regular, Normal Sinus Rhythm. QRS Jackson is Normal. ID jr8 interval is normal at 148 msec. QRS interval is normal at 78 msec. QT interval is normal at 458 msec. No Q waves. T waves are Inverted in lead V1. No ST changes noted. Clinical impression: NSR w/ Non-specific ST/T Changes and No evidence of ischemia. Interpreted by me. Reviewed by me. Administered Medications: 07:00 Drug: Ativan 1 mg Route: IVP; Site: right antecubital; rr5 07:30 Follow up: Response: No adverse reaction; Marked relief of symptoms em 09:55 Drug: Keppra 500 mg Route: IV; Rate: calculated rate; Site: right forearm; em 10:25 Follow up: Response: No adverse reaction; IV Status: Completed infusion; IV Intake: em 105ml 09:55 Drug: NS 0.9% 1000 ml Route: IV; Rate: 75 ml/hr; Site: right forearm; em 15:23 Follow up: IV Status: Infusion continued upon admission em 11:15 Drug: Ativan 0.5 mg Route: IVP; Site: right forearm; em 11:24 Follow up: Response: No adverse reaction; Marked relief of symptoms em 15:06 Drug: [place] (7.5 mg-325 mg) 1 tabs Route: PO; em 15:44 Follow up: Response: No adverse reaction em Disposition: 17:47 Co-signature as Attending Physician, Néstor Pond MD I agree with the assessment and easton plan of care. Disposition: 12/11/19 08:57 Hospitalization ordered by Prince Hue for Observation. Preliminary diagnosis are Subdural hematoma, Altered mental status, unspecified. - Bed requested for Telemetry/MedSurg (observation). - Status is Observation. em - Condition is Stable. - Problem is new. - Symptoms have improved. Signatures: Dispatcher [employer] Néstor Arrieta MD MD cha Munoz, Edgar, RN RN em Joss Noriega PA PA jr8 Zainab Pierre Raymond, RN RN rr5 Corrections: (The following items were deleted from the chart) 09:32 08:57 Hospitalization Ordered by Florin Healy MD for Observation. Preliminary eb diagnosis is Subdural hematoma; Altered mental status, unspecified. Bed requested for Telemetry/MedSurg (observation). Status is Observation. Condition is Stable. Problem is new. Symptoms have improved. jr8 09:36 09:32 12/11/2019 08:57 Hospitalization Ordered by Florin Healy MD for Observation. jr8 Preliminary diagnosis is Subdural hematoma; Altered mental status, unspecified. Bed requested for Telemetry/MedSurg (observation). Status is Observation. Condition is Stable. Problem is new. Symptoms have improved. eb 14:35 09:36 12/11/2019 08:57 Hospitalization Ordered by Prince Hue DELUNA for Observation. eb Preliminary diagnosis is Subdural hematoma; Altered mental status, unspecified. Bed requested for Telemetry/MedSurg (observation). Status is Observation. Condition is Stable. Problem is new. Symptoms have improved. jr8 15:44 14:35 12/11/2019 08:57 Hospitalization Ordered by Prince Hue DELUNA for Observation. em Preliminary diagnosis is Subdural hematoma; Altered mental status, unspecified. Bed requested for Telemetry/MedSurg (observation). Status is Observation. Condition is Stable. Problem is new. Symptoms have improved. eb
--- NOTE | 2019-12-11 08:58 | ER ---
Nurse's Notes [facility] Name: Volodymyr Armenta Age: 74 yrs Sex: Male : 1945 Arrival Date: 12/11/2019 Time: 05:56 Bed 3 Private MD: Diagnosis: Subdural hematoma;Altered mental status, unspecified Presentation: 12/10 06:10 Chief complaint: EMS states: patient complaining of difficulty of breathing. last rr5 Sunday he came here for a complaint of brain bleed he was life flight 3 broken ribs, jaw and left orbital fracture. 06:10 Coronavirus screen: Proceed with normal triage. Ebola Screen: Patient negative for rr5 fever greater than or equal to 101.5 degrees Fahrenheit, and additional compatible Ebola Virus Disease symptoms Patient denies exposure to infectious person. Patient denies travel to an Ebola-affected area in the 21 days before illness onset. Initial Sepsis Screen: Does the patient meet any 2 criteria? No. Patient's initial sepsis screen is negative. Does the patient have a suspected source of infection? No. Patient's initial sepsis screen is negative. Risk Assessment: Do you want to hurt yourself or someone else? Patient reports no desire to harm self or others. Onset of symptoms was December 11, 2019. 06:10 Method Of Arrival: EMS: [facility] rr5 06:10 Acuity: BRYAN 3 rr5 Triage Assessment: 06:10 Respiratory: Reports shortness of breath the patient has mild shortness of breath. rr5 06:10 General: Appears in no apparent distress. Behavior is calm, cooperative, appropriate rr5 for age. Historical: - Allergies: 06:10 No Known Allergies; rr5 - Home Meds: 06:10 clopidogrel Oral [Active]; Flomax Oral [Active]; rr5 - PMHx: 06:10 TIA; rr5 06:10 brain bleed; rr5 - Immunization history:: Adult Immunizations up to date. - Social history:: Smoking status: unknown Patient/guardian denies using alcohol, street drugs. Screenin:06 Abuse screen: Denies threats or abuse. Denies injuries from another. Nutritional rr5 screening: No deficits noted. Tuberculosis screening: No symptoms or risk factors identified. Fall Risk Fall in past 12 months (25 points). IV access (20 points). Total Walters Fall Scale indicates High Risk Score (45 or more points). Fall prevention measures have been instituted. Side Rails Up X 2 Frequent Obs/Assessments Occuring As available patient and family educated on Fall Prevention Program and Strategies. Assessment: 06:10 General: Appears in no apparent distress. uncomfortable, Behavior is calm, cooperative, rr5 appropriate for age. 06:10 Pain: Complains of pain in head Pain currently is 8 out of 10 on a pain scale. Quality rr5 of pain is described as aching, Pain began suddenly, Is intermittent. Neuro: Level of Consciousness is awake, alert, obeys commands, Oriented to person, place, time, situation, Appropriate for age. Cardiovascular: Capillary refill < 3 seconds Patient's skin is warm and dry. Rhythm is regular. Respiratory: Airway is patent Respiratory effort is even, unlabored, Respiratory pattern is regular, symmetrical, Breath sounds are clear. GI: Abdomen is flat. : No signs and/or symptoms were reported regarding the genitourinary system. EENT: bruise left eye. Derm: Bruising that is dark purple, on left eye and left arm. Musculoskeletal: Capillary refill < 3 seconds. 07:30 General: Appears in no apparent distress. comfortable, Behavior is calm. Neuro: Level em of Consciousness is awake, confused, Oriented to person, place. Cardiovascular: Capillary refill < 3 seconds Patient's skin is warm and dry. Rhythm is regular. Respiratory: Airway is patent Respiratory effort is even, unlabored, Respiratory pattern is regular, symmetrical. Derm: Bruising that is dark purple, on left side of forehead and left cheek and left arm and left eye. 08:00 Reassessment: at bedside sitting with pt, pt taking off pulse ox and wrist band, em pt oriented to situation, pt confused, moved to room 3, pt resting calmly in bed, pending disposition. 09:45 Reassessment: Patient appears in no apparent distress at this time. Patient and/or em family updated on plan of care and expected duration. Pain level reassessed. 11:29 Reassessment: Patient appears in no apparent distress at this time. pt wheeled to [facility] em via stretcher. 14:30 Reassessment: Patient appears in no apparent distress at this time. Patient and/or em family updated on plan of care and expected duration. Pain level reassessed. A\T\Ox2, skin pink warm and dry, respirations even and unlabored. Vital Signs: 06:05 BP 175 / 96; Pulse 79; Resp 20; Temp 97.(O); Pulse Ox 100% on R/A; oe 07:20 Weight 63.5 kg; Height 6 ft. 6 in. (198.12 cm); rr5 07:45 BP 161 / 105; Pulse 84; Resp 20; Pulse Ox 98% on R/A; em 08:30 BP 160 / 105; Pulse 67; Resp 18; Pulse Ox 99% ; sv 09:30 BP 164 / 102; Pulse 74; Resp 18; Pulse Ox 98% ; sv 12:11 BP 180 / 99; Pulse 65; Resp 16; Pulse Ox 100% ; sv 13:00 BP 168 / 95; Pulse 65; Resp 16; Pulse Ox 100% ; sv 14:00 BP 159 / 96; Pulse 71; Resp 16; Pulse Ox 98% ; sv 14:50 BP 155 / 95; Pulse 81; Resp 18; Pulse Ox 99% on R/A; em 07:20 Body Mass Index 16.18 (63.50 kg, 198.12 cm) rr5 ED Course: 05:56 Patient arrived in ED. cl3 06:01 Joss Noriega PA is PHCP. jr8 06:01 Néstor Pond MD is Attending Physician. jr8 06:19 Zack Bunn, RN is Primary Nurse. rr5 06:20 Patient has correct armband on for positive identification. Bed in low position. Call rr5 light in reach. school lunch monitor on. Pulse ox on. NIBP on. 06:40 CT Head Brain wo Cont In Process Unspecified. EDMS 06:49 Triage completed. rr5 06:49 XRAY Chest (1 view) In Process Unspecified. EDMS 06:50 EKG done, by ED staff, reviewed by Joss BAUER. rr5 06:55 Inserted saline lock: 20 gauge in right antecubital area, using aseptic technique. rr5 Blood collected. 07:06 Arm band placed on right wrist. rr5 07:44 Primary Nurse role handed off by Zack Bunn, RN rr5 07:54 Harshal Castillo, RN is Primary Nurse. em 08:06 Urine collected: clean catch specimen, clear. mh5 08:07 Urine Dipstick--Ancillary (enter results) Sent. mh5 08:54 Florin Healy MD is Hospitalizing Provider. jr8 09:36 Prince Swann MD is Hospitalizing Provider. jr8 09:50 IV discontinued, intact, bleeding controlled, No redness/swelling at site. Pressure em dressing applied. 09:55 Inserted saline lock: 22 gauge in right forearm, using aseptic technique. em 12:06 Brain Wo Cont MRI In Process Unspecified. EDMS 15:42 No provider procedures requiring assistance completed. Patient admitted, IV remains in em place. Administered Medications: 07:00 Drug: Ativan 1 mg Route: IVP; Site: right antecubital; rr5 07:30 Follow up: Response: No adverse reaction; Marked relief of symptoms em 09:55 Drug: Keppra 500 mg Route: IV; Rate: calculated rate; Site: right forearm; em 10:25 Follow up: Response: No adverse reaction; IV Status: Completed infusion; IV Intake: em 105ml 09:55 Drug: NS 0.9% 1000 ml Route: IV; Rate: 75 ml/hr; Site: right forearm; em 15:23 Follow up: IV Status: Infusion continued upon admission em 11:15 Drug: Ativan 0.5 mg Route: IVP; Site: right forearm; em 11:24 Follow up: Response: No adverse reaction; Marked relief of symptoms em 15:06 Drug: [place] (7.5 mg-325 mg) 1 tabs Route: PO; em 15:44 Follow up: Response: No adverse reaction em Intake: 10:25 IV: 105ml; Total: 105ml. em Outcome: 08:57 Decision to Hospitalize by Provider. jr8 15:43 Admitted to Med/surg accompanied by tech, via stretcher, with chart, Report called to dmitriy Gilbert RN 15:43 Condition: good 15:43 Instructed on the need for admit, Demonstrated understanding of instructions. 15:44 Patient left the ED. em Signatures: Dispatcher [employer] Lelia Freeman, Harshal Branham RN, RN RN Joss Noriega PA PA 8 Marco A Blancas Maria 5 Zack Bunn RN RN rr5 Cyndy Jacobo cl3 Corrections: (The following items were deleted from the chart) 07:20 06:10 Respiratory: Airway is patent Respiratory effort is even, unlabored, Respiratory rr5 pattern is regular, symmetrical, rr5
--- NOTE | 2019-12-11 09:02 | RAD REPORT ---
EXAM DESCRIPTION: RAD - Chest Single View - 12/11/2019 6:49 am CLINICAL HISTORY: DYSPNEA Chest pain. COMPARISON: Chest Single View dated 12/05/2019; Head Brain Wo Cont dated 12/11/2019 FINDINGS: Portable technique limits examination quality. The lungs are emphysematous with small areas of atelectasis or scarring in the right mid lung and lef t lower lobe. The heart is normal in size. No displaced fractures.
[2019-12-11] MEDS ORDERED: NA CHLORIDE 0.9% 1,000 ML ONE (09:14)
[2019-12-11] MEDS ORDERED: levETIRAcetam 500 MG in NA CHLORIDE 0.9% 100 ML IV ONE (09:15)
--- NOTE | 2019-12-11 12:16 | RAD REPORT ---
EXAM DESCRIPTION: MRI - Brain Wo Cont - 12/11/2019 12:05 pm CLINICAL HISTORY: previous subdural with AMS Headache, drowsiness COMPARISON: Head Brain Wo Cont dated 12/11/2019; Head Brain Wo Cont dated 12/05/2019 TECHNIQUE: Multi-sequence, multiplanar MR imaging of the brain was performed without contrast. FINDINGS: Examination is limited by motion degradation artifact. Crescentic fluid collection is identified along the right frontal convexity measuring 6 mm in maximum thickness. This extends along the anterior aspect of the right frontal region. Small extra-axial flu id collection measuring 7 mm is seen in the right middle cranial fossa with mild mass effect on the r ight temporal lobe.The findings are most suggestive of a chronic subdural hematoma. Small amount elev ated FLAIR signal is seen in the sulci right frontal lobe superiorly likely related to a small amount of subarachnoid blood product. No significant right to left midline shift is evident. DWI is negativ e for acute CVA. Midline structures are normally formed. Mastoid air cells and paranasal sinuses are clear. 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 No right to left midline shift is evident. No acute CVA is identified.
--- NOTE | 2019-12-11 12:24 | P.HP ---
Certification for Inpatient Patient admitted to: Observation With expected LOS: <2 Midnights Practitioner: I am a practitioner with admitting privileges, knowledge of patient current condition, hospital course, and medical plan of care. 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 Patient was hospitalized at [facility] for subdural hematoma after an episode of syncope and an week next traumatic fall last Sunday. At the time patient has been taking clopidogrel for at least 6 months as instructed by his shore worker. Since his discharge from [facility] 4 days ago, he has been having a increasingly worsening headaches, gait abnormalities. His symptoms progressed with confusion and hallucinations. Patient has been talking to bear, seeing floaters. MRI brain showed a subdural hematoma. No midline shift. During our encounter, patient was alert and awake. No focal weakness. He only complained of headache. I spent some time to try to understand why patient had a syncopal episode approximately 1 week ago that resulted in traumatic fall and head injury. Patient still does not know the reason. Allergies No Known Allergies Allergy (Unverified 12/11/19 09:09) Physical Examination - Physical Exam General: In no apparent distress, Cooperative, Other (Lethargic. Responding appropriately to questions, coherent.) HEENT: PERRLA, Other (Healing left periorbital hematoma), EOMI Neck: Supple Respiratory: Clear to auscultation bilaterally, Normal air movement Cardiovascular: No edema, Normal pulses, Regular rate/rhythm, Normal S1 S2 Gastrointestinal: Normal bowel sounds, Soft and benign, Non-distended, No tenderness Musculoskeletal: No clubbing, No swelling, No contractures, No erythema, No tenderness, No warmth Neurological: Normal speech, Sensation intact, Normal affect, Other (4/5 strength in all extremities) - Studies Laboratory Data (last 24 hrs) 12/11/19 07:00: PT 12.2, INR 1.03 12/11/19 07:00: WBC 7.2 D, Hgb 15.2, Hct 44.7, Plt Count 168 12/11/19 07:00: Sodium 141, Potassium 3.5, BUN 12, Creatinine 1.11, Glucose 76, Magnesium 2.2, Total Bilirubin 2.3 H, AST 12 L, ALT 16, Alkaline Phosphatase 88 Assessment and Plan - Problems (Diagnosis) (1) Metabolic encephalopathy Current Visit: Yes Status: Acute (2) Subdural hematoma Current Visit: Yes Status: Acute (3) Abdominal aneurysm Current Visit: Yes Status: Acute (4) BPH (benign prostatic hyperplasia) Current Visit: Yes Status: Acute - Plan Assessment A 74-year-old male former smoker with a past medical history of emphysema, hypertension, abdominal aneurysm and a recent subarachnoid hemorrhage currently admitted for altered mental status and increased headache. MRI Brain showed a small, chronic subdural hematoma w/o midline shift. He has a left inferior orbital hematoma. Metabolic encephalopathy Subdural hematoma Hypertension Abdominal aortic aneurysm Emphysema Plan: Admit under observation with telemetry Follow-up MRI of the brain and 2D echo Continue holding Plavix Resume home dose of Keppra for seizure prophylaxis PT/OT ordered Neurology has been consulted by the ER. Recommendations pending - Advance Directives Does patient have a Living Will: No Does patient have a Durable POA for Healthcare: No
[2019-12-11] MEDS ORDERED: HYDROCODONE/APAP 7.5/325 MG TAB ONE (15:11)
[2019-12-11 16:02] VITALS: BMI 20.3
[2019-12-11] MEDS ORDERED: HYDRALAZINE HCL 20 MG/ML VIAL IV PRN (17:08)
[2019-12-11] MEDS: ACETAMINOPHEN 325 MG TABLET PO PRN (22:31)
[2019-12-12 00:09] VITALS: O2SAT 98
[2019-12-12] MEDS: ACETAMINOPHEN 325 MG TABLET PO PRN (04:18)
[2019-12-12] MEDS: HYDROCODONE/APAP 5/325 MG TAB PO PRN ×3 (06:45→21:35)
--- NOTE | 2019-12-12 06:50 | EKG ---
Test Date: 2019-12-11 Test Time: 06:59:04 Media Marketing Coordinator: ARVIND MEASUREMENT RESULTS: Intervals: Rate: 67 NH: 148 QRSD: 78 QT: 458 QTc: 483 [place]: P: 91 NH: 148 QRS: -13 T: 56 INTERPRETIVE STATEMENTS: Normal sinus rhythm Anterior infarct, age undetermined Abnormal ECG Compared to ECG 12/05/2019 17:00:20 Sinus arrhythmia no longer present Myocardial infarct finding still present Electronically Signed On 12-12-19 06:48:06 CDT by Jacques Vasquez
--- NOTE | 2019-12-12 17:06 | P.PN ---
Subjective Date of Service: 12/12/19 Chief Complaint: Altered mental status and headache Subjective: Improving (Patient is complaining of headache. Her he also states that whenever it closes eyes is seeing tree branches. Feels it is abnormal.) Physical Examination - Vital Signs Temperature: 94.4 F Blood Pressure: 165/95 Pulse: 84 Respirations: 20 Pulse Ox (%): 100 - Physical Exam General: Alert, In no apparent distress, Cooperative HEENT: Normocephalic, Other (Left periorbital hematoma, healing), EOMI Neck: Supple Respiratory: Clear to auscultation bilaterally, Normal air movement Cardiovascular: No edema, Normal pulses, Regular rate/rhythm, Normal S1 S2 Gastrointestinal: Normal bowel sounds, Soft and benign, Non-distended, No tenderness Musculoskeletal: No clubbing, No swelling, No contractures, No erythema, No tenderness, No warmth Integumentary: No rashes, No breakdown, No significant lesion, No ten derness/swelling, No erythema, No warmth, No cyanosis Neurological: Normal speech, Sensation intact, Normal affect Assessment & Plan - Problems (Diagnosis) (1) Metabolic encephalopathy Current Visit: Yes Status: Acute (2) Subdural hematoma Current Visit: Yes Status: Acute (3) Abdominal aneurysm Current Visit: Yes Status: Acute (4) BPH (benign prostatic hyperplasia) Current Visit: Yes Status: Acute Physician Review Additional Text: Assessment Patient is a 74-year-old male with a past medical history of abdominal aortic aneurysm, possible coronary disease, and a recent subdural hematoma following syncope and traumatic fall. This was managed 1 week ago at [facility]. He returned to the hospital complaining of refractory headache and after mental status as evidenced by confusion, visual hallucinations reported by the . Workup during this admission revealed a healing subdural hematoma as per MRI. No acute abnormalities. The reason for his syncope is still unknown. Metabolic encephalopathy Subdural hematoma Hypertension Abdominal aortic aneurysm Emphysema Plan: Follow-up 2D echo Cardiology consulted. Patient may need a Holter monitoring Continue holding Plavix Resume home dose of Keppra for seizure prophylaxis Follow-up recommendation by Neurology PT/OT ordered
[2019-12-12] MEDS: levETIRAcetam 500 MG TAB PO SCH (20:35)
[2019-12-12] MEDS ORDERED: TAMSULOSIN 0.4 MG SR CAP PO SCH (21:00)
[2019-12-12] MEDS ORDERED: TOLTERODINE TARTRATE 2 MG PO SCH (21:00)
--- NOTE | 2019-12-12 21:28 | CON ---
Reason For Consultation: Consultation called because of altered mental status and severe headaches. History Of Present Illness: Mr. Armenta is a 74-year-old right-handed patient who has hist ory of emphysema, hypertension, abdominal aortic aneurysm and does have multiple syncopal episodes, p erhaps more than 10 years' duration has resulted and minor head injury and about 1 week ago, and a zamora bdural hematoma. He would pass out without warning and typically hits his head either the back or fr ont about a week ago. Prior to this admission, [place]. He said he took 2 chairs down to the water, one for him and one for his , walked back to get a drink, which he do es do an alcoholic drink on a regular basis. He remembers picking up then drink and then remembers t he emergency medical services coming in. He fell forward, hit the face and suffered a left maxillary sinus fracture. He had 3 broken ribs and a right frontal subdural hematoma measuring 6-7 mm. He wa s life flighted to [facility] where he was monitored, put on Keppra for seizure prophy laxis and discharged home to continue Keppra. Since his discharge, he reports severe headaches and s eeing floaters or distortions of vision in addition to brief sharp pains in the left and right head a nd temporal region. Also had confusion where he has hallucinations and apparently seeing objects not present and not responding appropriately to interactions. It should be noted at the time of my eval uation, he had no evidence of ongoing hallucinations and was appropriate. 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 No left midline shift seen. Blood work revealed a normal complete blood count with differential. Coagulation panel was normal. Chemistries essentially unremarkable. Slightly elevated chloride of 108. Liver functi on studies unremarkable. AST was low at 12. Cholesterol panel was unremarkable. LDL 102, HDL 52, t otal cholesterol 182, and urinalysis showed 3+ ketones, otherwise negative. 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 Medications: Plavix 75 mg daily, Flomax 0.4 mg at night, and Keppra 500 mg twice daily. Allergies: NO KNOWN DRUG ALLERGIES. Family History: Noncontributory. Social History: He uses alcohol regularly, but no street drugs. No tobacco. Review of Systems: He denies any recent fevers or chills. No nausea, vomiting, any myalgias, arthralgias. Admits to dinah brief pain in the head on either side and visual distortions or floaters that are not typically a ssociated with headaches and then severe headaches that were independent in the whole head, which hav kenneth responded actually to [place]. Physical Examination: Vital Signs: Blood pressure 165/95, pulse 84, respiratory rate 18, temperature 97.3, and saturation 100% on room air. Weight 250 pounds, height 6 feet, BMI 20.3. General: Mr. Armenta is resting in bed, in no acute distress. HEENT: Does have some hematoma below the left orbit and some resolving swelling in the region. Othe rwise, he is atraumatic. His sclerae are anicteric. Oropharynx, moist and pink. Neck: Supple. Chest: Clear. Abdomen: Soft. Extremities: Show no edema or cyanosis. Neurological: He is alert and oriented to situation, place, and person. Follows all commands approp riately. Cranial nerves 2-12 do not show focal deficits. Motor examination, upper and lower extremit ies symmetric, full strength. Sensory exam, slight stocking-glove loss, light touch, temperature, re flexes symmetric, upper and lower extremities. Coordination intact in upper lower extremities. Gait intact. He was able to ambulate at 250 feet with very little contact required by the physical thera pist. Assessment: Mr. Armenta is 74-year-old patient with a left frontal subacute subdural hematoma after a fall. 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 He is now on Keppra 500 mg twice daily. That should continue in addition, Topamax 25 m g twice daily and may use sumatriptan 25 mg as needed for headaches. He may be discharged home today and on Sunday call the office for a followup appointment with Dr. Healy. He should maintain a se talbot diary. LEA/RAMON Voice ID: [id number] Report ID: [id number]
[2019-12-13] MEDS ORDERED: TRAZODONE 50 MG TABLET PO ONE (00:36)
[2019-12-13] MEDS: HYDROCODONE/APAP 5/325 MG TAB PO PRN (05:51)
[2019-12-13] MEDS: levETIRAcetam 500 MG TAB PO SCH (08:49)
[2019-12-13 08:50] VITALS: BP 135/77
[2019-12-13] MEDS ORDERED: LOSARTAN/HCTZ 50-12.5 PO SCH (09:00)
[2019-12-13 10:21] VITALS: TEMP 97.6
--- NOTE | 2019-12-13 10:59 | P.DS ---
Admission Date: 12/11/19 Discharge Date: 12/13/19 Disposition: ROUTINE DISCHARGE Discharge Condition: GOOD Reason for Admission: Altered mental status and headache - Problems (1) Metabolic encephalopathy Current Visit: Yes Status: Acute (2) Subdural hematoma Current Visit: Yes Status: Acute (3) Abdominal aneurysm Current Visit: Yes Status: Acute (4) BPH (benign prostatic hyperplasia) Current Visit: Yes Status: Acute Brief History of Present Illness: Patient is a 74-year-old former smoker with a past medical history of emphysema, hypertension and abdominal aneurysm undergoing surveillance by his case briefer, and recent subdural hematoma less than 1 week ago. Patient was hospitalized at [facility] for subdural hematoma after an episode of syncope and an week next traumatic fall last Sunday. At the time patient has been taking clopidogrel for at least 6 months as instructed by his case briefer. Since his discharge from [facility] 4 days ago, he has been having a increasingly worsening headaches, gait abnormalities. His symptoms progressed with confusion and hallucinations. Patient has been talking to bear, seeing floaters. MRI brain showed a subdural hematoma. No midline shift. During our encounter, patient was alert and awake. No focal weakness. He only complained of headache. I spent some time to try to understand why patient had a syncopal episode approximately 1 week ago that resulted in traumatic fall and head injury. Patient still does not know the reason. Hospital Course: Hospital course marked by refractory headaches and occasional visual hallucinations, which improved throughout his hospitalization. He was seen by Neurology who optimized his headache regimen by adding that Topamax and sumatriptan. Patient will be discharged home. He will be taken off Plavix due to recent history of subdural hematoma. Cardiology was also consulted due to concern of unexplained syncope. He has been cleared for discharge. I will defer rest of outpatient work up to cardiology Vital Signs/Physical Exam: Temp Pulse Resp BP Pulse Ox 97.6 F 76 19 135/77 98 12/13/19 08:00 12/13/19 08:49 12/13/19 08:00 12/13/19 08:49 12/13/19 08:00 General: Alert, In no apparent distress, Cooperative HEENT: Normocephalic, EOMI Neck: Supple Respiratory: Clear to auscultation bilaterally, Normal air movement Cardiovascular: No edema, Normal pulses, Regular rate/rhythm, Normal S1 S2 Gastrointestinal: Normal bowel sounds, Soft and benign, Non-distended, No tenderness Musculoskeletal: No clubbing, No swelling, No contractures, No erythema, No tenderness, No warmth Neurological: Normal speech, Sensation intact, Normal affect Laboratory Data at Discharge: WBC 7.2 K/uL (4.3-10.9) D 12/11/19 07:00 Hgb 15.2 g/dL (13.6-17.9) 12/11/19 07:00 Hct 44.7 % (39.6-49.0) 12/11/19 07:00 Plt Count 168 K/uL (152-406) 12/11/19 07:00 PT 12.2 SECONDS (9.5-12.5) 12/11/19 07:00 INR 1.03 12/11/19 07:00 Sodium 141 mmol/L (136-145) 12/11/19 07:00 Potassium 3.5 mmol/L (3.5-5.1) 12/11/19 07:00 BUN 12 mg/dL (7-18) 12/11/19 07:00 Creatinine 1.11 mg/dL (0.55-1.3) 12/11/19 07:00 Glucose 76 mg/dL (74-106) 12/11/19 07:00 Magnesium 2.2 mg/dL (1.8-2.4) 12/11/19 07:00 Total Bilirubin 2.3 mg/dL (0.2-1.0) H 12/11/19 07:00 AST 12 U/L (15-37) L 12/11/19 07:00 ALT 16 U/L (12-78) 12/11/19 07:00 Alkaline Phosphatase 88 U/L (45-117) 12/11/19 07:00 Triglycerides 141 mg/dL (<150) 12/11/19 07:00 Cholesterol 182 mg/dL (<200) 12/11/19 07:00 HDL Cholesterol 52 mg/dL (40-60) 12/11/19 07:00 Cholesterol/HDL Ratio 3.50 12/11/19 07:00 Home Medications: Clopidogrel Bisulfate [Plavix] 75 mg PO DAILY 12/12/19 Levetiracetam [Keppra] 500 mg PO BID 12/12/19 Losartan/Hydrochlorothiazide [Losartan-Hctz 50-12.5 mg Tab] 1 each PO DAILY 12/12/19 Sumatriptan [Imitrex] 25 mg PO Q4HP PRN #30 tab 12/12/19 Tamsulosin [Flomax] 0.4 mg PO BEDTIME 12/12/19 Tolterodine Tartrate 2 mg PO BEDTIME 12/12/19 Topiramate [Topamax] 25 mg PO BID #60 tab 12/12/19 levETIRAcetam [Keppra Tab] 500 mg PO BID #60 tab 12/12/19 New Medications: Sumatriptan [Imitrex] 25 mg PO Q4HP PRN #30 tab PRN Reason: Pain Scale 5-7 (Moderate) levETIRAcetam [Keppra Tab] 500 mg PO BID #60 tab Topiramate [Topamax] 25 mg PO BID #60 tab Diet: AHA
--- NOTE | 2019-12-13 12:30 | CON ---
Date of Consultation: 12/12/2019 Reason For Consultation: Syncope. History Of Present Illness: Mr. 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 He has been treated for that with Keppra to prevent seizures. This was started at [facility] not long ago. He came i n with syncopal episode, altered mental status, shortness of breath. No chest pain. No nausea, vomi ting, diaphoresis, PND, orthopnea, pedal edema, or palpitation. He has ruled out from a cardiac ady dpoint. He had an echocardiogram that was normal. Troponin was negative. Chest x-ray showed atelec tasis. EKG showed possible old anterior WA. Past Medical History: As stated above. Allergies: NONE. Review of Systems: Negative. Social History: Negative. Family History: Negative. Medications At Home: Hyzaar, Keppra, Plavix, Imitrex, and Topamax. Physical Examination: General: When I saw him, he was asymptomatic, alert and oriented x3. He was in sinus rhythm. Vital Signs: Stable, afebrile. HEENT: Negative, although he has, what appeared to be, hematoma within the left periorbital region. Neck: Supple without any bruit, lymphadenopathy, JVD, or thyromegaly. Chest: Clear to auscultation and percussion. Cardiac: Revealed a regular rhythm and rate. No murmurs, gallops, or rubs. Abdomen: Benign. Extremities: Revealed no clubbing, cyanosis, or edema. Diagnostic Data: As stated earlier. CT of his head showed chronic right-sided subdural hematoma. Impression And Plan: Mr. Armenta's symptoms are syncope, altered mental status, and shortness of aliyah ath, definitely noncardiac in nature. I think this is all related to his recent subdural hematoma, p ossible seizure, possibly he may have had some orthostatic hypotension because of his Hyzaar. His ec ho is normal. The patient has already been seen by Dr. Healy. I think we need to stop his Plavix in setting of his subdural hematoma. I think he needs to continue his Keppra for now. Continue his Hyzaar, Imitrex, and Topamax. I do not think he needs any more cardiac workup at this point. He ca n go home whenever it is okay with Dr. Swann. I will see him in the office. He had seen Dr. Kelli hester in the past. JOSH/RAMON Voice ID: [id number] Report ID: [id number]
--- NOTE | 2019-12-15 08:30 | ECHO ---
HEIGHT: 6 ft 0 in WEIGHT: 150 lb 0 oz DATE OF STUDY: 12/12/[address]: Prince Elina Swann MD 2-DIMENSIONAL: YES M.MODE: YES DOPPLER: YES COLOR FLOW: YES TDS: NO PORTABLE: NO DEFINITY: NO BUBBLE STUDY: NO DIAGNOSIS: SYNCOPE CARDIAC HISTORY: CATHERIZATION: NO SURGERY: NO PROSTHETIC VALVE: NO PACEMAKER: NO MEASUREMENTS (cm) DIASTOLIC (NORMALS) SYSTOLIC (NORMALS) IVSd 1.1 (0.6-1.2) LA Diam 3.0 (1.9-4.0) LVEF 61% LVIDd 3.2 (3.5-5.7) LVIDs 2.2 (2.0-3.5) %FS 32% LVPWd 1.1 (0.6-1.2) Ao Diam 2.9 (2.0-3.7) 2 DIMENSIONAL ASSESSMENT: RIGHT ATRIUM: NORMAL LEFT ATRIUM: NORMAL RIGHT VENTRICLE: NORMAL LEFT VENTRICLE: NORMAL TRICUSPID VALVE: NORMAL MITRAL VALVE: NORMAL PULMONIC VALVE: NORMAL AORTIC VALVE: NORMAL PERICARDIAL EFFUSION: NONE AORTIC ROOT: NORMAL LEFT VENTRICULAR WALL MOTION: NORMAL DOPPLER/COLOR FLOW: NORMAL COMMENTS: NORMAL 2D ECHOCARDIOGRAM WITH DOPPLER. NO WALL MOTION ABNORMALITY. NO EFFUSION. TECHNOLOGIST: Halle WYLIE
== END 2019-12-13 12:02 | disposition home or self-care (01) | DRG 72 ==
LOC: ER 05:55 → ERHOLD 09:46 → 2ND 15:25
PROVIDERS: ADMIT Internal Medicine; ATTEND Internal Medicine
DX: G93.41 Metabolic encephalopathy (principal); I10 Essential (primary) hypertension; I71.4 Abdominal aortic aneurysm, without rupture; N40.0 Benign prostatic hyperplasia without lower urinary tract symptoms; G43.809 Other migraine, not intractable, without status migrainosus; J43.9 Emphysema, unspecified; S06.5X9D Traumatic subdural hemorrhage with loss of consciousness of unspecified duration, subsequent encounter; R56.9 Unspecified convulsions; Z79.899 Other long term (current) drug therapy; Z86.73 Personal history of transient ischemic attack (TIA), and cerebral infarction without residual deficits; Z79.02 Long term (current) use of antithrombotics/antiplatelets; Z87.891 Personal history of nicotine dependence
CPT/HCPCS: 36415; 70450; 70551; 71045; 80048; 80061; 80076; 81003; 82947; 83735; 83880; 84484; 85025; 85610; 93005; 93306; 96361; 96365; 96375; 97112; 97116; 97161; 99285; J0360; J1953; J7030

== ENCOUNTER 2020-10-05 19:13 | Inpatient (IN) | payer OTHER, MEDICARE ==
--- OUTSIDE RECORDS SUMMARY | 2020-10-05 19:17 | XMS REPORT | Continuity of Care Document ---
:1945 Author Organization [facility] t Address [address] [place] [address] Care Team Providers Name Role Phone Villanueva Attending Clinician Jermaine Chawla Admitting Clinician Problems Condition Condition Condition Status Onset Resolution Last Treating Co mments Source Name Details Category Date Date Treatment Clinician Date SAH Diagnosis Active 2019-12-08 Mem oria 6-19 11:11:00 l SAH 00:00: [place] 00 Active 12/05/2019 [facility] ACUTE Diagnosis Active 2019-12-12 Mem oria SUBDURAL -19 21:55:00 l HEMATOMA ACUTE 00:00: [place] SUBDURAL 00 HEMATOMA Active 12/05/2019 [facility] TRAUM Diagnosis Active 2019-12-12 Mem oria SUBDR HEM 21:55:00 l W LOC OF TRAUM [place] UNSP SUBDR HEM DURATION, W LOC OF UNSP DURATION, Active [facility] Allergies, Adverse Reactions, Alerts This patient has no known allergies or adverse reactions. Social History Social Habit Start Date Stop Date Quantity Comments Source Social History 2019-12-06 2019-12-06 [facility] leona 11:05:07 11:05:07 Medications Ordered Filled Start Stop Current Ordering Indication Dosage Frequency Signature Comments Components Source Medication Medication Date Date Medication? Clinician (SIG) Name Name Levetiracet Yes 500 mg = 1 Memoria am 500 MG 6-21 tab, PO, l Oral Tablet 15:04: Q12H, # 12 Jacob [Keppra] 00 tab, 0 Refill(s) Tamsulosin 2020-0 Yes 0.4 mg = 1 M emoria hydrochlori 6-21 cap, PO, l de 0.4 MG 14:33: Daily, # Herm onel Oral 00 30 cap, 0 Capsule Refill(s) [Flomax] clopidogrel 2020-0 No PO, 0 Memor ia 6-21 Refill(s) l 14:33: Jacob 00 heparin 2020-0 No Notes: Memoria sodium, 6-21 porcine l porcine 13:00: heparin [place] 2500 UNT/ML 00 Injectable Solution Hydralazine 2019-0 No Notes: Tru rose mary 6-20 (Same as: l 19:41: Apresoline [place] 00 ) Push over 5 minutes Labetalol 2020-0 No 10 mg, 2 Tru rose mary 6-20 mL, Route: l 19:41: IVP, Drug Jacob 00 form: INJ, Q1H, Dosing Weight 65.909, kg, [...] Chloride 6-20 1,000 l 0.9% 15:36: ml/hr, Jacob (Bolus) IV 00 Infuse Over: 1 hr, Route: IV, 1,000, Drug form: INJ, ONCE, Priority: STAT, Dosing Weight 65.909 kg, Start date: 12/06/19 10:36:00 CDT, Stop date: 12/06/19 10:36:00 CDT, 0 normal 2020-0 No 1,000 mL, Memori a saline 0.9% 6-20 Rate: 75 l IV 1,000 mL 15:34: ml/hr, Herm onel 00 Infuse over: 13.3 hr, Route: IV, Dosing Weight 65.909 kg, Total Volume: 1,000, Start date: 12/06/19 10:34:00 CDT, Duration: 30 day, Stop date: 01/05/20 10:33:00 CDT, 1.83, m2, 0 Protonix No Notes: Memoria 6-20 Tablet l 15:32: should not Jacob 00 be chewed or crushed. (Same as: Protonix) Diclofenac No Notes: Memor ia Sodium 0.01 6-20 Same as: l MG/MG 14:00: Voltaren Jacob Topical Gel 00 Gel Levetiracet No Notes: Tru rose mary am 500 MG 6-20 (Same l Oral Tablet 14:00: as:Keppra) Jacob [Keppra] 00 Levetiracet No Notes: Tru rose mary am 6-20 Same as l 14:00: Keppra [place] 00 Mix with 100 mL NS, LR or D5W MEDICATION WASTE Product Size: 500 mg Product Wasted: ___ mg Docusate No Notes: Memoria 6-20 (Same as: l 14:00: Colace) [place] (Do Not Crush) sennosides, No Notes: Tru rose mary MCFP 6-20 (Same as: l 14:00: Senokot) Jacob Saline No Notes: Memoria Flush 0.9% 6-20 (Same as: l 14:00: BD [place] Posiflush) Potassium No Notes: Memori a Chloride 6-20 (Same as: l 10:17: KCL) Infuse no faster than 10 mEq/hr if given peripheral ly. sodium No Notes: Memoria phosphate 6-20 Infuse l 10:17: over 4 [place] 00 hour. Do not infuse phosphorou s concurrent ly in the same line as TPN or IVF that contains calcium. For double lumen central lines, phosphorou s may be infused in a separate lumen from TPN. potassium No Notes: Memori a phosphate 6-20 (Same as: l 10:17: K [place] 00 Phosphate. ) Do not infuse phosphorou s concurrent ly in the same line as TPN or IVF that contains calcium. For double lumen central lines, phosphorou s may be infused in a separate lumen from TPN. 1 mMol phoshate has 1.47 mEq potassium Infuse over 4 hours potassium 2019-0 No Notes: Memori a phosphate-s -20 (Same as: l odium 10:17: Phos-NaK) [place] phosphate 00 Each 1.5 250 mg-280 gm pkt has mg-160 mg 250mg oral powder phosphorou for s. Mix reconstitut w/2.5oz ion water and stir. Magnesium 2019- No Notes: Memori a Sulfate - WASTE: F/P l 10:17: - Sink; E [place] 00 - Municipal Trash Bin Magnesium 2019- No Notes: Memori a Oxide -20 (Same as: l 10:17: Mag-Ox [place] 00 400) Magnesium oxide [id number]=419g g elemental magnesium Dose=____m g magnesium oxide (___mg elemental magnesium) Calcium No Notes: Memoria Gluconate - WASTE: F/P l 10:17: - Sink; E [place] - Municipal Trash Bin Calcium No Notes: Memoria Carbonate -20 (Same As: l 500 MG 10:17: Tums) Jacob Chewable 00 Calcium Tablet Carbonate 500 mg = 200 mg elemental calcium Dose = mg calcium carbonate ( mg elemental calcium) Acetaminoph No Notes: Max Memoria en -20 acetaminop l 10:14: hen 4000 [place] 00 mg/day (4 gm/day). (Same as: Tylenol Extra Strength) Morphine 2019- No Notes: Memoria 6-20 (Same l 10:14: as:MORPhin Jacob 00 e Sulfate) Robaxin 2019-0 No Notes: Memoria 6-20 (Same l 10:14: as:Robaxin [place] 00 ) tramadol 2019-0 No Notes: Not Mem oria hydrochlori 6-20 to exceed l de 50 MG 10:14: 400mg/day. Her thomson Oral Tablet 00 (Same As: Ultram) Fentanyl 2019-0 No Notes: Memoria 6-20 (Same as: l 07:13: Sublimaze) Jacob 00 Preservat hesham free. Sodium 2020-0 No 1,000 mL, Memori a Chloride -20 Rate: 50 l 0.9% IV 05:39: ml/hr, [place] 1,000 mL 00 Infuse over: 20 hr, Route: IV, Dosing Weight 65.909 kg, Total Volume: 1,000, Start date: 12/06/19 0:39:00 CDT, Duration: 30 day, Stop date: 01/05/20 0:38:00 CDT, 1.83, m2, 0 Acetaminoph No Notes: Do M emoria en 12-05 not exceed l 05:39: 4 gm/day. (Same as: Tylenol) Bisacodyl No Notes: Memori a - (Same As: l 05:39: Dulcolax, Bisco-Lax) Ondansetron No Notes: Tru rose mary 12-05 (Same as: l 05:39: Zofran) MEDICATION WASTE Product Size: 4 mg Product Wasted: ___ mg Saline No Notes: Memoria Flush 0.9% 20 (Same as: l 05:39: BD Posiflush) Iohexol No 100 mL, Memoria 12-05 Route: l 05:03: IVP, Drug Form: SOLN, kg, ONCALL, STAT, Start date: 12/06/19 0:03:00 CDT, Duration: 1 doses or times, Dose = 2.2ml/kg, Max dose = 100ml -- "To be infused by Radiology Staff ONLY" Keppra No 1,000 mg, Memori a -20 Route: l 01:32: IVPB, [place] 00 ONCE, kg, Priority: STAT, Start date: 12/05/19 20:32:00 CDT, Stop date: 12/05/19 20:32:00 CDT Tamsulosin Tamsulosin 2020- No Anel [address] [facility] HCl HCl 3-17 09-13 [facility] Zoan Yes Anel [address] [facility] 8-08 Juan as needed [facility] 00:[facility]: for Memoria 00 nausea/vom l iting Outpati ent Clinics Plavix Plavix Yes Anel [address] [facility] Aspirin 81 Aspirin 81 Yes Anel [address] [facility] Plavix Plavix Yes Anel [address] [facility] Tolterodine Tolterodine Yes Anel [address] [facility] Tartrate Tartrate [place] [facility] Tylenol # 3 Tylenol # 3 Yes Anel one tab [facility] Baclofen Baclofen Yes Anel [address] [facility] with food [facility] - or milk [facility] Viagra Viagra Yes Anel [address] [facility] as needed [facility] Losartan Losartan Yes Anel [address] Potassium-H Potassium-H [place] [facility] CTZ CTZ [facility] Vital Signs Vital Name Observation Time Observation Value Comments Source Temperature Oral (F) 2019-12-07 16:40:00 98.1 F [facility] Jacob Systolic (mm Hg) 2019-12-07 13:00:00 Tru rial [place] Diastolic (mm Hg) 2019-12-07 13:00:00 Mem orial [place] Temperature Oral (F) 2019-12-07 12:32:00 98.5 F [facility] [place] Systolic (mm Hg) 2019-12-07 09:35:00 Tru rial [place] Diastolic (mm Hg) 2019-12-07 09:35:00 Mem orial Jacob Respitory Rate 2019-12-07 09:35:00 Memori al [place] Temperature Oral (F) 2019-12-07 09:35:00 98.0 F [facility] Systolic (mm Hg) 2019-12-07 05:00:00 Tru rial Jacob Diastolic (mm Hg) 2019-12-07 05:00:00 Mem orial Jacob Respitory Rate 2019-12-07 05:00:00 Memori al [place] Respitory Rate 2019-12-07 01:00:00 Memori al Jacob Height 2019-12-06 20:22:00 182.88 cm [facility] Jacob Weight 2019-12-06 20:22:00 Humberto James BMI Calculated 2019-12-06 20:22:00 Pascual Vazquez Height 2019-12-06 09:54:00 182.88 cm Humberto James Weight 2019-12-06 09:54:00 Humberto James BMI Calculated 2019-12-06 09:54:00 Pascual Vazquez Heart Rate 2019-12-06 00:59:00 [facility] Procedures This patient has no known procedures. Encounters Start End Encounter Admission Attending Care Care Encounter Source Date/Time Date/Time Type Type Clinicians Facility Department ID 2020-09-06 2020-09-06 Outpatient [facility] [id number] [facility] 2020-08-31 2020-08-31 Out[facility] [id number] [facility] 2020-08-31 2020-08-31 Out[facility] [id number] [facility] 2020-05-26 2020-05-26 Outpatient [facility] [id number] [facility] 2020-02-04 2020-02-04 [facility] [id number] [facility] 08[facility]00:00 08:00:00 t Specialty/U [facility] - Specialty rology [facility] a /Urology Clinic l Clinic Outpati ent Clinics 2019-12-30 2019-12-30 [facility] [id number] [facility] 11:35:00 11:35:00 t Specialty/U [facility]a kes - Specialty rology [facility] a [facility]rology [facility] l Clinic Outpati ent Clinics 2019-12-26 2019-12-26 [facility] [id number] [facility] 11:25:00 11:25:[address] [facility] l Medicine Outpati ent Clinics 2019-12-05 2019-12-07 Outpatient Rich [facility] [id number] 19:55:00 13:30:00 Deborah 67 2019-12-05 2019-12-07 Outpatient Rich [facility] [id number] 19:55:00 13:30:00 Deborah 67 2019-12-06 2019-12-05 Inpatient E [facility] [id number] [facility] 00[facility]40:00 19:55:00 2019-12-05 2019-12-05 Outpatient [facility] [id number] [facility] 19:55:00 19:55:00 2019-09-16 2019-09-16 [facility] [id number] [facility] 10[facility]01:00 10:01:00 [facility] Medicine Outpati ent Clinics 2019-09-02 2019-09-02 [facility] [id number] [facility] 09:51:00 09:51:00 t Specialty/U [facility] kes - Specialty rology Memori a /Urology Clinic l Clinic Outpati ent Clinics 2019-08-06 2019-08-06 [facility] [id number] [facility] [address] 09:00:00 09:00:00 t Specialty/U [facility] kes - Specialty rology Mem[facility] a /Urology Clinic l Clinic Outpati ent Clinics 2019-07-27 2019-07-27 [facility] [id number] [facility] 12:43:00 12:43:00 [facility] Medicine Outpati ent Clinics 2019-07-23 2019-07-23 [facility] [id number] [facility] 11:00:00 11:00:00 [facility] Medicine Outpati ent Clinics 2019-02-03 2019-02-03 [facility] [id number] [facility] 08:15:00 08:15:00 t Specialty/U [facility] kes - Specialty rology Mem[facility] a /Urology Clinic l Clinic Outpati ent Clinics 2019-01-21 2019-01-21 [facility] [id number] 09:40:00 09:40:00 [facility] Medicine Outpati ent Clinics 2019-01-14 2019-01-14 [facility] [id number] [facility] [address] 08:00:00 08:00:00 t [facility] Out[facility] Clinics 2018-09-25 2018-09-25 [facility] [id number] 10:23:00 10:23:00 t Specialty/U T[facility]a kes - Specialty rology [facility] a /Urology Clinic l Clinic Outpati ent Clinics 2018-08-05 2018-08-05 [facility] [id number] [address] 08:15:00 08:15:00 t Specialty/U [place] kes - Specialty rology [facility] a /Urology Clinic l Clinic Outpati ent Clinics 2018-07-09 2018-07-09 [facility] [id number] [facility] 09:30:00 09:30:00 t [facility] Outpat[facility] Clinics 2018-06-25 2018-06-25 [facility] [id number] [facility] 09:45:00 09:45:00 t Specialty/U [facility] kes - [facility] 2018-01-23 2018-01-23 [facility] [id number] [facility] 08:30:00 08:30:00 [facility] Outpati ent Clinics Results Test Description Test Time Test Comments Results Result Comments Source HEMATOLOGY 2019-12-07 13.8 [facility] 10:09:00 HEMATOLOGY 2019-12-07 138 [facility] 10:09:00 HEMATOLOGY 2019-12-07 9.3 [facility] nn 10:09:00 PARATHYROID PROFILE 2019-12-07 1.03 [facility] [place] 10:09:00 PARATHYROID PROFILE 2019-12-07 1.03 [facility] ial [place] 10:09:00 CHEM PANEL 2019-12-07 2.0 [facility] Kiesha nn 10:09:00 CHEM PANEL 2019-12-07 91 [facility] nn 10:09:00 CHEM PANEL 2019-12-07 11 [facility] nn 10:09:00 CHEM PANEL 2019-12-07 1.14 [facility] Kiesah nn 10:09:00 CHEM PANEL 2019-12-07 141 [facility] [...] A/G Ratio) 1.0 1 0.7-1.6 [facility]annCHEM [id number] 10:09:002.3[facility] HermannHEMATOLOGY 2019-12-07 10:09:0072.7[facility] ZazurhcOROMIIKJIH1244-18-73 10:09:0014.0[facility] TopnvpzBQRLDXTFFJ2769-69-66 10:09:0011.7[facility] HmusekbDOOPDBFDSO2186-39-93 10:09:001.3[facility] SopgvbtLOOAYUSUAZ7683-91-66 10:09:000.3[facility] Jacob DUGJAISURE6400-11-89 10:09:004.8[facility] VtifvuxJLMCCOTBPQ1963-97-76 10:09:000.9 [facility] CxdnguyWYYLVMRKNI7135-40-13 10:09:000.8[facility] HermannHEMATOLOGY 2019-12-07 10:09:000.1[facility] YpmqrtvEDGDUZWVXZ1008-64-76 10:09:001+ *ABN*(12/07/19 5:09 AM)[facility] OlqrkdzLMWGSXJXCT2291-25-83 10:09:006.7[facility] GjumpciJAGPVURNIP7405-90-58 10:09:004.19[facility] FaemovxFQUVYNWVME6585-45-22 10:09:0014.4[facility] AviyvviYHCMLIAPUJ4636-39-84 10:09:0042.0[facility] Jacob FGIMHZBYTZ2120-52-26 10:09:46472.3[facility] GutbazqRRFQRWVTKK8349-42-52 10:09:00 Test Item Value Reference Range Interpretation Comments MCH (test code = MCH) 34.4 pg 27.0-31.0 Memorial WvswlfdSXXVSYVKME1331-41-47 10:09:0034.3[facility] HermannCHEM PANEL 2019-12-06 16:08:0078[facility] HermannCHEM JMYMX4102-35-90 16:08:001.8[facility] HermannCHEM OVLUQ0834-22-90 16:08:0011.6[facility] HermannCHEM HOPDN1535-75-08 16:08:00 Test Item Value Reference Range Interpretation Comments B/C Ratio (test code = B/C Ratio) 9 1 6- [facility]annCHEM [id number] 16:08:003.1[facility] HermannCHEM PANEL 2019-12-06 16:08:00 Test Item Value Reference Range Interpretation Comments A/G Ratio (test code = A/G Ratio) 1.1 1 0.7-1.6 [facility]annCHEM [id number] 16:08:0045[facility] HermannCARDIAC ENZYMES 2019-12-06 16:08:00<0.02[facility]annCHEM XYOXH6078-93-41 16:08:0096 [facility]annCHEM QSDHY6656-54-11 16:08:0014[facility] HermannCHEM PANEL 2019-12-06 16:08:001.52[facility] HermannCHEM KNAIS0476-68-13 16:08:31204Gpcydfco HermannCHEM GPTPK3351-30-03 16:08:003.6[facility] HermannCHEM AUIBS4210-07-77 16:08:52057Purvkscu HermannCHEM SXWSU1315-76-34 16:08:0024[facility] HermannCHEM SXFCQ9292-92-29 16:08:008.8[facility]annCHEM GJEZD3600-93-50 16:08:006.6 [facility]annCHEM NMATM9338-76-70 16:08:003.5[facility] HermannCHEM PANEL 2019-12-06 16:08:0018[facility] HermannCHEM HHBAJ8362-54-40 16:08:0019[facility] BsbosdjNZHYKMJZTJ8786-74-72 10:59:00Not Detected (12/06/19 5:59 AM)[facility] HermannCHEM HIKGP9608-44-89 10:21:05893Qwsqcjsx HermannCHEM KQXMI3694-45-71 10:21:0013[facility] HermannCHEM SFQGJ1283-41-71 10:21:001.55[facility] HermannCHEM HZRRK2471-74-82 10:21:88078Izulocmp HermannCHEM TURFI6055-99-37 10:21:003.2 [facility]annCHEM KJUKS3955-82-65 10:21:32448Bhqarmjc HermannCHEM PANEL 2019-12-06 10:21:0023[facility] HermannCHEM AJJXQ4077-14-38 10:21:008.9[facility] HermannCHEM DQVTE4164-60-85 10:21:0013.2[facility] HermannCHEM FEDVJ9966-71-99 10:21:0044[facility] HermannCHEM QRWSL0463-19-49 10:21:002.0[facility] HermannCHEM AJMND3198-48-52 10:21:001.3[facility] YxcebzyMHKTQZGCJX6319-84-81 10:21:008.5 [facility] QrvcurySXCYUQJXYZ0822-92-69 10:21:004.48[facility] HermannHEMATOLOGY 2019-12-06 10:21:0015.5[facility] QoowviiSRPONLJYOT3174-20-95 10:21:0044.2[facility] IywurgnRGUVAIVJVL2120-08-78 10:21:0098.7[facility] SysbmcbJGYBTUJIFB4353-70-37 10:21:00 Test Item Value Reference Range Interpretation Comments MCH (test code = MCH) 34.7 pg 27.0-31.0 [facility] OrrnblpLHQWFLVGKR2210-97-96 10:21:0035.1[facility] HermannHEMATOLOGY 2019-12-06 10:21:0013.4[facility] YylefosHCKPXWFLBX3754-88-07 10:21:70900Nxtwrlvf TvumnsjRWZDDAYBWK3803-38-20 10:21:009.5[facility] OxofggaSSQUOTWLAE5290-56-80 10:21:0078.7[facility] SqdogvfWVSHJLWQKC8570-25-71 10:21:0010.0[facility] Jacob IJFOVUVIXR9247-18-55 10:21:0010.8[facility] CmlapcyWLNFIEYSUV7214-63-06 10:21:00 0.1[facility] XcxknueWHOIPOATNS1831-26-14 10:21:000.4[facility] HermannHEMATOLOGY 2019-12-06 10:21:006.7[facility] SneducvHHOARXBWAO0959-59-81 10:21:000.9[facility] DjoagcrFYZQWJUNER7490-06-95 10:21:000.9[facility] HermannPARATHYROID PROFILE 2019-12-06 10:21:001.01[facility] HermannPARATHYROID LSSNNEZ1526-75-59 10:21:00 1.03[facility] HermannBLOOD BANK HRLYIKP6913-51-22 03:07:00Negative (12/05/19 10:07 PM)[facility] HermannCARDIAC QCECLMW1849-20-91 03:07:00<0.02[facility] Jacob TOJVDJIOKZ2042-53-03 03:07:009.1[facility] MlirgzkJSNGRSPBOB1622-98-81 03:07:00 4.63[facility] AxfojekHHJSZFBSHK7028-42-22 03:07:0015.8[facility] HermannHEMATOLOGY 2019-12-06 03:07:0046.6[facility] BazgmiqQPZCAJJNZN4850-36-98 03:07:49366.[address] [facility] [facility] HospitalCgwontzBXJTONNVHX2810-14-34 03:07:00 Test Item Value Reference Range Interpretation Comments MCH (test code = MCH) 34.2 pg 27.0-31.[address] [facility] [facility] HospitalHtqxakrNPTTDBDCMO8503-87-62 03:07:0033.9[facility] 2019-12-06 03:07:0013.4[facility] FubroqgLYUCKMXEYI6850-84-10 03:07:27411Pkjpyksq OjbhinuVTAMVHBCEK0710-31-48 03:07:008.9[facility] ZpckiqoHJYDORARCY2694-07-23 03:07:00 Test Item Value Reference Range Interpretation Comments PT (test code = PT) 12.3 s 12.0-14.[address] [facility] [facility] HospitalQutpbybKRFGWZMAMK8003-06-36 03:07:00 Test Item Value Reference Range Interpretation Comments INR (test code = INR) 0.92 1 0.85-1.[address] [facility] [facility] HospitalEihsdnpBCGIANFGRT6506-00-36 03:07:00 Test Item Value Reference Range Interpretation Comments PTT (test code = PTT) 23.9 s 22.9-35.[address] [facility] [facility] HospitalCkjhvwlQEWVIZPHJB7002-22-65 03:07:00 Test Item Value Reference Range Interpretation Comments ACT (TEG) Rapid (test code = ACT (TEG) 105 s 86-118 Rapid) [facility] HospitalEnjxhlmRPKFJAZNPT0325-14-42 03:07:00 Test Item Value Reference Range Interpretation Comments Split Point Rapid (test code = Split 0.5 min Point Rapid) [facility] HospitalBdzorkbMOIOAOBGSD4049-04-05 03:07:00 Test Item Value Reference Range Interpretation Comments R-time Rapid (test code = R-time 0.6 min 0.4-0.7 Rapid) [facility] HospitalSoaooqbTCEJIBNPYY8430-78-98 03:07:00 Test Item Value Reference Range Interpretation Comments K-time Rapid (test code = K-time 1.8 min 0.6-2.3 Rapid) [facility] HospitalRvnkxjaRCYPJGFGIC8598-39-65 03:07:00 Test Item Value Reference Range Interpretation Comments Angle Rapid (test code = Angle 71 degrees 64-80 Rapid) [facility] HospitalIhyfqppYJEKSNIGKD3616-18-93 03:07:00 Test Item Value Reference Range Interpretation Comments Max Amplitude Rapid (test code = Max 59 mm 52-71 Amplitude Rapid) [facility] GkkcysiHGHVWCBPFF3984-53-41 03:07:007.1[facility] HermannHEMATOLOGY 2019-12-06 03:07:000.0[facility] CquzlcsEMLBMVPPTI6417-74-64 03:07:0086.9[facility] ZjegzttEPJFRYXWVD7899-98-90 03:07:005.3[facility] AvhinzlYGTSLDTWMM4080-54-37 03:07:007.3[facility] GomkcntIOTFTZRZGH0521-42-07 03:07:000.2[facility] [place] AXITLCNVHM5901-36-97 03:07:000.3[facility] EiitbajQFRWRPEMPO2621-86-91 03:07:007.9 [facility] MugspyfOWGCKPSEKZ6717-86-15 03:07:000.5[facility] HermannHEMATOLOGY 2019-12-06 03:07:000.7[facility] NavqaubWSGVEMBOTN4216-37-72 03:07:001+ *ABN*(12/05/19 10:07 PM)[facility]
[2020-10-05 20:00] LABS: Absolute Lymphocytes (CBC) 0.8 K/uL (0.7-4.9); Basophils % 0.6 % (0-1.3); Hematocrit 41.2 % (39.6-49.0); Lymphocytes % 8.5 % (15.3-44.8); MPV 10.7 fL (7.6-11.3); RBC Red Blood Cell Count 4.26 M/uL (4.33-5.43)
[2020-10-05 20:03] LABS: Protime INR 1.02
[2020-10-05] MEDS ORDERED: FOLIC ACID 5 MG/ML VIAL ONE (20:03)
--- NOTE | 2020-10-05 20:03 | RAD REPORT ---
EXAM DESCRIPTION: RAD - Chest Single View - 10/05/2020 7:58 pm CLINICAL HISTORY: COUGH Chest pain. FINDINGS: Portable technique limits examination quality. The lungs are grossly clear. The heart is normal in size. No displaced fractures. IMPRESSION: No acute intrathoracic process suspected.
[2020-10-05] MEDS ORDERED: ONDANSETRON 4 MG/2 ML VIAL ONE (20:04)
[2020-10-05] MEDS ORDERED: NA CHLORIDE 0.9% 1,000 ML ONE (20:04)
--- NOTE | 2020-10-05 20:22 | RAD REPORT ---
EXAM DESCRIPTION: CT - Head C Spine Cap W Con - 10/05/2020 8:01 pm CLINICAL HISTORY: Trauma, head and neck injury. Chest, abdomen and pelvis pain. fall, head contusion, ams;Pain;Swelling COMPARISON: Thorax Wo Con dated 09/02/2020 TECHNIQUE: CT head without contrast. CT cervical spine without contrast with coronal and sagittal reformatted images. CT chest, abdomen and pelvis with IV contrast (approximately 100 mL nonionic IV contrast) with becerra l and sagittal reformatted images of the spine. All CT scans are performed using dose optimization technique as appropriate and may include automated exposure control or mA/KV adjustment according to patient size. FINDINGS: CT HEAD WITHOUT CONTRAST: No intracranial hemorrhage, hydrocephalus or extra-axial fluid collection. Mild generalized brain atr ophy. No areas of brain edema or midline shift. The paranasal sinuses and mastoids are clear. The calvarium is intact. CT CERVICAL SPINE WITHOUT CONTRAST: No fracture or subluxation. Moderate lower cervical degenerative changes. The prevertebral soft tissu es are normal in thickness. CT CHEST, ABDOMEN, PELVIS WITH CONTRAST: Mild diffuse COPD is present.No pneumothorax or pericardial/pleural fluid. No evidence of intra-abdominal visceral injury, free fluid or free air. 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 Moderate stool is present sigmoid colon with diverticulosis coli present. No fractures. Moderate lower lumbar degenerative changes. IMPRESSION: Negative for acute traumatic findings.
[2020-10-05] MEDS ORDERED: THIAMINE 200 MG/2 ML INJ ONE (20:33)
[2020-10-05 20:37] LABS: Blood Morphology Comment NOT SEEN (NOT SEEN); Platelet Estimate DECR; White Blood Cell Scan OK (OK)
[2020-10-05 20:49] LABS: ALT/SGPT 18 U/L (12-78); AST/SGOT 13 U/L (15-37); Albumin 4.4 g/dL (3.4-5.0); Alkaline Phosphatase 75 U/L (45-117); BUN Blood Urea Nitrogen 15 mg/dL (7-18); Bicarbonate 20 mmol/L (21-32); Bilirubin Direct 0.3 mg/dL (0-0.2); Bilirubin Total 1.8 mg/dL (0.2-1.0); Glucose Level 111 mg/dL (74-106); Magnesium 1.7 mg/dL (1.8-2.4); NT PRO-BNP 255 pg/mL (<125); Potassium 3.9 mmol/L (3.5-5.1); Protein, Total 7.4 g/dL (6.4-8.2); Sodium Level 141 mmol/L (136-145); Troponin (Emerg Dept Use Only) < 0.02 ng/mL (0.0-0.045)
[2020-10-05 20:54] LABS: Urine Blood Trace-intact (Negative); Urine Glucose Negative (Negative); Urine Protein Negative (Negative); Urine Specific Gravity 1.015 (1.005-1.030); Urine pH 7.5 (5.0-7.0)
[2020-10-05 21:23] LABS: Barbiturates NEGATIVE (NEGATIVE); Benzodiazepines NEGATIVE (NEGATIVE); Cocaine NEGATIVE (NEGATIVE); METHAMPHETAM NEGATIVE (NEGATIVE); Methadone NEGATIVE (NEGATIVE); Opiates NEGATIVE (NEGATIVE); Phencyclidine NEGATIVE (NEGATIVE); THC Cannibis POSITIVE (NEGATIVE)
--- NOTE | 2020-10-05 21:55 | EDPHYS ---
Physician Documentation [facility] Name: Volodymyr Armenta Age: 75 yrs Sex: Male : 1945 Arrival Date: 10/05/2020 Time: 19:16 Bed 5 Private MD: ED Physician Néstor Pond HPI: 10/05 19:23 This 75 yrs old Male presents to ER via Unassigned with complaints of easton Dizziness. 19:23 The patient presents with dizziness, generalized weakness. Onset: The symptoms/episode easton began/occurred this morning, today. Context: occurred at home. Historical: - Allergies: 19:27 No Known Allergies; mg2 - Home Meds: 19:27 clopidogrel Oral [Active]; Flomax Oral [Active]; mg2 - PMHx: 19:27 Brain bleed; TIA; mg2 - Immunization history:: Flu vaccine status is unknown. - Social history:: Smoking status: unknown. - Family history:: not pertinent. ROS: 19:24 Constitutional: Negative for fever, chills, and weight loss, Eyes: Negative for injury, easton pain, redness, and discharge, ENT: Negative for injury, pain, and discharge, Neck: Negative for injury, pain, and swelling, Cardiovascular: Negative for chest pain, palpitations, and edema, Respiratory: Negative for shortness of breath, cough, wheezing, and pleuritic chest pain, Abdomen/GI: Negative for abdominal pain, nausea, vomiting, diarrhea, and constipation, Back: Negative for injury and pain, : Negative for injury, bleeding, discharge, and swelling, MS/Extremity: Negative for injury and deformity, Skin: Negative for injury, rash, and discoloration, Psych: Negative for depression, anxiety, suicide ideation, homicidal ideation, and hallucinations, Allergy/Immunology: Negative for hives, rash, and allergies, Endocrine: Negative for neck swelling, polydipsia, polyuria, polyphagia, and marked weight changes, Hematologic/Lymphatic: Negative for swollen nodes, abnormal bleeding, and unusual bruising. 19:24 Neuro: Positive for altered mental status, headache. Exam: 19:24 Constitutional: This is a well developed, well nourished patient who is awake, alert, easton and in no acute distress. Head/Face: Normocephalic, atraumatic. Eyes: Pupils equal round and reactive to light, extra-ocular motions intact. Lids and lashes normal. Conjunctiva and sclera are non-icteric and not injected. Cornea within normal limits. Periorbital areas with no swelling, redness, or edema. ENT: Nares patent. No nasal discharge, no septal abnormalities noted. Tympanic membranes are normal and external auditory canals are clear. Oropharynx with no redness, swelling, or masses, exudates, or evidence of obstruction, uvula midline. Mucous membranes moist. Neck: Trachea midline, no thyromegaly or masses palpated, and no cervical lymphadenopathy. Supple, full range of motion without nuchal rigidity, or vertebral point tenderness. No Meningismus. Chest/axilla: Normal chest wall appearance and motion. Nontender with no deformity. No lesions are appreciated. Cardiovascular: Regular rate and rhythm with a normal S1 and S2. No gallops, murmurs, or rubs. Normal PMI, no JVD. No pulse deficits. Respiratory: Lungs have equal breath sounds bilaterally, clear to auscultation and percussion. No rales, rhonchi or wheezes noted. No increased work of breathing, no retractions or nasal flaring. Abdomen/GI: Soft, non-tender, with normal bowel sounds. No distension or tympany. No guarding or rebound. No evidence of tenderness throughout. Back: No spinal tenderness. No costovertebral tenderness. Full range of motion. Male : Normal genitalia with no discharge or lesions. Skin: Warm, dry with normal turgor. Normal color with no rashes, no lesions, and no evidence of cellulitis. MS/ Extremity: Pulses equal, no cyanosis. Neurovascular intact. Full, normal range of motion. Psych: Awake, alert, with orientation to person, place and time. Behavior, mood, and affect are within normal limits. 19:24 Neuro: Orientation: to person, place, Not oriented to place, time, situation, Mentation: confused, Memory: immediate memory is impaired, remote memory is impaired, recent memory confused on most details, Cerebellar function: is grossly normal based on the patient's age, no acute changes, Motor: is normal, no acute changes, moves all fours, Sensation: is normal, Gait: not tested. Deep tendon reflexes are 2+ (normal) in the bilateral brachioradialis, bicep, tricep and patellar and Achilles tendons, Babinski testing is normal, seizure activity, is not displayed by the patient. 19:48 ECG was reviewed by the Attending Physician. easton Vital Signs: 19:23 BP 166 / 96; Pulse 87; Resp 18; Temp 97.8; Pulse Ox 100% on R/A; mg2 20:00 BP 180 / 103; Pulse 78; Resp 26; Pulse Ox 100% ; jm8 21:00 BP 151 / 97; Pulse 74; Resp 24; Pulse Ox 100% ; jm8 22:00 BP 166 / 88; Pulse 80; Resp 22; Pulse Ox 100% ; jm8 23:00 BP 162 / 98; Pulse 97; Resp 20; Pulse Ox 100% ; jm8 NIH Stroke Scale Scores: 19:24 NIHSS Score: 0 easton [place] Coma Score: 19:28 Eye Response: spontaneous(4). Verbal Response: oriented(5). Motor Response: obeys [facility] commands(6). Total: 15. Procedures: 21:55 Lumbar Puncture: Patient placed in left lateral decubitus position. Collected 20 ml's easton of Puncture site dressed with band aid, Patient tolerated well. MDM: 19:19 Patient medically screened. easton 19:28 Differential diagnosis: Contusion of Hematoma on Intracranial bleed- Concussion easton cerebral contusion. Differential diagnosis: contusion, fracture, CVA, electrolyte abnormality, alcohol intoxication, hypoglycemia, pneumonia, sepsis, TIA, UTI, cardiac arrhythmia, CVA, generalized weakness, head injury, idiopathic dizziness, near-syncope, TIA. Data reviewed: vital signs, nurses notes, lab test result(s), EKG, radiologic studies, CT scan, plain films. Data interpreted: bus monitor: rate is 87 beats/min, rhythm is regular, Pulse oximetry: on room air is 100 %. Test interpretation: by ED physician or midlevel provider: ECG, plain radiologic studies. Counseling: I had a detailed discussion with the patient and/or guardian regarding: the historical points, exam findings, and any diagnostic results supporting the discharge/admit diagnosis, lab results, radiology results, the need for outpatient follow up. 10/05 19:22 Order name: Basic Metabolic Panel [facility] 10/05 19:22 Order name: CBC with Diff [facility] 10/05 18:22 Order name: LFT's [facility] 10/05 18:22 Order name: Magnesium [facility] 10/05 18:22 Order name: NT PRO-BNP [facility] 10/05 19:22 Order name: PT-INR; Complete Time: 20:19 [facility] 10/05 19:22 Order name: Troponin (emerg Dept Use Only); Complete Time: 06:48 [facility] 10/05 19:22 Order name: Acetaminophen; Complete Time: 06:48 [facility] 10/05 19:22 Order name: ETOH Level; Complete Time: 21:13 [facility] 10/05 19:22 Order name: Ptt, Activated; Complete Time: 20:19 [facility] 10/05 19:22 Order name: Salicylate; Complete Time: 21:13 [facility] 10/05 19:22 Order name: Urine Drug Screen; Complete Time: 21:52 [facility] 10/05 19:23 Order name: Basic Metabolic Panel; Complete Time: 06:48 [facility] 10/05 19:23 Order name: CBC with Automated Diff; Complete Time: 20:41 [facility] 10/05 19:23 Order name: Liver (Hepatic) Function; Complete Time: 06:48 [facility] 10/05 19:23 Order name: Magnesium; Complete Time: 06:48 [facility] 10/05 19:23 Order name: NT PRO-BNP; Complete Time: 06:48 [facility] 10/05 19:30 Order name: Lactate; Complete Time: 21:13 [facility] 10/05 20:37 Order name: CBC Smear Scan; Complete Time: 20:41 [facility] 10/05 20:41 Order name: Spinal Fluid Profile [facility] 10/05 20:42 Order name: CSF Profile; Complete Time: 02:21 [facility] 10/05 20:47 Order name: SARS-COV-2 RT PCR; Complete Time: 21:13 [facility] 10/05 20:53 Order name: Urine Dipstick-Ancillary; Complete Time: 21:13 [facility] 10/05 21:15 Order name: Blood Culture Adult (2) [facility] 10/05 21:16 Order name: Blood Culture [facility] 10/05 21:54 Order name: AMMONIA; Complete Time: 22:42 [facility] 10/05 22:04 Order name: Urine Culture [facility] 10/05 22:50 Order name: CSF Culture [facility] 10/05 22:58 Order name: Body Fluid Cell Count; Complete Time: 02:21 [facility] 10/05 19:22 Order name: XRAY Chest (1 view); Complete Time: 20:19 [facility] 10/05 19:22 Order name: EKG; Complete Time: 19:23 [facility] 10/05 19:22 Order name: Cardiac monitoring; Complete Time: 19:52 [facility] 10/05 19:22 Order name: EKG - Nurse/Tech; Complete Time: 19:52 [facility] 10/05 19:22 Order name: IV Saline Lock; Complete Time: 19:52 [facility] 10/05 19:22 Order name: Labs collected and sent; Complete Time: 19:52 [facility] 10/05 19:22 Order name: O2 Per Protocol; Complete Time: 19:52 [facility] 10/05 19:22 Order name: O2 Sat Monitoring; Complete Time: 19:52 [facility] 10/05 19:22 Order name: Suicide Screening ([place]); Complete Time: 23:30 [facility] 10/05 19:22 Order name: Urine Dipstick-Ancillary (obtain specimen); Complete Time: 20:56 [facility] 10/05 19:22 Order name: CT Traumagram (Head C Spine CAP W Con); Complete Time: 20:41 [facility] 10/05 19:22 Order name: Seizure Precautions; Complete Time: 19:51 [facility] 10/05 20:41 Order name: Lumbar Puncture Consent; Complete Time: 23:30 [facility] 10/05 20:41 Order name: Lumbar Puncture Setup; Complete Time: 20:56 [facility] 10/05 23:47 Order name: Lactate Sepsis 2 HR Follow-up; Complete Time: 02:21 EDMS 10/06 00:11 Order name: CONS Physician Consult EDMS 10/06 00:34 Order name: CREATININE WHOLE BLOOD; Complete Time: 02:21 [facility]DE 10/06 02:48 Order name: MRI - Brain W/Wo Cont ej 10/06 05:17 Order name: T4 Free; Complete Time: 06:48 EDMS 10/06 05:17 Order name: Thyroid Stimulating Hormone; Complete Time: 06:48 EDMS 10/06 09:42 Order name: MRI EDMS EC:48 Rate is 77 beats/min. Rhythm is regular. QRS [place] is Normal. NC interval is normal. QRS easton interval is normal. QT interval is normal. No Q waves. T waves are Normal. No ST changes noted. Clinical impression: NSR w/ Non-specific ST/T Changes and No evidence of ischemia. Interpreted by me. Reviewed by me. Administered Medications: 19:50 Drug: Zofran (Ondansetron) 4 mg Route: IVP; Site: right forearm; mg2 10/06 02:40 Follow up: Response: No adverse reaction mg2 10/05 19:51 Drug: foLIC Acid 1 mg Route: IVPB; Site: right forearm; mg2 10/06 02:40 Follow up: Response: No adverse reaction; IV Status: Completed infusion mg2 10/05 19:51 Drug: NS 0.9% 500 ml Route: IV; Rate: bolus; Site: right forearm; mg2 10/06 02:40 Follow up: Response: No adverse reaction; IV Status: Completed infusion; IV Intake: mg2 500ml 10/05 19:51 Drug: NS 0.9% 1000 ml Route: IV; Rate: 125 ml/hr; Site: right forearm; mg2 20:45 Drug: Thiamine 100 mg Route: IV; Rate: bolus; Site: right forearm; mg2 10/06 02:40 Follow up: Response: No adverse reaction; IV Status: Completed infusion mg2 10/05 21:51 Drug: Magnesium Sulfate 1 grams Route: IVPB; Infused Over: 1 hrs; Site: right forearm; mg2 10/06 02:38 Follow up: Response: No adverse reaction; IV Status: Completed infusion; IV Intake: mg2 100ml 10/05 21:52 Drug: NS 0.9% 1000 ml Route: IV; Rate: 1 bolus; Site: right forearm; mg2 10/06 02:39 Follow up: Response: No adverse reaction; IV Status: Completed infusion; IV Intake: mg2 1000ml 10/05 21:52 Drug: Rocephin - (cefTRIAXone) 2 grams Route: IVPB; Infused Over: 30 mins; Site: right mg2 forearm; 10/06 02:39 Follow up: Response: No adverse reaction; IV Status: Completed infusion mg2 10/05 22:09 Drug: NS 0.9% 1000 ml Route: IV; Rate: 1 bolus; Site: right antecubital; mg2 10/06 02:39 Follow up: Response: No adverse reaction; IV Status: Completed infusion; IV Intake: mg2 1000ml Disposition: 10/05/20 21:54 Hospitalization ordered by Felipe Cornell for Inpatient Admission. Preliminary diagnosis are Altered mental status, unspecified, Metabolic encephalopathy, Fall (on) (from) other stairs and steps, Hypomagnesemia. - Bed requested for Telemetry/MedSurg (Inpatient). - Status is Inpatient Admission. rr5 - Condition is Fair. - Problem is new. - Symptoms have improved. NIH Stroke Scale - NIH Stroke Score Date: 10/05/2020 Time: 19:24 Total Score = 0 1a. Level of Consciousness (LOC) - 0(Alert) 1b. Level of Consciousness (LOC) (Year \T\ Age) - 0(Both) 1c. LOC Commands (Open \T\ Closes Eyes/Gore Inserter) - 0(Both) 2. Best Gaze (Lateral Gaze Paresis) - 0(Normal) 3. Visual Field Loss - 0(No visual loss) 4. Facial Palsy - 0(Normal) 5a. Left Arm: Motor (10-second hold) - 0(No drift) 5b. Right Arm: Motor (10-second hold) - 0(No drift) 6a. Left Leg: Motor (5-second hold - always test supine) - 0(No drift) 6b. Right Leg: Motor (5-second hold - always test supine) - 0(No drift) 7. Limb Ataxia (finger/nose \T\ heel/hall - test with eyes open) - 0(Absent) 8. Sensory Loss (pinprick arms/legs/face) - 0(Normal) 9. Best Language: Aphasia (description/naming/reading) - 0(No aphasia) 10. Dysarthria (speech clarity - read or repeat words) - 0(Normal) 11. Extinction and Inattention (visual/tactile/auditory/spatial/personal) - 0(No abnormality) Initials: [facility] Signatures: Dispatcher [employer] [facility] Jayde Johnson RN RN dw Anderson, Corey, MD MD cha Garcia, Cindy, RN RN Deangelo June RN RN [facility] [place] Zack Bunn RN RN rr5 Marlon Gonsales PA PA ej Corrections: (The following items were deleted from the chart) 10/05 20:04 19:23 CORONAVIRUS+MR.LAB.BRZ ordered. [facility] 10/06 00:17 10/05 21:54 Hospitalization Ordered by Felipe Cornell for Inpatient Admission. Preliminary diagnosis is Altered mental status, unspecified; Metabolic encephalopathy; Fall (on) (from) other stairs and steps; Hypomagnesemia. Bed requested for Telemetry/MedSurg (Inpatient). Status is Inpatient Admission. Condition is Fair. Problem is new. Symptoms have improved. [facility] 10/06 19:03 00:17 10/05/2020 21:54 Hospitalization Ordered by Felipe Cornell for Inpatient dw Admission. Preliminary diagnosis is Altered mental status, unspecified; Metabolic encephalopathy; Fall (on) (from) other stairs and steps; Hypomagnesemia. Bed requested for [facility] ER HOLD. Status is Inpatient Admission. Condition is Fair. Problem is new. Symptoms have improved. cg 19:54 19:03 10/05/2020 21:54 Hospitalization Ordered by Felipe Cornell for Inpatient rr5 Admission. Preliminary diagnosis is Altered mental status, unspecified; Metabolic encephalopathy; Fall (on) (from) other stairs and steps; Hypomagnesemia. Bed requested for Telemetry/MedSurg (Inpatient). Status is Inpatient Admission. Condition is Fair. Problem is new. Symptoms have improved. dw
--- NOTE | 2020-10-05 21:55 | ER ---
Nurse's Notes [facility] Name: Volodymyr Armenta Age: 75 yrs Sex: Male : 1945 Arrival Date: 10/05/2020 Time: 19:16 Bed 5 Private MD: Diagnosis: Altered mental status, unspecified;Metabolic encephalopathy;Fall (on) (from) other stairs and steps;Hypomagnesemia Presentation: 10/05 19:23 Chief complaint: EMS states: patient had a fall \T\ 1130 pm today and was seen by us , he mg2 was alert orientedx4, and so he refused to go ed because he was feeling good. tonight \T\ 6 pm he started to be more confused. BGL- 110 mg/dl. Coronavirus screen: Client denies travel out of the [place] in the last 14 days. At this time, the client does not indicate any symptoms associated with coronavirus-19. Ebola Screen: No symptoms or risks identified at this time. Initial Sepsis Screen: Does the patient meet any 2 criteria? No. Patient's initial sepsis screen is negative. Does the patient have a suspected source of infection? No. Patient's initial sepsis screen is negative. Risk Assessment: Do you want to hurt yourself or someone else? Patient reports no desire to harm self or others. Onset of symptoms was October 05, 2020. 19:23 Method Of Arrival: EMS mg2 19:23 Acuity: BRYAN 2 mg2 Historical: - Allergies: 19:27 No Known Allergies; mg2 - Home Meds: 19:27 clopidogrel Oral [Active]; Flomax Oral [Active]; mg2 - PMHx: 19:27 Brain bleed; TIA; mg2 - Immunization history:: Flu vaccine status is unknown. - Social history:: Smoking status: unknown. - Family history:: not pertinent. Screenin:54 Abuse screen: Denies threats or abuse. Denies injuries from another. Nutritional mg2 screening: No deficits noted. Tuberculosis screening: No symptoms or risk factors identified. Fall Risk Fall in past 12 months (25 points). Secondary diagnosis (15 points) CVA, IV access (20 points). Assessment: 19:52 General: Appears in no apparent distress. comfortable, Behavior is calm, cooperative. mg2 Pain: Complains of pain in head. Neuro: Level of Consciousness is awake, confused, Oriented to person, place. Cardiovascular: Capillary refill < 3 seconds Patient's skin is warm and dry. Respiratory: Airway is patent Respiratory effort is even, unlabored, Respiratory pattern is regular, symmetrical. GI: No signs and/or symptoms were reported involving the gastrointestinal system. : No signs and/or symptoms were reported regarding the genitourinary system. EENT: No signs and/or symptoms were reported regarding the EENT system. Derm: Wound noted right wrist Wound is skin tear, no bleeding noted. Musculoskeletal: Circulation, motion, and sensation intact. Capillary refill < 3 seconds. 22:00 Reassessment: patient is more confused and seems to have word salad/incoherent. mg2 provider is aware. 10/06 00:25 [facility] mg2 Vital Signs: 10/05 19:23 BP 166 / 96; Pulse 87; Resp 18; Temp 97.8; Pulse Ox 100% on R/A; [facility] 20:00 BP 180 / 103; Pulse 78; Resp 26; Pulse Ox 100% ; jm8 21:00 BP 151 / 97; Pulse 74; Resp 24; Pulse Ox 100% ; 8 22:00 BP 166 / 88; Pulse 80; Resp 22; Pulse Ox 100% ; 8 23:00 BP 162 / 98; Pulse 97; Resp 20; Pulse Ox 100% ; 8 Stephanie Coma Score: 19:28 Eye Response: spontaneous(4). Verbal Response: oriented(5). Motor Response: obeys easton commands(6). Total: 15. NIH Stroke Scale Scores: 19:24 NIHSS Score: 0 easton ED Course: 19:16 Patient arrived in ED. cf2 19:19 Néstor Pond MD is Attending Physician. easton 19:23 Deangelo June, DAVIS is Primary Nurse. mg2 19:26 Triage completed. mg2 19:27 Arm band placed on. mg2 19:35 Inserted saline lock: 18 gauge in right forearm, using aseptic technique. Blood mg2 collected. by DAVIS Brown. 19:54 Patient has correct armband on for positive identification. senior accounting manager on. Pulse mg2 ox on. NIBP on. Door closed. Warm blanket given. 19:58 XRAY Chest (1 view) In Process Unspecified. EDMS 20:01 CT Traumagram (Head C Spine CAP W Con) In Process Unspecified. EDMS 21:00 Inserted saline lock: 20 gauge in left antecubital area, using aseptic technique. Blood mg2 collected. 21:00 Assist provider with lumbar puncture: Set up LP tray. Performed by Néstor Pond MD mg2 CSF is clear. Puncture site dressed with band aid, Procedure was successful. Patient tolerated well. 21:53 Felipe Cornell is Hospitalizing Provider. [facility] 10/06 00:36 Patient admitted, IV remains in place. [facility] 10:31 pts daughters number is [phone]. bd Administered Medications: 10/05 19:50 Drug: Zofran (Ondansetron) 4 mg Route: IVP; Site: right forearm; mg2 10/06 02:40 Follow up: Response: No adverse reaction mg2 10/05 19:51 Drug: foLIC Acid 1 mg Route: IVPB; Site: right forearm; mg2 10/06 02:40 Follow up: Response: No adverse reaction; IV Status: Completed infusion mg2 10/05 19:51 Drug: NS 0.9% 500 ml Route: IV; Rate: bolus; Site: right forearm; mg2 10/06 02:40 Follow up: Response: No adverse reaction; IV Status: Completed infusion; IV Intake: mg2 500ml 10/05 19:51 Drug: NS 0.9% 1000 ml Route: IV; Rate: 125 ml/hr; Site: right forearm; mg2 20:45 Drug: Thiamine 100 mg Route: IV; Rate: bolus; Site: right forearm; mg2 10/06 02:40 Follow up: Response: No adverse reaction; IV Status: Completed infusion mg2 10/05 21:51 Drug: Magnesium Sulfate 1 grams Route: IVPB; Infused Over: 1 hrs; Site: right forearm; mg2 10/06 02:38 Follow up: Response: No adverse reaction; IV Status: Completed infusion; IV Intake: mg2 100ml 10/05 21:52 Drug: NS 0.9% 1000 ml Route: IV; Rate: 1 bolus; Site: right forearm; mg2 10/06 02:39 Follow up: Response: No adverse reaction; IV Status: Completed infusion; IV Intake: mg2 1000ml 10/05 21:52 Drug: Rocephin - (cefTRIAXone) 2 grams Route: IVPB; Infused Over: 30 mins; Site: right mg2 forearm; 10/06 02:39 Follow up: Response: No adverse reaction; IV Status: Completed infusion mg2 10/05 22:09 Drug: NS 0.9% 1000 ml Route: IV; Rate: 1 bolus; Site: right antecubital; mg2 10/06 02:39 Follow up: Response: No adverse reaction; IV Status: Completed infusion; IV Intake: mg2 1000ml Intake: 02:38 IV: 100ml; Total: 100ml. mg2 02:39 IV: 1000ml; Total: 1100ml. mg2 02:39 IV: 1000ml; Total: 2100ml. mg2 02:40 IV: 500ml; Total: 2600ml. mg2 Outcome: 10/05 21:54 Decision to Hospitalize by Provider. [facility] 10/06 00:35 Admitted to ER Hold. Please see [employer] for further documentation. jm8 Condition: stable Instructed on the need for admit, Demonstrated understanding of instructions. 19:54 Patient left the ED. rr5 NIH Stroke Scale - NIH Stroke Score Date: 10/05/2020 Time: 19:24 Total Score = 0 1a. Level of Consciousness (LOC) - 0(Alert) 1b. Level of Consciousness (LOC) (Year \T\ Age) - 0(Both) 1c. LOC Commands (Open \T\ Closes Eyes/Content Publisher) - 0(Both) 2. Best Gaze (Lateral Gaze Paresis) - 0(Normal) 3. Visual Field Loss - 0(No visual loss) 4. Facial Palsy - 0(Normal) 5a. Left Arm: Motor (10-second hold) - 0(No drift) 5b. Right Arm: Motor (10-second hold) - 0(No drift) 6a. Left Leg: Motor (5-second hold - always test supine) - 0(No drift) 6b. Right Leg: Motor (5-second hold - always test supine) - 0(No drift) 7. Limb Ataxia (finger/nose \T\ heel/hall - test with eyes open) - 0(Absent) 8. Sensory Loss (pinprick arms/legs/face) - 0(Normal) 9. Best Language: Aphasia (description/naming/reading) - 0(No aphasia) 10. Dysarthria (speech clarity - read or repeat words) - 0(Normal) 11. Extinction and Inattention (visual/tactile/auditory/spatial/personal) - 0(No abnormality) Initials: [place] Signatures: Dispatcher [employer] Mely Keita Corey, MD MD cha Gardose, Michele RN RN mg2 Zack Bunn RN RN rr5 Navjot Nevarez Felipe Wan RN RN jm8 Corrections: (The following items were deleted from the chart) 02:36 10/05 19:54 No provider procedures requiring assistance completed. mg2 mg2
[2020-10-05] MEDS ORDERED: MAGNESIUM SULFATE 1 gm IVPB 1 GM/100 ML BAG IV ONE (21:57)
[2020-10-05] MEDS ORDERED: CEFTRIAXONE/SWI 1gm 1 GM/10 ML SYR ONE (21:57)
[2020-10-05] MEDS ORDERED: NA CHLORIDE 0.9% 2,000 ML ONE (21:57)
[2020-10-05] MEDS ORDERED: LIDOCAINE 1% MPF 30 ML VIAL ONE (22:38)
[2020-10-05 23:10] LABS: CSF Glucose 54 mg/dL (40-70)
[2020-10-05 23:14] LABS: Appearance CLEAR (CLEAR); Body Fluid Source CSF; Color of fluid Colorless (COLORLESS); Fluid Total Volume 4 ml
[2020-10-05 23:31] LABS: Body Fluid WBC 1 /mm^3
[2020-10-05 23:32] LABS: Appearance CLEAR (CLEAR); Body Fluid Source CSF; Color of fluid Colorless (COLORLESS)
[2020-10-06 00:05] LABS: Body Fluid WBC 1 /mm^3
[2020-10-06] MEDS ORDERED: ONDANSETRON 4 MG/2 ML VIAL IV PRN (00:35)
[2020-10-06] MEDS ORDERED: ACETAMINOPHEN 500 MG TAB PO PRN (00:35)
--- NOTE | 2020-10-06 05:41 | P.HP ---
Certification for Inpatient Patient admitted to: Observation With expected LOS: <2 Midnights Patient will require the following post-hospital care: None Practitioner: I am a practitioner with admitting privileges, knowledge of patient current condition, hospital course, and medical plan of care. Services: Services provided to patient in accordance with Admission requirements found in Title 42 Section 412.3 of the Code of Federal Regulations <Marlon Gonsales - Last Filed: 10/06/20 05:36> Patient History Date of Service: 10/06/20 Primary Care Provider: Jose Reason for admission: AMS, confusion History of Present Illness: Mr. Armenta is a 75 yo male with HTN, BPH here today for AMS and confusion. Per and daughter, he fell this morning and hit his head while he was cooking in the kitchen. He did not lose consciousness. Initially he was okay and sat and watched TV. The daughter checked in at 515pm and he was still at baseline. At 645pm his says he walked out of the house so she called the ambulance. They found him in [place] confused. At baseline they said he is AOx4. AT bedside he cannot tell me his name, location, or year. He is on Keppra 500mg BID. He was admitted for similar symptoms in November 2019 and found to have a subarachanoid hemorrhage. Today, he has a hematoma, but CT head is wnl and LP was wnl. - Past Medical/Surgical History Diabetic: No -: TIA -: Brain bleed -: BPH -: HTN -: rt rotator cuff sx - Social History Alcohol use: No CD- Drugs: Yes Caffeine use: No Place of Residence: Home <Marlon Gonsales - Last Filed: 10/06/20 05:36> Date of Service: 10/06/20 <kassie bowen - Last Filed: 10/06/20 17:47> Allergies No Known Allergies Allergy (Unverified 12/11/19 09:09) Home Medications: Tolterodine Tartrate [Detrol] 1 mg PO DAILY 10/06/20 Review of Systems General: Unremarkable Eyes: Unremarkable ENT: Unremarkable Respiratory: Unremarkable Cardiovascular: Unremarkable Gastrointestinal: Unremarkable Genitourinary: Unremarkable Musculoskeletal: Unremarkable Integumentary: Unremarkable Neurological: Confusion, As per HPI Lymphatics: Unremarkable <Marlon Gonsales - Last Filed: 10/06/20 05:36> Physical Examination - Physical Exam General: Alert, In no apparent distress, Cooperative, Demented, Confused HEENT: Atraumatic, Normocephalic, PERRLA, Mucous membr. moist/pink, EOMI, Sclerae nonicteric Neck: Supple, 2+ carotid pulse no bruit, JVD not distended, No Thyromegaly, No LAD Respiratory: Clear to auscultation bilaterally, Normal air movement Cardiovascular: No edema, Normal pulses, Regular rate/rhythm, Normal S1 S2, No gallops, No rubs, No murmurs Capillary refill: <2 Seconds Gastrointestinal: Normal bowel sounds, Non-distended, No ascites, No tenderness, No masses, No rebound, No guarding Musculoskeletal: No clubbing, No swelling, No contractures, No erythema, No tenderness, No warmth Integumentary: No rashes, No breakdown, No significant lesion, No tenderness/swelling, No erythema, No warmth, No cyanosis Neurological: Normal strength at 5/5 x4 extr, Normal tone, Sensation intact, Cranial nerves 3-12 intact, Abnormal speech, Abnormal affect Lymphatics: No axilla or inguinal lymphadenopathy - Studies Laboratory Data (last 24 hrs) 10/05/20 19:35: PT 11.7, INR 1.02, APTT 28.9 10/05/20 19:35: WBC 9.30, Hgb 14.1, Hct 41.2, Plt Count 148 L 10/05/20 19:35: Sodium 141, Potassium 3.9, BUN 15, Creatinine 1.33 H, Glucose 111 H, Magnesium 1.7 L D, Total Bilirubin 1.8 H, AST 13 L, ALT 18, Alkaline Phosphatase 75 <Marlon Gonsales S - Last Filed: 10/06/20 05:36> - Studies Laboratory Data (last 24 hrs) 10/05/20 19:35: PT 11.7, INR 1.02, APTT 28.9 10/05/20 19:35: WBC 9.30, Hgb 14.1, Hct 41.2, Plt Count 148 L 10/05/20 19:35: Sodium 141, Potassium 3.9, BUN 15, Creatinine 1.33 H, Glucose 111 H, Magnesium 1.7 L D, Total Bilirubin 1.8 H, AST 13 L, ALT 18, Alkaline Phosphatase 75 Microbiology Data (last 24 hrs): 10/05/20 22:30 Cerebral Spinal Fluid Gram Stain - Final <kassie bowen - Last Filed: 10/06/20 17:47> Assessment and Plan - Plan Assessment AMS, fall BPH HTN Plan Neurology consulted MRI brain for the AM restart home Keppra dose will restart other home medications CT head wnl, LP wnl Discharge Plan: Home Plan to discharge in: 24 Hours - Advance Directives Does patient have a Living Will: No Does patient have a Durable POA for Healthcare: No - Code Status/Comfort Care Code Status Assessed: Yes (full code) Critical Care: No Time Spent Managing Pts Care (In Minutes): 70 <Marlon Gonsales - Last Filed: 10/06/20 05:36> Physician Review: Patient Assessed, Agree with Above Assessment and Plan Physician Review Additional Text: Fall AMS R/o Head injury. Plan: Admit. Neuro checks. Obtain MRI of the brain. Supportive measures. <kassie bowen - Last Filed: 10/06/20 17:47>
[2020-10-06 05:56] VITALS: BMI 16.9
[2020-10-06] MEDS ORDERED: ACETAMINOPHEN 500 MG TAB ONE (08:10)
[2020-10-06] MEDS: levETIRAcetam 500 MG TAB PO SCH ×2 (09:00→22:14)
--- NOTE | 2020-10-06 09:41 | RAD REPORT ---
EXAM DESCRIPTION: MRI - Brain W/Wo Cont - 10/06/2020 9:09 am CLINICAL HISTORY: CONFUSED Fall, trauma, head injury COMPARISON: Head Brain Wo Cont dated 01/23/2020 TECHNIQUE: Multi-sequence, multiplanar MR imaging of the brain was performed with contrast. FINDINGS: There is a small amount of hyperintense T1 signal along the posterior left convexity measu ring 4 mm.This may represent a small amount blood/ subdural hematoma. The dura in this region also is mildly thickened and enhancing. This small amount of subdural hematoma suspected is not visualized o n recent CT scan. No midline shift. No intracranial mass. DWI is negative for acute CVA. The midline structures are normally formed. Mastoid air cells and paranasal sinuses are clear. IMPRESSION: Small amount of T1 hyperintense signal along the left posterior convexity may represent a very small volume of subdural blood given the patient's trauma history, which was not present or oc cult on recent CT head. There is mild enhancement of the posterior left convexity dura also present.
[2020-10-06] MEDS ORDERED: levETIRAcetam 500 MG TAB ONE (11:01)
--- NOTE | 2020-10-06 16:11 | EKG ---
Test Date: 2020-10-05 Test Time: 19:36:06 Visual Journalist: MG MEASUREMENT RESULTS: Intervals: Rate: 77 WY: 150 QRSD: 86 QT: 446 QTc: 504 Warnock: P: 150 WY: 150 QRS: 57 T: 38 INTERPRETIVE STATEMENTS: Undetermined rhythm Possible Anterior infarct, age undetermined Prolonged QT Abnormal ECG Compared to ECG 12/11/2019 06:59:04 Prolonged QT interval now present Sinus rhythm no longer present Myocardial infarct finding still present Electronically Signed On 10-06-20 16:07:07 CDT by Jacques Vasquez
--- NOTE | 2020-10-06 17:54 | P.PN ---
Subjective Date of Service: 10/06/20 Primary Care Provider: Jose Chief Complaint: AMS, confusion Patient's mental status has improved. He is back to baseline and oriented x4. Patient denies any headache. He denies any weakness. Physical Examination - Vital Signs Temperature: 97.8 F Blood Pressure: 165/96 Pulse: 78 Respirations: 14 Pulse Ox (%): 98 - Physical Exam General: Alert, In no apparent distress, Oriented x3 HEENT: PERRLA, Mucous membr. moist/pink, EOMI, Sclerae nonicteric Neck: Supple, JVD not distended Respiratory: Clear to auscultation bilaterally, Normal air movement Cardiovascular: No edema, Regular rate/rhythm, Normal S1 S2 Gastrointestinal: Normal bowel sounds, Soft and benign, Non-distended, No tenderness Musculoskeletal: No swelling, No tenderness Integumentary: No rashes, No erythema Neurological: Normal speech, Normal strength at 5/5 x4 extr, Cranial nerves 3-12 intact - Studies Laboratory Data (last 24 hrs) 10/05/20 19:35: PT 11.7, INR 1.02, APTT 28.9 10/05/20 19:35: WBC 9.30, Hgb 14.1, Hct 41.2, Plt Count 148 L 10/05/20 19:35: Sodium 141, Potassium 3.9, BUN 15, Creatinine 1.33 H, Glucose 111 H, Magnesium 1.7 L D, Total Bilirubin 1.8 H, AST 13 L, ALT 18, Alkaline Phosphatase 75 Microbiology Data (last 24 hrs): 10/05/20 22:30 Cerebral Spinal Fluid Gram Stain - Final Assessment And Plan - Current Problems (Diagnosis) (1) Fall Current Visit: Yes Status: Acute (2) Altered mental status Current Visit: Yes Status: Acute (3) Subdural hematoma Current Visit: No Status: Acute - Plan Case discussed with neurology. MRI of the brain showing small left posterior subdural hematoma. Dr. Healy recommend repeat CT head in a.m. Continue supportive measures with IV fluid. Neuro checks. Continue Keppra 500 mg b.i.d. Physician Review: Patient Assessed, Agree with Above Assessment and Plan Physician Review Additional Text: Fall AMS R/o Head injury. Plan: Admit. Neuro checks. Obtain MRI of the brain. Supportive measures.
[2020-10-06 20:48] VITALS: O2SAT 98
[2020-10-07 05:37] LABS: Urine Appearance CLEAR (Clear); Urine Bilirubin NEGATIVE (Negative); Urine Blood NEGATIVE (Negative); Urine Color YELLOW (Yellow); Urine Glucose NEGATIVE (Negative); Urine Protein TRACE (Negative); Urine Specific Gravity 1.025 (1.005-1.030); Urine Urobilinogen 0.2 mg/dL (0.2-1.0)
[2020-10-07 06:21] LABS: Absolute Lymphocytes (CBC) 1.7 K/uL (0.7-4.9); Hematocrit 43.3 % (39.6-49.0); MPV 10.6 fL (7.6-11.3); RBC Red Blood Cell Count 4.35 M/uL (4.33-5.43)
[2020-10-07 06:35] LABS: Urine Bacteria <20 /HPF (NONE SEEN); Urine RBC <5 /HPF (NONE SEEN)
[2020-10-07 06:36] LABS: Urine Urothelial Cells <5 /HPF (NONE SEEN)
[2020-10-07 06:40] LABS: Albumin 3.7 g/dL (3.4-5.0); Bilirubin Total 1.4 mg/dL (0.2-1.0); Magnesium 2.2 mg/dL (1.8-2.4); Phosphorus 2.5 mg/dL (2.5-4.9); Potassium 3.5 mmol/L (3.5-5.1); Protein, Total 6.6 g/dL (6.4-8.2)
[2020-10-07] MEDS ORDERED: POTASSIUM CL SA 10 MEQ TAB PO ONE (07:28)
[2020-10-07] MEDS: levETIRAcetam 500 MG TAB PO SCH (09:03)
--- NOTE | 2020-10-07 09:11 | RAD REPORT ---
EXAM DESCRIPTION: CT - Head Brain Wo Cont - 10/07/2020 9:00 am CLINICAL HISTORY: Follow up Subdural hemorrhage COMPARISON: Head Brain Wo Cont dated 01/23/2020; Brain W/Wo Cont dated 10/06/2020 TECHNIQUE: Axial 5 mm thick images of the head were obtained without IV contrast. All CT scans are performed using dose optimization technique as appropriate and may include automated exposure control or mA/KV adjustment according to patient size. FINDINGS: No epidural or subdural hematoma identified. On CT imaging there is no correlate to the sm all area of signal abnormality along the left posterior convexity. No dural thickening or dural mass. MR finding may have been of ileum averaging affect. A small subdural hemorrhagic collection is possi ble that has either resolved or is too small for CT characterization. No residual or suspicious findi ng seen that warrants ongoing monitoring. Atrophy changes are minimal. No measurable chronic ischemic change. No acute infarction changes seen. No abnormal extra-axial fluid collections. Ventricles are normal. Mastoid air cells and visualized portions of the paranasal sinuses are clear. No acute bony findings. IMPRESSION: Negative non-contrast CT head examination for acute finding. No epidural or subdural hemorrhage on this study. No CT correlate to the MRI finding. This could be a rtifact on MRI imaging. A very small subdural bleed that has resolved is possible. No finding seen th at warrants ongoing monitoring.
--- NOTE | 2020-10-07 10:40 | P.DS ---
Admission Date: 10/06/20 Discharge Date: 10/07/20 Primary Care Provider: Jose Disposition: ROUTINE DISCHARGE Discharge Condition: FAIR Reason for Admission: AMS, confusion - Problems (1) Fall Current Visit: Yes Status: Acute (2) Altered mental status Current Visit: Yes Status: Acute (3) Subdural hematoma Current Visit: No Status: Acute Brief History of Present Illness: 75 year old man with a past medical history of HTN, BPH was brought to the emergency department due to altered mental status. Per and daughter, he fell and hit his head while he was cooking in the kitchen. He did not lose consciousness at that time but later during the day became confused. EMS was called and patient was brought to the emergency department. He is on Keppra 500mg BID. He was admitted for similar symptoms in November 2019 and found to have a subarachanoid hemorrhage. CT head done in the emergency department was wnl and LP was wnl. Patient hospitalized for further management. Hospital Course: Patient admitted to the medical floor. Supportive measures done with IV fluid. He became fully awake and lucid the following morning after hospitalization. MRI of the brain showed small left posterior subdural hemorrhage. Patient was monitored for another 24 hrs and was asymptomatic. Repeat CT head could not identify any subdural hemorrhage. Case discussed with neurology-Dr. Healy. Patient deemed stable for discharge. He will follow with Dr. Healy within 1 month. His Keppra is continued on discharge. Vital Signs/Physical Exam: Temp Pulse Resp BP Pulse Ox 97.2 F 68 17 123/85 99 10/07/20 04:00 10/07/20 04:00 10/07/20 04:00 10/07/20 04:00 10/07/20 04:00 General: Alert, In no apparent distress, Oriented x3 HEENT: PERRLA, EOMI, Sclerae nonicteric Neck: Supple, JVD not distended Respiratory: Clear to auscultation bilaterally, Normal air movement Cardiovascular: No edema, Regular rate/rhythm, Normal S1 S2 Gastrointestinal: Soft and benign, Non-distended, No tenderness Musculoskeletal: No swelling, No erythema Integumentary: No rashes Neurological: Normal speech, Normal strength at 5/5 x4 extr, Cranial nerves 3-12 intact Laboratory Data at Discharge: WBC 8.50 K/uL (4.3-10.9) 10/07/20 05:45 Hgb 14.3 g/dL (13.6-17.9) 10/07/20 05:45 Hct 43.3 % (39.6-49.0) 10/07/20 05:45 Plt Count 142 K/uL (152-406) L 10/07/20 05:45 PT 11.7 SECONDS (9.5-12.5) 10/05/20 19:35 INR 1.02 10/05/20 19:35 APTT 28.9 SECONDS (24.3-36.9) 10/05/20 19:35 Sodium 142 mmol/L (136-145) 10/07/20 05:45 Potassium 3.5 mmol/L (3.5-5.1) 10/07/20 05:45 BUN 14 mg/dL (7-18) 10/07/20 05:45 Creatinine 1.12 mg/dL (0.55-1.3) 10/07/20 05:45 Glucose 89 mg/dL (74-106) 10/07/20 05:45 Phosphorus 2.5 mg/dL (2.5-4.9) 10/07/20 05:45 Magnesium 2.2 mg/dL (1.8-2.4) D 10/07/20 05:45 Total Bilirubin 1.4 mg/dL (0.2-1.0) H 10/07/20 05:45 AST 11 U/L (15-37) L 10/07/20 05:45 ALT 18 U/L (12-78) 10/07/20 05:45 Alkaline Phosphatase 64 U/L (45-117) 10/07/20 05:45 Home Medications: Tolterodine Tartrate [Detrol] 1 mg PO DAILY 10/06/20 levETIRAcetam [Keppra*] 500 mg PO BID #60 tab 10/07/20 New Medications: levETIRAcetam [Keppra*] 500 mg PO BID #60 tab Diet: AHA Activity: Ad zak Followup: Florin Healy MD [ASSOCIATE-ACTIVE - CAN ADMIT] - (within 1 month) NONE,NONE [Primary Care Provider] - 1-2 Weeks Time spent managing pt's care (in minutes): 33
[2020-10-07 10:57] VITALS: BP 119/73; TEMP 98.7
== END 2020-10-07 13:00 | disposition home or self-care (01) | DRG 85 ==
LOC: ER 19:13 → ERHOLD 10-06 00:03 → 2ND 10-06 19:46
PROVIDERS: ADMIT Internal Medicine; ATTEND Internal Medicine
PROC: 009U3ZX Drainage of Spinal Canal, Percutaneous Approach, Diagnostic (ICD-10-PCS; principal; 2020-10-06)
DX: S06.5X0A Traumatic subdural hemorrhage without loss of consciousness, initial encounter (principal); G93.41 Metabolic encephalopathy; N40.0 Benign prostatic hyperplasia without lower urinary tract symptoms; F03.90 Unspecified dementia, unspecified severity, without behavioral disturbance, psychotic disturbance, mood disturbance, and anxiety; I10 Essential (primary) hypertension; W18.30XA Fall on same level, unspecified, initial encounter; Y93.G3 Activity, cooking and baking; Y92.010 Kitchen of single-family (private) house as the place of occurrence of the external cause; Z79.02 Long term (current) use of antithrombotics/antiplatelets; Z79.899 Other long term (current) drug therapy; Z86.73 Personal history of transient ischemic attack (TIA), and cerebral infarction without residual deficits; Z20.822 Contact with and (suspected) exposure to COVID-19
CPT/HCPCS: 36415; 62270; 70450; 70553; 71045; 71260; 72125; 74177; 80048; 80053; 80076; 80307; 80320; 80329; 81001; 81003; 82140; 82565; 82945; 83605; 83735; 83880; 84100; 84157; 84439; 84443; 84484; 85025; 85610; 85730; 87040; 87070; 87086; 87088; 89050; 93005; 94760; 96365; 96366; 96367; 96375; 99285; A9577; J0696; J2405; J3411; J3475; J7030; J7040; Q9967; U0003

== ENCOUNTER 2021-11-17 10:33 | Emergency (ER) | payer OTHER, MEDICARE ==
--- OUTSIDE RECORDS SUMMARY | 2021-11-17 10:37 | XMS REPORT | Continuity of Care Document ---
:1945 Author Organization [facility] t Address [address] [place] [address] Care Team Providers Name Role Phone Ivan Garcia Attending Clinician Unavailable Marcos Attending Clinician Unavailable VERONICA Attending Clinician Unavailable GABRIEL TA Attending Clinician Unavailable ROHINI RYAN Admitting Clinician Unavailable GABRIEL TA Admitting Clinician Unavailable Problems This patient has no known problems. Allergies, Adverse Reactions, Alerts This patient has no known allergies or adverse reactions. Medications Ordered Filled Start Stop Current Ordering Indication Dosage Frequency Signature Comments Components Source Medication Medication Date Date Medication? Clinician (SIG) Name Name Tamsulosin Tamsulosin 2020-0 2020- No Anel 1 capsule Common HCl HCl 09-01 [facility] 00:00: 00:00 - [facility] 00 :00 [facility] Zofran Zofran 2018-0 Yes Anel 1 tablet Comm on 01-23 Juan as needed [facility] 00:00: for - [facility] 00 nausea/vom [facility] Plavix Plavix Yes Anel 1 tablet Common [facility] Aspirin 81 Aspirin 81 Yes Anel 1 tablet Common [facility] Plavix Plavix Yes Anel 1 tablet Common [facility] Tolterodine Tolterodine Yes Anel 1 tablet Common Tartrate Tartrate Juan Spi rit [facility] Tylenol # 3 Tylenol # 3 Yes Anel one tab Common Juan [facility] Baclofen Baclofen Yes Anel 1 tablet Co mmon Juan with food [facility] or milk [facility] Viagra Viagra Yes Anel 1 tablet Common Juan as needed [facility] Losartan Losartan Yes Anel 1 tablet Co mmon Potassium-H Potassium-H [facility] CTZ CTZ [facility] Procedures This patient has no known procedures. Encounters Start End Encounter Admission Attending Care Care Encounter Source Date/Time Date/Time Type Type Clinicians Facility Department ID 2021-09-05 Outpatient Garcia, [facility] [id number] Common 10:17:01 Jacob [facility] 2021-09-02 Outpatient Garcia, [facility] [id number] Common 13:43:00 Jacob [facility] 2021-07-13 Outpatient Garcia, [facility] [id number] Common 14:26:43 Jacob [id number] [facility] 2021-07-13 Outpatient Garcia, [facility] [id number] Common 14:15:56 Jacob [id number] [facility] 2021-07-13 Outpatient Garcia, [facility] [id number] Common 12:39:57 Jacob [id number] [facility] 2021-07-13 Outpatient Garcia, [facility] [id number] Common 12:11:46 Jacob [id number] [facility] 2021-07-13 Outpatient Millender, [facility] [id number] Common 12:07:36 Norma [id number] [facility] 2021-07-13 Outpatient Millender, [facility] [id number] 11:05:48 Norma [id number] [facility] 2021-07-13 Outpatient Millender, [facility] [id number] Common 11:05:34 Norma [id number] [facility] 2021-09-07 2021-09-07 ambulatory [facility] [id number] Common 00:00:00 00:00:00 [facility] 2021-09-06 2021-09-06 ambulatory [facility] [id number] Common 00:00:00 00:00:00 [facility] 2021-09-06 2021-09-06 ambulatory [facility] [id number] Common 00:00:00 00:00:00 [facility] 2021-06-07 2021-06-07 ambulatory [facility] [id number] Common 00:00:00 00:00:00 [facility] 2021-05-06 2021-05-06 ambulatory [facility] [id number] Common 00:00:00 00:00:00 [facility] 2021-05-06 2021-05-06 ambulatory [facility] [id number] Common 00:00:00 00:00:00 [facility] 2021-04-27 2021-04-27 ambulatory [facility]MLC [facility] [id number] Common 00:00:00 00:00:00 [facility] 2021-04-06 2021-04-06 Outpatient [facility] [id number] Common 00:00:00 00:00:00 [facility] 2021-03-07 2021-03-07 Outpatient [facility] [id number] Common 00:00:00 00:00:00 [facility] 2021-02-10 2021-02-10 Outpatient [facility] [id number] Common 00:00:00 00:00:00 [facility] 2021-02-04 2021-02-04 Outpatient [facility] [id number] Common 00:00:00 00:00:00 [facility] 2020-10-12 2020-10-12 Outpatient [facility] [id number] Common 00:00:00 00:00:00 [facility] 2020-09-06 2020-09-06 Outpatient [facility] [id number] Common 00:00:00 00:00:00 [facility] 2020-08-31 2020-08-31 Outpatient [facility] [id number] Common 00:00:00 00:00:00 [facility] 2020-08-31 2020-08-31 Outpatient [facility] [id number] Common 00:00:00 00:00:00 [facility] 2020-05-26 2020-05-26 Outpatient [facility] [id number] Common 00:00:00 00:00:00 [facility] 2020-02-04 2020-02-04 [facility] [id number] Common 08:00:00 08:00:00 t Specialty/U Sp estrellita Specialty rology - [facility] 2019-12-30 2019-12-30 [facility] [id number] Common 11:35:00 11:35:00 t Specialty/U Sp estrellita Specialty rology - [facility] 2019-12-26 2019-12-26 [facility] [id number] Common 11:25:00 11:25:00 [facility] 2019-12-06 2019-12-07 Inpatient E MARTIN, [facility] [id number] [facility] 00:40:00 13:30:00 TYSON 2019-12-05 2019-12-05 Outpatient KEYON [facility] [id number] [facility] 19:55:00 23:59:00 ELIJAH 2019-09-16 2019-09-16 [facility] [id number] Common 10:01:00 10:01:00 [facility] 2019-09-02 2019-09-02 [facility] [id number] Common 09:51:00 09:51:00 t Specialty/U Sp estrellita Specialty rology - [facility] 2019-08-06 2019-08-06 [facility] [id number] Common 09:00:00 09:00:00 t Specialty/U Sp estrellita Specialty rology - [facility] 2019-07-27 2019-07-27 [facility] [id number] Common 12:43:00 12:43:[address] [facility] [address] [facility] 2019-07-23 2019-07-23 [facility] [id number] Common 11:00:00 11:00:[address] [facility] [address] [facility] 2019-02-03 2019-02-03 Out[facility] [id number] Common 08:15:00 08:15:00 t Specialty/U Sp estrellita Specialty rology - [facility] 2019-01-21 2019-01-21 Out[facility] [id number] Common 09:40:00 09:40:[address] [facility] [address] [facility] 2019-01-14 2019-01-14 [facility] [id number] Common 08:00:00 08:00:[address] [facility] [address] [facility] 2018-09-25 2018-09-25 [facility] [id number] Common 10:23:00 10:23:00 t Specialty/U Sp estrellita Specialty rology - [facility] 2018-08-05 2018-08-05 Out[facility] [id number] Common 08:15:00 08:15:00 t Specialty/U Sp estrellita Specialty rology - [facility] 2018-07-09 2018-07-09 Out[facility] [id number] Common 09:30:00 09:30:[address] [facility] [address] [facility] 2018-06-25 2018-06-25 Out[facility] [id number] Common 09:45:00 09:45:00 t Specialty/U Sp estrellita Specialty rology - [facility] 2018-01-23 2018-01-23 [facility] [id number] Common 08:30:00 08:30:00 t [facility] Results This patient has no known results.
[2021-11-17] MEDS ORDERED: NA CHLORIDE 0.9% 500 ML ONE (11:38)
[2021-11-17] MEDS ORDERED: ASPIRIN 81 MG CHEWABLE TABLET ONE (11:38)
--- NOTE | 2021-11-17 11:41 | RAD REPORT ---
EXAM DESCRIPTION: RAD - Chest Single View - 11/17/2021 11:37 am CLINICAL HISTORY: CHEST PAIN COMPARISON: Chest Single View dated 10/05/2020; Chest Single View dated 12/11/2019; Chest Single View dated 12/05/2019 FINDINGS: Lines: None. Lungs: No evidence of edema or pneumonia. Pleural: No significant pleural effusions or pneumothorax. Cardiac: The heart size is within normal limits. Bones: No acute fractures. Other: IMPRESSION: No acute cardiopulmonary disease.
[2021-11-17] MEDS ORDERED: LORazepam 2 MG/ML VIAL ONE (11:47)
[2021-11-17 11:58] LABS: Absolute Lymphocytes (CBC) 1.1 K/uL (0.7-4.9); Hematocrit 45.5 % (39.6-49.0); Lymphocytes % 17.1 % (15.3-44.8); MPV 9.7 fL (7.6-11.3); RBC Red Blood Cell Count 4.61 M/uL (4.33-5.43)
[2021-11-17 12:13] LABS: Albumin 3.6 g/dL (3.4-5.0); Bilirubin Direct 0.2 mg/dL (0-0.2); Bilirubin Total 1.1 mg/dL (0.2-1.0); Magnesium 1.7 mg/dL (1.8-2.4); Potassium 3.9 mmol/L (3.5-5.1); Protein, Total 7.3 g/dL (6.4-8.2); Troponin High Sensitivity 11.6 pg/mL (<58.9)
--- NOTE | 2021-11-17 12:25 | ER ---
Nurse's Notes [facility] Name: Volodymyr Armenta Age: 76 yrs Sex: Male : 1945 Arrival Date: 11/17/2021 Time: 10:41 Bed 6 Private MD: Diagnosis: Essential (primary) hypertension;Adjustment disorder with anxiety;Hypomagnesemia Presentation: 11/17 10:41 Chief complaint: Patient states: pt coming in for high blood pressure. pt recently dx tate with high blood pressure and did not take medication until EMS came to pick him up. pt presented with anxiety d/t lost of spouse recently at this hospital. Coronavirus screen: Vaccine status: Patient reports receiving the 2nd dose of the covid vaccine. Ebola Screen: Patient denies travel to an Ebola-affected area in the 21 days before illness onset. Initial Sepsis Screen: Does the patient meet any 2 criteria? RR > 20 per min. Does the patient have a suspected source of infection? No. Patient's initial sepsis screen is negative. Risk Assessment: Do you want to hurt yourself or someone else? Patient reports no desire to harm self or others. Onset of symptoms was November 17, 2021. 10:41 Method Of Arrival: EMS: [facility] 10:41 Acuity: BRYAN 3 tate Historical: - Home Meds: 10:50 clopidogrel Oral [Active]; Flomax Oral [Active]; aspirin 81 mg Oral tab [Active]; tate losartan 50 mg oral tab 1 tab once daily [Active]; - PMHx: 10:50 Brain bleed; TIA; tate - Immunization history:: Adult Immunizations up to date. - Social history:: Smoking status: . - Family history:: not pertinent. Screenin:50 Abuse screen: Denies threats or abuse. Nutritional screening: No deficits noted. tate Tuberculosis screening: No symptoms or risk factors identified. Fall Risk None identified. Assessment: 10:50 Reassessment: pt reports having high blood pressure at home. General: Appears in no tate apparent distress. Behavior is anxious. Pain: Denies pain. 10:50 Neuro: No deficits noted. tate Vital Signs: 10:41 BP 166 / 100; Pulse 81; Resp 24; Temp 97.9; Pulse Ox 100% ; Weight 58.97 kg; Height 6 tate ft. (182.88 cm); 10:50 BP 157 / 87; tate 11:11 BP 148 / 91; tate 12:55 BP 159 / 99; tate 10:41 Body Mass Index 17.63 (58.97 kg, 182.88 cm) tate ED Course: 10:41 Patient arrived in ED. tate 10:43 Néstor Pond MD is Attending Physician. [place] 10:49 Triage completed. tate 10:50 Jessica Cabello, RN is Primary Nurse. tate 10:50 Patient has correct armband on for positive identification. Bed in low position. tate 10:50 No provider procedures requiring assistance completed. Maintain EMS IV. Dressing tate intact. Gauge \T\ site: 20g RAC. 10:53 Arm band placed on. tate 11:39 XRAY Chest (1 view) In Process Unspecified. EDMS 12:24 Jacques Vasquez MD is Referral Physician. [facility] 14:42 IV discontinued, intact, Pressure dressing applied. tate Administered Medications: 11:45 Drug: NS 0.9% 500 ml Route: IV; Rate: bolus; Site: left antecubital; tate 12:55 Follow up: IV Status: Completed infusion tate 11:45 Drug: Aspirin Chewable Tablet 162 mg Route: PO; tate 12:55 Follow up: Response: No adverse reaction tate 11:46 Drug: Ativan (LORazepam) 1 mg Route: IVP; Site: left antecubital; tate 12:55 Follow up: Response: No adverse reaction tate 11:46 CANCELLED (Duplicate Order): Ativan (LORazepam) 1 mg IVP once tate 12:54 Drug: Magnesium Sulfate 2 grams Route: IVPB; Infused Over: 1 hrs; Site: left tate antecubital; Medication: 10:50 VIS not applicable for this client. tate Outcome: 12:24 Discharge ordered by . [place]on 14:41 Discharged to home ambulatory. tate 14:41 Condition: good 14:41 Discharge instructions given to patient, Prescriptions given X 2. 14:42 Patient left the ED. tate Signatures: Dispatcher [employer] EDOK Néstor Pond MD MD cha Au-Stager, Heather, DAVIS RN tate
--- NOTE | 2021-11-17 12:25 | EDPHYS ---
Physician Documentation [facility] Name: Volodymyr Armenta Age: 76 yrs Sex: Male : 1945 Arrival Date: 11/17/2021 Time: 10:41 Bed 6 Private MD: ED Physician Néstor Pond HPI: 11/17 11:26 This 76 yrs old Male presents to ER via EMS with complaints of htn and easton weakness. 11:26 The patient or guardian reports chest pain that is located primarily in the substernal easton area. Onset: 2 day(s) ago. at home checking bp. The pain does not radiate. Onset: The symptoms/episode began/occurred 2 day(s) ago. Associated signs and symptoms: Pertinent positives: dizziness. The chest pain is described as a pressure. Modifying factors: The symptoms are alleviated by nothing. the symptoms are aggravated by nothing. Severity of pain: At its worst the pain was mild in the emergency department the pain is unchanged. Historical: - Home Meds: 10:50 clopidogrel Oral [Active]; Flomax Oral [Active]; aspirin 81 mg Oral tab [Active]; tate losartan 50 mg oral tab 1 tab once daily [Active]; - PMHx: 10:50 Brain bleed; TIA; tate - Immunization history:: Adult Immunizations up to date. - Social history:: Smoking status: . - Family history:: not pertinent. ROS: 11:26 Constitutional: Negative for fever, chills, and weight loss, Eyes: Negative for injury, easton pain, redness, and discharge, ENT: Negative for injury, pain, and discharge, Neck: Negative for injury, pain, and swelling, Respiratory: Negative for shortness of breath, cough, wheezing, and pleuritic chest pain, Abdomen/GI: Negative for abdominal pain, nausea, vomiting, diarrhea, and constipation, Back: Negative for injury and pain, : Negative for injury, bleeding, discharge, and swelling, MS/Extremity: Negative for injury and deformity, Skin: Negative for injury, rash, and discoloration, Neuro: Negative for headache, weakness, numbness, tingling, and seizure. 11:26 Cardiovascular: Positive for chest pain. Exam: 11:26 Constitutional: This is a well developed, well nourished patient who is awake, alert, easton and in no acute distress. Head/Face: Normocephalic, atraumatic. Eyes: Pupils equal round and reactive to light, extra-ocular motions intact. Lids and lashes normal. Conjunctiva and sclera are non-icteric and not injected. Cornea within normal limits. Periorbital areas with no swelling, redness, or edema. ENT: Nares patent. No nasal discharge, no septal abnormalities noted. Tympanic membranes are normal and external auditory canals are clear. Oropharynx with no redness, swelling, or masses, exudates, or evidence of obstruction, uvula midline. Mucous membranes moist. Neck: Trachea midline, no thyromegaly or masses palpated, and no cervical lymphadenopathy. Supple, full range of motion without nuchal rigidity, or vertebral point tenderness. No Meningismus. Chest/axilla: Normal chest wall appearance and motion. Nontender with no deformity. No lesions are appreciated. Cardiovascular: Regular rate and rhythm with a normal S1 and S2. No gallops, murmurs, or rubs. Normal PMI, no JVD. No pulse deficits. Respiratory: Lungs have equal breath sounds bilaterally, clear to auscultation and percussion. No rales, rhonchi or wheezes noted. No increased work of breathing, no retractions or nasal flaring. Abdomen/GI: Soft, non-tender, with normal bowel sounds. No distension or tympany. No guarding or rebound. No evidence of tenderness throughout. Back: No spinal tenderness. No costovertebral tenderness. Full range of motion. Male : Normal genitalia with no discharge or lesions. Skin: Warm, dry with normal turgor. Normal color with no rashes, no lesions, and no evidence of cellulitis. MS/ Extremity: Pulses equal, no cyanosis. Neurovascular intact. Full, normal range of motion. Neuro: Awake and alert, GCS 15, oriented to person, place, time, and situation. Cranial nerves II-XII grossly intact. Motor strength 5/5 in all extremities. Sensory grossly intact. Cerebellar exam normal. Normal gait. Psych: Awake, alert, with orientation to person, place and time. Behavior, mood, and affect are within normal limits. 11:26 Musculoskeletal/extremity: DVT Exam: No signs of deep vein thrombosis. no pain, no swelling, no tenderness, negative Homans' sign noted on exam, no appreciated bluish discoloration, no erythema, no increased warmth. 11:41 ECG was reviewed by the Attending Physician. [facility] Vital Signs: 10:41 BP 166 / 100; Pulse 81; Resp 24; Temp 97.9; Pulse Ox 100% ; Weight 58.97 kg; Height 6 tate ft. (182.88 cm); 10:50 BP 157 / 87; tate 11:11 BP 148 / 91; tate 12:55 BP 159 / 99; tate 10:41 Body Mass Index 17.63 (58.97 kg, 182.88 cm) tate MDM: 10:43 Patient medically screened. easton 11:29 Differential diagnosis: anxiety, chest wall pain, hiatal hernia, pancreatitis, easton pleurisy, stable angina, unstable angina. Differential Diagnosis. HEART Score: History: Slightly Suspicious (0), ECG: Normal (0), Age: > or = 65 years (2), Risk Factors: 1 or 2 risk factors (1), [Hypertension] [+ Family HX] Troponin: < or = 1 x Normal Limit (0). The patient was given aspirin in the Emergency Department. The patient's deep vein thrombosis risk score was calculated as follows: Total Score: 0. This patient was found to be at low risk for a deep vein thrombosis by using the Well's assessment criteria. The patient's pulmonary embolism risk score was calculated as follows: Total Score: 0-2 points. This patient was found to be at low risk for a pulmonary embolism by using the Well's assessment criteria. EILEEN Risk Score: TOTAL SCORE = 0. Data reviewed: vital signs, nurses notes, lab test result(s), EKG, radiologic studies, plain films. Data interpreted: cafeteria monitor: rate is 81 beats/min, rhythm is regular, Pulse oximetry: on room air is 100 %. Test interpretation: by ED physician or midlevel provider: ECG, plain radiologic studies. 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 11/17 11:24 Order name: Basic Metabolic Panel; Complete Time: 12:22 [place] 11/17 11:24 Order name: CBC with Diff; Complete Time: 12:13 [facility] 11/17 11:24 Order name: LFT's; Complete Time: 12: [facility] 11/17 11:24 Order name: Magnesium; Complete Time: 12: [facility] 11/17 11:24 Order name: NT PRO-BNP; Complete Time: 12: [facility] 11/17 11:24 Order name: Troponin HS; Complete Time: 12: [facility] 11/17 11:24 Order name: XRAY Chest (1 view); Complete Time: 12: [facility] 11/17 11:24 Order name: EKG; Complete Time: 11: [facility] 11/17 11:24 Order name: Cardiac monitoring; Complete Time: [facility] 11/17 11:24 Order name: EKG - Nurse/Tech; Complete Time: [facility] 11/17 11:24 Order name: IV Saline Lock; Complete Time: : [facility] 11/17 11:24 Order name: Labs collected and sent; Complete Time: [facility] 11/17 11:24 Order name: O2 Per Protocol; Complete Time: [facility] 11/17 11:24 Order name: O2 Sat Monitoring; Complete Time: : [facility] 11/17 11:24 Order name: Urine Dipstick-Ancillary (obtain specimen) [facility] EC:41 Rate is 77 beats/min. Rhythm is regular. QRS Edison is Normal. CA interval is normal. QRS easton interval is normal. QT interval is normal. No Q waves. T waves are Normal. No ST changes noted. Clinical impression: NSR w/ Non-specific ST/T Changes and No evidence of ischemia. Interpreted by me. Reviewed by me. Administered Medications: 11:45 Drug: NS 0.9% 500 ml Route: IV; Rate: bolus; Site: left antecubital; tate 12:55 Follow up: IV Status: Completed infusion tate 11:45 Drug: Aspirin Chewable Tablet 162 mg Route: PO; tate 12:55 Follow up: Response: No adverse reaction tate 11:46 Drug: Ativan (LORazepam) 1 mg Route: IVP; Site: left antecubital; tate 12:55 Follow up: Response: No adverse reaction tate 11:46 CANCELLED (Duplicate Order): Ativan (LORazepam) 1 mg IVP once tate 12:54 Drug: Magnesium Sulfate 2 grams Route: IVPB; Infused Over: 1 hrs; Site: left tate antecubital; Disposition Summary: 11/17/21 12:24 Discharge Ordered Location: Home easton Problem: new easton Symptoms: have improved easton Condition: Stable easton Diagnosis - Essential (primary) hypertension easton - Adjustment disorder with anxiety easton - Hypomagnesemia easton Followup: easton - With: Private Physician - When: 2 - 3 days - Reason: Recheck today's complaints, Continuance of care, Re-evaluation by your physician Followup: easton - With: - When: 2 - 3 days - Reason: Recheck today's complaints, Continuance of care, Re-evaluation by your physician Discharge Instructions: - Discharge Summary Sheet easton - Hypertension, Adult easton - Hypertension, Adult, [id number] easton - How to Take Your Blood Pressure, [id number] easton - Aspirin and Your Heart easton - Hypomagnesemia easton - Managing Your Hypertension easton Forms: - Medication Reconciliation Form easton - Thank You Letter easton - Antibiotic Education easton - Prescription Opioid Use easton Prescriptions: - Xanax 0.5 mg Oral Tablet - take 1 tablet by ORAL route every 8 hours As needed; 20 tablet; Refills: 0, easton Product Selection Permitted - losartan 50 mg Oral tablet - take 1 tablet by ORAL route once daily; 30 tablet; Refills: 0, Product [facility] Selection Permitted Signatures: Dispatcher [employer] Néstor Arrieta MD MD [facility] Esperanza-StagerJessica RN RN lea Corrections: (The following items were deleted from the chart) 11:46 11:46 Ativan (LORazepam) 1 mg IVP once ordered. tate tate
[2021-11-17] MEDS ORDERED: Magnesium Sulfate 2gm IVPB 2 G/50 ML BAG IV ONE (12:54)
[2021-11-17 14:54] VITALS: TEMP 97.9; O2SAT 100
[2021-11-17 14:58] VITALS: BP 159/99
--- NOTE | 2021-11-19 14:33 | EKG ---
Test Date: 2021-11-17 Test Time: 12:03:25 Sales Development Associate: JOAQUINA MEASUREMENT RESULTS: Intervals: Rate: 78 RI: 158 QRSD: 68 QT: 398 QTc: 453 [place]: P: 75 RI: 158 QRS: -33 T: 42 INTERPRETIVE STATEMENTS: Normal sinus rhythm Left axis deviation Anteroseptal infarct, age undetermined Abnormal ECG Compared to ECG 11/17/2021 11:35:38 Left-axis deviation now present Ventricular premature complex(es) no longer present Myocardial infarct finding still present Electronically Signed On 11-19-21 14:32:23 CDT by Wayne Harris
--- NOTE | 2021-11-19 14:34 | EKG ---
Test Date: 2021-11-17 Test Time: 11:35:38 Catering Operations Manager: LAZARO MEASUREMENT RESULTS: Intervals: Rate: 77 HI: 150 QRSD: 72 QT: 422 QTc: 477 [place]: P: 105 HI: 150 QRS: 11 T: 53 INTERPRETIVE STATEMENTS: Sinus rhythm Anteroseptal infarct, age undetermined Abnormal ECG Compared to ECG 11/17/2021 11:34:31 Ventricular premature complex(es) now present Myocardial infarct finding still present Electronically Signed On 11-19-21 14:32:57 CDT by Wayne Harris
--- NOTE | 2021-11-19 14:34 | EKG ---
Test Date: 2021-11-17 Test Time: 11:34:31 Poultry Hatchery Man: LAZARO MEASUREMENT RESULTS: Intervals: Rate: 83 KS: 152 QRSD: 64 QT: 384 QTc: 451 [place]: P: 62 KS: 152 QRS: 28 T: 51 INTERPRETIVE STATEMENTS: normal sinus rhythm Anteroseptal infarct, age undetermined Abnormal ECG Compared to ECG 10/05/2020 19:36:06 Prolonged QT interval no longer present Myocardial infarct finding still present Electronically Signed On 11-19-21 14:33:14 CDT by Wayne Harris
== END 2021-11-17 14:42 | disposition home or self-care (01) ==
LOC: ER 10:33
DX: I10 Essential (primary) hypertension (principal); F43.22 Adjustment disorder with anxiety; E83.42 Hypomagnesemia; Z86.73 Personal history of transient ischemic attack (TIA), and cerebral infarction without residual deficits; Z79.82 Long term (current) use of aspirin
CPT/HCPCS: 96361; 93005 ×3; 85025; 80048; 36415; 83735; 80076; 84484; 83880; 71045; 96375; 96374; 99284; J3475; J7040

== ENCOUNTER 2022-01-09 07:23 | Day surgery (SDC) | payer OTHER, MEDICARE ==
--- NOTE | 2022-01-05 11:22 | RAD REPORT ---
EXAM DESCRIPTION: RAD - Chest Pa And Lat (2 Views) - 01/05/2022 11:15 am CLINICAL HISTORY: pre procedure Chest pain. COMPARISON: Chest Single View dated 11/17/2021; Chest Single View dated 10/05/2020; Chest Single View d ated 12/11/2019; Chest Single View dated 12/05/2019 FINDINGS: The lungs are clear. The heart is normal in size. No displaced fractures. IMPRESSION: No acute or concerning finding suspected.
[2022-01-05 11:35] LABS: Absolute Lymphocytes (CBC) 1.3 K/uL (0.7-4.9); Hematocrit 45.5 % (39.6-49.0); Lymphocytes % 15.2 % (15.3-44.8); MCV 98.1 fL (80-100); MPV 9.4 fL (7.6-11.3); RBC Red Blood Cell Count 4.64 M/uL (4.33-5.43)
[2022-01-05 11:56] LABS: Potassium 4.5 mmol/L (3.5-5.1)
[2022-01-09] MEDS ORDERED: NA CHLORIDE 0.9% 500 ML ONE (07:46)
[2022-01-09] MEDS ORDERED: MIDAZOLAM HCL 2 MG/2 ML INJ ONE (07:54)
[2022-01-09] MEDS ORDERED: FENTANYL CITR 100 MCG/2 ML ONE (07:54)
[2022-01-09] MEDS ORDERED: ATROPINE SULF 1 MG/10 ML SYR IV ONE (07:55)
[2022-01-09] MEDS ORDERED: NA CHLORIDE 0.9% 0 ML IV ONE (07:55)
[2022-01-09] MEDS ORDERED: LIDOCAINE 1% MPF 5 ML VIAL ONE ×2 (07:57→08:49)
[2022-01-09 08:42] LABS: SARS-CoV-2 Antigen Rapid Res Positive (Negative)
[2022-01-09] MEDS ORDERED: ACETYLCYST 20% 4 ML VIAL IH ONE (08:49)
[2022-01-09 10:31] VITALS: O2SAT 100
[2022-01-09 10:32] VITALS: BP 148/87
--- NOTE | 2022-01-09 11:47 | OP ---
Surgeon: Jacques Vasquez MD Cement Finisher Helper: Ms. Elisa Cho. Admitted to my service as an outpatient on 01/09/2022. The patient underwent an abdominal angiogram with runoff, common femoral artery angiogram, left heart catheterization, selective coronary arteriog martínez. Indication: Chest pain, positive stress test and known abdominal aortic aneurysm that is enlarging. 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 He was given Versed and fentanyl for sedation. A 6-Welsh sheath introduced in the right commo n femoral artery successfully. Angiography there was normal. Angio-Seal was used to close the case. First, the heart catheterization was done with Lyudmila catheter. He had a normal right coronary ar balaji, normal left main, normal circumflex. He was codominant; however, he had a very ostial ectatic LAD lesion about 80%. It was long. Abdominal angiogram with runoff was done using a pigtail cathete r. He was found to have normal renals, iliacs, and superficial femoral arteries. He had an abdomina l aortic aneurysm all the way from the infrarenal aorta up to the iliac bifurcation that appeared to be [id number]. Measurements are pending. Anesthesia: Total conscious sedation was 45 minutes. Complications: None. Blood Loss: 5 mL. Postoperative Diagnoses: 1.Coronary artery disease. He has an LAD stent. I will prefer he has that done in [place]. He is high risk. 2.Abdominal aortic aneurysm. Measurement pending. We will continue to monitor. May need a CT juan ogram down the road. The patient will receive Mucomyst after the procedure because his creatinine is 1.5. Also noted that the patient was COVID positive by testing, but no symptoms. NB/MODL Voice ID: [id number] Report ID: [id number]
== END 2022-01-09 10:50 | disposition home or self-care (01) ==
LOC: CCL 07:23
DX: I25.10 Atherosclerotic heart disease of native coronary artery without angina pectoris (principal); I71.4 Abdominal aortic aneurysm, without rupture; I65.23 Occlusion and stenosis of bilateral carotid arteries; U07.1 COVID-19; I47.1 Supraventricular tachycardia; I10 Essential (primary) hypertension; N40.0 Benign prostatic hyperplasia without lower urinary tract symptoms; Z86.73 Personal history of transient ischemic attack (TIA), and cerebral infarction without residual deficits; Z87.891 Personal history of nicotine dependence
CPT/HCPCS: 85025; 80048; 36415 ×2; 85610; 85730; 71046; 75630; 93454; 87811; C1893; C1760; Q9967; G0269; J2250; J3010; J7040; J0583

== ENCOUNTER 2022-06-08 16:00 | Observation (INO) | payer OTHER, MEDICARE ==
--- OUTSIDE RECORDS SUMMARY | 2022-06-08 16:07 | XMS REPORT | Continuity of Care Document ---
:1945 Author Organization [facility] t Address [address] [address] [place] [address] Care Team Providers Name Role Phone Jacob Garcia Attending Clinician Unavailable Norma Rodríguez Attending Clinician Unavailable Wayne Harris Attending Clinician Unavailable DEBORAH VILLANUEVA Attending Clinician Unavailable Deborah Villanueva Attending Clinician ELIJAH TA Attending Clinician Unavailable Physician, No Primary or Family Admitting Clinician UnavailEROS Castillo Admitting Clinician Unavailable Eros Chawla Admitting Clinician ELIJAH TA Admitting Clinician Unavailable Payers Payer Name Policy Type Policy Number Effective Date Expiration Date Marcos eleanor [facility] C1 [id number] 2015 [facility] 00:[facility]00 - [facility] MEDICARE MB [id number] 2011 [facility] NOVITAS 00:00:00 - [facility] C1 [id number] 2015 [facility] 00:[facility]:00 [facility] MEDICARE MB [id number] 2011 [facility] NOVITAS 00:00:00 [facility] MEDICARE MB [id number] 2011 [facility] NOVITAS 00:00:00 [facility] AAR C1 [id number] 2015 [facility] 00:[facility]:00 [facility] AAR C1 [id number] 2015 [facility] 00:00:00 [facility] MEDICARE MB [id number] 2011 [facility] NOVITAS 00:00:00 [facility] C1 [id number] 2015 [facility] 00:00:00 [facility] MEDICARE MB [id number] 2011 [facility] NOVITAS 00:00:00 [facility] Problems Condition Condition Condition Status Onset Resolution Last Treating Co mments Source Name Details Category Date Date Treatment Clinician Date SAH SAH Diagnosis Active 2019-12-08 Mem oria Active 12-04 11:11:00 l 12/05/2019 00:00: Fito hardy [address] ACUTE ACUTE Diagnosis Active 2019-12-12 Mem oria SUBDURAL SUBDURAL 12-04 21:55:00 l HEMATOMA HEMATOMA 00:00: Fito hardy Active 00 12/05/2019 [facility] [id number] Multiple Problem Comm on lung Spirit nodules on [facility] [id number] Diverticul Problem Co mmon itis of [facility] colon [facility] [id number] Pulmonary Problem Comm on emphysema, Spirit unspecifie - [facility] d [facility] [id number] [place] [address] [facility] [id number] Adjustment Problem Com mon disorder Spirit with - [facility] anxiety [facility] [id number] Hypomagnes Problem Co mmon emia [facility] [id number] Primary Problem Common insomnia 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 laterality Medica [facility] [id number] Pain of Problem Common upper Spirit abdomen [facility] [id number] Diverticul Problem Co mmon osis of Spirit large - [facility] intestine [facility] hemorrhage Medica l [facility] [id number] Personal Problem Comm on history of Spirit other - [facility] diseases [facility] digestive Medical system Center [id number] Nausea Problem [facility] [id number] Bloating Problem Comm on Spirit - [facility] [id number] Generalize Problem Co mmon d Spirit abdominal - [facility] pain [facility] [id number] Low back Problem Comm on pain [facility] [id number] Elevated Problem Comm on BP without Spirit diagnosis - [id number] Skin Problem Common lesions [facility] [id number] Erectile Problem Comm on dysfunctio Spirit n, - [facility] unspecifie [facility] erectile [facility] dysfunctio Medica n type Center [id number] Chronic Problem Commo n kidney Spirit disease, - [facility] unspecifie [facility] CKD [facility] [id number] [place] n [address] bilirubin, Spirit elevated [facility] [id number] +5th digit Problem Com mon eff Spirit 03/18/22*Ab - [facility] dominal aortic [facility] aneurysm Medical (AAA) Center without rupture [id number] Acute Problem Common diverticul Spirit itis of - [facility] intestine [facility] [id number] BPH w/o Problem Commo n urinary Spirit obs/LUTS [facility] [id number] Urinary Problem Commo n frequency Spirit - [facility] [id number] OAB Problem Common (overactiv Spirit e bladder) [facility] [id number] Subcutaneo Problem C ommon [id number] us mass Spirit - [facility] [id number] Other Problem Common chronic Spirit pain - [facility] [id number] 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 810212555 Thrombocyt Problem Co mmon openia [facility] 71980965 Neck pain Problem Comm on [facility] 56099581 Essential Problem Comm on hypertensi Spirit on [facility] [id number] Depression Problem Co mmon screening [facility] [id number] Altered Problem Commo n mental Spirit status, - [facility] unspecifie [facility] mental Medical status Center type [id number] Other Problem Common specified Spirit postproced - [facility] ural [facility] [id number] Cannabis Problem Commo n abuse [facility] [id number] Change in Problem Com mon bowel Spirit habits [facility] [id number] Left groin Problem Co mmon pain [facility] [id number] Stage 3a Problem Comm on chronic Spirit kidney - [facility] disease [facility] TRAUM TRAUM Diagnosis Active 2019-12-12 Mem oria SUBDR HEM SUBDR HEM 21:55:00 l W LOC OF W LOC OF Fito hardy UNSP UNSP DURATION, DURATION, Active [facility] Allergies, Adverse Reactions, Alerts Allergy Allergy Status Severity Reaction(s) Onset Inactive Treating Comm ents Source Name Type Date Date Clinician No Known DA Active U [facility] Allergie 01-12 Clear s 00:00: [facility] 00 [facility] Social History Social Habit Start Date Stop Date Quantity Comments Source History of Tobacco [facility] - Use [facility] Sex Assigned At [facility] estrellita - [facility] Social History 2019-12-06 2019-12-06 Humberto delgadillo 11:05:07 11:05:07 Smoking Status Start Date Stop Date Source Former Smoker 2022-04-21 00:00:00 2022-04-21 00:00:00 [facility] - [facility] Medications Ordered Filled Start Stop Current Ordering Indication Dosage Frequency Signature Comments Components Source Medication Medication Date Date Medication? Clinician (SIG) Name Name Proscar 5 Proscar 5 2022- No 1{table QD Proscar 5 MG MG 02-1525 t} MG 00:00: 00:00 00 :00 Proscar 5 Proscar 5 2021-2022- No 1{table QD Proscar 5 MG MG -25 t} MG 00:00: 00:00 00 :00 Proscar 5 Proscar 5 2021-2022- No 1{table QD Proscar 5 MG MG 02-1525 t} MG 00:00: 00:00 00 :00 VESIcare 5 VESIcare 5 2021-0 2022- No 1{table QD VESIcare 5 MG MG 02-15 t} MG 00:00: 00:00 00 :00 VESIcare 5 VESIcare 5 2021-0 2022- No 1{table QD VESIcare 5 MG MG 02-15 t} MG 00:00: 00:00 00 :00 VESIcare 5 VESIcare 5 2021-0 2022- No 1{table QD VESIcare 5 MG MG 02-15 t} MG 00:00: 00:00 00 :00 Carvedilol Carvedilol 0 No 1{table BID Carvedilol 3.125 MG 3.125 MG 7-07 t_with_ 3.125 MG 00:00: food} 00 Carvedilol Carvedilol 2021-0 No 1{table BID Carvedilol 3.125 MG 3.125 MG 7-07 t_with_ 3.125 MG 00:00: food} 00 traZODone traZODone 2022-0 No QD traZODone HCl 50 MG HCl 50 MG 6-06 HCl 50 MG 00:00: 00 traZODone traZODone 0 No QD traZODone HCl 50 MG HCl 50 MG 6-06 HCl 50 MG 00:00: 00 Losartan Losartan No .5{tabl QD Losartan Potassium Potassium 6-02 et} Potassium 50 MG 50 MG 00:00: 50 MG 00 Losartan Losartan No .5{tabl QD Losartan Potassium Potassium 6-02 et} Potassium 50 MG 50 MG 00:00: 50 MG 00 Losartan Losartan No .5{tabl QD Losartan Potassium Potassium 6-02 et} Potassium 50 MG 50 MG 00:00: 50 MG 00 Losartan Losartan No .5{tabl QD Losartan Potassium Potassium 6-02 et} Potassium 50 MG 50 MG 00:00: 50 MG 00 Losartan Losartan No .5{tabl QD Losartan Potassium Potassium 6-02 et} Potassium 50 MG 50 MG 00:00: 50 MG 00 Losartan Losartan No .5{tabl QD Losartan Potassium Potassium 6-02 et} Potassium 50 MG 50 MG 00:00: 50 MG 00 Losartan Losartan No .5{tabl QD Losartan Potassium Potassium 6-02 et} Potassium 50 MG 50 MG 00:00: 50 MG 00 Losartan Losartan No .5{tabl QD Losartan Potassium Potassium 6-02 et} Potassium 50 MG 50 MG 00:00: 50 MG 00 Losartan Losartan No .5{tabl QD Losartan Potassium Potassium 6-02 et} Potassium 50 MG 50 MG 00:00: 50 MG 00 Losartan Losartan No .5{tabl QD Losartan Potassium Potassium 6-02 et} Potassium 50 MG 50 MG 00:00: 50 MG 00 Sildenafil Sildenafil 2020-06- No 1{table Sildenafil Citrate 100 Citrate 100 07-06 t_as_ne Citrate MG MG 00:00: 00:00 eded} 100 MG 00 :00 Tadalafil Tadalafil 2020-06- No 1{table Tadalafil 20 MG 20 MG 07-06 t} 20 MG 00:00: 00:00 00 :00 Sildenafil Sildenafil 2020-06- No 1{table Sildenafil Citrate 100 Citrate 100 07-06 t_as_ne Citrate MG MG 00:00: 00:00 eded} 100 MG 00 :00 Tadalafil Tadalafil 2020-06- No 1{table Tadalafil 20 MG 20 MG 07-06 t} 20 MG 00:00: 00:00 00 :00 Sildenafil Sildenafil 2020-06- No 1{table Sildenafil Citrate 100 Citrate 100 07-06 t_as_ne Citrate MG MG 00:00: 00:00 eded} 100 MG 00 :00 Tadalafil Tadalafil 2020-06- No 1{table Tadalafil 20 MG 20 MG 07-06 t} 20 MG 00:00: 00:00 00 :00 Solifenacin Solifenacin 2020- No 1{table QD Solifenaci Succinate Succinate 03-07 t} n 10 MG 10 MG 00:00: 00:00 Succinate 00 :00 10 MG Lidocaine 5 Lidocaine 5 No 1{appli TID Lidocaine % % 4-27 cation_ 5 % 00:00: as_need 00 ed} Lidocaine 5 Lidocaine 5 No 1{appli TID Lidocaine % % 4-27 cation_ 5 % 00:00: as_need 00 ed} Lidocaine 5 Lidocaine 5 No 1{appli TID Lidocaine % % 4-27 cation_ 5 % 00:00: as_need 00 ed} Lidocaine 5 Lidocaine 5 No 1{appli TID Lidocaine % % 4-27 cation_ 5 % 00:00: as_need 00 ed} Lidocaine 5 Lidocaine 5 No 1{appli TID Lidocaine % % 4-27 cation_ 5 % 00:00: as_need 00 ed} Lidocaine 5 Lidocaine 5 No 1{appli TID Lidocaine % % 4-27 cation_ 5 % 00:00: as_need 00 ed} Levetiracet Yes 500 mg = 1 Memoria am 500 MG 6-21 tab, PO, l Oral Tablet 15:04: Q12H, # 12 [place] [Keppra] 00 tab, 0 Refill(s) Tamsulosin Yes 0.4 mg = 1 M emoria hydrochlori 6-21 cap, PO, l de 0.4 MG 14:33: Daily, # Herm onel Oral 00 30 cap, 0 Capsule Refill(s) [Flomax] clopidogrel 2020-0 No PO, 0 Memor ia 6-21 Refill(s) l 14:33: Jacob 00 heparin 2020-0 No Notes: Memoria sodium, 6-21 porcine l porcine 13:00: heparin [place] 2500 UNT/ML 00 Injectable Solution Hydralazine 2020-0 No Notes: Tru rose mary 6-20 (Same as: l 19:41: Apresoline Jacob 00 ) Push over 5 minutes Labetalol [...] 01/05/20 10:33:00 CDT, 1.83, m2, 0 Protonix 2019- No Notes: Memoria 6-20 Tablet l 15:32: should not [place] be chewed or crushed. (Same as: Protonix) Diclofenac No Notes: Memor ia Sodium 0.01 6-20 Same as: l MG/MG 14:00: Voltaren Jacob Topical Gel 00 Gel Levetiracet No Notes: Tru rose mayr am 500 MG 6-20 (Same l Oral Tablet 14:00: as:Keppra) Jacob [Keppra] 00 Levetiracet No Notes: Tru rose mary am 6-20 Same as l 14:00: Keppra Mix [place] with 100 mL NS, LR or D5W MEDICATION WASTE Product Size: 500 mg Product Wasted: ___ mg Docusate No Notes: Memoria 6-20 (Same as: l 14:00: Colace) [place] (Do Not Crush) sennosides, No Notes: Tru rose mary ALF 6-20 (Same as: l 14:00: Senokot) Jacob Saline No Notes: Memoria Flush 0.9% 6-20 (Same as: l 14:00: BD Jacob Posiflush) Potassium No Notes: Memori a Chloride 6-20 (Same as: l 10:17: KCL) Infuse no faster than 10 mEq/hr if given peripheral ly. sodium No Notes: Memoria phosphate 6-20 Infuse l 10:17: over 4 [place] 00 hour. Do not infuse phosphorou s [...] mEq potassium Infuse over 4 hours potassium 2020-0 No Notes: Memori a phosphate-s 6-20 (Same as: l odium 10:17: Phos-NaK) Jacob phosphate 00 Each 1.5 250 mg-280 gm pkt has mg-160 mg 250mg oral powder phosphorou for s. Mix reconstitut w/2.5oz ion water and stir. Magnesium 2019-0 No Notes: Memori a Sulfate 6-20 WASTE: F/P l 10:17: - Sink; E Jacob 00 - Municipal Trash Bin Magnesium 2019-0 No Notes: Memori a Oxide -20 (Same as: l 10:17: Mag-Ox [place] 00 400) Magnesium oxide [id number] g elemental magnesium Dose=____m g magnesium oxide (___mg elemental magnesium) Calcium 2019- No Notes: Memoria Gluconate -20 WASTE: F/P l 10:17: - Sink; E [place] - Municipal Trash Bin Calcium 2019-0 No Notes: Memoria Carbonate -20 (Same As: l 500 MG 10:17: Tums) [place] Chewable 00 Calcium Tablet Carbonate 500 mg = 200 mg elemental calcium Dose = mg calcium carbonate ( mg elemental calcium) Acetaminoph 0 No Notes: Max Memoria en -20 acetaminop l 10:14: hen 4000 [place] 00 mg/day (4 gm/day). (Same as: Tylenol Extra Strength) Morphine 2019-0 No Notes: Memoria 6-20 (Same l 10:14: as:MORPhin [place] 00 e Sulfate) Robaxin 2019-0 No Notes: Memoria 6-20 (Same l 10:14: as:Robaxin [place] 00 ) tramadol 2019-0 No Notes: Not Mem oria hydrochlori 6-20 to exceed l de 50 MG 10:14: 400mg/day. Her thomson Oral Tablet 00 (Same As: Ultram) Fentanyl 0 No Notes: Memoria 6-20 (Same as: l 07:13: Sublimaze) Jacob 00 Preservati ve free. Sodium 2020-0 No 1,000 mL, Memori a Chloride 6-20 Rate: 50 l 0.9% IV 05:39: ml/hr, [place] 1,000 mL 00 Infuse over: 20 hr, Route: IV, Dosing Weight 65.909 kg, Total Volume: 1,000, Start date: 12/06/19 0:39:00 CDT, Duration: 30 day, Stop date: 01/05/20 0:38:00 CDT, 1.83, m2, 0 Acetaminoph No Notes: Do M emoria en 12-05 not exceed l 05:39: 4 gm/day. (Same as: Tylenol) Bisacodyl No Notes: Memori a 12-05 (Same As: l 05:39: Dulcolax, Bisco-Lax) Ondansetron No Notes: Tru rose mary 12-05 (Same as: l 05:39: Zofran) MEDICATION WASTE Product Size: 4 mg Product Wasted: ___ mg Saline No Notes: Memoria Flush 0.9% 12-05 (Same as: l 05:39: BD Posiflush) Iohexol No 100 mL, Memoria 12-05 Route: l 05:03: IVP, Drug Form: SOLN, kg, ONCALL, STAT, Start date: 12/06/19 0:03:00 CDT, Duration: 1 doses or times, Dose = 2.2ml/kg, Max dose = 100ml -- "To be infused by Radiology Staff ONLY" Keppra No 1,000 mg, Memori a -20 Route: l 01:32: IVPB, ONCE, kg, Priority: STAT, Start date: 12/05/19 20:32:00 CDT, Stop date: 12/05/19 20:32:00 CDT Tamsulosin Tamsulosin 2020- No Anel 1 capsule Common HCl HCl 3-17 13 Juan [facility] 00:00: 00:00 - [facility] 00 :00 [facility] Zofran Zofran Yes Anel 1 tablet Comm on 808 Juan as needed Spirit 00:00: for - [facility]I 00 nausea/vom [facility] Zofran 4 MG Zofran 4 MG No Zofran 4 8-08 MG 00:00: 00 Zofran 4 MG Zofran 4 MG 2017- No Zofran 4 8-08 MG 00:00: 00 Zofran 4 MG Zofran 4 MG 2017- No Zofran 4 8-08 MG 00:00: 00 Zofran 4 MG Zofran 4 MG 2017- No Zofran 4 8-08 MG 00:00: 00 Zofran 4 MG Zofran 4 MG No Zofran 4 8-08 MG 00:00: 00 Zofran 4 MG Zofran 4 MG No Zofran 4 8-08 MG 00:00: 00 Plavix Plavix Yes Anel [address] [facility] Aspirin 81 Aspirin 81 Yes Anel 1 tablet Common Juan [facility] Plavix Plavix Yes Anel [address] [facility] Tolterodine Tolterodine Yes Anel 1 tablet Common Tartrate Tartrate Juan [facility]pi rit [facility] Tylenol # 3 Tylenol # 3 Yes Anel one tab Common Juan [facility] Baclofen Baclofen Yes Anel 1 tablet Co mmon Juan with food [facility] or milk [facility] Viagra Viagra Yes Anel 1 tablet Common [place] as needed Spirit [facility] Losartan Losartan Yes Anel 1 tablet Co mmon Potassium-H Potassium-H [place] [facility] CTZ CTZ [facility] Viagra 100 Viagra 100 No 1{table QD Viagra 100 MG MG t_as_ne MG eded} Keppra 500 Keppra 500 No 1{table BID Keppra 500 MG MG t} MG Aspirin 81 Aspirin 81 No 1{table QD Aspirin 81 81 MG 81 MG t} 81 MG Plavix 75 Plavix 75 No 1{table QD Plavix 75 MG MG t} MG Myrbetriq Myrbetriq No 1{table QD Myrbetriq 50 MG 50 MG t} 50 MG Tamsulosin Tamsulosin No 1{capsu QD Tamsulosin HCl 0.4 MG HCl 0.4 MG le} HCl 0.4 MG Multi Multi No Multi Vitamin Vitamin Vitamin Tolterodine Tolterodine No 1{table BID Tolterodin Tartrate 2 Tartrate 2 t} e Tartrate MG MG 2 MG Baclofen 10 Baclofen 10 No 1{table TID Baclofen MG MG t_with_ 10 MG food_or _milk} Tolterodine Tolterodine No 1{table BID Tolterodin Tartrate 2 Tartrate 2 t} e Tartrate MG MG 2 MG Tolterodine Tolterodine No 1{table BID Tolterodin Tartrate 2 Tartrate 2 t} e Tartrate MG MG 2 MG Tylenol # 3 Tylenol # 3 No Tylenol # 300/30mg 300/30mg 3 300/30mg Solifenacin Solifenacin No 1{table QD Solifenaci Succinate Succinate t} n 10 MG 10 MG Succinate 10 MG Viagra 100 Viagra 100 No 1{table QD Viagra 100 MG MG t_as_ne MG eded} Tolterodine Tolterodine No 1{table BID Tolterodin Tartrate 2 Tartrate 2 t} e Tartrate MG MG 2 MG Plavix 75 Plavix 75 No 1{table QD Plavix 75 MG MG t} MG Multi Multi No Multi Vitamin Vitamin Vitamin Aspirin 81 Aspirin 81 No 1{table QD Aspirin 81 81 MG 81 MG t} 81 MG Tolterodine Tolterodine No 1{table BID Tolterodin Tartrate 2 Tartrate 2 t} e Tartrate MG MG 2 MG Baclofen 10 Baclofen 10 No 1{table TID Baclofen MG MG t_with_ 10 MG food_or _milk} Myrbetriq Myrbetriq No 1{table QD Myrbetriq 50 MG 50 MG t} 50 MG Tylenol # 3 Tylenol # 3 No Tylenol # 300/30mg 300/30mg 3 300/30mg Keppra 500 Keppra 500 No 1{table BID Keppra 500 MG MG t} MG Tamsulosin Tamsulosin No 1{capsu QD Tamsulosin HCl 0.4 MG HCl 0.4 MG le} HCl 0.4 MG Tolterodine Tolterodine No 1{table BID Tolterodin Tartrate 2 Tartrate 2 t} e Tartrate MG MG 2 MG Tolterodine Tolterodine No 1{table BID Tolterodin Tartrate 2 Tartrate 2 t} e Tartrate MG MG 2 MG Tamsulosin Tamsulosin No 1{capsu QD Tamsulosin HCl 0.4 MG HCl 0.4 MG le} HCl 0.4 MG Keppra 500 Keppra 500 No 1{table BID Keppra 500 MG MG t} MG Tylenol # 3 Tylenol # 3 No Tylenol # 300/30mg 300/30mg 3 300/30mg Baclofen 10 Baclofen 10 No 1{table TID Baclofen MG MG t_with_ 10 MG food_or _milk} Tolterodine Tolterodine No 1{table BID Tolterodin Tartrate 2 Tartrate 2 t} e Tartrate MG MG 2 MG Viagra 100 Viagra 100 No 1{table QD Viagra 100 MG MG t_as_ne MG eded} Myrbetriq Myrbetriq No 1{table QD Myrbetriq 50 MG 50 MG t} 50 MG Solifenacin Solifenacin No 1{table QD Solifenaci Succinate Succinate t} n 10 MG 10 MG Succinate 10 MG Aspirin 81 Aspirin 81 No 1{table QD Aspirin 81 81 MG 81 MG t} 81 MG Tolterodine Tolterodine No 1{table BID Tolterodin Tartrate 2 Tartrate 2 t} e Tartrate MG MG 2 MG Multi Multi No Multi Vitamin Vitamin Vitamin Plavix 75 Plavix 75 No 1{table QD Plavix 75 MG MG t} MG Aspirin 81 Aspirin 81 No 1{table QD Aspirin 81 81 MG 81 MG t} 81 MG Tylenol # 3 Tylenol # 3 No Tylenol # 300/30mg 300/30mg 3 300/30mg Tamsulosin Tamsulosin No 1{capsu QD Tamsulosin HCl 0.4 MG HCl 0.4 MG le} HCl 0.4 MG Solifenacin Solifenacin No 1{table QD Solifenaci Succinate Succinate t} n 10 MG 10 MG Succinate 10 MG Plavix 75 Plavix 75 No 1{table QD Plavix 75 MG MG t} MG Keppra 500 Keppra 500 No 1{table BID Keppra 500 MG MG t} MG Tolterodine Tolterodine No 1{table BID Tolterodin Tartrate 2 Tartrate 2 t} e Tartrate MG MG 2 MG Tolterodine Tolterodine No 1{table BID Tolterodin Tartrate 2 Tartrate 2 t} e Tartrate MG MG 2 MG Multi Multi No Multi Vitamin Vitamin Vitamin Tolterodine Tolterodine No 1{table BID Tolterodin Tartrate 2 Tartrate 2 t} e Tartrate MG MG 2 MG Myrbetriq Myrbetriq No 1{table QD Myrbetriq 50 MG 50 MG t} 50 MG Viagra 100 Viagra 100 No 1{table QD Viagra 100 MG MG t_as_ne MG eded} Baclofen 10 Baclofen 10 No 1{table TID Baclofen MG MG t_with_ 10 MG food_or _milk} Aspirin 81 Aspirin 81 No 1{table QD Aspirin 81 81 MG 81 MG t} 81 MG Tylenol # 3 Tylenol # 3 No Tylenol # 300/30mg 300/30mg 3 300/30mg Tamsulosin Tamsulosin No 1{capsu QD Tamsulosin HCl 0.4 MG HCl 0.4 MG le} HCl 0.4 MG Solifenacin Solifenacin No 1{table QD Solifenaci Succinate Succinate t} n 10 MG 10 MG Succinate 10 MG Plavix 75 Plavix 75 No 1{table QD Plavix 75 MG MG t} MG Keppra 500 Keppra 500 No 1{table BID Keppra 500 MG MG t} MG Tolterodine Tolterodine No 1{table BID Tolterodin Tartrate 2 Tartrate 2 t} e Tartrate MG MG 2 MG Tolterodine Tolterodine No 1{table BID Tolterodin Tartrate 2 Tartrate 2 t} e Tartrate MG MG 2 MG Multi Multi No Multi Vitamin Vitamin Vitamin Tolterodine Tolterodine No 1{table BID Tolterodin Tartrate 2 Tartrate 2 t} e Tartrate MG MG 2 MG Myrbetriq Myrbetriq No 1{table QD Myrbetriq 50 MG 50 MG t} 50 MG Viagra 100 Viagra 100 No 1{table QD Viagra 100 MG MG t_as_ne MG eded} Baclofen 10 Baclofen 10 No 1{table TID Baclofen MG MG t_with_ 10 MG food_or _milk} Tylenol # 3 Tylenol # 3 No Tylenol # 300/30mg 300/30mg 3 300/30mg Tolterodine Tolterodine No 1{table BID Tolterodin Tartrate 2 Tartrate 2 t} e Tartrate MG MG 2 MG Solifenacin Solifenacin No 1{table QD Solifenaci Succinate Succinate t} n 10 MG 10 MG Succinate 10 MG Tolterodine Tolterodine No 1{table BID Tolterodin Tartrate 2 Tartrate 2 t} e Tartrate MG MG 2 MG Aspirin 81 Aspirin 81 No 1{table QD Aspirin 81 81 MG 81 MG t} 81 MG Plavix 75 Plavix 75 No 1{table QD Plavix 75 MG MG t} MG Keppra 500 Keppra 500 No 1{table BID Keppra 500 MG MG t} MG Multi Multi No Multi Vitamin Vitamin Vitamin Viagra 100 Viagra 100 No 1{table QD Viagra 100 MG MG t_as_ne MG eded} Baclofen 10 Baclofen 10 No 1{table TID Baclofen MG MG t_with_ 10 MG food_or _milk} Myrbetriq Myrbetriq No 1{table QD Myrbetriq 50 MG 50 MG t} 50 MG Tolterodine Tolterodine No 1{table BID Tolterodin Tartrate 2 Tartrate 2 t} e Tartrate MG MG 2 MG Tamsulosin Tamsulosin No 1{capsu QD Tamsulosin HCl 0.4 MG HCl 0.4 MG le} HCl 0.4 MG Tolterodine Tolterodine No 1{table BID Tolterodin Tartrate 2 Tartrate 2 t} e Tartrate MG MG 2 MG Tolterodine Tolterodine No 1{table BID Tolterodin Tartrate 2 Tartrate 2 t} e Tartrate MG MG 2 MG Tolterodine Tolterodine No 1{table BID Tolterodin Tartrate 2 Tartrate 2 t} e Tartrate MG MG 2 MG Xanax 0.5 Xanax 0.5 No 1{table BID Xanax 0.5 MG MG t} MG Losartan Losartan No 1{table QD Losartan Potassium Potassium t} Potassium 50 MG 50 MG 50 MG Xanax 0.5 Xanax 0.5 No 1{table BID Xanax 0.5 MG MG t} MG Losartan Losartan No 1{table QD Losartan Potassium Potassium t} Potassium 50 MG 50 MG 50 MG Omeprazole Omeprazole No QD Omeprazole 20 MG 20 MG 20 MG traZODone traZODone No 1{table QD traZODone HCl 50 MG HCl 50 MG t_at_be HCl 50 MG dtime} Xanax 0.5 Xanax 0.5 No 1{table BID Xanax 0.5 MG MG t} MG Multivitami Multivitami No Multivitam n n in Omeprazole Omeprazole No QD Omeprazole 20 MG 20 MG 20 MG traZODone traZODone No 1{table QD traZODone HCl 50 MG HCl 50 MG t_at_be HCl 50 MG dtime} Xanax 0.5 Xanax 0.5 No 1{table BID Xanax 0.5 MG MG t} MG Multivitami Multivitami No Multivitam n n in Carvedilol Carvedilol No 1{table BID Carvedilol 3.125 MG 3.125 MG t_with_ 3.125 MG food} Multivitami Multivitami No Multivitam n n in Atorvastati Atorvastati No 1{table QD Atorvastat n Calcium n Calcium t} in Calcium 40 MG 40 MG 40 MG traZODone traZODone No 1{table QD traZODone HCl 50 MG HCl 50 MG t_at_be HCl 50 MG dtime} Clopidogrel Clopidogrel No 1{table QD Clopidogre Bisulfate Bisulfate t} l 75 MG 75 MG Bisulfate 75 MG Omeprazole Omeprazole No QD Omeprazole 20 MG 20 MG 20 MG Xanax 0.5 Xanax 0.5 No 1{table BID Xanax 0.5 MG MG t} MG Multivitami Multivitami No Multivitam n n in Carvedilol Carvedilol No 1{table BID Carvedilol 3.125 MG 3.125 MG t_with_ 3.125 MG food} traZODone traZODone No 1{table QD traZODone HCl 50 MG HCl 50 MG t_at_be HCl 50 MG dtime} Xanax 0.5 Xanax 0.5 No 1{table BID Xanax 0.5 MG MG t} MG Atorvastati Atorvastati No 1{table QD Atorvastat n Calcium n Calcium t} in Calcium 40 MG 40 MG 40 MG Omeprazole Omeprazole No QD Omeprazole 20 MG 20 MG 20 MG Clopidogrel Clopidogrel No 1{table QD Clopidogre Bisulfate Bisulfate t} l 75 MG 75 MG Bisulfate 75 MG Multivitami Multivitami No Multivitam n n in traZODone traZODone No 1{table QD traZODone HCl 50 MG HCl 50 MG t_at_be HCl 50 MG dtime} Xanax 0.5 Xanax 0.5 No 1{table BID Xanax 0.5 MG MG t} MG Carvedilol Carvedilol No Carvedilol 3.125 MG 3.125 MG 3.125 MG Atorvastati Atorvastati No 1{table QD Atorvastat n Calcium n Calcium t} in Calcium 40 MG 40 MG 40 MG Omeprazole Omeprazole No QD Omeprazole 20 MG 20 MG 20 MG Clopidogrel Clopidogrel No 1{table QD Clopidogre Bisulfate Bisulfate t} l 75 MG 75 MG Bisulfate 75 MG Multivitami Multivitami No Multivitam n n in Aspirin Aspirin No 1{table QD Aspirin Adult Low Adult Low t} Adult Low Dose 81 MG Dose 81 MG Dose 81 MG Carvedilol Carvedilol No Carvedilol 3.125 MG 3.125 MG 3.125 MG Carvedilol Carvedilol No 1{table BID Carvedilol 3.125 MG 3.125 MG t_with_ 3.125 MG food} Xanax 0.5 Xanax 0.5 No 1{table BID Xanax 0.5 MG MG t} MG Clopidogrel Clopidogrel No 1{table QD Clopidogre Bisulfate Bisulfate t} l 75 MG 75 MG Bisulfate 75 MG Omeprazole Omeprazole No QD Omeprazole 20 MG 20 MG 20 MG Atorvastati Atorvastati No 1{table QD Atorvastat n Calcium n Calcium t} in Calcium 40 MG 40 MG 40 MG traZODone traZODone No 1{table QD traZODone HCl 50 MG HCl 50 MG t_at_be HCl 50 MG dtime} Immunizations Ordered Immunization Filled Immunization Date Status Commen ts Source Name Name FLUZONE HIGH DOSE FLUZONE HIGH DOSE 2022-04-24 Completed [facility] OVER [facility] OVER 65 09:08:00 - [facility] FLUZONE HIGH DOSE FLUZONE HIGH DOSE 2021-06-07 Completed [facility] OVER 65 OVER 65 08:20:00 - [facility] FLUZONE HIGH DOSE FLUZONE HIGH DOSE 2021-06-07 Completed [facility] OVER 65 OVER 65 08:20:00 - [facility] FLUZONE HIGH DOSE FLUZONE HIGH DOSE 2021-06-07 Completed [facility] OVER 65 OVER 65 08:20:00 - [facility] FLUZONE HIGH DOSE FLUZONE HIGH DOSE 2021-06-07 Completed [facility] OVER 65 OVER 65 08:20:00 - [facility] FLUZONE HIGH DOSE FLUZONE HIGH DOSE 2021-06-07 Completed [facility] OVER 65 OVER 65 08:20:00 - [facility] FLUZONE HIGH DOSE FLUZONE HIGH DOSE 2021-06-07 Completed [facility] OVER 65 OVER 65 08:20:00 - [facility] FLUZONE HIGH DOSE FLUZONE HIGH DOSE 2021-06-07 Completed [facility] OVER 65 OVER 65 08:20:00 - [facility] FLUZONE HIGH DOSE FLUZONE HIGH DOSE 2021-06-07 Completed [facility] OVER 65 OVER 65 08:20:00 - [facility] FLUZONE HIGH DOSE FLUZONE HIGH DOSE 2021-06-07 Completed [facility] OVER 65 OVER 65 08:20:00 - [facility] FLUZONE HIGH DOSE FLUZONE HIGH DOSE 2021-06-07 Completed [facility] OVER 65 OVER 65 08:20:00 - [facility] FLUZONE HIGH DOSE FLUZONE HIGH DOSE 2021-06-07 Completed [facility] OVER 65 OVER 65 08:20:00 - [facility] FLUZONE HIGH DOSE FLUZONE HIGH DOSE 2021-06-07 Completed [facility] OVER 65 OVER 65 08:20:00 - [facility] FLUZONE HIGH DOSE FLUZONE HIGH DOSE 2021-06-07 Completed [facility] OVER 65 OVER 65 08:20:00 - [facility] FLUZONE HIGH DOSE FLUZONE HIGH DOSE 2021-06-07 Completed [facility] OVER 65 OVER 65 08:20:00 - [facility] Moderna COVID-19 Moderna COVID-19 2021-05-06 [facility] (Low Dose Vaccine (Low Dose 14:41:00 - [facility] Booster) [facility] Moderna COVID-19 2021-05-06 Com[facility]ine (Low Dose Vaccine (Low Dose 14:41:00 - [facility] Booster) Booster) [facility] COVID-19 Moderna COVID-19 2021-05-06 Completed [facility] Vaccine (Low Dose Vaccine (Low Dose 14:41:[address] - [facility] Booster) Booster) [facility] [facility]-06 [facility] Vaccine (Low Dose Vaccine (Low Dose 14:41:00 - [facility] Booster) Booster) [facility] [facility] 2021-05-06 [facility] Vaccine (Low Dose Vaccine (Low Dose 14:41:00 - [facility] Booster) Booster) [facility] [address] [facility] 2021-05-06 [facility] Vaccine (Low Dose Vaccine (Low Dose 14:41:00 - [facility] Booster) Booster) [facility] [address] [facility] 2021-05-06 [facility] Vaccine (Low Dose Vaccine (Low Dose 14:41:00 - [facility] Booster) Booster) [facility] [address] [facility] 2021-05-06 [facility] Vaccine (Low Dose Vaccine (Low Dose 14:41:00 - [facility] Booster) Booster) [facility] [address] [facility] 2021-05-06 [facility] Vaccine (Low Dose Vaccine (Low Dose 14:41:00 - [facility] Booster) Booster) [facility] [address] [facility] 2021-05-06 [facility] Vaccine (Low Dose Vaccine (Low Dose 14:41:00 - [facility] Booster) Booster) [facility] [address] [facility] 2021-05-06 [facility] Vaccine (Low Dose Vaccine (Low Dose 14:41:00 - [facility] Booster) Booster) [facility] [address] [facility] 2021-05-06 [facility] Vaccine (Low Dose Vaccine (Low Dose 14:41:00 - [facility] Booster) Booster) [facility] [address] COVID19 2021-05-06 Completed [facility] Vaccine (Low Dose Vaccine (Low Dose 14:41:00 - [facility] Booster) Booster) [facility] COVID19 [facility] COVID19 2021-05-06 Com[facility] Vaccine (Low Dose Vaccine (Low Dose 14:41:00 - [facility] Booster) Booster) [facility] COVID19 [facility] COVID19 2021-05-06 Com[facility] Vaccine (Low Dose Vaccine (Low Dose 14:41:00 - [facility] Booster) Booster) [facility] COVID19 [facility] COVID19 2021-05-06 Com[facility] Vaccine (Low Dose Vaccine (Low Dose 14:41:00 - [facility] Booster) Booster) [facility] FluAD FluAD 2020-05-26 Com[facility] 11:44:00 [facility] FluAD FluAD 2020-05-26 Completed [facility] 11:44:00 [facility] FluAD FluAD 2020-05-26 Completed [facility] 11:44:00 [facility] FluAD FluAD 2020-05-26 Completed [facility] 11:44:00 [facility] FluAD FluAD 2020-05-26 Completed [facility] 11:44:00 [facility] FluAD FluAD 2020-05-26 Completed [facility] 11:44:00 [facility] FluAD FluAD 2020-05-26 Completed [facility] 11:44:00 [facility] FluAD FluAD 2020-05-26 Completed [facility] 11:44:00 [facility] FluAD FluAD 2020-05-26 Completed [facility] 11:44:00 [facility] FluAD FluAD 2020-05-26 Completed [facility] 11:44:00 [facility] FluAD FluAD 2020-05-26 Completed [facility] 11:44:00 [facility] FluAD FluAD 2020-05-26 Completed [facility] 11:44:00 [facility] FluAD FluAD 2020-05-26 Completed [facility] 11:44:00 [facility] FluAD FluAD 2020-05-26 Completed [facility] 11:44:00 [facility] FluAD FluAD 2020-05-26 Completed [facility] 11:44:00 [facility] FluAD FluAD 2020-05-26 Completed [facility] 11:44:00 - [facility] FluAD FluAD 2020-05-26 Completed [facility] 11:44:00 - [facility] FluAD FluAD 2020-05-26 Completed [facility] 11:44:00 - [facility] FluAD FluAD 2020-05-26 Completed [facility] 11:44:00 - [facility] FluAD FluAD 2019-04-02 Completed [facility] 11:17:00 - [facility] FluAD FluAD 2019-04-02 Completed [facility] 11:17:00 - [facility] FluAD FluAD 2019-04-02 Completed [facility] 11:17:00 - [facility] FluAD FluAD 2019-04-02 Completed [facility] 11:17:00 - [facility] FluAD FluAD 2019-04-02 Completed [facility] 11:17:00 - [facility] FluAD FluAD 2019-04-02 Completed [facility] 11:17:00 - [facility] FluAD FluAD 2019-04-02 Completed [facility] 11:17:00 - [facility] FluAD FluAD 2019-04-02 Completed [facility] 11:17:00 - [facility] FluAD FluAD 2019-04-02 Completed [facility] 11:17:00 - [facility] FluAD FluAD 2019-04-02 Completed [facility] 11:17:00 - [facility] FluAD FluAD 2019-04-02 Completed [facility] 11:17:00 - [facility] FluAD FluAD 2019-04-02 Completed [facility] 11:17:00 - [facility] FluAD FluAD 2019-04-02 Completed [facility] 11:17:00 - [facility] FluAD FluAD 2019-04-02 Completed [facility] 11:17:00 - [facility] FluAD FluAD 2019-04-02 Completed [facility] 11:17:00 - [facility] FluAD FluAD 2019-04-02 Completed [facility] 11:17:00 - [facility] FluAD FluAD 2019-04-02 Completed [facility] 11:17:00 - [facility] FluAD FluAD 2019-04-02 Completed [facility] 11:17:00 [facility] FluAD FluAD 2019-04-02 Completed [facility] 11:17:00 [facility] Pneumovax (PPSV23) Pneumovax (PPSV23) 2018-04-30 Completed [facility] 11:18:00 - [facility] Pneumovax (PPSV23) Pneumovax (PPSV23) 2018-04-30 Completed [facility] 11:18:00 - [facility] Pneumovax (PPSV23) Pneumovax (PPSV23) 2018-04-30 Completed [facility] 11:18:00 - [facility] Pneumovax (PPSV23) Pneumovax (PPSV23) 2018-04-30 Completed [facility] 11:18:00 - [facility] Pneumovax (PPSV23) Pneumovax (PPSV23) 2018-04-30 Completed [facility] 11:18:00 - [facility] Pneumovax (PPSV23) Pneumovax (PPSV23) 2018-04-30 Completed [facility] 11:18:00 - [facility] Pneumovax (PPSV23) Pneumovax (PPSV23) 2018-04-30 Completed [facility] 11:18:00 - [facility] Pneumovax (PPSV23) Pneumovax (PPSV23) 2018-04-30 Completed [facility] 11:18:00 - [facility] Pneumovax (PPSV23) Pneumovax (PPSV23) 2018-04-30 Completed [facility] 11:18:00 - [facility] Pneumovax (PPSV23) Pneumovax (PPSV23) 2018-04-30 Completed [facility] 11:18:00 - [facility] Pneumovax (PPSV23) Pneumovax (PPSV23) 2018-04-30 Completed [facility] 11:18:00 [facility] Pneumovax (PPSV23) Pneumovax (PPSV23) 2018-04-30 Completed [facility] 11:18:00 - [facility] Pneumovax (PPSV23) Pneumovax (PPSV23) 2018-04-30 Completed [facility] 11:18:00 - [facility] Pneumovax (PPSV23) Pneumovax (PPSV23) 2018-04-30 Completed [facility] 11:18:00 [facility] Pneumovax (PPSV23) Pneumovax (PPSV23) 2018-04-30 Completed [facility] 11:18:00 [facility] Pneumovax (PPSV23) Pneumovax (PPSV23) 2018-04-30 Completed [facility] 11:18:00 - [facility] Pneumovax (PPSV23) Pneumovax (PPSV23) 2018-04-30 Completed [facility] 11:18:00 [facility] Pneumovax (PPSV23) Pneumovax (PPSV23) 2018-04-30 Completed [facility] 11:18:00 [facility] Pneumovax (PPSV23) Pneumovax (PPSV23) 2018-04-30 Completed [facility] 11:18:00 [facility] Vital Signs Vital Name Observation Time Observation Value Comments Source height 2022-04-24 08:50:00 69 [in_i] [facility] weight 2022-04-24 08:50:00 135.2 [lb_av] [facility] temperature 2022-04-24 08:50:00 97.5 [degF] [facility] bmi 2022-04-24 08:50:00 19.96 kg/m2 [facility] oximetry 2022-04-24 08:50:00 99 % [facility] respiratory rate 2022-04-24 08:50:00 18 /min Comm [facility] blood pressure 2022-04-24 08:50:00 135 mm[Hg] [facility] - systolic [facility] blood pressure 2022-04-24 08:50:00 76 mm[Hg] [facility] diastolic [facility] height 2022-02-15 10:00:00 69 [in_i] [facility] weight 2022-02-15 10:00:00 137 [lb_av] [facility] temperature 2022-02-15 10:00:00 98.6 [degF] [facility] bmi 2022-02-15 10:00:00 20.23 kg/m2 [facility] oximetry 2022-02-15 10:00:00 99 % [facility] respiratory rate 2022-02-15 10:00:00 16 /min Comm [facility] blood pressure 2022-02-15 10:00:00 132 mm[Hg] [facility] - systolic [facility] blood pressure 2022-02-15 10:00:00 68 mm[Hg] [facility] - diastolic [facility] height 2022-01-23 08:50:00 69 [in_i] [facility] weight 2022-01-23 08:50:00 135.8 [lb_av] [facility] temperature 2022-01-23 08:50:00 97.0 [degF] [facility] bmi 2022-01-23 08:50:00 20.05 kg/m2 [facility] oximetry 2022-01-23 08:50:00 98 % [facility] respiratory rate 2022-01-23 08:50:00 18 /min Comm [facility] blood pressure 2022-01-23 08:50:00 122 mm[Hg] [facility] - systolic [facility] blood pressure 2022-01-23 08:50:00 75 mm[Hg] [facility] - diastolic [facility] height 2021-12-22 09:20:00 69 [in_i] [facility] weight 2021-12-22 09:20:00 138.1 [lb_av] [facility] temperature 2021-12-22 09:20:00 98.2 [degF] [facility] bmi 2021-12-22 09:20:00 20.39 kg/m2 [facility] oximetry 2021-12-22 09:20:00 97 % [facility] respiratory rate 2021-12-22 09:20:00 18 /min Comm [facility] blood pressure 2021-12-22 09:20:00 129 mm[Hg] [facility] - systolic [facility] blood pressure 2021-12-22 09:20:00 77 mm[Hg] [facility] - diastolic [facility] height 2021-11-21 08:00:00 69.00 [in_i] [facility] weight 2021-11-21 08:00:00 132.1 [lb_av] [facility] temperature 2021-11-21 08:00:00 98.0 [degF] [facility] bmi 2021-11-21 08:00:00 19.51 kg/m2 [facility] oximetry 2021-11-21 08:00:00 98 % [facility] respiratory rate 2021-11-21 08:00:00 17 /min Comm [facility] blood pressure 2021-11-21 08:00:00 137 mm[Hg] [facility] - systolic [facility] blood pressure 2021-11-21 08:00:00 76 mm[Hg] [facility] - diastolic [facility] height 2021-11-18 11:00:00 69.00 [in_i] [facility] weight 2021-11-18 11:00:00 134.2 [lb_av] [facility] temperature 2021-11-18 11:00:00 98.1 [degF] [facility] bmi 2021-11-18 11:00:00 19.82 kg/m2 [facility] oximetry 2021-11-18 11:00:00 96 % [facility] respiratory rate 2021-11-18 11:00:00 16 /min Comm [facility] blood pressure 2021-11-18 11:00:00 175 mm[Hg] [facility] - systolic [facility] blood pressure 2021-11-18 11:00:00 86 mm[Hg] [facility] - diastolic [facility] height 2021-09-06 09:00:00 69.00 [in_i] [facility] weight 2021-09-06 09:00:00 145.2 [lb_av] [facility] temperature 2021-09-06 09:00:00 98.2 [degF] [facility] bmi 2021-09-06 09:00:00 21.44 kg/m2 [facility] oximetry 2021-09-06 09:00:00 97 % [facility] respiratory rate 2021-09-06 09:00:00 17 /min Comm [facility] blood pressure 2021-09-06 09:00:00 138 mm[Hg] [facility] systolic [facility] blood pressure 2021-09-06 09:00:00 75 mm[Hg] [facility] diastolic [facility] height 2021-09-06 08:50:00 69.00 [in_i] [facility] weight 2021-09-06 08:50:00 145.2 [lb_av] [facility] temperature 2021-09-06 08:50:00 98.2 [degF] [facility] bmi 2021-09-06 08:50:00 21.44 kg/m2 [facility] oximetry 2021-09-06 08:50:00 97 % [facility] respiratory rate 2021-09-06 08:50:00 17 /min Comm [facility] blood pressure 2021-09-06 08:50:00 138 mm[Hg] [facility] - systolic [facility] blood pressure 2021-09-06 08:50:00 75 mm[Hg] [facility] - diastolic [facility] height 2021-06-07 08:00:00 69.00 [in_i] [facility] weight 2021-06-07 08:00:00 147.8 [lb_av] [facility] - [facility] temperature 2021-06-07 08:00:00 98.2 [degF] [facility] bmi 2021-06-07 08:00:00 21.82 kg/m2 [facility] oximetry 2021-06-07 08:00:00 99 % [facility] respiratory rate 2021-06-07 08:00:00 17 /min [facility] blood pressure 2021-06-07 08:00:00 132 mm[Hg] [facility] - systolic [facility] blood pressure 2021-06-07 08:00:00 67 mm[Hg] [facility] - diastolic [facility] height 2021-04-27 08:00:00 69.00 [in_i] [facility] weight 2021-04-27 08:00:00 136.9 [lb_av] [facility] temperature 2021-04-27 08:00:00 98.7 [degF] [facility] - [facility] bmi 2021-04-27 08:00:00 20.21 kg/m2 [facility] 2021-04-27 08:00:00 99 % [facility] blood pressure 2021-04-27 08:00:00 132 mm[Hg] [facility] - systolic [facility] blood pressure 2021-04-27 08:00:00 79 mm[Hg] [facility] - diastolic [facility] height 2021-04-06 08:00:00 69.00 [in_i] [facility] weight 2021-04-06 08:00:00 136.9 [lb_av] [facility] - [facility] temperature 2021-04-06 08:00:00 96.1 [degF] [facility] - [facility] bmi 2021-04-06 08:00:00 20.21 kg/m2 [facility] - [facility] oximetry 2021-04-06 08:00:00 95 % [facility] blood pressure 2021-04-06 08:00:00 112 mm[Hg] [facility] - systolic [facility] blood pressure 2021-04-06 08:00:00 84 mm[Hg] [facility] - diastolic [facility] height 2021-03-07 09:20:00 69.00 [in_i] [facility] weight 2021-03-07 09:20:00 136.9 [lb_av] [facility] - [facility] temperature 2021-03-07 09:20:00 97.5 [degF] [facility] - [facility] bmi 2021-03-07 09:20:00 20.21 kg/m2 [facility] - [facility] oximetry 2021-03-07 09:20:00 94 % [facility] - [facility] blood pressure 2021-03-07 09:20:00 118 mm[Hg] [facility] - systolic [facility] blood pressure 2021-03-07 09:20:00 74 mm[Hg] [facility] - diastolic [facility] Temperature Oral (F) 2019-12-07 16:40:00 98.1 [facility] Systolic (mm Hg) 2019-12-07 13:00:00 [facility] [place] Diastolic (mm Hg) 2019-12-07 13:00:00 [facility] Temperature Oral (F) 2019-12-07 12:32:00 98.5 F [facility] [place] Systolic (mm Hg) 2019-12-07 09:35:00 Tru [facility] [place] Diastolic (mm Hg) 2019-12-07 09:35:00 [facility] Respitory Rate 2019-12-07 09:35:00 [facility] [place] Temperature Oral (F) 2019-12-07 09:35:00 98.0 [facility] [place] Systolic (mm Hg) 2019-12-07 05:00:00 [facility] [place] Diastolic (mm Hg) 2019-12-07 05:00:00 [facility] [place] Respitory Rate 2019-12-07 05:00:00 [facility] Respitory Rate 2019-12-07 01:00:00 [facility] Height 2019-12-06 20:22:00 182.88 cm [facility] [place] Weight 2019-12-06 20:22:00 [facility] [place] BMI Calculated 2019-12-06 20:22:00 [facility] [place] Height 2019-12-06 09:54:00 182.88 cm [facility] Weight 2019-12-06 09:54:00 [facility] BMI Calculated 2019-12-06 09:54:00 [facility] Heart Rate 2019-12-06 00:59:00 [facility] Procedures This patient has no known procedures. Encounters Start End Encounter Admission Attending Care Care Encounter Source Date/Time Date/Time Type Type Clinicians Facility Department ID 2022-04-20 Outpatient Garcia, [facility] [id number] Common 10:27:[id number] [facility] 2022-02-15 Outpatient Garcia, [facility] [id number] Common 09:59:[address] [facility] 2022-01-26 Outpatient Garcia, [facility] [id number] Common 09:17:[address] [facility] 2022-01-20 Outpatient Garcia, [facility] [id number] Common 11:26:[address] [facility] 2021-12-26 Outpatient Garcia, [facility] [id number] Common 09:52:[address] [facility] 2021-11-23 Outpatient Garcia, [facility] [id number] Common 10:51:[address] [facility] 2021-09-05 Outpatient Garcia, [facility] ST[facility] [id number] Common 10:17:[address] [facility] 2021-09-02 Outpatient Garcia, STLMLC STL[facility] [id number] Common 13:43:[address] [facility] 2021-07-13 Outpatient Garcia, STLMLC STL[facility] [id number] Common 14:26:[id number] [facility] 2021-07-13 Outpatient Garcia, STLMLC STL[facility] [id number] Common 14:15:[id number] [facility] 2021-07-13 Outpatient Garcia, STLMLC STL[facility]C [id number] Common 12:39:[id number] [facility] 2021-07-13 Outpatient Garcia, STLMLC STLMLC [id number] Common 12:11:[id number] [facility] 2021-07-13 Outpatient Millender, STLMLC STLMLC [id number] Common 12:07:[id number] [facility] 2021-07-13 Outpatient Millender, [facility]C STLMLC [id number] Common 11:05:[address] [facility] 2021-07-13 Outpatient Millender, STLMLC STLMLC [id number] Common 11:05:[address] [facility] 2022-04-24 2022-04-24 OFFICE STLMLC STLMLC [id number] Co mmon 00:00:00 00:00:00 VISIT Spirit ESTAB PT - CHI LEVEL 4 [facility] 2022-04-17 2022-04-17 (TEL) STLMLC STLMLC [id number] Co mmon 00:00:00 00:00:00 [facility] 2022-02-15 2022-02-15 OFFICE STLMLC STLMLC [id number] Co mmon 00:00:00 00:00:00 VISIT EST Spir it PT LEVEL 3 - [facility] 2022-01-23 2022-01-23 OFFICE STLMLC STLMLC [id number] Co mmon 00:00:00 00:00:00 VISIT Spirit ESTAB PT - CHI LEVEL 4 [facility] 2022-01-18 2022-01-18 Outpatient UZMA Harris, HCACL HCACL [id number] [facility] 05:06:00 05:06:00 Wayne [id number] [facility] 2022-01-18 2022-01-18 Outpatient UZMA Harris, HCACL OUTD [id number] [facility] 05:06:00 05:06:00 Wayne 92 [facility] 2022-01-02 2022-01-02 (TEL) STLMLC STLMLC [id number] Co mmon 00:00:00 00:00:00 [facility] 2021-12-22 2021-12-22 OFFICE STLMLC STLMLC [id number] Co mmon 00:00:00 00:00:00 VISIT Spirit ESTAB PT - CHI LEVEL 4 [facility] 2021-11-21 2021-11-21 OFFICE STLMLC STLMLC [id number] Co mmon 00:00:00 00:00:00 VISIT Spirit ESTAB PT - CHI LEVEL 4 [facility] 2021-11-18 2021-11-18 OFFICE STLMLC STLMLC [id number] Co mmon 00:00:00 00:00:00 VISIT Spirit ESTAB PT - CHI LEVEL 4 [facility] 2021-11-18 2021-11-18 (TEL) STLMLC STLMLC [id number] Co mmon 00:00:00 00:00:00 [facility] 2021-11-17 2021-11-17 (TEL) STLMLC STLMLC [id number] Co mmon 00:00:00 00:00:00 [facility] 2021-09-07 2021-09-07 (TEL) STLMLC STLMLC [id number] Co mmon 00:00:00 00:00:00 [facility] 2021-09-06 2021-09-06 SUB ANNUAL STLMLC STLMLC [id number] Common 00:00:00 00:00:00 MCR Spirit WELLNESS - CHI VISIT [facility] 2021-09-06 2021-09-06 OFFICE STLMLC STLMLC [id number] Co mmon 00:00:00 00:00:00 VISIT Spirit ESTAB PT - CHI LEVEL 4 [facility] 2021-06-07 2021-06-07 OFFICE STLMLC STLMLC [id number] Co mmon 00:00:00 00:00:00 VISIT Spirit ESTAB PT - CHI LEVEL 4 [facility] 2021-05-06 2021-05-06 (TEL) STLMLC STLMLC [id number] Co mmon 00:00:00 00:00:00 [facility] 2021-05-06 2021-05-06 (COVID STLMLC STLMLC [id number] Co mmon 00:00:00 00:00:00 Inj) COVID Spi rit Injection [facility] 2021-04-27 2021-04-27 OFFICE STLMLC STLMLC [id number] Co mmon 00:00:00 00:00:00 VISIT EST Spir it PT LEVEL 3 - CHI [facility] 2021-04-06 2021-04-06 OFFICE STLMLC STLMLC [id number] Co mmon 00:00:00 00:00:00 VISIT EST Spir it PT LEVEL 3 - CHI [facility] 2021-03-07 2021-03-07 OFFICE STLMLC STLMLC [id number] Co mmon 00:00:00 00:00:00 VISIT EST Spir it PT LEVEL 3 - CHI [facility] 2021-02-10 2021-02-10 Outpatient STLMLC STLMLC [id number] Common 00:00:00 00:00:00 [facility] 2021-02-04 2021-02-04 Outpatient STLMLC STLMLC [id number] Common 00:00:00 00:00:00 [facility] 2020-10-12 2020-10-12 Outpatient STLMLC STLMLC [id number] Common 00:00:00 00:00:00 [facility] 2020-09-06 2020-09-06 Outpatient STLMLC STLMLC [id number] Common 00:00:00 00:00:00 [facility] 2020-08-31 2020-08-31 Outpatient STLMLC STLMLC [id number] Common 00:00:00 00:00:00 [facility] 2020-08-31 2020-08-31 Outpatient STLMLC STLMLC [id number] Common 00:00:00 00:00:00 [facility] 2020-05-26 2020-05-26 Outpatient STLMLC STLMLC [id number] Common 00:00:00 00:00:00 [facility] 2020-02-04 2020-02-04 [facility] [id number] Common 08:00:00 08:00:00 t Specialty/U Sp estrellita Specialty rology - [facility] /Urology Clinic [facility] 2019-12-30 2019-12-30 [facility] [id number] Common 11:35:00 11:35:00 t Specialty/U Sp estrellita Specialty rology - CHI /[facility]rology Clinic [facility] 2019-12-26 2019-12-26 [facility] [id number] Common 11:25:00 11:25:00 t [facility] 2019-12-06 2019-12-07 Inpatient Critical access hospital [id number] [facility] 00:55:00 18:30:[address] 2019-12-06 2019-12-07 Inpatient E RICH [facility] [id number] [facility] 00:40:00 13:30:00 [facility] 2019-12-05 2019-12-07 Outpatient Rich [facility] [id number] 19:55:00 13:30:00 Deborah 67 2019-12-05 2019-12-07 Outpatient Rich [facility] [id number] 19:55:00 13:30:00 [place] [address] 2019-12-05 2019-12-05 Outpatient KEYON [facility] [address] [facility] 19:55:00 23:59:00 ELIJAH 2019-09-16 2019-09-16 Out[facility] [id number] Common 10:01:00 10:01:[address] [facility] [address] [facility] 2019-09-02 2019-09-02 Out[facility] [id number] Common 09:51:00 09:51:00 t Specialty/U Sp estrellita Specialty rology - [facility] /[facility] Clinic [facility] 2019-08-06 2019-08-06 Out[facility] [id number] Common 09:00:00 09:00:00 t Specialty/U Sp estrellita Specialty rology - [facility] /[facility] Clinic [facility] 2019-07-27 2019-07-27 Out[facility] [id number] Common 12:43:00 12:43:[address] [facility] [address] [facility] 2019-07-23 2019-07-23 Out[facility] [id number] Common 11:00:00 11:00:[address] [facility] [address] [facility] 2019-02-03 2019-02-03 Outpatient [facility] [id number] Common 08:15:00 08:15:00 t Specialty/U Sp estrellita Specialty rology - [facility]I /[facility] Clinic [facility] 2019-01-21 2019-01-21 Outpatient [facility] [id number] Common 09:40:00 09:40:[address] [facility] [address] [facility] 2019-01-14 2019-01-14 [facility] [id number] Common 08:00:00 08:00:[address] [facility] [address] [facility] 2018-09-25 2018-09-25 Outpatient [facility] [id number] Common 10:23:00 10:23:00 t Specialty/U Sp estrellita Specialty rology - [facility] /Urology Clinic [facility] 2018-08-05 2018-08-05 Out[facility] [id number] Common 08:15:00 08:15:00 t Specialty/U Sp estrellita Specialty rology - [facility] 2018-07-09 2018-07-09 Out[facility] [id number] Common 09:30:00 09:30:00 t [facility] [address] [facility] 2018-06-25 2018-06-25 Outpatient Chato Das [id number] Common 09:45:00 09:45:00 t Specialty/U Sp estrellita Specialty rology - [facility] /Urology Clinic [facility] 2018-01-23 2018-01-23 Outpatient Chato Das [id number] Common 08:30:00 08:30:00 t [facility] [address] Road [facility] Results Test Description Test Time Test Comments Results Result Comments Source BASIC METABOLIC PANEL 2022-01-18 18:17:00 Test Item Value Reference Range Interpretation Comme nts SODIUM (test code = NA) 141 mEq/L 134-147 N POTASSIUM (test code = K) 3.6 mEq/L 3.4-5.0 N CHLORIDE (test code = CL) 111 mEq/L 100-108 H CARBON DIOXIDE (test code = CO2) 21 mEq/l 21-33 N ANION GAP (test code = GAP) 13 0-20 N GLUCOSE (test code = GLU) 86 mg/dL 70-110 N BLOOD UREA NITROGEN (test code = 18 mg/dL 7-18 N BUN) GLOMERULAR FILTRATION RATE (test 72.8 70-80 N Units of measure = ml/min/1.73 code = GFR) m2 CREATININE (test code = CREAT) 1.0 mg/dL 0.6-1.3 N CALCIUM (test code = CA) 8.8 mg/dL 8.0-10.5 N CBC W/AUTO [id number] 18:04:00 Test Item Value Reference Range Interpretation Comments WHITE BLOOD CELL (test code = 7.8 x10 3/uL 4.5-11.0 N WBC) RED BLOOD CELL (test code = 4.07 x10 6/uL 4.00-5.60 N RBC) HEMOGLOBIN (test code = HGB) 13.3 g/dL 12.5-16.9 N HEMATOCRIT (test code = HCT) 39.0 % 37.5-50.7 N MEAN CELL VOLUME (test code = 95.8 fL 81.0-99.0 N MCV) MEAN CELL HGB (test code = MCH) 32.7 pg 27.0-33.0 N MEAN CELL HGB CONCETRATION 34.1 g/dL 33.0-37.0 N (test code = MCHC) RED CELL DISTRIBUTION WIDTH CV 12.5 % 11.5-14.5 N (test code = RDW) RED CELL DISTRIBUTION WIDTH SD 44.2 fL 37.0-54.0 N (test code = RDW-SD) PLATELET COUNT (test code = 177 x10 3/uL 150-400 N PLT) MEAN PLATELET VOLUME (test code 11.3 fL 7.0-9.0 H = MPV) NEUTROPHIL % (test code = NT%) 54.4 % 56.0-77.0 L IMMATURE GRANULOCYTE % (test 0.4 % 0.0-2.0 N code = IG%) LYMPHOCYTE % (test code = LY%) 26.8 % 14.0-32.0 N MONOCYTE % (test code = MO%) 10.3 % 4.8-9.0 H EOSINOPHIL % (test code = EO%) 7.3 % 0.3-3.7 H BASOPHIL % (test code = BA%) 0.8 % 0.0-2.0 N NUCLEATED RBC % (test code = 0.0 % 0-0 N NRBC%) NEUTROPHIL # (test code = NT#) 4.22 x10 3/uL 2.0-7.6 N IMMATURE GRANULOCYTE # (test 0.03 x10 3/uL 0.00-0.03 N code = IG#) LYMPHOCYTE # (test code = LY#) 2.08 x10 3/uL 1.0-3.8 N MONOCYTE # (test code = MO#) 0.80 x10 3/uL 0.1-0.8 N EOSINOPHIL # (test code = EO#) 0.57 x10 3/uL 0.0-0.2 H BASOPHIL # (test code = BA#) 0.06 x10 3/uL 0.0-0.2 N NUCLEATED RBC # (test code = 0.00 x10 3/uL 0.0-0.1 N NRBC#) MANUAL DIFF REQUIRED (test code NO = MDIFF) [id number] 14:46:00 Test Item Value Reference Range Interpretation Comments ACT-ISTAT (test code 335 SEC 74-137 H 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) 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 [facility] [id number] 14:46:00 Test Item Value Reference Range Interpretation Comments ACT-ISTAT (test code 190 SEC 74-137 H 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) 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 [facility] [id number] 14:46:00 Test Item Value Reference Range Interpretation Comments ACT-ISTAT (test code 208 SEC 74-137 H 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) 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 [facility] BASIC METABOLIC [id number] 11:44:00 Test Item Value Reference Range Interpretation Comments SODIUM (test code = NA) 142 mEq/L 134-147 N POTASSIUM (test code = 4.8 mEq/L 3.4-5.0 N K) CHLORIDE (test code = 111 mEq/L 100-108 H CL) CARBON DIOXIDE (test 30 mEq/l 21-33 N code = CO2) ANION GAP (test code = 5 0-20 N GAP) GLUCOSE (test code = 93 mg/dL 70-110 N GLU) BLOOD UREA NITROGEN 15 mg/dL 7-18 N (test code = BUN) GLOMERULAR FILTRATION 49.4 70-80 L Units of measure = RATE (test code = GFR) ml/mi n/1.73 m2 CREATININE (test code = 1.4 mg/dL 0.6-1.3 H CREAT) CALCIUM (test code = 9.6 mg/dL 8.0-10.5 N CA) PROTHROMBIN [id number] 11:34:00 Test Item Value Reference Range Interpretation Comments PROTHROMBIN TIME 12.4 SECONDS 9.3-12.9 N PATIENT (test code = PTP) INTERNATIONAL NORMAL 1.1 0.8-1.2 N TARGET INR BY RATIO (test code = INDICATIO N Indication INR) INR1. Prophylax is of venous thrombos is 2.0 - 3.0 (orthoped ic surgery), Proph ylaxis of venous throm bosis (other than hig h-risk surgery), Treat ment of Deep Vein Thrombosis/Pulm onary Embolism, Preve ntion of systemic emb olism - Tissue heart va lves, Acute Myocardia l Infarction (to prevent systemic emboli sm), Valvular heart disease, Atrial Fibrillation, Bileaflet mecha nical valve in aortic position.2. Mec hanical prosthetic valv es (high risk), 2. 5 - 3.5 Presence of Lup us Anticoagulant o r Antiphospholipi d Antibodies, Pre vention of systemic emb olism - Acute Myocardia l Infarction (to prevent recurrent infar ct). CBC W/AUTO [id number] 11:27:00 Test Item Value Reference Range Interpretation Comments WHITE BLOOD CELL (test code = 6.7 x10 3/uL 4.5-11.0 N WBC) RED BLOOD CELL (test code = 4.37 x10 6/uL 4.00-5.60 N RBC) HEMOGLOBIN (test code = HGB) 14.3 g/dL 12.5-16.9 N HEMATOCRIT (test code = HCT) 43.3 % 37.5-50.7 N MEAN CELL VOLUME (test code = 99.1 fL 81.0-99.0 H MCV) MEAN CELL HGB (test code = MCH) 32.7 pg 27.0-33.0 N MEAN CELL HGB CONCETRATION 33.0 g/dL 33.0-37.0 N (test code = MCHC) RED CELL DISTRIBUTION WIDTH CV 12.5 % 11.5-14.5 N (test code = RDW) RED CELL DISTRIBUTION WIDTH SD 45.1 fL 37.0-54.0 N (test code = RDW-SD) PLATELET COUNT (test code = 174 x10 3/uL 150-400 N PLT) MEAN PLATELET VOLUME (test code 11.9 fL 7.0-9.0 H = MPV) NEUTROPHIL % (test code = NT%) 61.2 % 56.0-77.0 N IMMATURE GRANULOCYTE % (test 0.4 % 0.0-2.0 N code = IG%) LYMPHOCYTE % (test code = LY%) 17.5 % 14.0-32.0 N MONOCYTE % (test code = MO%) 10.8 % 4.8-9.0 H EOSINOPHIL % (test code = EO%) 9.2 % 0.3-3.7 H BASOPHIL % (test code = BA%) 0.9 % 0.0-2.0 N NUCLEATED RBC % (test code = 0.0 % 0-0 N NRBC%) NEUTROPHIL # (test code = NT#) 4.11 x10 3/uL 2.0-7.6 N IMMATURE GRANULOCYTE # (test 0.03 x10 3/uL 0.00-0.03 N code = IG#) LYMPHOCYTE # (test code = LY#) 1.18 x10 3/uL 1.0-3.8 N MONOCYTE # (test code = MO#) 0.73 x10 3/uL 0.1-0.8 N EOSINOPHIL # (test code = EO#) 0.62 x10 3/uL 0.0-0.2 H BASOPHIL # (test code = BA#) 0.06 x10 3/uL 0.0-0.2 N NUCLEATED RBC # (test code = 0.00 x10 3/uL 0.0-0.1 N NRBC#) MANUAL DIFF REQUIRED (test code NO = MDIFF) - XR CHEST 2 [id number] 00:00:00 [facility] : 1945 Sex: M FAX: Wayne Gunter MD [phone] [place]: St: PRE FAX: Felisha Shaffer Name: ELIJAH ARMENTA [facility] : 1945 Age/S: 76/M [address] [place] [address] Blvd Unit #: [id number] Loc: [place] [address] 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 Views: 2 views. PA and Lateral COMPARISON: No relevant priorstudies available. FINDINGS: Lungs: No consolidation. Bilateral nipple shadows are seen. Pleural spaces: No pleural effusion. Heart/Mediastinum: The heart and vascular markings are within limits of normal. There is atherosclerotic calcification of the aorta. Bones/joints: No gross acute findings. IMPRESSION: No acute cardiopulmonary findings at 1429 Reported and signed by: Wesley Garcia D.O. CC: Wayen Harris MD; Felisha Shaffer NP Technologist: RT Rosina(R) Trnscrd Date/Time/By: 01/13/2022 (1428) : By: [email or web address] Orig Print D/T: S: 01/13/2022 (0173) PAGE 1 Signed [facility]2020-06-21 10:09:00 Test Item Value Reference Range Interpretation Comments Magnesium Lvl (test code = Magnesium 2.0 1.8-2.4 Lvl) [facility]2020-06-21 10:09:00 Test Item Value Reference Range Interpretation Comments Glucose Lvl (test code = Glucose Lvl) 91 70-99 [facility]2020-06-21 10:09:00 Test Item Value Reference Range Interpretation Comments BUN (test code = BUN) 11 - [facility]2020-06-21 10:09:00 Test Item Value Reference Range Interpretation Comments Creatinine Lvl (test code = Creatinine 1.14 0.50-1.40 Lvl) [facility]2020-06-21 10:09:00 Test Item Value Reference Range Interpretation Comments Sodium Lvl (test code = Sodium Lvl) 141 135-145 [facility]2020-06-21 10:09:00 Test Item Value Reference Range Interpretation Comments Potassium Lvl (test code = Potassium 3.2 3.5-5.1 Lvl) [facility]2020-06-21 10:09:00 Test Item Value Reference Range Interpretation Comments Chloride Lvl (test code = Chloride Lvl) 108 95-109 [place] 789040-06-21 10:09:00 Test Item Value Reference Range Interpretation Comments CO2 (test code = CO2) 23 24-32 [place] 789040-06-21 10:09:00 Test Item Value Reference Range Interpretation Comments Calcium Lvl (test code = Calcium Lvl) 8.1 8.5-10.5 [facility]2020-06-21 10:09:00 Test Item Value Reference Range Interpretation Comments AGAP (test code = AGAP) 13.2 10.0-20.0 [place] 789040-06-21 10:09:00 Test Item Value Reference Range Interpretation Comments eGFR (test code = eGFR) 63 [facility]2020-06-21 10:09:00 Test Item Value Reference Range Interpretation Comments Total Protein (test code = Total 6.3 6.4-8.4 Protein) [facility]2020-06-21 10:09:00 Test Item Value Reference Range Interpretation Comments Albumin Lvl (test code = Albumin Lvl) 3.2 3.5-5.0 [facility]2020-06-21 10:09:00 Test Item Value Reference Range Interpretation Comments ALT (test code = ALT) 13 See_Comment [Auto mated message] The system which ge nerated this result transmit sherry reference range : <=65. The reference range was not used to interpr et this result as yudy l/abnormal. [place] 789040-06-21 10:09:00 Test Item Value Reference Range Interpretation Comments AST (test code = AST) 13 See_Comment [Auto mated message] The system which ge nerated this result transmit sherry reference range : <=37. The reference range was not used to interpr et this result as yudy l/abnormal. [place] 789040-06-21 10:09:00 Test Item Value Reference Range Interpretation Comments Alk Phos (test code = Alk Phos) 73 39-136 [facility]2020-06-21 10:09:00 Test Item Value Reference Range Interpretation Comments Bili Total (test code = Bili Total) 1.2 0.2-1.3 [facility]2020-06-21 10:09:00 Test Item Value Reference Range Interpretation Comments Bili Direct (test code 0.3 See_Comment [Aut omated message] The = Bili Direct) system which generated this result tra nsmitted reference range : <=0.3. The reference r jose was not used to int erpret this result as yudy l/abnormal. [facility]2020-06-21 10:09:00 Test Item Value Reference Range Interpretation Comments Bili Indirect (test 0.9 See_Comment [Automa sherry message] The code = Bili Indirect) system which generated this result tra nsmitted reference range : <=1.0. The reference r jose was not used to int erpret this result as normal/abnormal . [facility]2020-06-21 10:09:00 Test Item Value Reference Range Interpretation Comments Globulin (test code = Globulin) 3.1 2.7-4.2 [facility]2020-06-21 10:09:00 Test Item Value Reference Range Interpretation Comments A/G Ratio (test code = A/G Ratio) 1.0 1 0.7-1.6 [place] 789040-06-21 10:09:00 Test Item Value Reference Range Interpretation Comments Phosphorus (test code = Phosphorus) 2.3 2.5-4.5 [place] [id number] 10:09:00 Test Item Value Reference Range Interpretation Comments Segs (test code = Segs) 72.7 45.0-75.0 [place] 429840-06-21 10:09:00 Test Item Value Reference Range Interpretation Comments Lymphocytes (test code = Lymphocytes) 14.0 20.0-40.0 [place] 429840-06-21 10:09:00 Test Item Value Reference Range Interpretation Comments Monocytes (test code = Monocytes) 11.7 2.0-12.0 [place] 429840-06-21 10:09:00 Test Item Value Reference Range Interpretation Comments Eosinophils (test code = 1.3 See_Comment [A utomated message] The Eosinophils) system which ge nerated this result tra nsmitted reference range : <=4.0. The reference r jose was not used to int erpret this result as normal/abnormal . [facility] CenterHtrrwloDDXNIVLWZM8773-50-03 10:09:00 Test Item Value Reference Range Interpretation Comments Basophils (test code = 0.3 See_Comment [Aut omated message] The Basophils) system which ge nerated this result tra nsmitted reference range : <=1.0. The reference r jose was not used to int erpret this result as normal/abnormal . [facility] CenterDtquwsdCWGFIXIQZW1742-38-77 10:09:00 Test Item Value Reference Range Interpretation Comments Neutrophils # (test code = Neutrophils 4.8 1.5-8.1 #) [facility] [id number] 10:09:00 Test Item Value Reference Range Interpretation Comments Lymphocytes # (test code = Lymphocytes 0.9 1.0-5.5 #) [facility] CenterQtiftyyGIPULKAZJQ9792-72-82 10:09:00 Test Item Value Reference Range Interpretation Comments Monocytes # (test code 0.8 See_Comment [Aut omated message] The = Monocytes #) system which generated this result tra nsmitted reference range : <=0.8. The reference r jose was not used to int erpret this result as normal/abnormal . [facility] CenterCvuprxpOIHBCCKTAJ1895-16-51 10:09:00 Test Item Value Reference Range Interpretation Comments Eosinophils # (test code 0.1 See_Comment [A utomated message] The = Eosinophils #) system whic h generated this result tra nsmitted reference range : <=0.5. The reference r jose was not used to int erpret this result as normal/abnormal . [facility] CenterBnamopiKGREQHPCDL2323-35-92 10:09:00 Test Item Value Reference Range Interpretation Comments Macrocyte (test code = 1+ *ABN*(12/07/19 Macrocyte) 5:09 AM) [facility] [id number] 10:09:00 Test Item Value Reference Range Interpretation Comments WBC (test code = WBC) 6.7 3.7-10.4 [facility] CenterDkeidisFYDKZRXALL2013-60-11 10:09:00 Test Item Value Reference Range Interpretation Comments RBC (test code = RBC) 4.19 4.70-6.10 [facility]EUYSTUDQPK3861-53-28 10:09:00 Test Item Value Reference Range Interpretation Comments Hgb (test code = Hgb) 14.4 14.0-18.0 [facility] CenterXbpgazoQTYEHIDGIP2723-24-30 10:09:00 Test Item Value Reference Range Interpretation Comments Hct (test code = Hct) 42.0 42.0-54.0 [facility] HospitalYhilbtbLCOSULVTIG2024-93-64 10:09:00 Test Item Value Reference Range Interpretation Comments MCV (test code = MCV) 100.3 80.0-94.0 [facility] HospitalWguvghfUOIBFHKCXW3516-55-05 10:09:00 Test Item Value Reference Range Interpretation Comments MCH (test code = MCH) 34.4 pg 27.0-31.0 [facility] CenterUyurbscBQTBMZJJNL5654-38-53 10:09:00 Test Item Value Reference Range Interpretation Comments MCHC (test code = MCHC) 34.3 32.0-36.0 [facility] CenterMsvsqrmUWAJWTSLRU5263-22-17 10:09:00 Test Item Value Reference Range Interpretation Comments RDW (test code = RDW) 13.8 11.5-14.5 [facility] HospitalNbdjgxfVOOYDADOIC7227-19-74 10:09:00 Test Item Value Reference Range Interpretation Comments Platelet (test code = Platelet) 138 133-450 [facility] CenterAwwtpppSHVUQXWWBB1927-12-30 10:09:00 Test Item Value Reference Range Interpretation Comments MPV (test code = MPV) 9.3 7.4-10.4 [facility]PAR[facility]YRO[facility] [id number] 10:09:00 Test Item Value Reference Range Interpretation Comments Ca Ion WB (test code = Ca Ion WB) 1.03 1.05-1.25 [facility] ClubannPARATHYROID [id number] 10:09:00 Test Item Value Reference Range Interpretation Comments Ca Norm WB (test code = Ca Norm WB) 1.03 1.05-1.25 [facility] [id number] 16:08:00 Test Item Value Reference Range Interpretation Comments Alk Phos (test code = Alk Phos) 78 39-136 [facility] [id number] 16:08:00 Test Item Value Reference Range Interpretation Comments Bili Total (test code = Bili Total) 1.8 0.2-1.3 [facility] [employer] [id number] 16:08:00 Test Item Value Reference Range Interpretation Comments AGAP (test code = AGAP) 11.6 10.0-20.0 [facility] [employer] [id number] 16:08:00 Test Item Value Reference Range Interpretation Comments B/C Ratio (test code = B/C Ratio) 9 1 6-25 [facility] ClubKoal[facility] [id number] 16:08:00 Test Item Value Reference Range Interpretation Comments Globulin (test code = Globulin) 3.1 2.7-4.2 [facility] [employer] [id number] 16:08:00 Test Item Value Reference Range Interpretation Comments A/G Ratio (test code = A/G Ratio) 1.1 1 0.7-1.6 [facility] [id number] 16:08:00 Test Item Value Reference Range Interpretation Comments eGFR (test code = eGFR) [facility] [id number] 16:08:00 Test Item Value Reference Range Interpretation Comments Troponin-I (test code no gt See_Comment [Auto mated message] The = Troponin-I) system which g enerated this result transmit sherry reference range : <=0.40. The reference r jose was not used to interpr et this result as yudy l/abnormal. [facility] [employer] [id number] 16:08:00 Test Item Value Reference Range Interpretation Comments Glucose Lvl (test code = Glucose Lvl) 96 70-99 [facility] [id number] 16:08:00 Test Item Value Reference Range Interpretation Comments BUN (test code = BUN) 14 7-22 [facility] [id number] 16:08:00 Test Item Value Reference Range Interpretation Comments Creatinine Lvl (test code = Creatinine 1.52 0.50-1.40 Lvl) [facility] [id number] 16:08:00 Test Item Value Reference Range Interpretation Comments Sodium Lvl (test code = Sodium Lvl) 137 135-145 [facility] [employer] [id number] 16:08:00 Test Item Value Reference Range Interpretation Comments Potassium Lvl (test code = Potassium 3.6 3.5-5.1 Lvl) [facility]2020-06-20 16:08:00 Test Item Value Reference Range Interpretation Comments Chloride Lvl (test code = Chloride Lvl) 105 95-109 [facility]2020-06-20 16:08:00 Test Item Value Reference Range Interpretation Comments CO2 (test code = CO2) 24 24-32 [facility]2020-06-20 16:08:00 Test Item Value Reference Range Interpretation Comments Calcium Lvl (test code = Calcium Lvl) 8.8 8.5-10.5 [place] [id number] 16:08:00 Test Item Value Reference Range Interpretation Comments Total Protein (test code = Total 6.6 6.4-8.4 Protein) [facility]2020-06-20 16:08:00 Test Item Value Reference Range Interpretation Comments Albumin Lvl (test code = Albumin Lvl) 3.5 3.5-5.0 [facility]2020-06-20 16:08:00 Test Item Value Reference Range Interpretation Comments ALT (test code = ALT) 18 See_Comment [Auto mated message] The system which ge nerated this result transmit sherry reference range : <=65. The reference range was not used to interpr et this result as yudy l/abnormal. [facility]2020-06-20 16:08:00 Test Item Value Reference Range Interpretation Comments AST (test code = AST) 19 See_Comment [Auto mated message] The system which ge nerated this result transmit sherry reference range : <=37. The reference range was not used to interpr et this result as yudy l/abnormal. [facility]GvgrogcOEHGAXUIQQ4058-11-49 10:59:00 Test Item Value Reference Range Interpretation Comments Coronavirus (COVID-19) Not Detected (12/06/19 ERYN (test code = 5:59 AM) Coronavirus (COVID-19) ERYN) [facility]2020-06-20 10:21:00 Test Item Value Reference Range Interpretation Comments Glucose Lvl (test code = Glucose Lvl) 119 70-99 [facility]2020-06-20 10:21:00 Test Item Value Reference Range Interpretation Comments BUN (test code = BUN) 13 7-22 [place] [id number] 10:21:00 Test Item Value Reference Range Interpretation Comments Creatinine Lvl (test code = Creatinine 1.55 0.50-1.40 Lvl) [facility]2020-06-20 10:21:00 Test Item Value Reference Range Interpretation Comments Sodium Lvl (test code = Sodium Lvl) 137 135-145 [place] [id number] 10:21:00 Test Item Value Reference Range Interpretation Comments Potassium Lvl (test code = Potassium 3.2 3.5-5.1 Lvl) [facility]2020-06-20 10:21:00 Test Item Value Reference Range Interpretation Comments Chloride Lvl (test code = Chloride Lvl) 104 95-109 [facility]2020-06-20 10:21:00 Test Item Value Reference Range Interpretation Comments CO2 (test code = CO2) 23 24-32 [facility]2020-06-20 10:21:00 Test Item Value Reference Range Interpretation Comments Calcium Lvl (test code = Calcium Lvl) 8.9 8.5-10.5 [facility]2020-06-20 10:21:00 Test Item Value Reference Range Interpretation Comments AGAP (test code = AGAP) 13.2 10.0-20.0 [facility]2020-06-20 10:21:00 Test Item Value Reference Range Interpretation Comments eGFR (test code = eGFR) 44 [place] [id number] 10:21:00 Test Item Value Reference Range Interpretation Comments Magnesium Lvl (test code = Magnesium 2.0 1.8-2.4 Lvl) [facility]2020-06-20 10:21:00 Test Item Value Reference Range Interpretation Comments Phosphorus (test code = Phosphorus) 1.3 2.5-4.5 [place] [id number] 10:21:00 Test Item Value Reference Range Interpretation Comments WBC (test code = WBC) 8.5 3.7-10.4 [facility] Cent[id number] 10:21:00 Test Item Value Reference Range Interpretation Comments RBC (test code = RBC) 4.48 4.70-6.10 [place] [id number] 10:21:00 Test Item Value Reference Range Interpretation Comments Hgb (test code = Hgb) 15.5 14.0-18.0 [facility] Cent[id number] 10:21:00 Test Item Value Reference Range Interpretation Comments Hct (test code = Hct) 44.2 42.0-54.0 [facility] CenterFvnzqtpBANSSTLATQ5123-57-99 10:21:00 Test Item Value Reference Range Interpretation Comments MCV (test code = MCV) 98.7 80.0-94.0 [facility] CenterTmqbndyPSDGYLMYTT4800-27-16 10:21:00 Test Item Value Reference Range Interpretation Comments MCH (test code = MCH) 34.7 pg 27.0-31.0 [facility] CenterNshddwbMVWOCRJAZW9215-65-69 10:21:00 Test Item Value Reference Range Interpretation Comments MCHC (test code = MCHC) 35.1 32.0-36.0 [facility] CenterEzcgukvMBSXWJPQEV0539-29-11 10:21:00 Test Item Value Reference Range Interpretation Comments RDW (test code = RDW) 13.4 11.5-14.5 [facility] CenterUopktznUKOWEMZIQW0968-67-64 10:21:00 Test Item Value Reference Range Interpretation Comments Platelet (test code = Platelet) 156 133-450 [facility] CenterOpmyihuNIUCVBAEDG7284-43-54 10:21:00 Test Item Value Reference Range Interpretation Comments MPV (test code = MPV) 9.5 7.4-10.4 [facility] CenterWitemmuGNBXWTBQRC4945-87-44 10:21:00 Test Item Value Reference Range Interpretation Comments Segs (test code = Segs) 78.7 45.0-75.0 [facility] CenterMyenpedDASITEOHVB2578-75-90 10:21:00 Test Item Value Reference Range Interpretation Comments Lymphocytes (test code = Lymphocytes) 10.0 20.0-40.0 [facility] CenterKqbavqgYHCVQIYEPO4205-48-16 10:21:00 Test Item Value Reference Range Interpretation Comments Monocytes (test code = Monocytes) 10.8 2.0-12.0 [facility] CenterRhxzpudGIMJGXLNWA7572-87-43 10:21:00 Test Item Value Reference Range Interpretation Comments Eosinophils (test code = 0.1 See_Comment [A utomated message] The Eosinophils) system which ge nerated this result tra nsmitted reference range : <=4.0. The reference r jose was not used to int erpret this result as normal/abnormal . [place] [id number] 10:21:00 Test Item Value Reference Range Interpretation Comments Basophils (test code = 0.4 See_Comment [Aut omated message] The Basophils) system which ge nerated this result tra nsmitted reference range : <=1.0. The reference r jose was not used to int erpret this result as normal/abnormal . [facility] ClubBoandbkJCCMSZONHA4829-97-78 10:21:00 Test Item Value Reference Range Interpretation Comments Neutrophils # (test code = Neutrophils 6.7 1.5-8.1 #) [facility] CenterHidfygpNLTOHVXXSS8368-06-45 10:21:00 Test Item Value Reference Range Interpretation Comments Lymphocytes # (test code = Lymphocytes 0.9 1.0-5.5 #) [facility]186[facility]98 10:21:00 Test Item Value Reference Range Interpretation Comments Monocytes # (test code 0.9 See_Comment [Aut omated message] The = Monocytes #) system which generated this result tra nsmitted reference range : <=0.8. The reference r jose was not used to int erpret this result as normal/abnormal . [facility] [employer] networkROID [id number] 10:21:00 Test Item Value Reference Range Interpretation Comments Ca Ion WB (test code = Ca Ion WB) 1.01 1.05-1.25 [facility] [employer] [id number] 10:21:00 Test Item Value Reference Range Interpretation Comments Ca Norm WB (test code = Ca Norm WB) 1.03 1.05-1.25 [facility] [employer] NYSJGNV7627-06-08 03:07:00 Test Item Value Reference Range Interpretation Comments ABO/Rh (test code = ABO/Rh) O POS [facility] [employer] [id number] 03:07:00 Test Item Value Reference Range Interpretation Comments Antibody Scrn (test Negative (12/05/19 code = Antibody Scrn) 10:07 PM) [facility] FreebaseCARDIAC [id number] 03:07:00 Test Item Value Reference Range Interpretation Comments Troponin-I (test code no gt See_Comment [Auto mated message] The = Troponin-I) system which g enerated this result transmit sherry reference range : <=0.40. The reference r jose was not used to interpr et this result as yudy l/abnormal. [facility] CenterBsmateyZYABHATNJF1407-79-73 03:07:00 Test Item Value Reference Range Interpretation Comments WBC X 10x3 (test code = WBC X 10x3) 9.1 3.7-10.4 [facility] CenterBuctlfgZECAQRXHPL0968-30-90 03:07:00 Test Item Value Reference Range Interpretation Comments RBC X 10x6 (test code = RBC X 10x6) 4.63 4.70-6.10 [facility] CenterUwhqmprZWWRSTYJID7426-98-47 03:07:00 Test Item Value Reference Range Interpretation Comments Hgb (test code = Hgb) 15.8 14.0-18.0 [place] [id number] 03:07:00 Test Item Value Reference Range Interpretation Comments Hct (test code = Hct) 46.6 42.0-54.0 [place] 429840-06-20 03:07:00 Test Item Value Reference Range Interpretation Comments MCV (test code = MCV) 100.6 80.0-94.0 [place] 429840-06-20 03:07:00 Test Item Value Reference Range Interpretation Comments MCH (test code = MCH) 34.2 pg 27.0-31.0 [facility] CenterPucemrgZAOUJAHDQI6312-83-08 03:07:00 Test Item Value Reference Range Interpretation Comments MCHC (test code = MCHC) 33.9 32.0-36.0 [place] 429840-06-20 03:07:00 Test Item Value Reference Range Interpretation Comments RDW (test code = RDW) 13.4 11.5-14.5 [facility] CenterYzcasxlPTJJJPFWBF1226-12-07 03:07:00 Test Item Value Reference Range Interpretation Comments Platelet (test code = Platelet) 141 133-450 [facility] CenterKnochnoOCFVUYLXYH8431-48-16 03:07:00 Test Item Value Reference Range Interpretation Comments MPV (test code = MPV) 8.9 7.4-10.4 [facility] CenterCvgooygALAQCGUCLA5882-85-52 03:07:00 Test Item Value Reference Range Interpretation Comments PT (test code = PT) 12.3 s 12.0-14.7 [facility] CenterUqyojbdNQTPHZWAQD6247-81-76 03:07:00 Test Item Value Reference Range Interpretation Comments INR (test code = INR) 0.92 1 0.85-1.17 [place] 429840-06-20 03:07:00 Test Item Value Reference Range Interpretation Comments PTT (test code = PTT) 23.9 s 22.9-35.8 [place] 429840-06-20 03:07:00 Test Item Value Reference Range Interpretation Comments ACT (TEG) Rapid (test code = ACT (TEG) 105 s 86-118 Rapid) [place] 429840-06-20 03:07:00 Test Item Value Reference Range Interpretation Comments Split Point Rapid (test code = Split 0.5 min Point Rapid) [facility] CenterJsbcdzjEQTLHKPPQL6566-63-13 03:07:00 Test Item Value Reference Range Interpretation Comments R-time Rapid (test code = R-time 0.6 min 0.4-0.7 Rapid) [place] 429840-06-20 03:07:00 Test Item Value Reference Range Interpretation Comments K-time Rapid (test code = K-time 1.8 min 0.6-2.3 Rapid) [facility] CenterKvxywygRYYLDITUPF1976-82-79 03:07:00 Test Item Value Reference Range Interpretation Comments Angle Rapid (test code = Angle 71 degrees 64-80 Rapid) [facility] CenterNmxobheHKHMRIPCXM1932-19-65 03:07:00 Test Item Value Reference Range Interpretation Comments Max Amplitude Rapid (test code = Max 59 mm 52-71 Amplitude Rapid) [facility] CenterUbzljerFNGDJTOZZF0353-56-27 03:07:00 Test Item Value Reference Range Interpretation Comments G-value Rapid (test code = G-value 7.1 5.0-11.6 Rapid) [facility] CenterPxfflsyNZTGVLODHI7030-78-87 03:07:00 Test Item Value Reference Range Interpretation Comments Estimated % Lysis Rapid 0.0 See_Comment [Au tomated message] The (test code = Estimated syste m which generated % Lysis Rapid) this result t ransmitted reference range : <=7.5. The reference r jose was not used to int erpret this result as normal/abnormal . [facility] CenterHsfflqsYLIECMTTVR1508-08-16 03:07:00 Test Item Value Reference Range Interpretation Comments Segs (test code = Segs) 86.9 45.0-75.0 [place] 429840-06-20 03:07:00 Test Item Value Reference Range Interpretation Comments Lymphocytes (test code = Lymphocytes) 5.3 20.0-40.0 [facility] CenterActclmbUNUEBKITHL4959-22-88 03:07:00 Test Item Value Reference Range Interpretation Comments Monocytes (test code = Monocytes) 7.3 2.0-12.0 [facility] CenterPnquscyIACEAMPHGX2138-37-74 03:07:00 Test Item Value Reference Range Interpretation Comments Eosinophils (test code = 0.2 See_Comment [A utomated message] The Eosinophils) system which ge nerated this result tra nsmitted reference range : <=4.0. The reference r jose was not used to int erpret this result as normal/abnormal . [facility] CenterDbmkvmsYDCWWFOAZV5356-03-69 03:07:00 Test Item Value Reference Range Interpretation Comments Basophils (test code = 0.3 See_Comment [Aut omated message] The Basophils) system which ge nerated this result tra nsmitted reference range : <=1.0. The reference r jose was not used to int erpret this result as normal/abnormal . [facility] CenterIvwmmryJZXDVZDJRD1189-88-62 03:07:00 Test Item Value Reference Range Interpretation Comments Neutrophils # (test code = Neutrophils 7.9 1.5-8.1 #) [facility] CenterLtyhgcoPEORYFUJGR5889-42-86 03:07:00 Test Item Value Reference Range Interpretation Comments Lymphocytes # (test code = Lymphocytes 0.5 1.0-5.5 #) [facility] CenterUmrkfyiLLSXEPJGYW5723-66-75 03:07:00 Test Item Value Reference Range Interpretation Comments Monocytes # (test code 0.7 See_Comment [Aut omated message] The = Monocytes #) system which generated this result tra nsmitted reference range : <=0.8. The reference r jose was not used to int erpret this result as normal/abnormal . [facility] CenterUibtotmSQKQVVTKBT4671-79-90 03:07:00 Test Item Value Reference Range Interpretation Comments Macrocyte (test code = 1+ *ABN*(12/05/19 Macrocyte) 10:07 PM) [facility]
[2022-06-08 16:23] LABS: Absolute Lymphocytes (CBC) 0.7 K/uL (0.7-4.9); Hematocrit 41.9 % (39.6-49.0); Lymphocytes % 9.9 % (15.3-44.8); MCV 97.8 fL (80-100); MPV 9.4 fL (7.6-11.3); RBC Red Blood Cell Count 4.28 M/uL (4.33-5.43)
--- NOTE | 2022-06-08 16:28 | RAD REPORT ---
EXAM DESCRIPTION: CT - Ct Stroke Brain Wo Cont - 06/08/2022 4:17 pm CLINICAL HISTORY: stroke COMPARISON: Head Brain Wo Cont dated 10/07/2020; Head Brain Wo Cont dated 01/23/2020 TECHNIQUE: All CT scans are performed using dose optimization technique as appropriate and may inclu de automated exposure control or mA/KV adjustment according to patient size. FINDINGS: No intracranial hemorrhage, hydrocephalus or extra-axial fluid collection.No areas of brai n edema or evidence of midline shift. The paranasal sinuses and mastoids are clear. The calvarium is intact. IMPRESSION: No acute intracranial abnormality. Discussed with Zachery in the ED at 1624 on 06/08/22
[2022-06-08 16:30] LABS: Protime INR 1.03
[2022-06-08 16:43] LABS: Bilirubin Direct 0.4 mg/dL (0-0.2); Bilirubin Total 1.1 mg/dL (0.2-1.0); Magnesium 1.9 mg/dL (1.6-2.4); Potassium 4.4 mmol/L (3.5-5.1); Protein, Total 7.3 g/dL (6.4-8.2)
--- NOTE | 2022-06-08 17:15 | RAD REPORT ---
EXAM DESCRIPTION: RAD - Chest Single View - 06/08/2022 5:08 pm CLINICAL HISTORY: ams COMPARISON: Chest Pa And Lat (2 Views) dated 01/05/2022; Chest Single View dated 11/17/2021; Chest Sing le View dated 10/05/2020; Chest Single View dated 12/11/2019 FINDINGS: Lines: None. Lungs: No evidence of edema or pneumonia. Pleural: No significant pleural effusions or pneumothorax. Cardiac: The heart size is within normal limits. Mediastinum: Within normal limits. Bones: No acute fractures. Other: None IMPRESSION: No acute cardiopulmonary disease.
--- NOTE | 2022-06-08 18:34 | EDPHYS ---
Physician Documentation [facility] Name: Volodymyr Armenta Age: 76 yrs Sex: Male : 1945 Arrival Date: 06/08/2022 Time: 16:04 Bed 8 Private MD: ED Physician Weston Chandler HPI: 06/08 16:13 This 76 yrs old Male presents to ER via Unassigned with complaints of AMS. rt 16:13 The patient presents with confusion. Onset: The symptoms/episode began/occurred 2 rt hour(s) ago. Patient presents to the ED with altered mental status. Patient was reportedly at his home talking to people when he had questionable seizure-like activity versus syncopal events. EMS arrived, found the patient to be very confused unable to provide further history. EMS does state that the patient still somewhat confused but is improving compared to before. Denies other acute complaints at this time, symptoms are moderate in severity, no other aggravating or alleviating factors.. Historical: - Allergies: 16:45 No Known Allergies; kc6 - PMHx: 16:45 Brain bleed; TIA; kc6 - PSHx: 16:45 None; kc6 - Immunization history:: Client reports receiving the 2nd dose of the Covid vaccine, Flu vaccine is up to date. - Social history:: Smoking status: Patient denies any tobacco usage or history of. - Unable to obtain history due to: altered mental status. ROS: 16:13 Unable to obtain ROS due to altered mental status. rt Exam: 16:13 Constitutional: This is a well developed, well nourished patient who is awake, alert, rt and in no acute distress. Head/Face: Normocephalic, atraumatic. Eyes: Pupils equal round and reactive to light, extra-ocular motions intact. Lids and lashes normal. Conjunctiva and sclera are non-icteric and not injected. Cornea within normal limits. Periorbital areas with no swelling, redness, or edema. ENT: Nares patent. No nasal discharge, no septal abnormalities noted. Tympanic membranes are normal and external auditory canals are clear. Oropharynx with no redness, swelling, or masses, exudates, or evidence of obstruction, uvula midline. Mucous membranes moist. Neck: Trachea midline, no thyromegaly or masses palpated, and no cervical lymphadenopathy. Supple, full range of motion without nuchal rigidity, or vertebral point tenderness. No Meningismus. Chest/axilla: Normal chest wall appearance and motion. Nontender with no deformity. No lesions are appreciated. Cardiovascular: Regular rate and rhythm with a normal S1 and S2. No gallops, murmurs, or rubs. Normal PMI, no JVD. No pulse deficits. Respiratory: Lungs have equal breath sounds bilaterally, clear to auscultation and percussion. No rales, rhonchi or wheezes noted. No increased work of breathing, no retractions or nasal flaring. Abdomen/GI: Soft, non-tender, with normal bowel sounds. No distension or tympany. No guarding or rebound. No evidence of tenderness throughout. Skin: Warm, dry with normal turgor. Normal color with no rashes, no lesions, and no evidence of cellulitis. MS/ Extremity: Pulses equal, no cyanosis. Neurovascular intact. Full, normal range of motion. Psych: Awake, alert, with orientation to person, place and time. Behavior, mood, and affect are within normal limits. 16:13 Neuro: Cranial nerves II through XII intact, strength and sensation intact in upper and lower extremities, no ataxia on uclidi-fw-wmny, sluggishly follows commands, speech is intermittently incoherent not relevant to the conversation, no dysarthria.. 16:36 ECG was reviewed by the Attending Physician. rt Vital Signs: 16:00 BP 128 / 106; Pulse 77; Resp 26 S; Temp 97.7(O); Pulse Ox 98% on R/A; Weight 61.23 kg kc6 (R); Height 6 ft. 0 in. (182.88 cm) (R); Pain 0/10; 16:54 BP 192 / 125; Pulse 69; Resp 16 S; Pulse Ox 100% on R/A; Pain 0/10; kc6 17:03 BP 199 / 108; Pulse 70; Resp 21 S; Pulse Ox 100% on R/A; Pain 0/10; kc6 17:30 BP 193 / 113; Pulse 70; Resp 15; Pulse Ox 100% on R/A; vg1 18:00 BP 168 / 102; Pulse 77; Resp 20; Pulse Ox 97% on R/A; vg1 18:30 BP 188 / 96; Pulse 70; Resp 17; Pulse Ox 100% on R/A; vg1 22:15 BP 150 / 92; tw5 16:00 Body Mass Index 18.31 (61.23 kg, 182.88 cm) kc6 MDM: 16:04 Patient medically screened. rt 18:41 Differential Diagnosis: CVA, seizure, sepsis, TIA. Data reviewed: vital signs, nurses rt notes, old medical records, lab test result(s), EKG, radiologic studies. ED course: Patient presents to the ED with a syncopal event versus a seizure. He was found be confused, altered. Patient has no lateralizing deficits and does have improvement of the symptoms, have a lower suspicion for an acute CVA. Do not believe the patient is a candidate for thrombolytics. Patient has improvement but no resolution of the symptoms, will admit for further care.. 06/08 16:09 Order name: Basic Metabolic Panel; Complete Time: 17:24 rt 06/08 16:09 Order name: CBC with Diff; Complete Time: 17:24 rt 06/08 16:09 Order name: Hepatic Function; Complete Time: 17:24 rt 06/08 16:09 Order name: High Sensitivity Troponin; Complete Time: 17:24 rt 06/08 16:09 Order name: Magnesium; Complete Time: 17:24 rt 06/08 16:09 Order name: Protime (+inr); Complete Time: 17:24 rt 06/08 16:09 Order name: Ptt, Activated; Complete Time: 17:24 rt 06/08 16:09 Order name: UDS rt 06/08 16:09 Order name: Alcohol Level; Complete Time: 17:24 rt 06/08 16:42 Order name: CREATININE WHOLE BLOOD; Complete Time: 17:24 EDMS 06/08 16:45 Order name: Creatine Phosphokinase; Complete Time: 17:24 EDMS 06/08 22:35 Order name: SARS RAPID tw5 06/08 23:02 Order name: Troponin High Sensitivity EDMS 06/08 16:09 Order name: CT Stroke Brain w/o Contrast; Complete Time: 17:24 rt 06/08 16:09 Order name: Stroke CXR 1 View; Complete Time: 17:24 rt 06/08 16:09 Order name: EKG; Complete Time: 16:09 rt 06/08 16:09 Order name: Accucheck; Complete Time: 16:47 rt 06/08 16:09 Order name: Cardiac monitoring; Complete Time: 16:13 rt 06/08 16:09 Order name: EKG - Nurse/Tech; Complete Time: 16:47 rt 06/08 16:09 Order name: IV Saline Lock; Complete Time: 16:13 rt 06/08 16:09 Order name: Labs collected and sent; Complete Time: 16:13 rt 06/08 16:09 Order name: NPO; Complete Time: 16:47 rt 06/08 16:09 Order name: O2 Per Protocol; Complete Time: 16:47 rt 06/08 23:03 Order name: SARS-COV-2 Antigen Rapid EDMS 06/08 16:09 Order name: O2 Sat Monitoring; Complete Time: 16:47 rt 06/08 16:09 Order name: Stroke Swallow Screen; Complete Time: 16:47 rt EC:36 Rate is 72 beats/min. Rhythm is regular, Normal Sinus Rhythm with No ectopy. QRS Foss rt is Normal. ME interval is normal. QRS interval is normal. QT interval is normal. No Q waves. No ST changes noted. Administered Medications: 20:12 Drug: Aspirin Chewable Tablet 324 mg Route: PO; ha1 22:15 Follow up: Response: No adverse reaction tw5 20:14 Drug: Keppra (levETIRAcetam) 1000 mg Route: PO; ha1 22:15 Follow up: Response: No adverse reaction tw5 20:15 Drug: Lactated Ringers Solution 1000 ml Route: IV; Rate: 75 ml/hr; Site: right forearm; ha1 22:15 Follow up: IV Status: Infusion continued upon admission tw5 Disposition Summary: 06/08/22 18:33 Hospitalization Ordered Provider: Fidel Thompson rt Condition: Stable rt Problem: new rt Symptoms: have worsened rt Bed/Room Type: Standard rt Hospitalization Status: Inpatient Admission(06/08/22 19:43) la1 [facility] Room Assignment: 410(06/09/22 00:29) cg Diagnosis - Encephalopathy, unspecified rt Forms: - Medication Reconciliation Form rt - SBAR form rt Signatures: Dispatcher [employer] EDAravind Adler, STAFF MIDWIFE-C STAFF MIDWIFE-Cla1 Loree Cho, RN RN cg Brandy Rivas, DAVIS RN ha1 Cris Carrion RN RN kc6 Weston Chandler MD MD rt Deborah Ramirez tw5 Corrections: (The following items were deleted from the chart) 16:39 16:15 Head Angio+CT.RAD.BRZ ordered. EDMS EDMS 16:39 16:17 Neck Angio+CT.RAD.BRZ ordered. EDMS EDMS 16:45 16:27 CREATINE PHOSPHOKINASE+C.LAB.BRZ ordered. EDMS EDMS 18:36 18:33 Telemetry/MedSurg (observation) rt cg 18:36 18:33 rt cg 19:43 18:33 Observation rt la1 06/09 00:20 06/08 18:36 [facility] ER HOLD cg cg 06/09 00:20 06/08 18:36 ERHOLD- cg cg 06/09 00:29 00:20 cg cg
--- NOTE | 2022-06-08 18:34 | ER ---
Nurse's Notes [facility] Name: Volodymyr Armenta Age: 76 yrs Sex: Male : 1945 Arrival Date: 06/08/2022 Time: 16:04 Bed 8 Private MD: Diagnosis: Encephalopathy, unspecified Presentation: 06/08 16:00 Chief complaint: EMS states: client was at home showing his model boats to family and kc6 friends and when they witnessed what they believed to be seizure like activity. Coronavirus screen: Vaccine status:. 16:00 Method Of Arrival: EMS: [facility] kc6 16:00 Ebola Screen: No symptoms or risks identified at this time. Initial Sepsis Screen: Does kc6 the patient meet any 2 criteria? No. Patient's initial sepsis screen is negative. Does the patient have a suspected source of infection? No. Patient's initial sepsis screen is negative. Risk Assessment: Do you want to hurt yourself or someone else? Patient reports no desire to harm self or others. Onset of symptoms was June 08, 2022 at 15:06. 16:00 Acuity: BRYAN 2 kc6 Triage Assessment: 16:47 General: Appears in no apparent distress. comfortable, Behavior is calm, cooperative, kc6 appropriate for age. Pain: Denies pain. EENT: No signs and/or symptoms were reported regarding the EENT system. Neuro: Lion Agitation-Sedation Scale (RASS): 0 - Alert and Calm Level of Consciousness is awake, alert, obeys commands, Oriented to person, time, Sand Drier are equal bilaterally Moves all extremities. Speech with expressive aphasia noted, Facial symmetry appears normal, Pupils are PERRLA, Intact Denies weakness numbness. Cardiovascular: Heart tones S1 S2 present Capillary refill < 3 seconds. Respiratory: Airway is patent Trachea midline Respiratory effort is even, unlabored, Respiratory pattern is regular, symmetrical, Breath sounds are clear bilaterally. GI: No signs and/or symptoms were reported involving the gastrointestinal system. : No signs and/or symptoms were reported regarding the genitourinary system. Derm: No signs and/or symptoms reported regarding the dermatologic system. Skin is intact, Skin is pink, warm \\T\\ dry. Musculoskeletal: No signs and/or symptoms reported regarding the musculoskeletal system. Circulation, motion, and sensation intact. Capillary refill < 3 seconds, Range of motion: intact in all extremities. Historical: - Allergies: 16:45 No Known Allergies; kc6 - PMHx: 16:45 Brain bleed; TIA; kc6 - PSHx: 16:45 None; kc6 - Immunization history:: Client reports receiving the 2nd dose of the Covid vaccine, Flu vaccine is up to date. - Social history:: Smoking status: Patient denies any tobacco usage or history of. - Unable to obtain history due to: altered mental status. Screenin:[address] [facility] ED Fall Risk Assessment (Adult) History of falling in the last 3 months, kc6 including since admission No falls in past 3 months (0 pts) Confusion or Disorientation No (0 pts) Intoxicated or Sedated No (0 pts) Impaired Gait No (0 pts) Mobility Assist Device Used Yes (1 pt) Altered Elimination No (0 pt) Score/Fall Risk Level 0 - 2 = Low Risk. Abuse screen: Denies threats or abuse. Denies injuries from another. Nutritional screening: No deficits noted. Tuberculosis screening: No symptoms or risk factors identified. Assessment: 16:49 Reassessment: please see triage assessment. kc6 17:10 Reassessment: Patient appears in no apparent distress at this time. Patient is alert, vg1 oriented x 3, equal unlabored respirations, skin warm/dry/pink. Pt was unable to state current month or president, was able to state current year. 18:37 Reassessment: Patient appears in no apparent distress at this time. Patient and/or vg1 family updated on plan of care and expected duration. Pain level reassessed. Patient is alert, oriented x 3, equal unlabored respirations, skin warm/dry/pink. Pt was able to state current month, May, and stated "Meli will be this Sunday" Patient denies pain at this time. Patient states symptoms have improved. 21:43 Neuro: Level of Consciousness is awake, alert, obeys commands, Oriented to person, tw5 place, time, situation, Speech with expressive aphasia noted. Vital Signs: 16:00 BP 128 / 106; Pulse 77; Resp 26 S; Temp 97.7(O); Pulse Ox 98% on R/A; Weight 61.23 kg kc6 (R); Height 6 ft. 0 in. (182.88 cm) (R); Pain 0/10; 16:54 BP 192 / 125; Pulse 69; Resp 16 S; Pulse Ox 100% on R/A; Pain 0/10; kc6 17:03 BP 199 / 108; Pulse 70; Resp 21 S; Pulse Ox 100% on R/A; Pain 0/10; kc6 17:30 BP 193 / 113; Pulse 70; Resp 15; Pulse Ox 100% on R/A; vg1 18:00 BP 168 / 102; Pulse 77; Resp 20; Pulse Ox 97% on R/A; vg1 18:30 BP 188 / 96; Pulse 70; Resp 17; Pulse Ox 100% on R/A; vg1 22:15 BP 150 / 92; tw5 16:00 Body Mass Index 18.31 (61.23 kg, 182.88 cm) kc6 ED Course: 16:04 Patient arrived in ED. kj1 16:04 Weston Chandler MD is Attending Physician. rt 16:07 Cris Carrion RN is Primary Nurse. kc6 16:11 Inserted saline lock: 20 gauge in right forearm, using aseptic technique. Blood zm collected. 16:19 CT Stroke Brain w/o Contrast In Process Unspecified. EDMS 16:45 Triage completed. kc6 16:52 Arm band placed on. vg1 16:52 Patient has correct armband on for positive identification. Placed in gown. Bed in low vg1 position. Call light in reach. Side rails up X2. Client placed on continuous cardiac and pulse oximetry monitoring. NIBP monitoring applied. 17:10 Stroke CXR 1 View In Process Unspecified. EDMS 18:33 Fidel Thompson MD is Hospitalizing Provider. rt 19:12 Primary Nurse role handed off by Cris Carrion, RN mw2 19:12 role handed off by Candice Cho RN mw2 20:09 Deborah Ramirez is Primary Nurse. tw5 21:43 No provider procedures requiring assistance completed. Patient admitted, IV remains in tw5 place. Administered Medications: 20:12 Drug: Aspirin Chewable Tablet 324 mg Route: PO; ha1 22:15 Follow up: Response: No adverse reaction tw5 20:14 Drug: Keppra (levETIRAcetam) 1000 mg Route: PO; ha1 22:15 Follow up: Response: No adverse reaction tw5 20:15 Drug: Lactated Ringers Solution 1000 ml Route: IV; Rate: 75 ml/hr; Site: right forearm; ha1 22:15 Follow up: IV Status: Infusion continued upon admission tw5 Medication: 16:52 VIS not applicable for this client. vg1 Outcome: 18:33 Decision to Hospitalize by Provider. rt 21:43 Admitted to ER Hold. Please see [facility] for further documentation. tw5 21:43 Condition: stable 21:43 Instructed on the need for admit. 06/09 00:58 Admitted to Med/surg room 410, Report called to velvet tw5 01:18 Patient left the ED. tw5 Signatures: Dispatcher [employer] EDMS Tony, KeeshaCodie mw2 Nessa Collins kj1 Candice Cho, RN RN vg1 Deborah Ramirez tw5 Reshma Valdovinos Heidy, RN RN ha1 Cris Carrion RN RN kc6 Weston Chandler MD MD rt Corrections: (The following items were deleted from the chart) 06/08 16:45 16:07 Chief complaint: kc6 kc6 16:55 16:47 Neuro: Lion Agitation-Sedation Scale (RASS): 0 - Alert and Calm Level of kc6 Consciousness is awake, alert, obeys commands, Oriented to person, time, Sand Drier are equal bilaterally Moves all extremities. Speech with expressive aphasia noted, Facial symmetry appears normal, Pupils are PERRLA, Intact kc6
[2022-06-08] MEDS ORDERED: Ringers Lactate 1,000 ML IV ONE (20:13)
[2022-06-08] MEDS ORDERED: levETIRAcetam 500 MG TAB ONE (20:13)
[2022-06-08] MEDS ORDERED: ASPIRIN 81 MG CHEWABLE TABLET ONE (20:13)
--- NOTE | 2022-06-08 20:39 | P.HP ---
Certification for Inpatient Patient admitted to: Inpatient With expected LOS: >2 Midnights Patient will require the following post-hospital care: None Practitioner: I am a practitioner with admitting privileges, knowledge of patient current condition, hospital course, and medical plan of care. Services: Services provided to patient in accordance with Admission requirements found in Title 42 Section 412.3 of the Code of Federal Regulations <Aravind Polanco - Last Filed: 06/08/22 20:34> Patient History Date of Service: 06/08/22 Reason for admission: Expressive aphasia History of Present Illness: 76-year-old male with history of previous subdural hematoma, questionable seizure history presents emergency department after having a syncopal episode versus seizure at home. He lives alone but had visitors over today around 1445 he began to feel weak like he was going to pass out and was lowered to the ground by bystanders, bystanders report patient became stiff and was shaking, not responsive. Patient was altered upon arrival to the emergency department, during his stay in the ER he became more alert, at this time he is alert, oriented but is displaying some expressive aphasia, no other focal neurologic deficits were noted his NIH is 1, last known well 1445 now outside window for TNKase. CT head was negative for acute findings chest x-ray unremarkable labs were significant for creatinine of 1.86, GFR 37 glucose 120 4T bili 1.1T bili 0.4. Case discussed with neurology recommendation for continuation/loading dose of Keppra as well as stroke work-up. - Past Medical/Surgical History Diabetic: No -: TIA -: Brain bleed -: BPH -: HTN -: CVA -: rt rotator cuff sx Psychosocial/ Personal History: Patient is at home, alone. - Family History Family History: Reviewed- Non-Contributory - Social History Smoking Status: Never smoker Alcohol use: No CD- Drugs: Yes Caffeine use: No Place of Residence: Home <Aravind Polanco - Last Filed: 06/08/22 20:34> Date of Service: 06/09/22 <Fidel Thompson - Last Filed: 06/09/22 16:09> Allergies No Known Allergies Allergy (Verified 06/09/22 01:31) Home Medications: Aspirin 81 mg PO DAILY #1 tab.chew 06/09/22 Atorvastatin Calcium 40 mg PO BEDTIME 06/09/22 Carvedilol [Coreg] 3.125 mg PO BID 06/09/22 Clopidogrel Bisulfate [Clopidogrel] 75 mg PO DAILY 06/09/22 Finasteride 5 mg PO DAILY 06/09/22 Folic Acid 1 mg PO DAILY #1 06/09/22 Solifenacin Succinate 5 mg PO DAILY 06/09/22 levETIRAcetam [Keppra*] 500 mg PO BID #60 tab 06/09/22 Review of Systems 10-point ROS is otherwise unremarkable Neurological: Change in Speech, Seizures, Other (Syncope), As per HPI <Aravind Polanco - Last Filed: 06/08/22 20:34> Physical Examination - Physical Exam General: Alert, In no apparent distress, Oriented x3 HEENT: Atraumatic, PERRLA, Mucous membr. moist/pink, EOMI, Sclerae nonicteric Neck: Supple, 2+ carotid pulse no bruit, No LAD, Without JVD or thyroid abnormality Respiratory: Clear to auscultation bilaterally, Normal air movement Cardiovascular: Regular rate/rhythm, Normal S1 S2 Capillary refill: <2 Seconds Gastrointestinal: Normal bowel sounds, No tenderness Musculoskeletal: No tenderness Integumentary: No rashes Neurological: Normal gait, Normal strength at 5/5 x4 extr, Normal tone, Normal affect, Other (NIH 1), Abnormal speech (Expressive aphasia present) - Studies Laboratory Data (last 24 hrs) 06/08/22 16:12: PT 11.3, INR 1.03, APTT 28.0 06/08/22 16:12: WBC 7.00, Hgb 14.3, Hct 41.9, Plt Count 159 06/08/22 16:12: Sodium 138, Potassium 4.4, BUN 24 H, Creatinine 1.86 H, Glucose 124 H, Magnesium 1.9, Total Bilirubin 1.1 H, AST 19, ALT 25, Alkaline Phosphatase 123 H <Aravind Polanco - Last Filed: 06/08/22 20:34> - Studies Laboratory Data (last 24 hrs) 06/08/22 16:12: PT 11.3, INR 1.03, APTT 28.0 06/08/22 16:12: WBC 7.00, Hgb 14.3, Hct 41.9, Plt Count 159 12/22/22 16:12: Sodium 138, Potassium 4.4, BUN 24 H, Creatinine 1.86 H, Glucose 124 H, Magnesium 1.9, Total Bilirubin 1.1 H, AST 19, ALT 25, Alkaline Phosphatase 123 H <Fidel Thompson - Last Filed: 06/09/22 16:09> Assessment and Plan - Plan Assessment: Syncope versus seizure Expressive aphasia suspect ischemic CVA Acute kidney injury Plan: Syncope versus seizure: Patient with questionable history of seizures, bystanders report he became stiff, lost consciousness and was "shaking". Case was discussed with neurology continue with Keppra 500 mg p.o. twice daily in addition to syncope/CVA work-up including echocardiogram, carotid Doppler, MRI, EEG. Expressive aphasia suspect ischemic CVA: NIH currently 1 with expressive aphasia present new onset last known well 1445 now outside the window for [place] K. Neurology consulted continue with speech therapy, physical therapy, stroke work- up. Continue medications including aspirin, statin, folic acid. Will allow for permissive hypertension this evening. Appreciate further input from neurology. Acute kidney injury: Continue IV fluids, recheck chemistry in the morning, consult nephrology if there is significant worsening. DVT PPX: Lovenox Code status: Full Discharge Plan: Home Plan to discharge in: 72 Hours - Advance Directives Does patient have a Living Will: No Does patient have a Durable POA for Healthcare: No Critical Care: No Time Spent Managing Pts Care (In Minutes): 70 <Aravind Polanco - Last Filed: 06/08/22 20:34> Physician Review: Patient Assessed, Agree with Above Assessment and Plan <Fidel Thompson - Last Filed: 06/09/22 16:09>
[2022-06-08] MEDS ORDERED: ATORVASTATIN 40 MG TAB PO SCH (21:14)
[2022-06-08] MEDS ORDERED: ONDANSETRON 4 MG/2 ML VIAL IV PRN (21:14)
[2022-06-08] MEDS: Ringers Lactate 1,000 ML IV SCH (21:14)
[2022-06-08 22:38] LABS: Barbiturates NEGATIVE (NEGATIVE); Benzodiazepines NEGATIVE (NEGATIVE); Cocaine NEGATIVE (NEGATIVE); METHAMPHETAM NEGATIVE (NEGATIVE); Methadone NEGATIVE (NEGATIVE); Opiates NEGATIVE (NEGATIVE); Phencyclidine NEGATIVE (NEGATIVE); THC Cannibis POSITIVE (NEGATIVE)
[2022-06-08 22:49] VITALS: BMI 18.3
[2022-06-08] MEDS ORDERED: ACETAMINOPHEN 325 MG TABLET PO PRN (22:52)
[2022-06-08] MEDS ORDERED: MELATONIN 5 MG TABLET PO PRN (22:52)
[2022-06-08] MEDS ORDERED: MELATONIN 5 MG TABLET PO ONE (22:58)
[2022-06-08] MEDS ORDERED: ATORVASTATIN 20 MG TAB ONE (22:58)
[2022-06-08] MEDS ORDERED: ACETAMINOPHEN 325 MG TABLET ONE (22:58)
[2022-06-08 23:03] LABS: SARS-CoV-2 Antigen Rapid Res Negative (Negative)
[2022-06-09 01:30] VITALS: O2SAT 100
[2022-06-09 04:38] LABS: Absolute Lymphocytes (CBC) 1.2 K/uL (0.7-4.9); Hematocrit 38.8 % (39.6-49.0); Lymphocytes % 12.2 % (15.3-44.8); MCV 98.8 fL (80-100); MPV 9.8 fL (7.6-11.3); RBC Red Blood Cell Count 3.93 M/uL (4.33-5.43)
[2022-06-09 05:10] LABS: Albumin 3.6 g/dL (3.4-5.0); Bilirubin Total 1.5 mg/dL (0.2-1.0); Potassium 3.4 mmol/L (3.5-5.1); Protein, Total 6.5 g/dL (6.4-8.2); Thyroid Stimulating Hormone 0.744 uIU/mL (0.358-3.740); Troponin High Sensitivity 20.3 pg/mL (<58.9)
[2022-06-09] MEDS ORDERED: levETIRAcetam 500 MG TAB PO SCH (09:00)
[2022-06-09] MEDS ORDERED: ASPIRIN EC 81 MG TAB PO SCH (09:00)
[2022-06-09] MEDS ORDERED: FOLIC ACID 1 MG TABLET PO SCH (09:00)
[2022-06-09] MEDS ORDERED: PNEUMOCOCCAL VACCINE 0.5 ML IMVAC ONE ×2 (09:00→14:00)
[2022-06-09] MEDS ORDERED: ENOXAPARIN 30 MG/0.3 ML SQ SCH (09:00)
[2022-06-09] MEDS: Ringers Lactate 1,000 ML IV SCH (09:06)
--- NOTE | 2022-06-09 09:30 | RAD REPORT ---
EXAM DESCRIPTION: - CP - 06/09/2022 12:01 am CLINICAL HISTORY: expressive aphasia, syncope vs seizure COMPARISON: No comparisons TECHNIQUE: Real-time sonographic evaluation of both carotid systems was performed. Doppler interroga tion was performed with waveform tracing bilaterally. FINDINGS: Normal high resistance waveforms are noted in both external carotid arteries. The common c arotid arteries and internal carotid arteries show normal low resistance waveforms. Hard and soft plaque is present at both of the carotid bulbs. Elevated peak systolic velocities are p resent at the left carotid bulb with peak systolic velocity of 131 cm/s. The ICA/CCA PSV ratio is at 1.9. This is consistent with a 50-69% stenosis . The peak systolic velocities and ICA/ CCA PSV ratios are within normal limits on the right. Antegrade flow seen in both vertebral arteries. IMPRESSION: Moderate (50-69%) stenosis involving the ICA at the left carotid bulb secondary to hard and soft plaque. The right carotid system is widely patent.
[2022-06-09] MEDS ORDERED: HYDRALAZINE HCL 20 MG/ML VIAL IV ONE (12:45)
--- NOTE | 2022-06-09 12:57 | RAD REPORT ---
EXAM DESCRIPTION: MRI - MRA Head Wo Cont - 06/09/2022 12:42 pm CLINICAL HISTORY: expressive aphasia, syncope vs seizure CVA COMPARISON: <Comparisons> FINDINGS: 3D noncontrast [id number] MR angiography of the [place] was performed. Early branching noted of the left middle cerebral artery. At the superior trunk, there is a focal sev ere stenosis. The inferior trunk is mildly narrowed. Forward flow seen in codominant vertebral arter ies. No aneurysm identified. No definite occlusion. The visualized dural venous sinuses appear patent. IMPRESSION: Early bifurcating left M1 segment of the middle cerebral artery with severe focal stenos is of the superior trunk.. A mild stenosis of the inferior trunk is noted. The remaining vessels are otherwise patent.
--- NOTE | 2022-06-09 13:03 | RAD REPORT ---
EXAM DESCRIPTION: MRI - Brain W/Wo Cont - 06/09/2022 12:42 pm CLINICAL HISTORY: expressive aphasia, syncope vs seizure COMPARISON: MRA Head Wo Cont dated 06/09/2022; Brain W/Wo Cont dated 10/06/2020; Brain Wo Cont dated 12/11/2019; Chest Single View dated 06/08/2022; Ct Stroke Brain Wo Cont dated 06/08/2022 TECHNIQUE: Sagittal T1-weighted images were obtained along with PD/heavily T2-weighted and T2-FLAIR images. Axial DWI and ADC mapping sequences were also obtained along with coronal heavily T2-weighted images were obtained. Post contrast enhanced images were obtained. FINDINGS: No intracranial hemorrhage, mass or acute infarction. No edema or shift of midline structu res. No extra-axial fluid collections. Signal voids are seen as a normal finding in the major intracr anial vessels. No abnormal enhancement. Cerebral atrophy. Mild chronic small vessel ischemic changes . Small area of cortical gliosis medially and inferiorly at the frontal lobes may be secondary to rem ote infarct or trauma. This was not appreciated on the prior MRI. No mastoid effusion.Paranasal sinuses are clear. IMPRESSION: No acute intracranial abnormality. No abnormal enhancement. Ancillary findings as noted above.
[2022-06-09 13:05] VITALS: BP 153/99; TEMP 97.6
--- NOTE | 2022-06-09 13:07 | RAD REPORT ---
EXAM DESCRIPTION: MRI - MRA Neck W/Wo Cont - 06/09/2022 12:42 pm CLINICAL HISTORY: expressive aphasia, syncope vs seizure COMPARISON: MRA Head Wo Cont dated 06/09/2022; Brain W/Wo Cont dated 10/06/2020; Brain Wo Cont dated 12/11/2019; Chest Single View dated 06/08/2022; Ct Stroke Brain Wo Cont dated 06/08/2022; Head C Spin e Cap W Con dated 10/05/2020No comparisons FINDINGS: Contrast enhance 2D [id number] MR angiography of the neck vessels was performed. Moderate (50-69%) stenoses involving the left distal common carotid artery and proximal left ICA. The right carotid system is widely patent. The vertebral arteries are widely patent. The external caroti d arteries are widely patent. IMPRESSION: Moderate stenoses involving the left distal CCA and left proximal ICA. The right carotid system and vertebral arteries are widely patent.
--- NOTE | 2022-06-09 15:49 | P.DS ---
Admission Date: 06/08/22 Discharge Date: 06/09/22 Disposition: ROUTINE DISCHARGE Discharge Condition: GOOD Reason for Admission: Expressive aphasia Consultations: 1. 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 Volodymyr Armenta is a pleasant 76 year old male with a past medical history significant for prior subdural hematoma with questionable seizure history who was admitted to the [facility] on 06/08/2022 for expressive aphasia. He was admitted to the Medicine service. Upon further evaluation, his CT head revealed, "no acute intracranial abnormality." His carotid ultrasound revealed, "moderate (50-69%) stenosis involving the ICA at the left carotid bulb secondary to hard and soft plaque. The right carotid system is widely patent." His MRI brain revealed, "no acute intracranial abnormality. No abnormal enhancement." MR angiogram of the head revealed, "early bifurcating left M1 segment of the middle cerebral artery with severe focal stenosis of the superior trunk. A mild stenosis of the inferior trunk is noted. The remaining vessels are otherwise patent." MR angiogram of the neck revealed, "moderate stenoses involving the left distal CCA and left proximal ICA. The right carotid system and vertebral arteries are widely patent." Over the course of his hospitalization, his symptoms improved significantly and expressive aphasia was no longer noted. Neurology was consulted. Dr. Healy reviewed his case and stated that he is stable to be discharged home with outpatient follow-up. Dr. Healy will follow-up with him in clinic and arrange for a follow-up appointment with Neurovascular with Dr. Marco A Elder as an outpatient. He has recommended aspirin, folic acid, atorvastatin, clopidogrel, and levetiracetam on discharge. On 06/09/2022, he was seen on morning rounds and deemed medically stable for discharge. He was discharged with instructions to schedule follow-up appointments with his PCP (Dr. Gacria) and with Neurology (Dr. Healy). He was provided a prescription for levetiracetam. He was given the opportunity to ask questions and reported no further questions. Furthermore, all questions were answered to the best of my ability. A copy of this discharge summary will be sent to the above providers to facilitate continuity of care. Today, I personally spent 25 minutes on his case, of which greater than 50% of the time was spent in patient education, counseling, and coordination of care as described above. NIH Stroke Scale 1a. Level of consciousness: 0 - Alert; keenly responsive 1b. LOC questions: 0 - Both questions right 1c. LOC commands: 0 - Performs both tasks 2. Best Gaze: 0 - Normal 3. Visual: 0 - No visual loss 4. Facial Palsy: 0 - Normal symmetry 5a. Motor left arm: 0 - No drift for 10 seconds 5b. Motor right arm: 0 - No drift for 10 seconds 6a. Motor left le - No drift for 5 seconds 6b. Motor right le - No drift for 5 seconds 7. Limb ataxia: 0 - No ataxia 8. Sensory: 0 - Normal; no sensory loss 9. Best Language: 0 - Normal; no aphasia 10. Dysarthria: 0 - Normal 11. Extinction and Inattention: 0 - No abnormality 12. Distal motor function: 0 - No abnormality Total Score: 0 Vital Signs/Physical Exam: Temp Pulse Resp BP Pulse Ox 97.6 F 71 20 153/99 H 96 06/09/22 12:00 06/09/22 12:00 06/09/22 12:00 06/09/22 12:00 06/09/22 12:00 General: Alert, In no apparent distress, Oriented x3 HEENT: PERRLA, Mucous membr. moist/pink, EOMI, Sclerae nonicteric Neck: Supple, JVD not distended Respiratory: Clear to auscultation bilaterally, Normal air movement Cardiovascular: No edema, Regular rate/rhythm, Normal S1 S2, No gallops, No rubs, No murmurs Gastrointestinal: Normal bowel sounds, Soft and benign, Non-distended, No tenderness, No rebound, No guarding Musculoskeletal: No clubbing Integumentary: No rashes Neurological: Normal speech, Normal strength at 5/5 x4 extr, Normal tone, Sensation intact, Cranial nerves 3-12 intact, Normal reflexes 2+, Normal affect Laboratory Data at Discharge: WBC 9.70 K/uL (4.3-10.9) 06/09/22 04:17 Hgb 13.1 g/dL (13.6-17.9) L D 06/09/22 04:17 Hct 38.8 % (39.6-49.0) L 06/09/22 04:17 Plt Count 148 K/uL (152-406) L 06/09/22 04:17 PT 11.3 SECONDS (9.5-12.5) 06/08/22 16:12 INR 1.03 06/08/22 16:12 APTT 28.0 SECONDS (24.3-36.9) 06/08/22 16:12 Sodium 141 mmol/L (136-145) 06/09/22 04:17 Potassium 3.4 mmol/L (3.5-5.1) L D 06/09/22 04:17 BUN 18 mg/dL (7-18) 06/09/22 04:17 Creatinine 1.59 mg/dL (0.70-1.30) H 06/09/22 04:17 Glucose 102 mg/dL (74-106) 06/09/22 04:17 Magnesium 1.9 mg/dL (1.6-2.4) 06/08/22 16:12 Total Bilirubin 1.5 mg/dL (0.2-1.0) H 06/09/22 04:17 AST 18 U/L (15-37) 06/09/22 04:17 ALT 24 U/L (16-61) 06/09/22 04:17 Alkaline Phosphatase 104 U/L (45-117) 06/09/22 04:17 Triglycerides 74 mg/dL (<150) 06/09/22 04:17 Cholesterol 121 mg/dL (<200) 06/09/22 04:17 HDL Cholesterol 62 mg/dL (40-60) H 06/09/22 04:17 Cholesterol/HDL Ratio 1.95 06/09/22 04:17 Home Medications: Aspirin 81 mg PO DAILY #1 tab.chew 06/09/22 Atorvastatin Calcium 40 mg PO BEDTIME 06/09/22 Carvedilol [Coreg] 3.125 mg PO BID 06/09/22 Clopidogrel Bisulfate [Clopidogrel] 75 mg PO DAILY 06/09/22 Finasteride 5 mg PO DAILY 06/09/22 Folic Acid 1 mg PO DAILY #1 06/09/22 Solifenacin Succinate 5 mg PO DAILY 06/09/22 levETIRAcetam [Keppra*] 500 mg PO BID #60 tab 06/09/22 New Medications: Aspirin 81 mg PO DAILY #1 tab.chew Folic Acid 1 mg PO DAILY #1 levETIRAcetam [Keppra*] 500 mg PO BID #60 tab Physician Discharge Instructions: 1. Please call and schedule a follow-up appointment with your PCP (Dr. Garcia) in 3-5 days 2. Please call and schedule a follow-up appointment with Neurology (Dr. Healy) in 5-7 days - He will schedule you for a Neuro-Vascular appointment to evaluate the narrowing in your neck and brain arteries Diet: AHA Activity: Ad zak Followup: Jacob Garcia DO [ACTIVE - CAN ADMIT] - Florin Healy MD [ASSOCIATE-ACTIVE - CAN ADMIT] - Time spent managing pt's care (in minutes): 25
[2022-06-09] MEDS ORDERED: carvediloL 3.125 MG TAB PO SCH (17:00)
[2022-06-09] MEDS ORDERED: ENSURE ENLIVE 237 ML CAN PO SCH (21:00)
--- NOTE | 2022-06-10 17:27 | EKG ---
Test Date: 2022-06-08 Test Time: 16:31:11 Pet Stylist: KEEGAN MEASUREMENT RESULTS: Intervals: Rate: 72 NC: 174 QRSD: 80 QT: 438 QTc: 479 [place]: P: 86 NC: 174 QRS: -14 T: 71 INTERPRETIVE STATEMENTS: Normal sinus rhythm Anteroseptal infarct, age undetermined Abnormal ECG Compared to ECG 11/17/2021 12:03:25 Left-axis deviation no longer present Myocardial infarct finding still present Electronically Signed On 06-10-22 17:24:53 PRODUCTION UNDERWRITER by Wayne Harris
--- NOTE | 2022-06-13 07:28 | ECHO ---
HEIGHT: 6 ft 0 in WEIGHT: 135 lb 0 oz DATE OF STUDY: 06/09/[address]: Aravind Polanco NP 2-DIMENSIONAL: YES M.MODE: YES DOPPLER: YES COLOR FLOW: YES TDS: PORTABLE: YES DEFINITY: BUBBLE STUDY: DIAGNOSIS: EXPRESSIVE APHASIA, SYNCOPE VS SEIZURES CARDIAC HISTORY: CATHERIZATION: YES SURGERY: NO PROSTHETIC VALVE: NO PACEMAKER: NO MEASUREMENTS (cm) DIASTOLIC (NORMALS) SYSTOLIC (NORMALS) IVSd 1.1 (0.6-1.2) LA Diam 2.3 (1.9-4.0) LVEF 62% LVIDd 2.2 (3.5-5.7) LVIDs 1.5 (2.0-3.5) %FS 31% LVPWd 1.1 (0.6-1.2) Ao Diam 2.2 (2.0-3.7) 2 DIMENSIONAL ASSESSMENT: RIGHT ATRIUM: NORMAL LEFT ATRIUM: NORMAL RIGHT VENTRICLE: NORMAL LEFT VENTRICLE: NORMAL TRICUSPID VALVE: MILD TRICUSPID REGURGITATION MITRAL VALVE: MILD MITRAL REGURGITATION PULMONIC VALVE: NORMAL AORTIC VALVE: MILD AORTIC INSUFFICIENCY PERICARDIAL EFFUSION: NONE AORTIC ROOT: NORMAL LEFT VENTRICULAR WALL MOTION: NORMAL DOPPLER/COLOR FLOW: SEE BELOW COMMENTS: 1. NORMAL LEFT VENTRICULAR EJECTION FRACTION OF 60-65% 2. NORMAL WALL MOTION 3. MILD TRICUSPID REGURGITATION 4. MILD MITRAL REGURGITATION, MILD AORTIC INSUFFICIENCY TECHNOLOGIST: TSYON REED
== END 2022-06-09 17:07 | disposition home or self-care (01) ==
LOC: ER 16:00 → ERHOLD 19:56 → INTOOBSV 19:56 → 4TH 06-09 00:48
PROVIDERS: ADMIT Internal Medicine; ATTEND Internal Medicine
DX: R47.01 Aphasia (principal); N17.9 Acute kidney failure, unspecified; G93.40 Encephalopathy, unspecified; I10 Essential (primary) hypertension; I16.0 Hypertensive urgency; N18.30 Chronic kidney disease, stage 3 unspecified; I65.22 Occlusion and stenosis of left carotid artery; I66.02 Occlusion and stenosis of left middle cerebral artery; F12.90 Cannabis use, unspecified, uncomplicated; N40.0 Benign prostatic hyperplasia without lower urinary tract symptoms; Z20.822 Contact with and (suspected) exposure to COVID-19; Z86.73 Personal history of transient ischemic attack (TIA), and cerebral infarction without residual deficits; Z86.79 Personal history of other diseases of the circulatory system
CPT/HCPCS: 96361; 93005; 93306; 85025 ×2; 80048; 36415; 80320; 83735; 82550; 85610; 80061; 82565; 80076; 85730; 84443; 83036; 84484 ×3; 84439; 80053; 80307; 70450; 71045; 93880; 70553; 70544; 70549; 92523; 97112; 97161; 96360; 99285; 87811; A9577; J1650; J7120 ×2; G0378 ×3

== ENCOUNTER 2024-04-28 10:55 | Day surgery (SDC) | payer OTHER, MEDICARE ==
[2024-04-24 14:42] LABS: Absolute Basophils 0.1 K/uL (0-0.5); Absolute Eosinophils 0.8 K/uL (0-0.5); Absolute Lymphocytes (CBC) 1.3 K/uL (0.7-4.9); Absolute Monocytes 0.7 K/uL (0.1-1.3); Absolute Neutrophil 4.2 K/uL (1.8-8.0); Basophils % 1.2 % (0-1.3); Eosinophils % 11.8 % (0-4.4); Hematocrit 42.9 % (39.6-49.0); Hemoglobin 14.3 g/dL (13.6-17.9); Lymphocytes % 18.7 % (15.3-44.8); MCH 34.8 pg (27.0-35.0); MCHC 33.4 g/dL (32.0-36.0); MCV 104.4 fL (80-100); MPV 9.5 fL (7.6-11.3); Monocytes % 9.8 % (3.3-12.3); Neutrophils % 58.5 % (41.7-73.7); Platelets 130 thou/uL (152-406); RBC Red Blood Cell Count 4.11 M/uL (4.33-5.43)
[2024-04-24 14:50] LABS: PT Prothrombin Time 11.1 SECONDS (9.4-12.5); Protime INR 0.99
--- NOTE | 2024-04-24 17:09 | RAD REPORT ---
EXAMINATION: TWO VIEW CHEST XR CLINICAL INDICATION: Male, 78 years old. [facility] pre op forcath lab. Hypertension TECHNIQUE: 2 view radiographs of the chest were performed. COMPARISON: 06/08/2022 FINDINGS: The lungs are well inflated and clear. No pneumothorax or sizable effusion. The heart is normal in si ze. Mediastinal contours are unremarkable. IMPRESSION: No acute or significant abnormalities.
--- NOTE | 2024-04-25 15:09 | EKG ---
Test Date: 2024-04-24 Test Time: 15:33:27 Bench Worker Apprentice: FARNAZ MEASUREMENT RESULTS: Intervals: Rate: 57 MN: 168 QRSD: 82 QT: 436 QTc: 424 [place]: P: 80 MN: 168 QRS: 44 T: 46 INTERPRETIVE STATEMENTS: Sinus bradycardia with marked sinus arrhythmia Anteroseptal infarct, age undetermined Abnormal ECG Compared to ECG 06/08/2022 16:31:11 Sinus rhythm no longer present Myocardial infarct finding still present Electronically Signed On 04-25-24 15:07:11 GUT PULLER by Marbin Jaimes
[2024-04-28] MEDS ORDERED: NA CHLORIDE 0.9% 500 ML ONE (11:03)
[2024-04-28] MEDS ORDERED: HEPARIN 10,000 UNIT/10 ML VIAL IV ONE (11:51)
[2024-04-28] MEDS ORDERED: ATROPINE SULF 1 MG/10 ML SYR IV ONE (11:51)
[2024-04-28] MEDS ORDERED: MIDAZOLAM HCL 2 MG/2 ML INJ ONE (11:51)
[2024-04-28] MEDS ORDERED: HEPARIN 5000 UNIT/ML 1 ML VIAL ONE (11:51)
[2024-04-28] MEDS ORDERED: HEPA 1000U/500MLS 2,000 UNIT/1,000 ML BAG IV ONE (11:51)
[2024-04-28] MEDS ORDERED: LIDOCAINE 1% 20 ML MDV ONE (11:52)
[2024-04-28] MEDS ORDERED: FENTANYL CITR 100 MCG/2 ML ONE (11:52)
[2024-04-28] MEDS ORDERED: VERAPAMIL HCL 10 MG/4 ML VIAL IV ONE (11:52)
[2024-04-28 13:46] VITALS: O2SAT 16
[2024-04-28 15:15] VITALS: BP 158/74
--- NOTE | 2024-04-30 20:46 | OP ---
Date of Procedure: 04/28/2024 Surgeon: ELSI NICHOLAS Procedures Performed: 1.Selective coronary angiogram. 2.Left heart catheterization. Indication: Chest pain with abnormal stress test and unstable angina. Access: Right radial artery 6-Israeli closed with TR band. Complications: None. Bleeding: Less than 50 mL. Anesthesia: Total sedation time is 50 minutes. Used fentanyl and Versed. Description Of Procedure: After risks, benefits, and alternatives were explained, the patient agreed to procedure and signed informed consent. [facility], prepped and draped in usual sterile fashion. Then, I accessed right radial artery using pedBass Manager atric micropuncture kit, placed 6-Israeli Slender sheath, and took 5-Israeli Banquete 4.0 catheter into th e aortic root, engaged the left main, took standard views, and then in the RCA, took standard views. Catheter was pushed over the wire into the LV, measured the LVEDP. Pullback did not record any grad ient and removed the catheter and the sheath, placed TR band with good hemostasis. Findings: 1.Left main; large and normal. 2.LAD; widely patent proximal to mid LAD stent and diagonal 1 branch ostially is jailed with 80% but EILEEN-3 flow. Rest of LAD is normal. 3.Left circumflex; distally there is moderate 50% stenosis. There is a large and dominant circulati on. 4.RCA: Small, nondominant, no significant disease. 5.LVEDP is borderline at 12 mmHg. Conclusion: Widely patent LAD stent with the jailed diagonal branch, which is unchanged and moderate disease otherwise. Recommendation: Medical management. SR/MODL Voice ID: [id number] Report ID: [id number]
== END 2024-04-28 15:20 | disposition home or self-care (01) ==
LOC: CCL 10:55
PROVIDERS: ATTEND Internal Medicine
DX: I25.10 Atherosclerotic heart disease of native coronary artery without angina pectoris (principal); I34.0 Nonrheumatic mitral (valve) insufficiency; I71.40 Abdominal aortic aneurysm, without rupture, unspecified; I65.29 Occlusion and stenosis of unspecified carotid artery; I10 Essential (primary) hypertension; I47.10 Supraventricular tachycardia, unspecified; F17.210 Nicotine dependence, cigarettes, uncomplicated; Z95.5 Presence of coronary angioplasty implant and graft; Z79.82 Long term (current) use of aspirin; Z79.899 Other long term (current) drug therapy
CPT/HCPCS: 93005; 85025; 80048; 36415; 85610; 85730; 71046; 93458; 76937; C1893; Q9966; J1644; J2003; J2250; J3010; J7040; 99152; 99153; J0461

== ENCOUNTER 2025-04-02 14:20 | Day surgery (SDC) | payer OTHER, MEDICARE ==
[2025-04-01 09:11] LABS: Absolute Lymphocytes (CBC) 1.5 K/uL (0.7-4.9); Hematocrit 44.3 % (39.6-49.0); Hemoglobin 14.9 g/dL (13.6-17.9); MCH 34.3 pg (27.0-35.0); MCHC 33.7 g/dL (32.0-36.0); MCV 101.8 fL (80-100); MPV 9.7 fL (7.6-11.3); Nucleated RBC Absolute Count 0.0 (0-0); Nucleated Red Blood Cells % 0.1 % (0-0); RBC Red Blood Cell Count 4.36 M/uL (4.33-5.43); White Blood Count 8.50 thou/uL (4.3-10.9)
[2025-04-01 09:22] LABS: PT Prothrombin Time 11.5 SECONDS (10-13.0); PTT, Activated Partial Thromb 28.7 SECONDS (27.2-37.4); Protime INR 1.02
[2025-04-01 09:26] LABS: Anion Gap 9.4 mEq/L (5.0-15.0); BUN Blood Urea Nitrogen 18.0 mg/dL (7-18); Glucose Level 113.0 mg/dL (74-106); Potassium 3.4 mEq/L (3.5-5.1)
--- NOTE | 2025-04-01 09:38 | RAD REPORT ---
Procedure: Chest Pa And Lat (2 Views) HISTORY: Preop for cardiac catheterization COMPARISON: 2023 FINDINGS: The lungs appear clear of acute infiltrate. Lungs are hyperaerated. No significant pleural effusion noted. The heart is normal size. IMPRESSION: No acute abnormality is displayed.
[2025-04-02] MEDS ORDERED: NA CHLORIDE 0.9% 500 ML ONE (14:31)
[2025-04-02] MEDS ORDERED: HEPA 1000U/500MLS 2,000 UNIT/1,000 ML BAG IV ONE (15:10)
[2025-04-02] MEDS ORDERED: VERAPAMIL HCL 10 MG/4 ML VIAL IV ONE (15:11)
[2025-04-02] MEDS ORDERED: HEPARIN 10,000 UNIT/10 ML VIAL IV ONE (15:11)
[2025-04-02] MEDS ORDERED: HEPARIN 5000 UNIT/ML 1 ML VIAL ONE (15:11)
[2025-04-02] MEDS ORDERED: LIDOCAINE 1% 20 ML MDV ONE (15:11)
[2025-04-02] MEDS ORDERED: FENTANYL CITR 100 MCG/2 ML ONE (15:13)
[2025-04-02] MEDS ORDERED: MIDAZOLAM HCL 2 MG/2 ML INJ ONE (15:14)
[2025-04-02 18:12] VITALS: BP 148/91; O2SAT 98
--- NOTE | 2025-04-03 00:28 | OP ---
Date of Procedure: 04/02/2025 Surgeon: Wayne Harris Procedures Performed: 1. Selective coronary angiogram. 2. Left heart catheterization. Indication: Chest pain with abnormal stress test. Access: Right radial artery 6-Faroese, closed with TR band. Complications: None. Bleeding: Less than 50 mL. Total Sedation Time: 45 minutes, used fentanyl and Versed. Description Of Procedure: After risks, benefits, and alternatives were explained, the patient agreed to procedure and signed informed consent. The [facility] was [facility], prepped and draped in usual sterile fashion. Then, I accessed right radial artery using pedi atric micropuncture kit, ultrasound guidance, and placed 6-Faroese Slender sheath and took 5-Faroese Ti pratibha 4 catheter over J-wire into the aortic root, across the aortic valve, measured LVEDP. Pullback d id not record any gradient, then engaged the RCA, took standard views and then the left main, took st andard views and removed the catheter and the sheath, placed TR band with good hemostasis. Findings: 1. Left main very large and normal. 2. LAD, widely patent proximal LAD stent. Rest of the LAD is normal. Normal diagonal branches. 3. Left circumflex; large vessel with mid 50 to 60% stenosis at the OM takeoff and then mid to distal , there is 2 tandem lesions, 30 to 40% stenosis. 4. RCA has a codominant circulation with proximal 50% stenosis. 5. LVEDP is normal at 5 mmHg. Conclusion: Widely patent LAD stent with moderate disease involving the left circumflex and the RCA with normal LVEDP. Recommendation: Medical management. /TONYAL Voice ID: [id number] Report ID: [id number]
== END 2025-04-02 18:11 | disposition home or self-care (01) ==
LOC: CCL 14:20
PROVIDERS: ATTEND Internal Medicine
DX: I25.10 Atherosclerotic heart disease of native coronary artery without angina pectoris (principal); I34.0 Nonrheumatic mitral (valve) insufficiency; F17.210 Nicotine dependence, cigarettes, uncomplicated; Z95.5 Presence of coronary angioplasty implant and graft; Z01.810 Encounter for preprocedural cardiovascular examination; Z79.82 Long term (current) use of aspirin; Z79.899 Other long term (current) drug therapy
CPT/HCPCS: 93005; 85025; 80048; 36415; 85610; 85730; 71046; 93458; 76937; C1893; Q9966; J1644 ×2; J2003; J2250; J3010; J7040; 99152; 99153